=== PATIENT | male | born 1950 | race Caucasian/White ===

== ENCOUNTER 2018-06-21 00:10 | Outpatient (CLI) | payer MEDICARE, OTHER, SELFPAY ==
--- NOTE | 2018-06-21 12:15 | DI.RAD_ITS ---
SYMPTOM/DIAGNOSIS: OSTEOARTHRITIS, PAIN, M17.9 RIGHT KNEE: Comparison is made with 04/25/13. There is mild mara-articular spurring. There is slight narrowing of the medial femoral tibial joint space. No joint effusion is seen. IMPRESSION: Mild degenerative changes.
== END 2018-06-21 00:30 ==
PROVIDERS: PCP Nurse Practitioner Family; Visit Provider Nurse Practitioner Family
DX: M25.561 Pain in right knee (principal); M17.11 Unilateral primary osteoarthritis, right knee
CPT/HCPCS: 73562

== ENCOUNTER → 2018-07-19 13:45 | Outpatient (BNVA) | payer MEDICARE, OTHER, SELFPAY | PROVIDERS: PCP Nurse Practitioner Family; Referring Provider Nurse Practitioner Family; Visit Provider Student in an Organized Health Care Education/Training Program | DX: M70.51 Other bursitis of knee, right knee (principal); E11.9 Type 2 diabetes mellitus without complications; Z79.4 Long term (current) use of insulin | CPT/HCPCS: 99203; 99214 ==

== ENCOUNTER → 2018-08-30 13:51 | Outpatient (BNVA) | payer MEDICARE, OTHER, SELFPAY | PROVIDERS: PCP Nurse Practitioner Family; Referring Provider Nurse Practitioner Family; Visit Provider Student in an Organized Health Care Education/Training Program | DX: M70.51 Other bursitis of knee, right knee (principal) | CPT/HCPCS: 99211; 99213 ==

== ENCOUNTER 2018-09-07 01:30 | Outpatient (CLI) | payer MEDICARE, OTHER, SELFPAY ==
--- NOTE | 2018-09-09 12:10 | DIABASSESS_ITS ---
DESCRIPTION/ASSESSMENT: Red Corral presents for diabetes self management focused on his diet to help with weight loss. He has had a recent increase in A1c to 8.2. He has started participating in Diabetes Exercise program and he has been to PT recently. He manages his diabetes with 50u Levemir twice daily which he does not believe is effective. He had maintained good glycemic control on 10u Lantus twice daily until insurance would not cover the Lantus. He is also managed with Metformin and newly prescribed Jardiance which he believes is helping his blood sugars. He also takes tumeric for diabetes management. He states he is off the Oxycodone. Red eats sausage and salvadorean muffin or an energy bar for breakfast; 2 luncheon meat sandwiches or a centerless grinder or PBJ sandwiches for lunch. He has vegetables for supper, red skinned potatoes, and main dish like stew. States he goes to bed at 7 but is awake at 9 and has stew or PBJ sandwich. States me monitors blood sugars in AM at [id number]=667 since Jardiance. States he does feel symptoms of hypoglycemia at 139mg/dl. He denies stress. INTERVENTION: He admits to overeating. Discussed triggers and habits re: food. Reviewed mindful eating; hunger/fullness. Discussed attempting smaller portions and waiting 20-30 minutes. Discussed ways to cut back on grains. Discussed physical activity and he feels he is doing well to come to the exercise program. Explained medication change related to hypoglycemia symptoms. ACTION PLAN: Stanislav will: Slow down how fast he eats a meal; eat open face sandwich at 9PM; cut back to 1 sandwich at lunch and wait 20 minutes before eating second sandwich. We will follow up by telephone or during diabetes exercise. Individual DSME/T __3__ units billed TIME IN: 1200 OUT:1250 No DM group education series being offered at this time.
== END 2018-09-07 01:50 ==
PROVIDERS: PCP Nurse Practitioner Family; Visit Provider Dietitian, Registered
DX: E11.9 Type 2 diabetes mellitus without complications (principal); Z79.4 Long term (current) use of insulin; Z71.3 Dietary counseling and surveillance
CPT/HCPCS: 97802

== ENCOUNTER 2018-09-07 04:48 | Outpatient (RCR) | payer SELFPAY | END 2018-09-19 23:59 | disposition home or self-care (01) | LOC: CR 04:48 | PROVIDERS: PCP Nurse Practitioner Family; Visit Provider Family Medicine | DX: Z51.89 Encounter for other specified aftercare (principal) ==

== ENCOUNTER 2018-09-09 12:34 | Outpatient (REF) | payer MEDICARE, OTHER, SELFPAY ==
[2018-09-09 22:11] LABS: Vitamin B12 82 pg/mL (193-986)
== END 2018-09-09 12:54 ==
LOC: NCHCN 12:34
PROVIDERS: PCP Nurse Practitioner Family; Visit Provider Nurse Practitioner Family
DX: D51.9 Vitamin B12 deficiency anemia, unspecified (principal)
CPT/HCPCS: 82607

== ENCOUNTER 2018-10-19 11:00 | Outpatient (RCR) | payer SELFPAY ==
--- NOTE | 2018-09-21 11:00 | PR3E_ITS ---
Red Corral is 67 year old male, referred to the Diabetes Exercise program by his primary provider, Xochitl CARROLL. PMH: Diabetes, Obesity, Depression, Former cigarette smoker, BPH, anemia, atrial fibrillation, CAD w/ CABG in 2012, Hypertension, Hyperlipidemia, obstructive sleep apnea Orthopedic history: Hand surgery, hernia w/ repair, hx of right ankle fracture, degenerative changes in his knee, low back pain, osteoarthritis, chronic pain Medications: Metformin, Atorvastatin, Trasodone, Sertraline, Nitroglycerin, Lopressor, Losartan, Aspirin, Insulin, Jardiance, Lasix Pt presented on 09/07/18 for a pre-program intake. At this time he was alert and oriented x4. Completed all intake assessments, read and signed consents for the diabetes exercise program. Color WNL, lungs clear to auscultation on posterior assessment, heart sounds distant. Height 68in., Weight 264 lbs, BMI 40.1 Learning to live well with Diabetes booklet provided. Discussion re: diabetes and exercise. First day of exercise: Patient started the program on 09/21/18. He showed up for program with his diabetes booklet completed and appropriately logged his sugars and daily exercise starting 09/20/18. Hist resting vitals were BP 129/73, HR 65, weight 260lbs, pre blood sugar 231.Pt tolerated 21 minutes of exercise divided into 5-6 minutes increments on the treadmill, NuStep, and UBE. Blood pressure range w/ exercise was 130-141/66-70, HR w/ exercise 58-65 bpm, VIVIANA RPE #'s were 13-15. Will continue to guide patient through the 8 week exercise program, assist as needed, and encourage daily logging and home exercise plan.
== END 2018-10-19 23:59 | disposition home or self-care (01) ==
LOC: CR 11:00
PROVIDERS: PCP Nurse Practitioner Family; Visit Provider Family Medicine
DX: Z51.89 Encounter for other specified aftercare (principal)

== ENCOUNTER 2018-11-04 14:04 | Outpatient (REF) | payer MEDICARE, OTHER, SELFPAY ==
[2018-11-04 20:52] LABS: ALT 22 U/L (12-78); AST 14 U/L (15-37); Alkaline Phosphatase 134 U/L (46-116); Anion Gap 8.4 mmol/L (3-11); BUN 22 mg/dL (7-18); CO2 29.6 mmol/L (21.0-32.0); CREATININE 1.06 mg/dL (0.70-1.30); Calcium 9.8 mg/dL (8.5-10.1); Chloride 103 mmol/L (98-107); Cholesterol 109 mg/dL (50-200); Glucose 149 mg/dL (70-100); HDL Cholesterol 24 mg/dL (40-60); LDL CHOLESTEROL 62 mg/dL (<100); Potassium 3.7 mmol/L (3.5-5.1); Sodium 141 mmol/L (136-145); Triglyceride 157 mg/dL (30-150)
[2018-11-04 21:08] LABS: Creatine Kinase 62 U/L (39-308)
[2018-11-08 09:28] LABS: PSA, Screening 2.1 ng/ml (0-4.5)
== END 2018-11-04 14:24 ==
LOC: NCHCN 14:04
PROVIDERS: PCP Nurse Practitioner Family; Visit Provider Nurse Practitioner Family
DX: E78.5 Hyperlipidemia, unspecified (principal); I10 Essential (primary) hypertension; N40.0 Benign prostatic hyperplasia without lower urinary tract symptoms; Z12.5 Encounter for screening for malignant neoplasm of prostate
CPT/HCPCS: 80048; 80061; 82550; 83721; 84153; 84075; 84450; 84460

== ENCOUNTER 2018-11-09 12:03 | Outpatient (CLI) | payer MEDICARE, OTHER, SELFPAY ==
[2018-11-09 13:57] LABS: GGT 39 U/L (15-85)
== END 2018-11-09 12:23 ==
PROVIDERS: PCP Nurse Practitioner Family; Visit Provider Nurse Practitioner Family
DX: R74.8 Abnormal levels of other serum enzymes (principal)
CPT/HCPCS: 36415; 82977

== ENCOUNTER 2018-11-18 13:37 | Outpatient (RCR) | payer SELFPAY | END 2018-11-19 23:59 | disposition home or self-care (01) | LOC: CR 13:37 | PROVIDERS: PCP Nurse Practitioner Family; Visit Provider Family Medicine | DX: Z51.89 Encounter for other specified aftercare (principal) ==

== ENCOUNTER 2018-12-16 11:27 | Outpatient (RCR) | payer SELFPAY | END 2018-12-19 23:59 | disposition home or self-care (01) | LOC: CR 11:27 | PROVIDERS: PCP Nurse Practitioner Family; Visit Provider Family Medicine | DX: Z51.89 Encounter for other specified aftercare (principal) ==

== ENCOUNTER 2018-12-20 14:16 | Outpatient (RCR) | payer SELFPAY | END 2019-01-19 23:59 | disposition home or self-care (01) | LOC: CR 14:16 | PROVIDERS: PCP Nurse Practitioner Family; Visit Provider Family Medicine | DX: Z51.89 Encounter for other specified aftercare (principal) ==

== ENCOUNTER 2019-02-11 08:53 | Outpatient (CLI) | payer MEDICARE, OTHER, SELFPAY ==
--- NOTE | 2019-02-11 13:00 | DI.RAD_ITS ---
SYMPTOM/DIAGNOSIS: LEG PAIN M79.606 RIGHT TIB/FIB: Comparison 10/28/17 No acute fracture or dislocation is seen. There is an old healed fracture of the distal right fibula. There is a vascular clip seen in the soft tissues medially. IMPRESSION: No acute abnormality.
== END 2019-02-11 09:13 ==
PROVIDERS: PCP Nurse Practitioner Family; Visit Provider Nurse Practitioner Family
DX: M79.604 Pain in right leg (principal)
CPT/HCPCS: 73590

== ENCOUNTER 2019-02-20 04:02 | Outpatient (RCR) | payer SELFPAY ==
--- NOTE | 2019-05-02 14:26 | PR3E_ITS ---
68 year old male joined the maintenance phase of cardiac rehabilitation in September 2018 after bring referred by PCP for diabetes. The patient attended classes from September - November 2018. Patient is being discharged from the program. Will assist patient to re-enroll in the program and obtaining proper referrals in the future should he want to return.
--- NOTE | 2019-05-02 14:30 | PR3E_ITS ---
68 year old male joined the maintenance phase of cardiac rehabilitation in September 2018 after being referred by PCP for diabetes. The patient attended classes from September - November 2018. Patient is being discharged from the program. Will assist patient to re-enroll in the program and obtaining proper referrals in the future should he want to return.
== END 2019-03-21 23:59 | disposition home or self-care (01) ==
LOC: CR 04:02
PROVIDERS: PCP Nurse Practitioner Family; Visit Provider Family Medicine
DX: Z51.89 Encounter for other specified aftercare (principal)

== ENCOUNTER 2019-05-09 14:38 | Outpatient (REF) | payer MEDICARE, OTHER, SELFPAY ==
[2019-05-09 21:27] LABS: Anion Gap 9.5 mmol/L (3-11); BUN 23 mg/dL (7-18); CO2 26.5 mmol/L (21.0-32.0); CREATININE 0.98 mg/dL (0.70-1.30); Calcium 10.1 mg/dL (8.5-10.1); Chloride 101 mmol/L (98-107); Glucose 237 mg/dL (70-100); Potassium 4.2 mmol/L (3.5-5.1); Sodium 137 mmol/L (136-145)
== END 2019-05-09 14:58 ==
LOC: NCHCN 14:38
PROVIDERS: PCP Nurse Practitioner Family; Visit Provider Nurse Practitioner Family
DX: E11.9 Type 2 diabetes mellitus without complications (principal)
CPT/HCPCS: 80048

== ENCOUNTER 2019-11-10 13:49 | Outpatient (REF) | payer MEDICARE, OTHER, SELFPAY ==
[2019-11-10 17:04] LABS: Anion Gap 6.1 mmol/L (3-11); BUN 16 mg/dL (7-18); CO2 29.9 mmol/L (21.0-32.0); CREATININE 0.98 mg/dL (0.70-1.30); Calcium 9.6 mg/dL (8.5-10.1); Chloride 99 mmol/L (98-107); Glucose 245 mg/dL (74-106); Magnesium 1.4 mg/dL (1.8-2.4); Potassium 3.7 mmol/L (3.5-5.1); Sodium 135 mmol/L (136-145)
[2019-11-10 17:05] LABS: Troponin I < 0.05 ng/Ml (<0.06)
[2019-11-12 14:49] LABS: COVID-19 RT-PCR Result NEGATIVE (Negative)
== END 2019-11-10 14:09 ==
LOC: NCHCN 13:49
PROVIDERS: PCP Nurse Practitioner Family; Visit Provider Nurse Practitioner Family
DX: R07.89 Other chest pain (principal); J06.9 Acute upper respiratory infection, unspecified
CPT/HCPCS: 80048; U0003; 83735; 84484

== ENCOUNTER 2019-12-07 14:05 | Outpatient (REF) | payer MEDICARE, OTHER, SELFPAY ==
[2019-12-07 20:02] LABS: ALT 23 U/L (16-63); AST 17 U/L (15-37); HDL Cholesterol 26 mg/dL (40-60); LDL CHOLESTEROL 51 mg/dL (<100); Magnesium 1.6 mg/dL (1.8-2.4)
[2019-12-07 20:27] LABS: Creatine Kinase 47 U/L (39-308)
== END 2019-12-07 14:25 ==
LOC: NCHCN 14:05
PROVIDERS: PCP Nurse Practitioner Family; Visit Provider Nurse Practitioner Family
DX: E78.5 Hyperlipidemia, unspecified (principal)
CPT/HCPCS: 82550; 83721; 83718; 83735; 84450; 84460

== ENCOUNTER 2020-01-03 13:53 | Outpatient (REF) | payer MEDICARE, OTHER, SELFPAY ==
[2020-01-03 20:14] LABS: Magnesium 1.8 mg/dL (1.8-2.4)
[2020-01-03 20:16] LABS: Vitamin B12 76 pg/mL (193-986)
[2020-01-05 04:57] LABS: Vitamin D 25 Total 28.7 ng/ml (30-100)
== END 2020-01-03 14:13 ==
LOC: NCHCN 13:53
PROVIDERS: PCP Nurse Practitioner Family; Visit Provider Nurse Practitioner Family
DX: D51.9 Vitamin B12 deficiency anemia, unspecified (principal); E83.42 Hypomagnesemia; E11.9 Type 2 diabetes mellitus without complications; Z79.4 Long term (current) use of insulin
CPT/HCPCS: 82306; 82607; 83735

== ENCOUNTER 2020-01-06 03:57 | Outpatient (CLI) | payer MEDICARE, OTHER, SELFPAY ==
--- NOTE | 2020-01-31 09:50 | ZIOP_ITS ---
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 Patient was in normal sinus rhythm for the majority of the recording with an average heart rate of 74 bpm. There were 2 episodes of supraventricular tachycardia with an average heart rate of 140 bpm. The longest episode lasted 4 beats. There were rare isolated supraventricular ectopic beats and ventricular ectopic beats. There were no episodes of atrial fibrillation, no pauses greater than 3 seconds and no evidence of high degree heart block. A single patient triggered event was associated with sinus rhythm.
== END 2020-01-06 04:17 ==
PROVIDERS: PCP Nurse Practitioner Family; Visit Provider Nurse Practitioner Family
DX: I48.91 Unspecified atrial fibrillation (principal); I47.1 Supraventricular tachycardia
CPT/HCPCS: 0296T

== ENCOUNTER 2020-01-31 12:00 | Outpatient (CLI) | payer MEDICARE, OTHER, SELFPAY | END 2020-01-31 12:20 | PROVIDERS: PCP Nurse Practitioner Family; Referring Provider Nurse Practitioner Family; Visit Provider Internal Medicine Cardiovascular Disease | DX: I48.20 Chronic atrial fibrillation, unspecified (principal); I47.1 Supraventricular tachycardia | CPT/HCPCS: 0298T ==

== ENCOUNTER 2020-02-21 20:50 | Outpatient (REF) | payer MEDICARE, OTHER, SELFPAY ==
[2020-02-21 19:31] LABS: HCT 33.4 % (40.0-50.0); HGB 11.5 g/dL (13.5-17.5); MCH 34.2 pg (27.0-33.0); MCHC 34.4 % (32.0-36.0); MCV 99.4 fL (80-95); MPV 10.1 fL (8.0-11.0); Platelet Count 243 10^3/uL (130-400); RBC 3.36 10^6/uL (4.36-5.78); RDW 15.2 % (11.8-14.1); RDW-SD 55.8 fL; WBC 9.37 10^3/uL (4.4-10.8)
[2020-02-21 19:54] LABS: ALT 28 U/L (16-63); AST 16 U/L (15-37); Albumin 3.3 g/dL (3.4-5.0); Alkaline Phosphatase 116 U/L (46-116); Anion Gap 8.7 mmol/L (3-11); BUN 13 mg/dL (7-18); Bilirubin, Total 0.5 mg/dL (0.2-1.0); CO2 27.3 mmol/L (21.0-32.0); CREATININE 1.01 mg/dL (0.70-1.30); Calcium 9.5 mg/dL (8.5-10.1); Chloride 100 mmol/L (98-107); Glucose 261 mg/dL (74-106); Magnesium 1.8 mg/dL (1.8-2.4); Potassium 4.1 mmol/L (3.5-5.1); Sodium 136 mmol/L (136-145); TSH 2.04 uIU/mL (0.36-3.74); Total Protein 7.8 g/dL (6.4-8.2)
[2020-02-22 09:43] LABS: Iron 34 ug/dL (65-175); Total Iron Binding Capacity 259 ug/dL (250-450); Transferrin Sat 13 % (20-55)
[2020-02-22 10:10] LABS: Vitamin B12 105 pg/mL (193-986)
[2020-02-22 18:29] LABS: Folate 15.6 ng/mL (See Note)
[2020-02-24 11:21] LABS: Homocysteine >50.0 umol/L (5.0-13.9)
[2020-02-25 12:40] LABS: Methylmalonic Acid 5.29 nmol/mL (<=0.40)
== END 2020-02-21 21:10 ==
LOC: NCHCN 20:50
PROVIDERS: PCP Nurse Practitioner Family; Visit Provider Nurse Practitioner Family
DX: I10 Essential (primary) hypertension (principal); E83.42 Hypomagnesemia; E11.9 Type 2 diabetes mellitus without complications; D64.9 Anemia, unspecified; R89.9 Unspecified abnormal finding in specimens from other organs, systems and tissues
CPT/HCPCS: 80053; 80186; 83090; 85027; 82607; 82746; 83540; 83550; 83735; 84443

== ENCOUNTER → 2020-04-17 10:32 | Outpatient (BNVA) | payer MEDICARE, OTHER, SELFPAY | PROVIDERS: PCP Nurse Practitioner Family; Referring Provider Nurse Practitioner Family; Visit Provider Internal Medicine Cardiovascular Disease | DX: I48.91 Unspecified atrial fibrillation (principal); I25.10 Atherosclerotic heart disease of native coronary artery without angina pectoris; I10 Essential (primary) hypertension; E78.5 Hyperlipidemia, unspecified; G47.33 Obstructive sleep apnea (adult) (pediatric); Z95.1 Presence of aortocoronary bypass graft; Z86.79 Personal history of other diseases of the circulatory system | CPT/HCPCS: 99203; 99214 ==

== ENCOUNTER 2020-04-17 15:07 | Outpatient (REF) | payer MEDICARE, OTHER, SELFPAY ==
[2020-04-17 18:54] LABS: Abs Immature Grans 0.03 10^3/uL (0.0-0.06); Absolute Basophil Count 0.05 10^3/uL (0.0-0.2); Absolute Eosinophil Count 0.13 10^3/uL (0.0-0.7); Absolute Lymphocyte Count 1.45 10^3/uL (1.2-3.4); Absolute Monocyte Count 0.58 10^3/uL (0.1-0.8); Absolute Neutrophil Count 8.53 10^3/uL (1.2-6.7); Basophils % 0.5; Eosinophils % 1.2; HCT 40.3 % (40.0-50.0); HGB 13.3 g/dL (13.5-17.5); Immature Grans % 0.3; Lymphocytes % 13.5; MCH 29.9 pg (27.0-33.0); MCV 90.6 fL (80-95); MPV 11.2 fL (8.0-11.0); Monocytes % 5.4; Neutrophils % 79.1; Nucleated RBC 0 %; Platelet Count 276 10^3/uL (130-400); RBC 4.45 10^6/uL (4.36-5.78); RDW 13.4 % (11.8-14.1); RDW-SD 44.7 fL; WBC 10.77 10^3/uL (4.4-10.8)
[2020-04-17 19:31] LABS: Vitamin B12 304 pg/mL (193-986)
== END 2020-04-17 15:27 ==
LOC: NCHCN 15:07
PROVIDERS: PCP Nurse Practitioner Family; Visit Provider Nurse Practitioner Family
DX: R53.83 Other fatigue (principal); D64.9 Anemia, unspecified
CPT/HCPCS: 82607; 85025

== ENCOUNTER 2020-07-24 22:51 | Outpatient (REF) | payer MEDICARE, OTHER, SELFPAY ==
[2020-07-24 22:05] LABS: HGB 14.1 g/dL (13.5-17.5); MCV 87.1 fL (80-95)
[2020-07-24 22:17] LABS: Iron 46 ug/dL (65-175)
[2020-07-24 22:23] LABS: HCT 44.6 % (40.0-50.0); MCH 27.5 pg (27.0-33.0); MCHC 31.6 % (32.0-36.0); MPV 10.6 fL (8.0-11.0); Platelet Count 300 10^3/uL (130-400); RBC 5.12 10^6/uL (4.36-5.78); RDW 14.4 % (11.8-14.1); RDW-SD 45.9 fL; WBC 10.69 10^3/uL (4.4-10.8)
[2020-07-24 23:17] LABS: Vitamin B12 150 pg/mL (193-986)
[2020-07-26 04:25] LABS: Vitamin D 25 Total 29.5 ng/ml (30-100)
== END 2020-07-24 22:52 | disposition home or self-care (01) ==
LOC: NCHCN 22:51
PROVIDERS: PCP Nurse Practitioner Family; Visit Provider Nurse Practitioner Family
DX: D64.9 Anemia, unspecified (principal); E11.9 Type 2 diabetes mellitus without complications; F32.9 Major depressive disorder, single episode, unspecified; E55.9 Vitamin D deficiency, unspecified
CPT/HCPCS: 82306; 85027; 82607; 83540

== ENCOUNTER 2020-08-22 14:52 | Outpatient (REF) | payer MEDICARE, OTHER, SELFPAY ==
[2020-08-22 15:55] LABS: Iron 42 ug/dL (65-175); Total Iron Binding Capacity 295 ug/dL (250-450); Transferrin Sat 14 % (20-55)
[2020-08-22 16:02] LABS: PROTEIN < 6.0 mg/dL
[2020-08-22 16:05] LABS: COMMENT (LAB VIEW ONLY) 24.67 mg/dL; Microalb ug/mg Crea 51.9 ug/mg Cr
[2020-08-22 16:08] LABS: ALT 30 U/L (16-63); AST 18 U/L (15-37); Anion Gap 7.1 mmol/L (3-11); BUN 14 mg/dL (7-18); CO2 27.9 mmol/L (21.0-32.0); CREATININE 0.9 mg/dL (0.70-1.30); Calcium 9.9 mg/dL (8.5-10.1); Chloride 103 mmol/L (98-107); Glucose 140 mg/dL (74-106); HDL Cholesterol 26 mg/dL (40-60); LDL CHOLESTEROL 52 mg/dL (<100); Potassium 3.7 mmol/L (3.5-5.1); Sodium 138 mmol/L (136-145); TSH 1.73 uIU/mL (0.36-3.74)
[2020-08-22 16:24] LABS: Creatine Kinase 65 U/L (39-308)
== END 2020-08-22 14:53 | disposition home or self-care (01) ==
LOC: NCHCN 14:52
PROVIDERS: PCP Nurse Practitioner Family; Visit Provider Nurse Practitioner Family
DX: E78.5 Hyperlipidemia, unspecified (principal); I10 Essential (primary) hypertension; E11.9 Type 2 diabetes mellitus without complications
CPT/HCPCS: 80048; 82550; 83721; 82043; 82565; 82570; 83540; 83550; 83718; 84156; 84443; 84450; 84460

== ENCOUNTER 2020-11-20 14:26 | Outpatient (REF) | payer MEDICARE, OTHER, SELFPAY ==
[2020-11-20 19:48] LABS: Vitamin B12 282 pg/mL (193-986)
== END 2020-11-20 14:27 | disposition home or self-care (01) ==
LOC: NCHCN 14:26
PROVIDERS: PCP Nurse Practitioner Family; Visit Provider Nurse Practitioner Family
DX: D51.9 Vitamin B12 deficiency anemia, unspecified (principal)
CPT/HCPCS: 82607

== ENCOUNTER 2021-05-20 13:55 | Outpatient (REF) | payer MEDICARE, OTHER, SELFPAY ==
[2021-05-20 20:28] LABS: HCT 43.9 % (40.0-50.0); HGB 13.9 g/dL (13.5-17.5); MCH 27.1 pg (27.0-33.0); MCHC 31.7 % (32.0-36.0); MCV 85.7 fL (80-95); MPV 10.2 fL (8.0-11.0); Platelet Count 291 10^3/uL (130-400); RBC 5.12 10^6/uL (4.36-5.78); RDW 13.7 % (11.8-14.1); RDW-SD 42.8 fL; WBC 10.09 10^3/uL (4.4-10.8)
[2021-05-20 20:34] LABS: Iron 44 ug/dL (65-175); Total Iron Binding Capacity 262 ug/dL (250-450); Transferrin Sat 17 % (20-55)
[2021-05-20 20:43] LABS: Hemoglobin A1C 7.5 % (<5.7)
[2021-05-20 21:02] LABS: Vitamin B12 213 pg/mL (193-986)
== END 2021-05-20 13:56 | disposition home or self-care (01) ==
LOC: NCHCN 13:55
PROVIDERS: PCP Nurse Practitioner Family; Visit Provider Nurse Practitioner Family
DX: E11.9 Type 2 diabetes mellitus without complications (principal); E53.8 Deficiency of other specified B group vitamins; R53.83 Other fatigue; D64.9 Anemia, unspecified
CPT/HCPCS: 82306; 85027; 82607; 83036; 83540; 83550

== ENCOUNTER 2021-08-28 13:52 | Outpatient (REF) | payer MEDICARE, OTHER, SELFPAY ==
[2021-08-28 20:42] LABS: HCT 43.8 % (40.0-50.0); HGB 13.9 g/dL (13.5-17.5)
[2021-08-28 20:57] LABS: Iron 71 ug/dL (65-175); Total Iron Binding Capacity 279 ug/dL (250-450); Transferrin Sat 25 % (20-55)
[2021-08-28 21:22] LABS: Ferritin 165 ng/mL (26-388); Folate 13.5 ng/mL (8.6-20.0); Vitamin B12 191 pg/mL (193-986)
== END 2021-08-28 13:53 | disposition home or self-care (01) ==
LOC: NCHCN 13:52
PROVIDERS: PCP Nurse Practitioner Family; Visit Provider Nurse Practitioner Family
DX: D64.9 Anemia, unspecified (principal); E53.8 Deficiency of other specified B group vitamins
CPT/HCPCS: 82607; 82728; 82746; 83540; 83550; 85014; 85018

== ENCOUNTER 2021-10-15 20:10 | Outpatient (REF) | payer MEDICARE, OTHER, SELFPAY ==
[2021-10-15 20:11] LABS: Anion Gap 9.8 mmol/L (3-11); BUN 22 mg/dL (7-18); CO2 24.2 mmol/L (21.0-32.0); CREATININE 0.9 mg/dL (0.70-1.30); Calcium 9.4 mg/dL (8.5-10.1); Calculated LDL 26 mg/dL (<100); Chloride 106 mmol/L (98-107); Cholesterol 86 mg/dL (<200); Glucose 161 mg/dL (74-106); HDL Cholesterol 24 mg/dL (40-60); Potassium 3.8 mmol/L (3.5-5.1); Sodium 140 mmol/L (136-145); Triglyceride 181 mg/dL (<150)
[2021-10-16 10:55] LABS: ALT 30 U/L (16-63); AST 24 U/L (15-37)
[2021-10-16 11:06] LABS: Creatine Kinase 80 U/L (39-308)
== END 2021-10-15 20:11 | disposition home or self-care (01) ==
LOC: NCHCN 20:10
PROVIDERS: PCP Nurse Practitioner Family; Visit Provider Nurse Practitioner Family
DX: E78.5 Hyperlipidemia, unspecified (principal); E11.9 Type 2 diabetes mellitus without complications; R42 Dizziness and giddiness
CPT/HCPCS: 80048; 80061; 82550; 84450; 84460

== ENCOUNTER 2021-11-14 12:55 | Outpatient (REF) | payer MEDICARE, OTHER, SELFPAY ==
[2021-11-14 15:18] LABS: HCT 40.5 % (40.0-50.0); HGB 12.7 g/dL (13.5-17.5); MCH 27.3 pg (27.0-33.0); MCHC 31.4 % (32.0-36.0); MCV 87 fL (80-95); MPV 10.9 fL (8.0-11.0); Platelet Count 238 10^3/uL (130-400); RBC 4.66 10^6/uL (4.36-5.78); RDW 14.6 % (11.8-14.1); RDW-SD 46.2 fL; WBC 9.31 10^3/uL (4.4-10.8)
[2021-11-14 16:00] LABS: ALT 26 U/L (16-63); AST 19 U/L (15-37); Albumin 3.4 g/dL (3.4-5.0); Alkaline Phosphatase 127 U/L (46-116); BUN 15 mg/dL (7-18); Bilirubin, Total 0.3 mg/dL (0.2-1.0); Calcium 9.4 mg/dL (8.5-10.1); Chloride 105 mmol/L (98-107); Glucose 158 mg/dL (74-106); Magnesium 2.1 mg/dL (1.8-2.4); Potassium 3.8 mmol/L (3.5-5.1); Sodium 140 mmol/L (136-145); Total Protein 7.6 g/dL (6.4-8.2); Vitamin B12 246 pg/mL (193-986)
[2021-11-14 16:13] LABS: Hemoglobin A1C 6.9 % (<5.7)
== END 2021-11-14 12:56 | disposition home or self-care (01) ==
LOC: NCHCN 12:55
PROVIDERS: PCP Nurse Practitioner Family; Visit Provider Nurse Practitioner Family
DX: R42 Dizziness and giddiness (principal); I10 Essential (primary) hypertension; R73.09 Other abnormal glucose; R68.89 Other general symptoms and signs
CPT/HCPCS: 80053; 85027; 82607; 83036; 83735

== ENCOUNTER 2022-02-06 08:54 | Outpatient (CLI) | payer MEDICARE, OTHER, SELFPAY | END 2022-02-06 08:55 | disposition home or self-care (01) | LOC: DI.CARD 09:01 | PROVIDERS: PCP Nurse Practitioner Family; Visit Provider Internal Medicine Cardiovascular Disease | DX: R69 Illness, unspecified (principal) | CPT/HCPCS: 93010 ==

== ENCOUNTER 2022-02-20 08:30 | Outpatient (CLI) | payer MEDICARE, OTHER, SELFPAY ==
--- NOTE | 2022-02-20 08:30 | RT.EKG_ITS ---
APPROVED REPORT Exam: Resting ECG Reason for Exam: near syncope Patient Location: O HR:76 bpm ECG Measurements Heart Rate 76 AXIS CA 191 P 25 QRSd 89 QRS 39 QT 431 T 38 QTc 485 Conclusion Sinus rhythm...normal P axis, V-rate 50- 99 Low voltage, extremity and precordial leads...extremity<0.5mV, precordial<1.0mV Poor R wave progression
== END 2022-02-20 08:31 | disposition home or self-care (01) ==
LOC: DI.CARD 08:34
PROVIDERS: PCP Nurse Practitioner Family; Visit Provider Internal Medicine Cardiovascular Disease
DX: I48.91 Unspecified atrial fibrillation (principal); R55 Syncope and collapse
CPT/HCPCS: 93010

== ENCOUNTER → 2022-02-20 09:34 | Outpatient (BNVA) | payer MEDICARE, OTHER, SELFPAY | PROVIDERS: PCP Nurse Practitioner Family; Referring Provider Nurse Practitioner Family; Visit Provider Internal Medicine Cardiovascular Disease | DX: I25.810 Atherosclerosis of coronary artery bypass graft(s) without angina pectoris (principal); I10 Essential (primary) hypertension; R55 Syncope and collapse; I48.91 Unspecified atrial fibrillation | CPT/HCPCS: 93005; 99214 ==

== ENCOUNTER 2022-04-15 16:31 | Outpatient (REF) | payer MEDICARE, OTHER, SELFPAY ==
[2022-04-15 22:05] LABS: Vitamin B12 435 pg/mL (193-986)
== END 2022-04-15 16:32 | disposition home or self-care (01) ==
LOC: NCHCN 16:31
PROVIDERS: PCP Nurse Practitioner Family; Visit Provider Nurse Practitioner Family
DX: E53.8 Deficiency of other specified B group vitamins (principal)
CPT/HCPCS: 82607

== ENCOUNTER 2022-08-20 20:01 | Outpatient (REF) | payer MEDICARE, OTHER, SELFPAY ==
[2022-08-20 20:30] LABS: Hemoglobin A1C 6.5 % (<5.7)
[2022-08-20 21:22] LABS: ALT 25 U/L (16-63); AST 20 U/L (15-37); Albumin 3.7 g/dL (3.4-5.0); Alkaline Phosphatase 136 U/L (46-116); Anion Gap 12.2 mmol/L (3-11); BUN 28 mg/dL (7-18); Bilirubin, Total 0.4 mg/dL (0.2-1.0); CO2 23.8 mmol/L (21.0-32.0); Calcium 10.6 mg/dL (8.5-10.1); Chloride 101 mmol/L (98-107); Estimated GFR 81.47 (mL/min/1.73m2); Glucose 162 mg/dL (74-106); HDL Cholesterol 26 mg/dL (40-60); LDL CHOLESTEROL 58 mg/dL (<100); Sodium 137 mmol/L (136-145); Total Protein 8.5 g/dL (6.4-8.2)
[2022-08-20 21:34] LABS: Creatine Kinase 90 U/L (39-308)
== END 2022-08-20 20:02 | disposition home or self-care (01) ==
LOC: NCHCN 20:01
PROVIDERS: PCP Nurse Practitioner Family; Visit Provider Nurse Practitioner Family
DX: E11.9 Type 2 diabetes mellitus without complications (principal); E78.5 Hyperlipidemia, unspecified
CPT/HCPCS: 80053; 82550; 83721; 83036; 83718

== ENCOUNTER 2022-09-15 11:01 | Outpatient (REF) | payer MEDICARE, SELFPAY ==
[2022-09-15 16:16] LABS: Calcium 10.2 mg/dL (8.5-10.1)
== END 2022-09-15 11:02 | disposition home or self-care (01) ==
LOC: NCHCN 11:01
PROVIDERS: PCP Nurse Practitioner Family; Visit Provider Nurse Practitioner Family
DX: E83.52 Hypercalcemia
CPT/HCPCS: 82310

== ENCOUNTER 2022-10-25 06:44 | Emergency (ER) | payer MEDICARE, SELFPAY ==
[2022-10-25] VITALS (23 sets, daily range): BP systolic 153–179; BP diastolic 70–100; PULSE 80–98; RESP 8–31; TEMP 36.8; O2SAT 90–98
--- NOTE | 2022-10-25 06:45 | DI.CT_ITS ---
Exam(s) CT ABDOMEN PELVIS WO EXAM: CT ABDOMEN PELVIS WO CLINICAL HISTORY: bloating, r/o obstruction. TECHNIQUE: Imaging Protocol: Axial computed tomography images with coronal and sagittal reformatted images were created and reviewed CONTRAST MATERIAL: Intravenous: none Oral: None COMPARISON: No exams were available for comparison FINDINGS: VISUALIZED LUNG BASES: There is a partially visualized 7 millimeter nodule in the left lung base-left lower lobe, this evident on the uppermost image of this abdominal study. There are no pleural effus ions.. ABDOMEN: There is no ascites. LIVER: There are no obvious focal hepatic lesions evident of this noninfused study. GALLBLADDER/BILIARY: Cholelithiasis. Small gallstones noted in the gallbladder neck region. Gallbla dder is mildly distended but not does not appear edematous and there is no pericholecystic fluid. Th e CBD is not dilated. PANCREAS: No evidence of pancreatic mass nor dilatation of the pancreatic duct. SPLEEN: Spleen is not enlarged. No obvious intrasplenic lesions. ADRENALS: There are no significant adrenal masses. KIDNEYS:No cysts evident. No solid renal masses. No calculi nor hydronephrosis. . ABDOMINAL AORTA: Calcified but not enlarged. LYMPH NODES: There is no retroperitoneal nor paraaortic adenopathy. ABDOMINAL WALL: No evidence of significant anterior abdominal wall nor inguinal hernia. GI: There is no evidence of bowel obstruction, free air, nor abscess. PELVIS: LYMPH NODES: There is no intrapelvic nor inguinal adenopathy. GI: No evidence of appendicitis.No evidence of sigmoid diverticulitis. URINARY BLADDER: No calculi nor obvious masses evident REPRODUCTIVE: Prostate size normal. Seminal vesicles unremarkable. OSSEOUS: No significant osseous lesions. No fractures evident. IMPRESSION: 1. Cholelithiasis and gallbladder distension but without obvious gallbladder wall edema. CBD not dil ated. Recommend gallbladder ultrasound. 2. 7 mm nodule evident in the left lower lobe. Recommend follow-up chest CT scan to determine if th ere are additional lung nodules.. RADIATION DOSE DELIVERED: 1,748.39mGy.cm Total DLP DATA REPOSITORY: All CT scans at this facility are submitted to the National Radiology Data Registry (NRDR) Dose Index Registry (DIR) with the [employer] (ACR). RADIATION OPTIMIZATION: All CT scans at this facility use at least one of these dose optimization te chniques: automated exposure control; mA and/or kV adjustment per patient size (includes targeted exa ms where dose is matched to clinical indication); or iterative reconstruction.
--- NOTE | 2022-10-25 07:00 | RT.EKG_ITS ---
APPROVED REPORT Exam: Resting ECG Reason for Exam: Abd Pain over 45 Patient Location: E HR:96 bpm ECG Measurements Heart Rate 96 AXIS MS 208 P 35 QRSd 87 QRS 41 QT 374 T 22 QTc 473 Conclusion Sinus rhythm...normal P axis, V-rate 60- 99 Borderline prolonged MS interval...MS >207, V-rate 91-120 Low voltage, extremity and precordial leads...extremity<0.5mV, precordial<1.0mV Physician: no stemi
[2022-10-25] MEDS: Normal Saline 500 ML IV (07:23)
[2022-10-25] MEDS: ACETAMINOPHEN 1,000 MG/100 ML BTL 400 MG IVPB (07:24)
[2022-10-25] MEDS: Ketorolac 15 MG/ML VIAL IVP (07:24)
--- NOTE | 2022-10-25 07:35 | W.ED.GENAD ---
Discharge Plan Discharge Details Chief Complaint: Abd Prob Primary Care Provider: Xochitl Tello ED Provider: Hal Rose Home Meds and New Rx's Prescriptions: No Action turmeric root extract 500 mg capsule 500 mg PO DAILY marijuana Inhalation atorvastatin [Lipitor] 10 mg tablet 20 mg PO DAILY Patient Comments: Pt. states he takes 20 mg daily 06/04/15 sertraline 100 mg tablet 100 mg PO DAILY levomefolate calcium [L-Methylfolate] 15 mg tablet 15 mg PO DAILY fluticasone propionate 50 mcg/actuation spray,suspension 2 spray intranasal DAILY Rx Instructions: administer into each nostril triamcinolone acetonide 0.025 % lotion 1 applic topical BID polyethylene glycol 3350 17 gram/dose powder 17 g PO DAILY cholecalciferol (vitamin D3) 25 mcg (1,000 unit) capsule 25 mcg PO DAILY magnesium oxide 400 mg magnesium capsule 400 mg PO BID ferrous sulfate [FeroSul] 325 mg (65 mg iron) tablet 325 mg PO DAILY Trulicity 1.5 mg/0.5 mL pen injector 1.5 mg subcut QWEEK Jardiance 10 mg tablet 25 mg PO DAILY insulin aspart U-100 [Novolog FlexPen U-100 Insulin] 100 unit/mL (3 mL) insulin pen 10 unit subcut .as directed Patient Comments: 02/20/22 sliding scale RH losartan 50 MG tablet 50 mg PO DAILY trazodone 50 MG tablet 50 mg DAILY aspirin [Adult Low Dose Aspirin] 81 MG tablet,delayed release (DR/EC) 81 mg PO DAILY furosemide 20 MG tablet 20 mg PO BID nitroglycerin 0.4 MG tablet, sublingual 0.4 mg Sublingual DIRECTED PRN (Reason: Chest Pain) Qty: 25 0RF glimepiride 4 mg tablet 4 mg PO BID Patient Comments: TAKE ONE TABLET BY MOUTH TWICE A DAY insulin degludec [Tresiba FlexTouch U-200] 200 unit/mL (3 mL) insulin pen 180 unit SUBCUT Patient Comments: INJECT 180 UNITS SUBCUTANEOUSLY EVERY MORNING Medical Decision Making 72-year-old male with a past medical history of surgically repaired abdominal hernia, adenoma of the colon, atrial fibrillation, coronary artery disease, diabetes mellitus with insulin dependence, presents today for evaluation of abdominal distention and abdominal pain. Patient states that he has had bloating of the abdomen for the last 2 days. He states that he cannot have a bowel movement. He has had some hard bowel movements a day or so ago, but nothing since. He has taken a laxative without any improvement. He describes his abdomen is feeling like it is a tooth ache with extreme pressure. He denies chest pain. He denies shortness of breath. He denies vomiting but does admit to notable nausea. He denies any history of previous obstruction. No other complaints at this time. No other modifying factors. Exam demonstrates a distended abdomen, mild firmness on the right, mild tenderness in the epigastric and upper abdomen. No pain at McBurney's point focally, negative Loving sign. Differential includes constipation but also obstruction or intra-abdominal mass. Volvulus less likely. We will get a CT scan, treat his pain, gently rehydrate, monitor closely and reassess. Patient will be signed out to my colleague Dr. Rupali Funk for follow-up on labs and imaging. HPI General Date/Time Provider Initiated Documentation: 10/25/22 06:46. HPI Narrative: 72-year-old male with a past medical history of surgically repaired abdominal hernia, adenoma of the colon, atrial fibrillation, coronary artery disease, diabetes mellitus with insulin dependence, presents today for evaluation of abdominal distention and abdominal pain. Patient states that he has had bloating of the abdomen for the last 2 days. He states that he cannot have a bowel movement. He has had some hard bowel movements a day or so ago, but nothing since. He has taken a laxative without any improvement. He describes his abdomen is feeling like it is a tooth ache with extreme pressure. He denies chest pain. He denies shortness of breath. He denies vomiting but does admit to notable nausea. He denies any history of previous obstruction. No other complaints at this time. No other modifying factors. Related Data Home Medications Medication Instructions Recorded Confirmed aspirin 81 mg tablet,delayed 81 mg PO DAILY 12/14/13 10/25/22 release (Adult Low Dose Aspirin) furosemide 20 mg tablet 20 mg PO BID 12/14/13 10/25/22 losartan 50 mg tablet 50 mg PO DAILY 12/14/13 10/25/22 trazodone 50 mg tablet 50 mg DAILY 12/14/13 10/25/22 nitroglycerin 0.4 mg sublingual 0.4 mg sublingual DIRECTED PRN 12/15/13 10/25/22 tablet Chest Pain ##25 Marijuana inhalation 06/04/15 02/20/22 turmeric root extract 500 mg 500 mg PO DAILY 07/19/18 10/25/22 capsule atorvastatin 10 mg tablet (Lipitor) 20 mg PO DAILY 10/21/21 02/20/22 cholecalciferol (vitamin D3) 25 25 mcg PO DAILY 10/21/21 10/25/22 mcg (1,000 unit) capsule dulaglutide 1.5 mg/0.5 mL 1.5 mg subcut QWEEK 10/21/21 10/25/22 subcutaneous pen injector (Trulicity) ferrous sulfate 325 mg (65 mg 325 mg PO DAILY 10/21/21 10/25/22 iron) tablet (FeroSul) fluticasone propionate 50 2 spray intranasal DAILY 10/21/21 10/25/22 mcg/actuation nasal spray,suspension levomefolate calcium 15 mg tablet 15 mg PO DAILY 10/21/21 10/25/22 (L-Methylfolate) magnesium oxide 400 mg PO BID 10/21/21 10/25/22 polyethylene glycol 3350 17 17 g PO DAILY 10/21/21 10/25/22 gram/dose oral powder sertraline 100 mg tablet 100 mg PO DAILY 10/21/21 10/25/22 triamcinolone acetonide 0.025 % 1 applic topical BID 10/21/21 10/25/22 lotion empagliflozin 10 mg tablet 25 mg PO DAILY 01/14/22 10/25/22 (Jardiance) insulin aspart U-100 100 unit/mL 10 unit subcut .as directed 02/20/22 10/25/22 (3 mL) subcutaneous pen (Novolog FlexPen U-100 Insulin aspart) glimepiride 4 mg tablet 4 mg PO BID 10/25/22 10/25/22 insulin degludec 200 unit/mL (3 180 unit subcut 10/25/22 mL) subcutaneous pen (Tresiba FlexTouch U-200 insulin) Previous Rx's Medication Instructions Recorded nitroglycerin 0.4 mg sublingual 0.4 mg sublingual DIRECTED PRN 12/15/13 tablet Chest Pain ##25 Allergies Allergy/AdvReac Type Severity Reaction Status Date / Time bupropion HCl Allergy Unverified 10/25/22 06:55 [From Wellbutrin] erythromycin base Allergy Unverified 10/25/22 06:55 lisinopril Allergy Verified 10/25/22 06:55 Penicillins Allergy Unverified 10/25/22 06:55 pravastatin sodium Allergy Unverified 10/25/22 06:55 [From Pravachol] General Stated Complaint: Abd Prob LUX: 3 Review of Systems All systems reviewed & are unremarkable except as noted in HPI and below PFSH All Active Problems Morbid obesity (Acute) Tinnitus (Acute) Adenomatous colon polyp (Acute) Hemorrhage, anal or rectal (Acute) Degenerative joint disease (Chronic) Pes anserinus bursitis (Acute) Low back pain (Acute) Elevated alkaline phosphatase level (Acute) Lipodystrophy (Acute) Seasonal allergies (Acute) Hypomagnesemia (Acute) Fatigue (Acute) Cataract (Chronic) Vitreous degeneration (Acute) Atrial fibrillation (Chronic) CAD (coronary artery disease) (Chronic) Hip pain (Acute) Hip joint pain (Acute) Vitamin B 12 deficiency (Acute) Ecchymosis (Acute) Chest pain (Acute) a. Rule out ID. Atrial fibrillation, rapid (Acute) a. Converted to a sinus rhythm after IV diltiazem. Coronary disease (Chronic) a. Presented with worsening dysnea on exertion in December 2011. b. MPI testing showed a large reversible lesion in the anterior chest. c. Cardiac catheterization revealed significant four-vessel disease. d. S/P four-vessel coronary artery bypass grafting in January 2012, FERNANDEZ to the LAD, vein to the OM, first diagonal, and RCA. e. Atrial fibrillation postop. Diabetes (Chronic) a. Last hemoglobin A1c 7.5% in 01/2003. b. Markedly overweight. Sleep apnea, obstructive (Chronic) a. Wears nocturnal CPAP. Obesity (Chronic) a. Considering bariatric surgery. Hypertension (Chronic) Hyperlipidemia (Chronic) Depression (Chronic) History of tobacco use (Chronic) BPH (benign prostatic hypertrophy) (Chronic) Hearing loss (Chronic) Anemia (Chronic) History of Surgical Procedure (Chronic) a. Umbilical hernia repair, 2004. b. Hand surgery. Pes anserinus bursitis of right knee (Acute) Medical History Disequilibrium Near syncope Social History Smoking/Tobacco Use Status: Former Tobacco Use Smoking risk assessment performed?: Yes Alcohol Intake: former Drug use: Rarely Substance use type: marijuana Do you feel safe in your relationship?: Yes Exam Narrative Exam Narrative: 1.Const: Well-nourished, Well-developed, appearing stated age 2.Eyes: PERRL, no conjunctival injection, and symmetrical lids. 3.ENT: Atraumatic external nose and ears. Moist MM. Neck: Symmetric, trachea midline, No thyromegaly. 4.CVS: +S1/S2, No murmurs or gallops. Peripheral pulses 2+ and equal in all extremities. Brisk capillary refill in all extremities. 5.RESP: Unlabored respiratory effort. Clear to auscultation bilaterally. No wheezes rales or rhonchi 6.GI: Soft, distended, reduced bowel sounds. No guarding or rebound. Generalized tenderness in the epigastric region on palpation. No pain to McBurney's point. Negative Loving sign. 7.MSK: Normocephalic/Atraumatic, Extremities w/o deformity or ttp No cyanosis or clubbing, Normal movement of all extremities 8.Skin: Warm, Dry. No rashes or lesions. 9.Neuro: garment turner II-XII grossly intact. Sensation grossly intact, no focal neurologic deficits. 10.Psych: (AAO) x3. Appropriate mood and affect Course Vital Signs Vital signs: Vital Signs Temperature 36.8 C 10/25/22 06:49 Pulse 95 H 10/25/22 06:49 Respiratory Rate 16 10/25/22 06:49 Blood Pressure 179/86 H 10/25/22 06:49 Pulse Oximetry 98 10/25/22 06:49 Temperature 36.8 C 10/25/22 06:49 Temperature Source Oral 10/25/22 06:49 Pulse 95 H 10/25/22 06:49 Respiratory Rate 16 10/25/22 06:49 Respiratory Effort Normal 10/25/22 06:49 Blood Pressure 179/86 H 10/25/22 06:49 Blood Pressure Position Sitting 10/25/22 06:49 Pulse Oximetry 98 10/25/22 06:49 Oxygen Delivery Method Room Air 10/25/22 06:49 Oxygen Flow Rate 0 10/25/22 06:49 Pain Level 5 10/25/22 06:49
[2022-10-25 07:48] LABS: Abs Immature Grans 0.08 10^3/uL (0.0-0.06); Absolute Basophil Count 0.06 10^3/uL (0.0-0.2); Absolute Eosinophil Count 0.02 10^3/uL (0.0-0.7); Absolute Lymphocyte Count 1.02 10^3/uL (1.2-3.4); Absolute Monocyte Count 0.54 10^3/uL (0.1-0.8); Basophils % 0.4; Eosinophils % 0.1; HCT 49.2 % (40.0-50.0); HGB 15.9 g/dL (13.5-17.5); Immature Grans % 0.5; Lymphocytes % 6.6; MCHC 32.3 % (32.0-36.0); MCV 84 fL (80-95); MPV 9.5 fL (8.0-11.0); Monocytes % 3.5; Neutrophils % 88.9; Platelet Count 299 10^3/uL (130-400); RBC 5.88 10^6/uL (4.36-5.78); RDW 14.8 % (11.8-14.1); RDW-SD 45.1 fL; WBC 15.42 10^3/uL (4.4-10.8)
[2022-10-25 07:50] LABS: Absolute Neutrophil Count 13.71 10^3/uL (1.2-6.7)
[2022-10-25 07:51] LABS: Bilirubin Negative (Negative); Blood Trace-intact (Negative); Clarity Clear (Clear); Glucose 500 mg/dL (Negative); Ketones 40 mg/dL (Negative); Leukocyte Esterase Negative (Negative); Nitrite Negative (Negative); Urobilinogen 0.2 mg/dL (Up to 0.2)
[2022-10-25 08:03] LABS: Bacteria Negative HPF (Negative); C & S Indicated? No; Casts 0-2 Hyaline LPF (Negative); Crystals Negative HPF (Negative); Epithelial Cells Rare HPF (Negative); Mucus Negative (Negative); RBC 0-2 HPF (0-2); WBC Negative HPF (0-5)
[2022-10-25 08:05] LABS: ALT 22 U/L (16-63); AST 14 U/L (15-37); Albumin 3.9 g/dL (3.4-5.0); Alkaline Phosphatase 120 U/L (46-116); Anion Gap 12.9 mmol/L (3-11); BUN 29 mg/dL (7-18); Bilirubin, Total 0.5 mg/dL (0.2-1.0); CO2 25.1 mmol/L (21.0-32.0); CREATININE 1.1 mg/dL (0.70-1.30); Calcium 11.1 mg/dL (8.5-10.1); Chloride 100 mmol/L (98-107); Estimated GFR 72.22 (mL/min/1.73m2); Glucose 184 mg/dL (74-106); Lipase 18 U/L (16-77); Potassium 3.7 mmol/L (3.5-5.1); Sodium 138 mmol/L (136-145); Total Protein 9.2 g/dL (6.4-8.2)
--- NOTE | 2022-10-25 09:21 | DI.VRAD_ITS ---
PROCEDURE INFORMATION: Exam: CT Abdomen And Pelvis Without Contrast Exam date and time: 10/25/2022 7:57 AM Age: 72 years old Clinical indication: Other: Bloating, R/O obstruction TECHNIQUE: Imaging protocol: Computed tomography of the abdomen and pelvis without contrast. Radiation optimization: All CT scans at this facility use at least one of these dose optimization techniques: automated exposure control; mA and/or kV adjustment per patient size (includes targeted exams where dose is matched to clinical indication); or iterative reconstruction. COMPARISON: No relevant prior studies available. FINDINGS: 7 mm left lower lobe nodule Liver: Normal. No mass. Gallbladder and bile ducts: Distended with faint calcified stones in the neck. No ductal dilation. Pancreas: Normal. No ductal dilation. Spleen: Normal. No splenomegaly. Adrenal glands: Normal. No mass. Kidneys and ureters: Normal. No hydronephrosis. Stomach and bowel: Unremarkable. No obstruction. No mucosal thickening. Appendix: No evidence of appendicitis. Intraperitoneal space: Unremarkable. No free air. No significant fluid collection. Vasculature: Unremarkable. No abdominal aortic aneurysm. Lymph nodes: Unremarkable. No enlarged lymph nodes. Urinary bladder: Unremarkable as visualized. Reproductive: Unremarkable as visualized. Bones/joints: Unremarkable. No acute fracture. Soft tissues: Unremarkable. IMPRESSION: Abnormal gallbladder as noted. Consider right upper quadrant ultrasound 7 mm left lower lobe nodule. Dedicated follow-up chest CT recommended if not already performed. Neoplasm not excluded Dictated and Authenticated by: Manuel Monaco MD. Ordering:GLORY Hong MD
--- NOTE | 2022-10-25 09:29 | ED.PROG_ITS ---
Date of service: 10/25/22 Time of Service: 09:30 Medical Decision Making pt feels better with toradol, labs show wbc of 15, alk phos minimally elevated similar to what it has been in the past. Gallbladder distended and has calcified stones in the neck, he is tender in the ruq, will consult general surgery. Pt w ould like to avoid hospitalization at this time spoke with Dr. Mcgowan from general surgery who reviewed case and CT, feels if patient's pain is controlled he can f/u with him this week and start on oral cipro and flagyl. Patient states he feels well enough for d/c and prefers this plan. He was given strict return precautions Medical Records Medical records reviewed: Yes I reviewed the patient's medical records. Imaging Data Radiologic Study: Attestation: I personally reviewed and interpreted this imaging study as follows: Imaging: CT Scan Radiologist's impression: IMPRESSION: Abnormal gallbladder as noted. Consider right upper quadrant ultrasound 7 mm left lower lobe nodule. Dedicated follow-up chest CT recommended if not already performed. Neoplasm not excluded Lab Data Lab results reviewed: Yes I reviewed the patient's lab results. Sign Out Sign Out Data: Sign Out Comment: Follow-up on CT imaging and labs. Abdominal bloating. Constipation versus obstruction Last updated by aHl Rose DO at 10/25/22 07:49 Discharge Plan Disposition Patient Disposition: Home Condition: Stable Discharge Details Clinical Impression: Abdominal pain, Gallstones Primary Care Provider: Xochitl Tello ED Provider: Wei Joe Home Meds and New Rx's Prescriptions: New metronidazole 500 mg tablet 500 mg PO Q8H Qty: 21 0RF ciprofloxacin HCl 500 mg tablet 500 mg PO BID Qty: 14 0RF oxycodone 5 mg tablet 5 mg PO Q6H PRN (Reason: pain) Qty: 10 0RF Continued turmeric root extract 500 mg capsule 500 mg PO DAILY marijuana Inhalation atorvastatin [Lipitor] 10 mg tablet 20 mg PO DAILY Patient Comments: Pt. states he takes 20 mg daily 06/04/15 sertraline 100 mg tablet 100 mg PO DAILY levomefolate calcium [L-Methylfolate] 15 mg tablet 15 mg PO DAILY fluticasone propionate 50 mcg/actuation spray,suspension 2 spray intranasal DAILY Rx Instructions: administer into each nostril triamcinolone acetonide 0.025 % lotion 1 applic topical BID polyethylene glycol 3350 17 gram/dose powder 17 g PO DAILY cholecalciferol (vitamin D3) 25 mcg (1,000 unit) capsule 25 mcg PO DAILY magnesium oxide 400 mg magnesium capsule 400 mg PO BID ferrous sulfate [FeroSul] 325 mg (65 mg iron) tablet 325 mg PO DAILY Trulicity 1.5 mg/0.5 mL pen injector 1.5 mg subcut QWEEK Jardiance 10 mg tablet 25 mg PO DAILY insulin aspart U-100 [Novolog FlexPen U-100 Insulin] 100 unit/mL (3 mL) insulin pen 10 unit subcut .as directed Patient Comments: 02/20/22 sliding scale RH losartan 50 MG tablet 50 mg PO DAILY trazodone 50 MG tablet 50 mg DAILY aspirin [Adult Low Dose Aspirin] 81 MG tablet,delayed release (DR/EC) 81 mg PO DAILY furosemide 20 MG tablet 20 mg PO BID nitroglycerin 0.4 MG tablet, sublingual 0.4 mg Sublingual DIRECTED PRN (Reason: Chest Pain) Qty: 25 0RF glimepiride 4 mg tablet 4 mg PO BID Patient Comments: TAKE ONE TABLET BY MOUTH TWICE A DAY insulin degludec [Tresiba FlexTouch U-200] 200 unit/mL (3 mL) insulin pen 180 unit SUBCUT Patient Comments: INJECT 180 UNITS SUBCUTANEOUSLY EVERY MORNING Discharge Instructions Instructions: Gallstones (ED) Additional Instructions: follow up with surgery this week, if they don't call you Thursday call their office if you develop severe worsening pain, fevers or feel more ill return to the emergency department Referrals: Blair Mcgowan MD [ [facility] ST[facility]FF PHYSICIAN] -
[2022-10-25] MEDS: Ciprofloxacin 500 MG TAB PO (09:58)
[2022-10-25] MEDS: metroNIDAZOLE 500 MG TAB PO (09:58)
--- NOTE | 2022-10-25 10:30 | NUR.NOTE ---
Referral made to General Surgery for gallstones this week per Dr. Joe. Put the referral in the care manger's box for f/u assistance. vNursing Note:
== END 2022-10-25 10:04 | disposition home or self-care (01) ==
PROVIDERS: Student in an Organized Health Care Education/Training Program; Emergency Provider Emergency Medicine; PCP Nurse Practitioner Family
DX: K80.20 Calculus of gallbladder without cholecystitis without obstruction (principal); R10.9 Unspecified abdominal pain
CPT/HCPCS: 80053; 83690; 93005; 96365; 96375; 99284; 74176; 81003; 81015; 85025; 93010; J0131; J1885

== ENCOUNTER → 2022-10-28 10:58 | Outpatient (BNVA) | payer MEDICARE, SELFPAY | PROVIDERS: PCP Nurse Practitioner Family; Referring Provider Nurse Practitioner Family; Visit Provider Surgery | DX: K81.9 Cholecystitis, unspecified (principal); R10.9 Unspecified abdominal pain | CPT/HCPCS: 36415; 99203; 99215 ==

== ENCOUNTER 2022-10-28 11:25 | Outpatient (REF) | payer MEDICARE, SELFPAY ==
[2022-10-28 11:40] LABS: Abs Immature Grans 0.05 10^3/uL (0.0-0.06); Absolute Basophil Count 0.05 10^3/uL (0.0-0.2); Absolute Eosinophil Count 0.33 10^3/uL (0.0-0.7); Absolute Lymphocyte Count 1.32 10^3/uL (1.2-3.4); Absolute Monocyte Count 0.63 10^3/uL (0.1-0.8); Absolute Neutrophil Count 9.77 10^3/uL (1.2-6.7); Basophils % 0.4; Eosinophils % 2.7; HGB 14.5 g/dL (13.5-17.5); Immature Grans % 0.4; Lymphocytes % 10.9; MCH 27.1 pg (27.0-33.0); MCHC 32.2 % (32.0-36.0); MCV 84 fL (80-95); MPV 9.5 fL (8.0-11.0); Monocytes % 5.2; Neutrophils % 80.4; Platelet Count 258 10^3/uL (130-400); RBC 5.36 10^6/uL (4.36-5.78); RDW 14.9 % (11.8-14.1); RDW-SD 45.7 fL; WBC 12.15 10^3/uL (4.4-10.8)
[2022-10-28 11:54] LABS: ALT 19 U/L (16-63); AST 17 U/L (15-37); Albumin 3.1 g/dL (3.4-5.0); Alkaline Phosphatase 99 U/L (46-116); Anion Gap 8.9 mmol/L (3-11); BUN 24 mg/dL (7-18); Bilirubin, Total 0.5 mg/dL (0.2-1.0); CO2 25.1 mmol/L (21.0-32.0); CREATININE 1.2 mg/dL (0.70-1.30); Calcium 9.9 mg/dL (8.5-10.1); Chloride 102 mmol/L (98-107); Estimated GFR 65.06 (mL/min/1.73m2); Glucose 163 mg/dL (74-106); Potassium 3.9 mmol/L (3.5-5.1); Sodium 136 mmol/L (136-145); Total Protein 8.2 g/dL (6.4-8.2)
== END 2022-10-28 11:26 | disposition home or self-care (01) ==
LOC: LBN 11:25
PROVIDERS: PCP Nurse Practitioner Family; Visit Provider Surgery
DX: K81.9 Cholecystitis, unspecified (principal); I10 Essential (primary) hypertension; E11.9 Type 2 diabetes mellitus without complications; D64.9 Anemia, unspecified
CPT/HCPCS: 80053; 85025

== ENCOUNTER 2022-11-05 01:56 | Outpatient (CLI) | payer MEDICARE, SELFPAY ==
--- NOTE | 2022-11-05 | DI.US_ITS ---
Exam(s) US LOWER EXTREMITY VENOUS LT EXAM: US LOWER EXTREMITY VENOUS LT CLINICAL HISTORY: LT CALF PAIN, M79.662,? DVT. TECHNIQUE: Lower extremity venous ultrasound performed using grayscale, color-flow, and spectral Do ppler analysis. COMPARISON: No exams were available for comparison FINDINGS: The common femoral, femoral and popliteal veins demonstrate normal compressibility, augmentation, and color Doppler. The posterior tibial veins are patent. No saphenous vein thrombosis or other superfi cial venous thrombosis is seen. No hematoma or Cornejo's cyst is seen. IMPRESSION: Negative lower extremity ultrasound. No evidence of DVT. DATA REPOSITORY:
== END 2022-11-05 02:16 ==
LOC: DI 01:56
PROVIDERS: PCP Nurse Practitioner Family; Visit Provider Nurse Practitioner Family
DX: M79.662 Pain in left lower leg (principal)
CPT/HCPCS: 93971

== ENCOUNTER 2022-11-25 19:20 | Outpatient (REF) | payer MEDICARE, SELFPAY ==
[2022-11-25 16:48] LABS: Vitamin B12 388 pg/mL (193-986)
== END 2022-11-25 19:21 | disposition home or self-care (01) ==
LOC: NCHCN 19:20
PROVIDERS: PCP Nurse Practitioner Family; Visit Provider Nurse Practitioner Family
DX: E53.8 Deficiency of other specified B group vitamins (principal)
CPT/HCPCS: 82607

== ENCOUNTER → 2023-02-26 13:26 | Outpatient (BNVA) | payer MEDICARE, SELFPAY | PROVIDERS: PCP Nurse Practitioner Family; Visit Provider Internal Medicine Cardiovascular Disease | DX: I25.810 Atherosclerosis of coronary artery bypass graft(s) without angina pectoris (principal); I48.91 Unspecified atrial fibrillation; R55 Syncope and collapse; I10 Essential (primary) hypertension | CPT/HCPCS: 99213 ==

== ENCOUNTER 2023-03-31 19:32 | Outpatient (REF) | payer MEDICARE, SELFPAY ==
[2023-03-31 16:21] LABS: Vitamin D 25 Total 33.8 ng/mL (30-100)
== END 2023-03-31 19:33 | disposition home or self-care (01) ==
LOC: NCHCN 19:32
PROVIDERS: PCP Nurse Practitioner Family; Visit Provider Nurse Practitioner Family
DX: R89.9 Unspecified abnormal finding in specimens from other organs, systems and tissues (principal)
CPT/HCPCS: 82306

== ENCOUNTER 2023-06-08 16:16 | Outpatient (REF) | payer MEDICARE, SELFPAY ==
[2023-06-08 16:28] LABS: HDL Cholesterol 28 mg/dL (40-60); LDL CHOLESTEROL 118 mg/dL (<100)
[2023-06-08 16:35] LABS: Hemoglobin A1C 6.4 % (<5.7)
[2023-06-08 17:46] LABS: Vitamin B12 272 pg/mL (193-986)
== END 2023-06-08 16:17 | disposition home or self-care (01) ==
LOC: NCHCN 16:16
PROVIDERS: PCP Nurse Practitioner Family; Visit Provider Nurse Practitioner Family
DX: E11.9 Type 2 diabetes mellitus without complications (principal); E78.5 Hyperlipidemia, unspecified; E53.9 Vitamin B deficiency, unspecified
CPT/HCPCS: 83721; 82607; 83036; 83718

== ENCOUNTER 2024-03-10 18:51 | Outpatient (REF) | payer MEDICARE, SELFPAY ==
[2024-03-10 18:23] LABS: Vitamin B12 309 pg/mL (193-986)
== END 2024-03-10 18:52 | disposition home or self-care (01) ==
LOC: NCHCN 18:51
PROVIDERS: PCP Family Medicine; Visit Provider Family Medicine
DX: E53.9 Vitamin B deficiency, unspecified (principal)
CPT/HCPCS: 82607

== ENCOUNTER 2024-03-19 00:12 | Emergency (ER) | payer MEDICARE, SELFPAY ==
[2024-03-19] VITALS (14 sets, daily range): BP systolic 130–173; BP diastolic 64–94; PULSE 48–102; RESP 13–28; TEMP 36.3–36.6; O2SAT 95–97
--- NOTE | 2024-03-19 00:22 | ED.GENADUL_ITS ---
Discharge Plan Disposition Patient Disposition: Home Condition: Good Discharge Details Clinical Impression: Postural dizziness with near syncope Primary Care Provider: Olga Borden V ED Provider: Miguel Angel Hansen Meds and New Rx's Prescriptions: Continued marijuana Inhalation triamcinolone acetonide 0.025 % lotion 1 applic topical BID polyethylene glycol 3350 17 gram/dose powder 17 g PO DAILY cholecalciferol (vitamin D3) 25 mcg (1,000 unit) capsule 25 mcg PO DAILY magnesium oxide 400 mg magnesium capsule 400 mg PO BID Trulicity 1.5 mg/0.5 mL pen injector 1.5 mg subcut QWEEK Jardiance 10 mg tablet 25 mg PO DAILY trazodone 50 MG tablet 50 mg PO DAILY aspirin [Adult Low Dose Aspirin] 81 MG tablet,delayed release (DR/EC) 81 mg PO DAILY furosemide 20 MG tablet 20 mg PO BID nitroglycerin 0.4 MG tablet, sublingual 0.4 mg Sublingual DIRECTED PRN (Reason: Chest Pain) Qty: 25 0RF insulin degludec [Tresiba FlexTouch U-200] 200 unit/mL (3 mL) insulin pen 180 unit SUBCUT DAILY Patient Comments: INJECT 180 UNITS SUBCUTANEOUSLY EVERY MORNING Discharge Instructions Instructions: Near Fainting Additional Instructions: You were seen in the ED after becoming lightheaded and weak most likely from getting up too fast. Your EKG and laboratory studies are reassuring. Be sure to stay hydrated and remember to get up from a seated position slowly. Follow- up with primary care. Reschedule your cardiology appointment. Return to ED for any actual fainting, chest pain, shortness of breath, fever, abdominal pain, other concerns. Referrals: Olga Bordne MD [Primary Care Provider] - [facility] General Mode of arrival: ambulatory . Date/Time Provider Initiated Documentation: 03/19/24 00:22 . Limitations to Documentation: no limitations . Information obtained by: patient and RN notes reviewed . HPI Narrative: Patient presents to ED from home after episode of lightheadedness and weakness. Patient denies actual loss of consciousness. He reports that he had been sitting at the computer for at least a few hours. He got up quickly to go to the bathroom and became very lightheaded, weak, mildly diaphoretic. He denies any type of chest pain or pressure. He denies any shortness of breath. Did feel little nauseated and became very anxious. He reports that he always has to get up slowly. Even driving from [place] to [place] requires him to get out of the car very slowly. He does report a cardiac history. He missed a recent cardiology follow-up visit. He denies any recent illnesses. He has been eating and drinking well. He had gone to physical therapy and did fine there earlier in the day. Reports taking his blood pressure at home after the event and it was markedly elevated. Patient admits significant anxiety at the time he was taking his blood pressure and subsequent. Related Data Home Medications ?Medication ?Instructions ?Recorded ?Confirmed aspirin 81 mg tablet,delayed 81 mg PO DAILY 12/14/13 03/19/24 release (Adult Low Dose Aspirin) furosemide 20 mg tablet 20 mg PO BID 12/14/13 03/19/24 trazodone 50 mg tablet 50 mg PO DAILY 12/14/13 03/19/24 nitroglycerin 0.4 mg sublingual 0.4 mg sublingual DIRECTED PRN 12/15/13 03/19/24 tablet Chest Pain ##25 Marijuana inhalation 06/04/15 02/26/23 cholecalciferol (vitamin D3) 25 25 mcg PO DAILY 10/21/21 03/19/24 mcg (1,000 unit) capsule dulaglutide 1.5 mg/0.5 mL 1.5 mg subcut QWEEK 10/21/21 03/19/24 subcutaneous pen injector (Trulicity) magnesium oxide 400 mg PO BID 10/21/21 03/19/24 polyethylene glycol 3350 17 17 g PO DAILY 10/21/21 03/19/24 gram/dose oral powder triamcinolone acetonide 0.025 % 1 applic topical BID 10/21/21 03/19/24 lotion empagliflozin 10 mg tablet 25 mg PO DAILY 01/14/22 03/19/24 (Jardiance) insulin degludec 200 unit/mL (3 180 unit subcut DAILY 10/25/22 03/19/24 mL) subcutaneous pen (Tresiba FlexTouch U-200 insulin) Previous Rx's ?Medication ?Instructions ?Recorded nitroglycerin 0.4 mg sublingual 0.4 mg sublingual DIRECTED PRN 12/15/13 tablet Chest Pain ##25 Allergies Allergy/AdvReac Type Severity Reaction Status Date / Time bupropion HCl (From Allergy Unknown Other (See Verified 03/19/24 00:25 Wellbutrin) Comment) erythromycin base Allergy Unknown Other (See Verified 03/19/24 00:25 Comment) pravastatin sodium (From Allergy Unknown Other (See Verified 03/19/24 00:25 Pravachol) Comment) Penicillins Allergy Other (See Verified 03/19/24 00:25 Comment) lisinopril AdvReac Other (See Verified 03/19/24 00:25 Comment) General LUX: 3 Review of Systems Narrative: Per HPI Exam Narrative Exam Narrative: Const: Morbidly obese male in NAD. VS per triage. HEENT: NC/AT. Normal facial exam. Neck: Supple. Trachea midline. Lungs: Normal respiratory effort. Lungs are clear. Cor: RRR without murmur. Good radial pulses. GI: Soft/ND/NT. Neuro: A+O x 3. Normal speech, mentation, gait. Cranial nerves II - XII grossly intact. No gross motor or sensory deficit. Ext: No C/C/E. Medical Decision Making Patient presenting to ED after near syncope at home that appears to be orthostatic in nature. Patient reporting history of similar events and typically gets up slowly because of this problem. Had been on antihypertensives in the past but has discontinued them as they caused significant hypotension. Blood pressure has been maintained well on its own according to patient. Tonight got up quickly after he had been sitting at the computer for a couple of hours. He was trying to get to the bathroom but became very weak and lightheaded and mildly diaphoretic. He did not have a loss of consciousness. His EKG is sinus rhythm with episodes of bigeminy. He has unchanged ST segments and no evidence of acute ischemia per my read. IV established and laboratory studies obtained. Blood pressure here is fine. Suspect his anxiety is what drove it up at home. Patient's laboratory studies with mildly elevated white count at 11.8. Hemoglobin is normal at 15.4. Chemistries unremarkable other than slightly elevated BUN at 24 but normal creatinine at 1.1. Potassium, calcium, magnesium are all normal. His initial troponin is 11 and repeat at 1 hour remains flat at 11. Given lack of a delta troponin and no chest pain or shortness of breath not concern that this was cardiac in nature. By history seems to be related to orthostasis. Discussed with patient. Referred to primary care for follow-up. Should continue in his attempt to reschedule his cardiology visit as well. Return precautions provided. Lab Data Lab results reviewed: Yes I reviewed the patient's lab results. Lab results narrative: see MDM ECG Data Attestation: I personally reviewed and interpreted this ECG (s) as follows: Prior ECG tracings: available for review Interpretation: see EKG/MDM PFSH All Active Problems Postural dizziness with near syncope (Acute) Cholecystitis (Acute) Morbid obesity (Acute) Tinnitus (Acute) Adenomatous colon polyp (Acute) Hemorrhage, anal or rectal (Acute) Degenerative joint disease (Chronic) Pes anserinus bursitis (Acute) Low back pain (Acute) Elevated alkaline phosphatase level (Acute) Lipodystrophy (Acute) Seasonal allergies (Acute) Hypomagnesemia (Acute) Fatigue (Acute) Cataract (Chronic) Vitreous degeneration (Acute) Atrial fibrillation (Chronic) CAD (coronary artery disease) (Chronic) Hip pain (Acute) Hip joint pain (Acute) Vitamin B 12 deficiency (Acute) Ecchymosis (Acute) Chest pain (Acute) a. Rule out [place]. Atrial fibrillation, rapid (Acute) a. Converted to a sinus rhythm after IV diltiazem. Coronary disease (Chronic) a. Presented with worsening dysnea on exertion in December 2011. b. MPI testing showed a large reversible lesion in the anterior chest. c. Cardiac catheterization revealed significant four-vessel disease. d. S/P four-vessel coronary artery bypass grafting in January 2012, FERNANDEZ to the LAD, vein to the OM, first diagonal, and RCA. e. Atrial fibrillation postop. Diabetes (Chronic) a. Last hemoglobin A1c 7.5% in 01/2003. b. Markedly overweight. Sleep apnea, obstructive (Chronic) a. Wears nocturnal CPAP. Obesity (Chronic) a. Considering bariatric surgery. Hypertension (Chronic) Hyperlipidemia (Chronic) Depression (Chronic) History of tobacco use (Chronic) BPH (benign prostatic hypertrophy) (Chronic) Hearing loss (Chronic) Anemia (Chronic) History of Surgical Procedure (Chronic) a. Umbilical hernia repair, 2004. b. Hand surgery. Pes anserinus bursitis of right knee (Acute) Medical History Near syncope Disequilibrium Social History Smoking/Tobacco Use Status: Former Tobacco Use Smoking risk assessment performed?: Yes Alcohol Intake: former Drug use: Rarely Substance use type: marijuana Current gender identity: male Do you feel safe at home: Yes Do you feel safe in your relationship?: Yes
--- NOTE | 2024-03-19 00:30 | RT.EKG_ITS ---
APPROVED REPORT Exam: Resting ECG Reason for Exam: near syncope Patient Location: E HR:91 bpm ECG Measurements Heart Rate 91 AXIS OH 194 P 28 QRSd 90 QRS 31 QT 381 T 37 QTc 470 Conclusion Sinus rhythm...normal P axis, V-rate 60- 99 Ventricular bigeminy...bigeminy string>4 w/ V complexes Low voltage, extremity and precordial leads...extremity<0.5mV, precordial<1.0mV Consider anterior infarct...Q >30mS in V2-V5 Compared to prior EKG performed on 10/25/2022 at 07:42 the bigeminy is new otherwise unchanged.
[2024-03-19 00:47] LABS: HGB 15.4 g/dL (13.5-17.5); MCH 27.6 pg (27.0-33.0); MCHC 32.8 % (32.0-36.0); MCV 84 fL (80-95); MPV 9.5 fL (8.0-11.0); Platelet Count 256 10^3/uL (130-400); RBC 5.57 10^6/uL (4.36-5.78); RDW 14.8 % (11.8-14.1); RDW-SD 45.2 fL; WBC 11.79 10^3/uL (4.4-10.8)
[2024-03-19 01:04] LABS: BUN 24 mg/dL (7-18); CREATININE 1.1 mg/dL (0.70-1.30); Calcium 9.5 mg/dL (8.5-10.1); Chloride 102 mmol/L (98-107); Estimated GFR 71.77 (mL/min/1.73m2); Glucose 165 mg/dL (74-106); Magnesium 2.2 mg/dL (1.8-2.4); Potassium 3.7 mmol/L (3.5-5.1); Sodium 136 mmol/L (136-145); Troponin I 11 ng/L (<or=76)
[2024-03-19 02:03] LABS: Troponin I 11 ng/L (<or=76)
== END 2024-03-19 02:49 | disposition home or self-care (01) ==
PROVIDERS: Emergency Provider Emergency Medicine; PCP Family Medicine
DX: R42 Dizziness and giddiness (principal); R55 Syncope and collapse
CPT/HCPCS: 80048; 85027; 93005; 99284; 83735; 84484; 93010; 99283

== ENCOUNTER → 2024-03-25 13:46 | Outpatient (BNVA) | payer MEDICARE, SELFPAY | PROVIDERS: PCP Family Medicine; Referring Provider Family Medicine; Visit Provider Internal Medicine Cardiovascular Disease | DX: I25.810 Atherosclerosis of coronary artery bypass graft(s) without angina pectoris (principal); R42 Dizziness and giddiness | CPT/HCPCS: 99213 ==

== ENCOUNTER 2024-07-22 19:42 | Emergency (ER) | payer MEDICARE, SELFPAY ==
[2024-07-22 19:50] VITALS: BP 142/79; PULSE 99; RESP 15; TEMP 36.8; O2SAT 96
[2024-07-22 19:51] VITALS: BP 142/79; PULSE 99; RESP 15; TEMP 36.8; O2SAT 96
--- NOTE | 2024-07-22 20:05 | ED.GENADUL_ITS ---
Discharge Plan Disposition Patient Disposition: Home Discharge Details Clinical Impression: Acute constipation Primary Care Provider: Olga Borden V ED Provider: Swapnil Campbell Home Meds and New Rx's Prescriptions: New sennosides-docusate sodium [2-in-1 Laxative] 8.6-50 mg tablet 1 tab-cap PO QHS Qty: 14 0RF Continued atorvastatin 40 mg tablet 40 mg PO DAILY furosemide 20 mg tablet 20 mg PO DAILY marijuana Inhalation triamcinolone acetonide 0.025 % lotion 1 applic topical BID polyethylene glycol 3350 17 gram/dose powder 17 g PO DAILY cholecalciferol (vitamin D3) 25 mcg (1,000 unit) capsule 25 mcg PO DAILY magnesium oxide 400 mg magnesium capsule 400 mg PO BID Trulicity 1.5 mg/0.5 mL pen injector 1.5 mg subcut QWEEK Jardiance 10 mg tablet 25 mg PO DAILY trazodone 50 MG tablet 50 mg PO DAILY aspirin [Adult Low Dose Aspirin] 81 MG tablet,delayed release (DR/EC) 81 mg PO DAILY nitroglycerin 0.4 MG tablet, sublingual 0.4 mg Sublingual DIRECTED PRN (Reason: Chest Pain) Qty: 25 0RF insulin degludec [Tresiba FlexTouch U-200] 200 unit/mL (3 mL) insulin pen 180 unit SUBCUT DAILY Patient Comments: INJECT 180 UNITS SUBCUTANEOUSLY EVERY MORNING insulin aspart U-100 [Novolog FlexPen U-100 Insulin] 100 unit/mL (3 mL) insulin pen 1 sliding scale dose SUBCUT TID Patient Comments: INJECT 20-25 UNITS BEFORE MEALS THREE TIMES A DAY , MAY USE AN ADDITIONAL 20 UNITS AT BEDTIME IF NEEDED, MAXIMUM DAILY DOSE = 100 UNITS PER Discharge Instructions Instructions: Constipation in adults Additional Instructions: You were seen in the emergency department for for your constipation. You should continue taking polyethylene glycol. Please also take these prescriptions. You may try taking several tablespoons of mineral oil per day. As we discussed if you develop abdominal pain do not pass gas or develop fevers nausea or vomiting please return to the emergency department. Otherwise please follow-up with primary care provider. HPI General Date/Time Provider Initiated Documentation: 07/22/24 20:05 . HPI Narrative: MDM This is a normothermic and nontachycardic 72-year-old male with 5-day history of constipation but not obstipation for which he will receive motility agents mine ral oil enema empiric trial of discharge with expectant outpatient management. He has a soft nontender abdomen some not suspicious for any intra-abdominal infections. Specifically has no right lower quadrant tenderness to suggest appendicitis. No history of diarrhea nor fevers nor left lower quadrant tenderness to suggest diverticulitis. No epigastric tenderness to suggest pancreatitis. No right upper quadrant tenderness to suggest acute cholecystitis. No chest pain to suggest ACS. No dysuria no frequency so doubt UTI. No rash to abdomen to suggest zoster. HPI This is a 73-year-old male arrived to the emergency department in setting of constipation for the past 5 days. He notes prior history of constipation in the past. He has had normal colonoscopies in the past. He has been attempting treatment at home with polyethylene glycol. He has been passing gas. Denies syncope and chest pain. He is having no abdominal pain but is occasionally nauseous. He has not been vomiting. Exam General: Well-appearing in no acute distress speaking in complete sentences. Head: Normocephalic, atraumatic. Eye:[Pupils equal, round reactive to light.] Extraocular eye movements intact. No conjunctival injection. No scleral icterus. Ear, nose, mouth, throat: Grossly normal inspection. Normal voice, handling secretions normally. Neck: Trachea midline. Cardiovascular: Well-perfused distal extremities. Respiratory: Nonlabored respiration. Gastrointestinal: Nondistended abdomen. Soft non-tender. No rebound no guarding. Diastases recti Musculoskeletal: No edema. Moving all 4 extremities spontaneously. Skin: Normal for age and race, grossly normal temperature and turgor. No acute rash. Neurologic: Alert and appropriate, no apparent acute deficits. Psychiatric: Mood and manner are appropriate. Grooming and personal hygiene are appropriate. Related Data Home Medications ?Medication ?Instructions ?Recorded ?Confirmed aspirin 81 mg tablet,delayed 81 mg PO DAILY 12/14/13 07/22/24 release (Adult Low Dose Aspirin) trazodone 50 mg tablet 50 mg PO DAILY 12/14/13 07/22/24 nitroglycerin 0.4 mg sublingual 0.4 mg sublingual DIRECTED PRN 12/15/13 07/22/24 tablet Chest Pain ##25 Marijuana inhalation 06/04/15 03/25/24 cholecalciferol (vitamin D3) 25 25 mcg PO DAILY 10/21/21 07/22/24 mcg (1,000 unit) capsule dulaglutide 1.5 mg/0.5 mL 1.5 mg subcut QWEEK 10/21/21 03/25/24 subcutaneous pen injector (Trulicity) magnesium oxide 400 mg PO BID 10/21/21 07/22/24 polyethylene glycol 3350 17 17 g PO DAILY 10/21/21 07/22/24 gram/dose oral powder triamcinolone acetonide 0.025 % 1 applic topical BID 10/21/21 07/22/24 lotion empagliflozin 10 mg tablet 25 mg PO DAILY 01/14/22 07/22/24 (Jardiance) insulin degludec 200 unit/mL (3 180 unit subcut DAILY 10/25/22 03/25/24 mL) subcutaneous pen (Tresiba FlexTouch U-200 insulin) atorvastatin 40 mg tablet 40 mg PO DAILY 03/25/24 07/22/24 furosemide 20 mg tablet 20 mg PO DAILY 03/25/24 07/22/24 insulin aspart U-100 100 unit/mL 1 sliding scale dose subcut TID 07/22/24 07/22/24 (3 mL) subcutaneous pen (Novolog FlexPen U-100 Insulin aspart) sennosides 8.6 mg-docusate sodium 1 tab-cap PO QHS #14 tabs 07/22/24 50 mg tablet (2-in-1 Laxative) Previous Rx's ?Medication ?Instructions ?Recorded nitroglycerin 0.4 mg sublingual 0.4 mg sublingual DIRECTED PRN 12/15/13 tablet Chest Pain ##25 sennosides 8.6 mg-docusate sodium 1 tab-cap PO QHS #14 tabs 07/22/24 50 mg tablet (2-in-1 Laxative) Allergies Allergy/AdvReac Type Severity Reaction Status Date / Time bupropion HCl (From Allergy Unknown Other (See Verified 07/22/24 19:52 Wellbutrin) Comment) erythromycin base Allergy Unknown Other (See Verified 07/22/24 19:52 Comment) pravastatin sodium (From Allergy Unknown Other (See Verified 07/22/24 19:52 Pravachol) Comment) Penicillins Allergy Other (See Verified 07/22/24 19:52 Comment) lisinopril AdvReac Other (See Verified 07/22/24 19:52 Comment) General Stated Complaint: Abd Prob LUX: 3 Course Vital Signs Vital signs: Vital Signs Temperature 36.8 C 07/22/24 19:50 Pulse 99 H 07/22/24 19:50 Respiratory Rate 15 07/22/24 19:50 Blood Pressure 142/79 H 07/22/24 19:50 Pulse Oximetry 96 07/22/24 19:50 Temperature 36.8 C 07/22/24 19:51 Pulse 99 H 07/22/24 19:51 Respiratory Rate 15 07/22/24 19:51 Blood Pressure 142/79 H 07/22/24 19:51 Blood Pressure Position Sitting 07/22/24 19:51 Pulse Oximetry 96 07/22/24 19:51 Oxygen Delivery Method Room Air 07/22/24 19:51 Oxygen Flow Rate 0 07/22/24 19:51 Medical Decision Making Quality:SDOH Health Related Social Needs: No Data to Display PFSH All Active Problems (Updated 07/22/24 @ 20:17 by Swapnil Campbell MD) Acute constipation (Acute) Cholecystitis (Acute) Morbid obesity (Acute) Tinnitus (Acute) Adenomatous colon polyp (Acute) Hemorrhage, anal or rectal (Acute) Degenerative joint disease (Chronic) Pes anserinus bursitis (Acute) Low back pain (Acute) Elevated alkaline phosphatase level (Acute) Lipodystrophy (Acute) Seasonal allergies (Acute) Hypomagnesemia (Acute) Fatigue (Acute) Cataract (Chronic) Vitreous degeneration (Acute) CAD (coronary artery disease) (Chronic) Hip pain (Acute) Hip joint pain (Acute) Vitamin B 12 deficiency (Acute) Ecchymosis (Acute) Chest pain (Acute) a. Rule out [place]. Coronary disease (Chronic) a. Presented with worsening dysnea on exertion in December 2011. b. MPI testing showed a large reversible lesion in the anterior chest. c. Cardiac catheterization revealed significant four-vessel disease. d. S/P four-vessel coronary artery bypass grafting in January 2012, FERNANDEZ to the LAD, vein to the OM, first diagonal, and RCA. e. Atrial fibrillation postop. Diabetes (Chronic) a. Last hemoglobin A1c 7.5% in 01/2003. b. Markedly overweight. Sleep apnea, obstructive (Chronic) a. Wears nocturnal CPAP. Obesity (Chronic) a. Considering bariatric surgery. Hypertension (Chronic) Hyperlipidemia (Chronic) Depression (Chronic) History of tobacco use (Chronic) BPH (benign prostatic hypertrophy) (Chronic) Hearing loss (Chronic) Anemia (Chronic) History of Surgical Procedure (Chronic) a. Umbilical hernia repair, 2004. b. Hand surgery. Pes anserinus bursitis of right knee (Acute) Medical History (Updated 07/22/24 @ 20:17 by Swapnil Campbell MD) Near syncope Disequilibrium Social History Smoking/Tobacco Use Status: Former Tobacco Use Smoking risk assessment performed?: Yes Alcohol Intake: former Drug use: Rarely Substance use type: marijuana Current gender identity: male Do you feel safe at home: Yes Do you feel safe in your relationship?: Yes
[2024-07-22] MEDS: Senna TAB 1 TAB PO (20:53)
[2024-07-22] MEDS: Docusate Sodium 100 MG CAP PO (20:53)
--- NOTE | 2024-07-23 11:33 | NUR.NOTE ---
Addendum entered by Alisa Hodge 07/23/24 11:58: I spoke with the patient about what he was experiencing. The patient stated that he attempted the enema that was given to him, but did it while hovering over the toilet and was not able to hold any of the fluid in stating it just all came out. 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 I provided education on the difference between laxatives and stool softeners and why it was important to get his prescription. I also educated on the importance of doing the enema while laying on his left side and attempting to hold the liquid in for at least 10 minutes to ensure that he is having the maximum effect possible. He denied abdominal pain, he denied nausea and vomiting, he reported being able to still pass gas. Together we developed a plan. He is going to go to the pharmacy and orange picking supervisor his prescriptions and will attempt another enema while lying down and see if this is effective. He is also going to pay close attention to how much gas he is passing and if he develops a fever. If there are any negative changes or anything that concerns him, he is going to plan on coming straight back to the ED. Original Note: Patient called stating that he was seen last night, no BM today now getting shaky. Told him of the prescription sent in. Call given to Alisa hemodialysis charge nurse. Nursing Note:
== END 2024-07-22 20:58 | disposition home or self-care (01) ==
PROVIDERS: Emergency Provider Emergency Medicine; PCP Family Medicine
DX: K59.00 Constipation, unspecified (principal); I10 Essential (primary) hypertension; E78.5 Hyperlipidemia, unspecified; E11.9 Type 2 diabetes mellitus without complications; I25.10 Atherosclerotic heart disease of native coronary artery without angina pectoris; Z79.4 Long term (current) use of insulin; Z79.85 Long-term (current) use of injectable non-insulin antidiabetic drugs; Z79.82 Long term (current) use of aspirin; Z87.891 Personal history of nicotine dependence
CPT/HCPCS: 99283

== ENCOUNTER 2024-07-23 18:54 | Emergency (ER) | payer MEDICARE, SELFPAY ==
[2024-07-23 18:58] VITALS: BP 167/76; PULSE 102; RESP 16; TEMP 36.4; O2SAT 99
[2024-07-23 20:34] LABS: Abs Immature Grans 0.04 10^3/uL (0.0-0.06); Absolute Basophil Count 0.05 10^3/uL (0.0-0.2); Absolute Lymphocyte Count 1.73 10^3/uL (1.2-3.4); Basophils % 0.4 %; Eosinophils % 0.3 %; HCT 50.4 % (40.0-50.0); HGB 16.3 g/dL (13.5-17.5); Immature Grans % 0.3 %; Lymphocytes % 14.9 %; MCH 27.9 pg (27.0-33.0); MCHC 32.3 % (32.0-36.0); MCV 86 fL (80-95); MPV 9.3 fL (8.0-11.0); Neutrophils % 78.1 %; Platelet Count 258 10^3/uL (130-400); RBC 5.85 10^6/uL (4.36-5.78); RDW 14.6 % (11.8-14.1); RDW-SD 46.1 fL; WBC 11.58 10^3/uL (4.4-10.8)
[2024-07-23 20:35] LABS: Absolute Eosinophil Count 0.03 10^3/uL (0.0-0.7); Absolute Monocyte Count 0.69 10^3/uL (0.1-0.8); Absolute Neutrophil Count 9.04 10^3/uL (1.2-6.7)
[2024-07-23 20:45] LABS: Bilirubin Negative (Negative); Blood Negative (Negative); Clarity Clear (Clear); Glucose 500 mg/dL (Negative); Ketones 15 mg/dL (Negative); Leukocyte Esterase Negative (Negative); Nitrite Negative (Negative); Specific Gravity 1.015 (1.005-1.025); Urobilinogen 0.2 mg/dL (Up to 0.2)
[2024-07-23 20:52] LABS: ALT 28 U/L (16-63); AST 16 U/L (15-37); Albumin 3.9 g/dL (3.4-5.0); Alkaline Phosphatase 153 U/L (46-116); Anion Gap 7.3 mmol/L (3-11); BUN 20 mg/dL (7-18); Bilirubin, Total 0.92 mg/dL (0.2-1.0); CO2 30.7 mmol/L (21.0-32.0); CREATININE 1.1 mg/dL (0.70-1.30); Calcium 10.6 mg/dL (8.5-10.1); Chloride 102 mmol/L (98-107); Estimated GFR 71.77 (mL/min/1.73m2); Glucose 121 mg/dL (74-106); Potassium 4.3 mmol/L (3.5-5.1); Sodium 140 mmol/L (136-145); Total Protein 8.5 g/dL (6.4-8.2)
[2024-07-23] MEDS: Normal Saline - Diluent 50 ML VIAL IJ (21:14)
[2024-07-23] MEDS: Omnipaque 350 MG/ML 100 ML BTL IJ (21:15)
--- NOTE | 2024-07-23 21:41 | DI.CT_ITS ---
Exam(s) CT ABDOMEN PELVIS W EXAM: CT ABDOMEN PELVIS W CLINICAL HISTORY: constipation w urinary retention TECHNIQUE: Imaging Protocol: Axial computed tomography images with coronal and sagittal reformatted images were created and reviewed. CONTRAST MATERIAL: Intravenous: Omnipaque 350 Contrast volume:100 mL Oral: No COMPARISON: CT CHEST WITH CONTRAST from 09/02/[address] ABDOMEN PELVIS WO from 10/25/2022 FINDINGS: ABDOMEN: Lung Bases: Coronary artery calcifications are present. Liver: Normal density. There is a tiny hypodensity in the liver. It is too small for further charact erization. There is a nodular appearance of the liver which can be seen with hepatic cirrhosis. Ple ase correlate clinically. Portal, Superior Mesenteric, and Splenic Veins: Unremarkable. Gallbladder and Biliary Tract: Gallstones are present. There is no biliary ductal dilatation. Pancreas: Normal density, no abnormal calcifications or inflammatory process. Spleen: Normal. Adrenals: There is stable mild nodularity of the left adrenal gland. The right adrenal gland is unre markable. Kidneys: Normal size, contour and axis. No radiodense stones or obstructive uropathy. There is a simp le cyst in the right kidney. There are few tiny hypodensities in the kidneys which are too small for further characterization. No follow-up is recommended. Abdominal Aorta: Abdominal portion non-dilated. Atherosclerotic calcification is present. Bowel: No obstruction or bowel wall thickening. No evidence of appendicitis. There is a moderate chuck unt of stool in the colon. Peritoneal Cavity: No ascites, collection or mesenteric inflammatory response. No free air. Lymph Nodes: Within normal limits. Bones: Within normal limits for the patient's age. There is unilateral left L5 spondylolysis without evidence of spondylolisthesis. Soft Tissues: There are bilateral fat containing inguinal hernias. Nonspecific skin thickening on th e right anterior abdominal wall. This may represent a cellulitis. No focal fluid collection is seen to suggest an abscess. PELVIS: Bladder: Symmetric distention, no gross wall thickening. Reproductive Organs: Unremarkable as visualized. Lymph Nodes: Within normal limits. Bones: Within normal limits for the patient's age. IMPRESSION: 1. There is moderate amount of stool in the colon. No evidence of bowel obstruction. 2. No acute abdominal or pelvic process. RADIATION DOSE DELIVERED: 1,146.19mGy.cm Total DLP DATA REPOSITORY: All CT scans at this facility are submitted to the National Radiology Data Registry (NRDR) Dose Index Registry (DIR) with the [employer] (ACR). RADIATION OPTIMIZATION: All CT scans at this facility use at least one of these dose optimization te chniques: automated exposure control; mA and/or kV adjustment per patient size (includes targeted exa ms where dose is matched to clinical indication); or iterative reconstruction.
--- NOTE | 2024-07-23 22:26 | W.ED.GENAD ---
Discharge Plan Disposition Patient Disposition: Home Discharge Details Clinical Impression: Constipation, Abnormal finding on CT scan, Urinary retention Primary Care Provider: Olga Borden V ED Provider: Carla Ramirez Home Meds and New Rx's Prescriptions: No Action atorvastatin 40 mg tablet 40 mg PO DAILY furosemide 20 mg tablet 20 mg PO DAILY (DME) marijuana 0 .ROUTE .MEDSUPPLY triamcinolone acetonide 0.025 % lotion 1 applic topical BID polyethylene glycol 3350 17 gram/dose powder 17 g PO DAILY cholecalciferol (vitamin D3) 25 mcg (1,000 unit) capsule 25 mcg PO DAILY magnesium oxide 400 mg magnesium capsule 400 mg PO BID Trulicity 1.5 mg/0.5 mL pen injector 1.5 mg subcut QWEEK Jardiance 10 mg tablet 25 mg PO DAILY trazodone 50 MG tablet 50 mg PO DAILY aspirin [Adult Low Dose Aspirin] 81 MG tablet,delayed release (DR/EC) 81 mg PO DAILY nitroglycerin 0.4 MG tablet, sublingual 0.4 mg Sublingual DIRECTED PRN (Reason: Chest Pain) Qty: 25 0RF insulin degludec [Tresiba FlexTouch U-200] 200 unit/mL (3 mL) insulin pen 180 unit SUBCUT DAILY Patient Comments: INJECT 180 UNITS SUBCUTANEOUSLY EVERY MORNING insulin aspart U-100 [Novolog FlexPen U-100 Insulin] 100 unit/mL (3 mL) insulin pen 1 sliding scale dose SUBCUT TID Patient Comments: INJECT 20-25 UNITS BEFORE MEALS THREE TIMES A DAY , MAY USE AN ADDITIONAL 20 UNITS AT BEDTIME IF NEEDED, MAXIMUM DAILY DOSE = 100 UNITS PER sennosides-docusate sodium [2-in-1 Laxative] 8.6-50 mg tablet 1 tab-cap PO QHS Qty: 14 0RF Discharge Instructions Additional Instructions: Please call Dr Borden's office first thing Thursday morning to schedule follow-up appointment to discuss your CT findings, urinary retention, and constipation management. Your CT scan showed some nonspecific hypertrophy of the lateral left hepatic segment. This may be something that you want to monitor with your primary care provider. I recommend that you use 1 capful of MiraLAX twice a day until you have consistent soft stools. You may then reduce to 1 full capful daily until you have regular stools. Drink a full glass of water with the MiraLAX each time. Drink plenty of fluids throughout the day. Return to emergency care to develop new abdominal pain, vomiting, blood in your stool or urine, inability to urinate, or if you are very worried and need to be rechecked again immediately. Referrals: Olga Borden MD [Primary Care Provider] - [facility] General Date/Time Provider Initiated Documentation: 07/23/24 18:57. HPI Narrative: Red is a 73year old male who presents to the emergency department today for evaluation of constipation. He reports that he has been constipated for the last 5 or 6 days, says he has only been passing small hard stools. He does have a history of chronic constipation, says that he takes MiraLAX most days, half a capful at a time. He was seen in the emergency department yesterday, sent home with stool softeners and advised to use at home enemas. He used a partial amount of 2 enemas over the last day and had, but has not been able to have a regular bowel movement. He feels like he is not fully emptying his bladder since the constipation got worse today. Denies fever/chills, chest pain, shortness of breath, nausea/vomiting, change in p.o. intake, abdominal pain, dysuria, blood in stool or urine. He felt his prostate today, feels that it is a little bit enlarged. Past medical history is significant for well-controlled IDDM (last A1C was around 6), obesity, CAD with quadruple bypass, HLD, and BPH. He does have a history of hernia repair. He has had colonoscopies, multiple polyps removed, no history of diverticulosis. Physical exam reassuring. Tucker is alert and oriented, no acute distress. Abdomen softly distended, nontender to palpation, with normoactive bowel sounds. No rigidity or guarding. Rectal exam performed with criminal justice social worker at bedside, no fecal impaction. Hemoccult negative. D/dx includes but is not limited to: Constipation, diverticulitis/colitis, partial bowel obstruction, neoplasm I independently interpreted the following tests: CBC shows mild leukocytosis, consistent with previous labs. CMP and urine largely reassuring. CT abdomen/pelvis performed; no acute bowel pathology noted. Patient did have nodular hepatic contour with relative hypertrophy of the lateral left hepatic segment, nonspecific changes. Recommend follow-up with PCP for further evaluation/management. While in the emergency department, Red received enema by nurse. Handoff report given to Dr Taveras, overnight attending. Related Data Home Medications ?Medication ?Instructions ?Recorded ?Confirmed aspirin 81 mg tablet,delayed 81 mg PO DAILY 12/14/13 07/23/24 release (Adult Low Dose Aspirin) trazodone 50 mg tablet 50 mg PO DAILY 12/14/13 07/23/24 nitroglycerin 0.4 mg sublingual 0.4 mg sublingual DIRECTED PRN 12/15/13 07/23/24 tablet Chest Pain ##25 Marijuana 06/04/15 07/23/24 cholecalciferol (vitamin D3) 25 25 mcg PO DAILY 10/21/21 07/23/24 mcg (1,000 unit) capsule dulaglutide 1.5 mg/0.5 mL 1.5 mg subcut QWEEK 10/21/21 07/23/24 subcutaneous pen injector (Trulicity) magnesium oxide 400 mg PO BID 10/21/21 07/23/24 polyethylene glycol 3350 17 17 g PO DAILY 10/21/21 07/23/24 gram/dose oral powder triamcinolone acetonide 0.025 % 1 applic topical BID 10/21/21 07/23/24 lotion empagliflozin 10 mg tablet 25 mg PO DAILY 01/14/22 07/23/24 (Jardiance) insulin degludec 200 unit/mL (3 180 unit subcut DAILY 10/25/22 07/23/24 mL) subcutaneous pen (Tresiba FlexTouch U-200 insulin) atorvastatin 40 mg tablet 40 mg PO DAILY 03/25/24 07/23/24 furosemide 20 mg tablet 20 mg PO DAILY 03/25/24 07/23/24 insulin aspart U-100 100 unit/mL 1 sliding scale dose subcut TID 07/22/24 07/23/24 (3 mL) subcutaneous pen (Novolog FlexPen U-100 Insulin aspart) sennosides 8.6 mg-docusate sodium 1 tab-cap PO QHS #14 tabs 07/22/24 07/23/24 50 mg tablet (2-in-1 Laxative) Previous Rx's ?Medication ?Instructions ?Recorded nitroglycerin 0.4 mg sublingual 0.4 mg sublingual DIRECTED PRN 12/15/13 tablet Chest Pain ##25 sennosides 8.6 mg-docusate sodium 1 tab-cap PO QHS #14 tabs 07/22/24 50 mg tablet (2-in-1 Laxative) Allergies Allergy/AdvReac Type Severity Reaction Status Date / Time bupropion HCl (From Allergy Unknown Other (See Verified 07/23/24 19:03 Wellbutrin) Comment) erythromycin base Allergy Unknown Other (See Verified 07/23/24 19:03 Comment) pravastatin sodium (From Allergy Unknown Other (See Verified 07/23/24 19:03 Pravachol) Comment) Penicillins Allergy Other (See Verified 07/23/24 19:03 Comment) lisinopril AdvReac Other (See Verified 07/23/24 19:03 Comment) General Stated Complaint: Abd Prob LUX: 4 Review of Systems Narrative: see HPI Exam Const General: cooperative, healthy appearing, comfortable, no acute distress and well developed Nutritional Appearance: well nourished Orientation: alert and oriented x3 GI Inspection: normal to inspection, no abdominal wall ecchymosis and obesity Palpation: soft, not firm, no guarding, not rigid and nontender Auscultation: normal bowel sounds Rectal Exam: visual inspection normal, normal sphincter tone, No fecal impaction, heme negative stool, No hemorrhoids and No mass Skin General skin exam: no rashes or lesions noted Trauma: no lacerations or abrasions Course Vital Signs Vital signs: Vital Signs Temperature 36.4 C 07/23/24 18:58 Pulse 102 H 07/23/24 18:58 Respiratory Rate 16 07/23/24 18:58 Blood Pressure 167/76 H 07/23/24 18:58 Pulse Oximetry 99 07/23/24 18:58 Temperature 36.4 C 07/23/24 18:58 Temperature Source Temporal Artery Scan 07/23/24 18:58 Pulse 102 H 07/23/24 18:58 Respiratory Rate 16 07/23/24 18:58 Blood Pressure 167/76 H 07/23/24 18:58 Blood Pressure Position Sitting 07/23/24 18:58 Pulse Oximetry 99 07/23/24 18:58 Oxygen Delivery Method Room Air 07/23/24 18:58 Oxygen Flow Rate 0 07/23/24 18:58 Pain Level 2 07/23/24 18:58 Lab/Test Results Lab/Test Results: Laboratory Tests Range/Units 07/23/24 07/23/24 20:30 20:40 WBC (4.4-10.8) 10^3/uL 11.58 H RBC (4.36-5.78) 10^6/uL 5.85 H Hgb (13.5-17.5) g/dL 16.3 Hct (40.0-50.0) % 50.4 H MCV (80-95) fL 86 MCH (27.0-33.0) pg 27.9 MCHC (32.0-36.0) % 32.3 RDW (11.8-14.1) % 14.6 H Plt Count (130-400) 10^3/uL 258 MPV (8.0-11.0) fL 9.3 Immature Gran % % 0.3 Neutrophils % % 78.1 Lymphocytes % % 14.9 Monocytes % % 6.0 Eosinophils % % 0.3 Basophils % % 0.4 Nucleated RBC % (0.0-0.3) % 0.0 Absolute Neutrophils (1.2-6.7) 10^3/uL 9.04 H Absolute Lymphocytes (1.2-3.4) 10^3/uL 1.73 Absolute Monocytes (0.1-0.8) 10^3/uL 0.69 Absolute Eosinophils (0.0-0.7) 10^3/uL 0.03 Absolute Basophils (0.0-0.2) 10^3/uL 0.05 Sodium (136-145) mmol/L 140 Potassium (3.5-5.1) mmol/L 4.3 Chloride (98-107) mmol/L 102 Carbon Dioxide (21.0-32.0) mmol/L 30.7 Anion Gap (3-11) mmol/L 7.3 BUN (7-18) mg/dL 20 H Creatinine (0.70-1.30) mg/dL 1.1 Est GFR (CKD-EPI 2020) (mL/min/1.73m2) 71.77 Glucose (74-106) mg/dL 121 H Calcium (8.5-10.1) mg/dL 10.6 H Total Bilirubin (0.2-1.0) mg/dL 0.92 AST (15-37) U/L 16 ALT (16-63) U/L 28 Alkaline Phosphatase (46-116) U/L 153 H Total Protein (6.4-8.2) g/dL 8.5 H Albumin (3.4-5.0) g/dL 3.9 Urine Color (Yellow) Yellow Urine Clarity (Clear) Clear Urine pH (5-8) 6.0 Ur Specific [place] (1.005-1.025) 1.015 Urine Protein (Neg-Trace) mg/dL Negative Urine Ketones (Negative) mg/dL 15 H Urine Blood (Negative) Negative Urine Nitrite (Negative) Negative Urine Bilirubin (Negative) Negative Urine Urobilinogen (Up to 0.2) mg/dL 0.2 Ur Leukocyte Esterase (Negative) Negative Urine Glucose (Negative) mg/dL 500 H Medical Decision Making Quality:SDOH Health Related Social Needs: No Data to Display PFSH All Active Problems (Updated 07/23/24 @ 23:35 by Carla Foster) Urinary retention (Acute) Abnormal finding on CT scan (Acute) Constipation (Acute) Acute constipation (Acute) Cholecystitis (Acute) Morbid obesity (Acute) Tinnitus (Acute) Adenomatous colon polyp (Acute) Hemorrhage, anal or rectal (Acute) Degenerative joint disease (Chronic) Pes anserinus bursitis (Acute) Low back pain (Acute) Elevated alkaline phosphatase level (Acute) Lipodystrophy (Acute) Seasonal allergies (Acute) Hypomagnesemia (Acute) Fatigue (Acute) Cataract (Chronic) Vitreous degeneration (Acute) CAD (coronary artery disease) (Chronic) Hip pain (Acute) Hip joint pain (Acute) Vitamin B 12 deficiency (Acute) Ecchymosis (Acute) Chest pain (Acute) a. Rule out LA. Coronary disease (Chronic) a. Presented with worsening dysnea on exertion in December 2011. b. MPI testing showed a large reversible lesion in the anterior chest. c. Cardiac catheterization revealed significant four-vessel disease. d. S/P four-vessel coronary artery bypass grafting in January 2012, FERNANDEZ to the LAD, vein to the OM, first diagonal, and RCA. e. Atrial fibrillation postop. Diabetes (Chronic) a. Last hemoglobin A1c 7.5% in 01/2003. b. Markedly overweight. Sleep apnea, obstructive (Chronic) a. Wears nocturnal CPAP. Obesity (Chronic) a. Considering bariatric surgery. Hypertension (Chronic) Hyperlipidemia (Chronic) Depression (Chronic) History of tobacco use (Chronic) BPH (benign prostatic hypertrophy) (Chronic) Hearing loss (Chronic) Anemia (Chronic) History of Surgical Procedure (Chronic) a. Umbilical hernia repair, 2004. b. Hand surgery. Pes anserinus bursitis of right knee (Acute) Medical History (Updated 07/23/24 @ 23:35 by Carla Foster) Near syncope Disequilibrium Social History Smoking/Tobacco Use Status: Former Tobacco Use Smoking risk assessment performed?: Yes Alcohol Intake: former Drug use: Rarely Substance use type: marijuana Housing: apartment Current gender identity: male Do you feel safe at home: Yes Do you feel safe in your relationship?: Yes
--- NOTE | 2024-07-23 22:35 | DI.VRAD_ITS ---
PROCEDURE INFORMATION: Exam: CT Abdomen And Pelvis With Contrast Exam date and time: 07/23/2024 8:59 PM Age: 73 years old Clinical indication: Constipation and other: Urinary retention TECHNIQUE: Imaging protocol: Computed tomography of the abdomen and pelvis with contrast. Contrast material: OMNIPAQUE 350; Contrast volume: 100 ml; Contrast route: INTRAVENOUS (IV); COMPARISON: CT ABDOMEN PELVIS WO 10/25/2022 7:57 AM FINDINGS: Lungs: No consolidation at the lung bases. Liver: Mild nodularity of the hepatic contour and relative hypertrophy of the lateral left hepatic segment, nonspecific but commonly seen in the setting of cirrhotic change. Clinical correlation recommended. Small indeterminate hypoattenuating hepatic lesion, incompletely characterized but most likely a small cyst or hemangioma. Gallbladder and biliary ducts: Moderate gallbladder distension. Noncalcified gallstones and/or sludge in the gallbladder neck. No biliary dilatation. Pancreas: Normal appearing pancreas. Spleen: Normal appearing spleen. Adrenal glands: Normal appearing adrenal glands. Kidneys and ureters: 1.5 cm right renal cyst with a density of-4 Hounsfield units on image 128 of series 10. Additional smaller hypoattenuating renal lesions, not well characterized but statistically most likely additional small cysts. No hydronephrosis. No ureterectasis. No obstructing ureteral stones. Stomach and bowel: No oral contrast. Stomach partially decompressed no small bowel dilatation to suggest obstruction. Normal-appearing colon. No evidence of diverticulitis or colitis. Appendix: Normal appendix Intraperitoneal space: No gross ascites or free air. Vasculature: No abdominal aortic aneurysm. Lymph nodes: No pathologically enlarged mesenteric, retroperitoneal, or pelvic sidewall lymph nodes. Urinary bladder: Normal appearing urinary bladder. Reproductive: Normal-appearing prostate gland and seminal vesicles. Bones/joints: No acute fracture seen among the bones of the abdomen or pelvis. Spinal degenerative change with Schmorl's nodes and anterior osteophytes at multiple levels. Spondylolysis on the left and spina bifida occulta at L5. Soft tissues: Small region of skin thickening with subcutaneous density in the right anterior abdominal wall, image 174 of series 10. Diastasis recti. Small fat containing right inguinal region hernia. IMPRESSION: 1. No acute bowel pathology demonstrated. Nodular hepatic contour with relative hypertrophy of the lateral left hepatic segment, nonspecific but commonly seen in the setting of cirrhotic change. Clinical correlation recommended. 2. Small region of skin thickening with subcutaneous density in the right anterior abdominal wall. Acute cellulitis or a soft tissue contusion could have this appearance. Direct inspection is recommended to exclude alternative dermatologic pathology. No subcutaneous gas or fluid collection demonstrated. Dictated and Authenticated by: Felix Bhandari MD. Orderin Jose Aguirre MD
--- NOTE | 2024-07-23 23:47 | ED.PROG_ITS ---
Date of service: 07/23/24 Time of Service: 23:30 Medical Decision Making This patient was signed out to me. Please see previous notes for H&P and initial eval. In brief, 73yo M with constipation, reassuring CT imaging. Enemia given. Signed out pending production of stool; tentative discharge instructions are written. On reassessment patient is well appearing with reassuring vital signs, non- tender abdomen. Moderate amount of stool after enema. Advised to continue with previously prescribed bowel regimen at home and followup with PCP. Discharged home; discharge instructions and return precautions were reviewed with patient who verbalized understanding. All questions were answered and he is in full agreement with the plan. Lab Data Lab results reviewed: Yes I reviewed the patient's lab results. Quality:SDOH Health Related Social Needs: No Data to Display Discharge Plan Disposition Patient Disposition: Home Condition: Good Discharge Details Clinical Impression: Constipation, Abnormal finding on CT scan, Urinary retention Primary Care Provider: Olga Borden V ED Provider: Yina Taveras Home Meds and New Rx's Prescriptions: Continued atorvastatin 40 mg tablet 40 mg PO DAILY furosemide 20 mg tablet 20 mg PO DAILY (DME) marijuana 0 .ROUTE .MEDSUPPLY triamcinolone acetonide 0.025 % lotion 1 applic topical BID polyethylene glycol 3350 17 gram/dose powder 17 g PO DAILY cholecalciferol (vitamin D3) 25 mcg (1,000 unit) capsule 25 mcg PO DAILY magnesium oxide 400 mg magnesium capsule 400 mg PO BID Trulicity 1.5 mg/0.5 mL pen injector 1.5 mg subcut QWEEK Jardiance 10 mg tablet 25 mg PO DAILY trazodone 50 MG tablet 50 mg PO DAILY aspirin [Adult Low Dose Aspirin] 81 MG tablet,delayed release (DR/EC) 81 mg PO DAILY nitroglycerin 0.4 MG tablet, sublingual 0.4 mg Sublingual DIRECTED PRN (Reason: Chest Pain) Qty: 25 0RF insulin degludec [Tresiba FlexTouch U-200] 200 unit/mL (3 mL) insulin pen 180 unit SUBCUT DAILY Patient Comments: INJECT 180 UNITS SUBCUTANEOUSLY EVERY MORNING insulin aspart U-100 [Novolog FlexPen U-100 Insulin] 100 unit/mL (3 mL) insulin pen 1 sliding scale dose SUBCUT TID Patient Comments: INJECT 20-25 UNITS BEFORE MEALS THREE TIMES A DAY , MAY USE AN ADDITIONAL 20 UNITS AT BEDTIME IF NEEDED, MAXIMUM DAILY DOSE = 100 UNITS PER sennosides-docusate sodium [2-in-1 Laxative] 8.6-50 mg tablet 1 tab-cap PO QHS Qty: 14 0RF Discharge Instructions Instructions: Constipation, Adult ED Additional Instructions: Please call Dr Borden's office first thing Thursday morning to schedule follow-up appointment to discuss your CT findings, urinary retention, and constipation management. Your CT scan showed some nonspecific hypertrophy of the lateral left hepatic segment. This may be something that you want to monitor with your primary care provider. I recommend that you use 1 capful of MiraLAX twice a day until you have consiste nt soft stools. You may then reduce to 1 full capful daily until you have regular stools. Drink a full glass of water with the MiraLAX each time. Drink plenty of fluids throughout the day. Continue to take the senna as well. Return to emergency care to develop new abdominal pain, vomiting, blood in your stool or urine, inability to urinate, or if you are very worried and need to be rechecked again immediately. Referrals: Olga Borden MD [Primary Care Provider] -
[2024-07-24 00:02] VITALS: BP 134/76; PULSE 84; RESP 17; O2SAT 99
== END 2024-07-24 00:03 | disposition home or self-care (01) ==
PROVIDERS: Nurse Practitioner Family; Emergency Provider Student in an Organized Health Care Education/Training Program; PCP Family Medicine
DX: R33.9 Retention of urine, unspecified (principal); R93.89 Abnormal findings on diagnostic imaging of other specified body structures; K59.00 Constipation, unspecified
CPT/HCPCS: 00123; 51798; 80053; 99285; 74177; 81003; 85025; 99284; J3490

== ENCOUNTER 2024-07-25 17:47 | Outpatient (REF) | payer MEDICARE, SELFPAY ==
[2024-07-26 18:46] LABS: Parathyroid Hormone,Intact 62.2 pg/mL (19.0-88.0)
[2024-07-26 18:48] LABS: PSA, Screening 3.4 ng/mL (<=6.5)
[2024-07-26 18:57] LABS: HBs Antibody, Quant 3.5 mIU/mL (See Note); Hepatitis B Surface Ab Negative (See Note)
[2024-07-26 19:10] LABS: Hepatitis B Surface Ag Negative (Negative)
[2024-07-26 19:38] LABS: Hepatitis C Ab w Rflx HCV PCR Negative (Negative)
[2024-07-26 19:45] LABS: Hep B Core Antibody Negative (Negative)
[2024-07-26 19:47] LABS: Hep A Total Ab w Rflx IgM Negative (Negative)
== END 2024-07-25 17:48 | disposition home or self-care (01) ==
LOC: NCHCN 17:47
PROVIDERS: PCP Family Medicine; Visit Provider Nurse Practitioner Family
DX: R39.11 Hesitancy of micturition (principal)
CPT/HCPCS: 84153; 86704; 86706; 86709; 86803; 87340; 83970

== ENCOUNTER 2024-07-28 09:28 | Emergency (ER) | payer MEDICARE, SELFPAY ==
[2024-07-28 09:39] VITALS: BP 156/79; PULSE 87; RESP 20; TEMP 36.5; O2SAT 97
[2024-07-28 09:43] VITALS: BP 156/79; PULSE 87; RESP 20; TEMP 36.5; O2SAT 97
[2024-07-28 10:09] LABS: Bilirubin Small (Negative); Blood Negative (Negative); Clarity Sl Cloudy (Clear); Glucose 500 mg/dL (Negative); Ketones >=160 mg/dL (Negative); Leukocyte Esterase Negative (Negative); Nitrite Negative (Negative); Urobilinogen 0.2 mg/dL (Up to 0.2); pH 5.5 (5-8)
--- NOTE | 2024-07-28 10:39 | W.ED.GENAD ---
Discharge Plan Disposition Patient Disposition: Home Condition: Stable Discharge Details Clinical Impression: Urinary retention, Constipation Primary Care Provider: Olga Borden V ED Provider: Wei Joe Home Meds and New Rx's Prescriptions: Continued atorvastatin 40 mg tablet 40 mg PO DAILY furosemide 20 mg tablet 20 mg PO DAILY (DME) marijuana 0 .ROUTE .MEDSUPPLY triamcinolone acetonide 0.025 % lotion 1 applic topical BID polyethylene glycol 3350 17 gram/dose powder 17 g PO DAILY cholecalciferol (vitamin D3) 25 mcg (1,000 unit) capsule 25 mcg PO DAILY magnesium oxide 400 mg magnesium capsule 400 mg PO BID Trulicity 1.5 mg/0.5 mL pen injector 1.5 mg subcut QWEEK Jardiance 10 mg tablet 25 mg PO DAILY trazodone 50 MG tablet 50 mg PO DAILY aspirin [Adult Low Dose Aspirin] 81 MG tablet,delayed release (DR/EC) 81 mg PO DAILY nitroglycerin 0.4 MG tablet, sublingual 0.4 mg Sublingual DIRECTED PRN (Reason: Chest Pain) Qty: 25 0RF insulin degludec [Tresiba FlexTouch U-200] 200 unit/mL (3 mL) insulin pen 180 unit SUBCUT DAILY Patient Comments: INJECT 180 UNITS SUBCUTANEOUSLY EVERY MORNING insulin aspart U-100 [Novolog FlexPen U-100 Insulin] 100 unit/mL (3 mL) insulin pen 1 sliding scale dose SUBCUT TID Patient Comments: INJECT 20-25 UNITS BEFORE MEALS THREE TIMES A DAY , MAY USE AN ADDITIONAL 20 UNITS AT BEDTIME IF NEEDED, MAXIMUM DAILY DOSE = 100 UNITS PER sennosides-docusate sodium [2-in-1 Laxative] 8.6-50 mg tablet 1 tab-cap PO QHS Qty: 14 0RF tamsulosin 0.4 mg capsule 0.4 mg PO DAILY Discharge Instructions Additional Instructions: Continue your medication as prescribed. You can try increasing your dietary intake of fiber. I placed on a follow-up list to see a urologist for your urinating issue. You should receive a call for an appointment. If you feel more ill or have new symptoms such as persistent vomiting return to the emergency department for reevaluation HPI General Mode of arrival: ambulatory. Date/Time Provider Initiated Documentation: 07/28/24 09:29. Limitations to Documentation: no limitations. Information obtained by: patient. History of Present Illness 73 year old M presents to the emergency department with the chief complaint of difficulty urinating, described as moderate, Patient started experiencing this week(s) (1) and it has been constant. No relieving factors improve symptom(s), No exacerbating factors reported . Patient notes denies chest pain, nausea/vomiting and shortness of breath. Patient did receive the following treatments prior to arrival, none Related Data Home Medications ?Medication ?Instructions ?Recorded ?Confirmed aspirin 81 mg tablet,delayed 81 mg PO DAILY 12/14/13 07/28/24 release (Adult Low Dose Aspirin) trazodone 50 mg tablet 50 mg PO DAILY 12/14/13 07/28/24 nitroglycerin 0.4 mg sublingual 0.4 mg sublingual DIRECTED PRN 12/15/13 07/28/24 tablet Chest Pain ##25 Marijuana 06/04/15 07/28/24 cholecalciferol (vitamin D3) 25 25 mcg PO DAILY 10/21/21 07/28/24 mcg (1,000 unit) capsule dulaglutide 1.5 mg/0.5 mL 1.5 mg subcut QWEEK 10/21/21 07/28/24 subcutaneous pen injector ([facility]) magnesium oxide 400 mg PO BID 10/21/21 07/28/24 polyethylene glycol 3350 17 17 g PO DAILY 10/21/21 07/28/24 gram/dose oral powder triamcinolone acetonide 0.025 % 1 applic topical BID 10/21/21 07/28/24 lotion empagliflozin 10 mg tablet 25 mg PO DAILY 01/14/22 07/28/24 (Jardiance) insulin degludec 200 unit/mL (3 180 unit subcut DAILY 10/25/22 07/28/24 mL) subcutaneous pen (Tresiba FlexTouch U-200 insulin) atorvastatin 40 mg tablet 40 mg PO DAILY 03/25/24 07/28/24 furosemide 20 mg tablet 20 mg PO DAILY 03/25/24 07/28/24 insulin aspart U-100 100 unit/mL 1 sliding scale dose subcut TID 07/22/24 07/28/24 (3 mL) subcutaneous pen (Novolog FlexPen U-100 Insulin aspart) sennosides 8.6 mg-docusate sodium 1 tab-cap PO QHS #14 tabs 07/22/24 07/28/24 50 mg tablet (2-in-1 Laxative) tamsulosin 0.4 mg capsule 0.4 mg PO DAILY 07/28/24 07/28/24 Previous Rx's ?Medication ?Instructions ?Recorded nitroglycerin 0.4 mg sublingual 0.4 mg sublingual DIRECTED PRN 12/15/13 tablet Chest Pain ##25 sennosides 8.6 mg-docusate sodium 1 tab-cap PO QHS #14 tabs 07/22/24 50 mg tablet (2-in-1 Laxative) Allergies Allergy/AdvReac Type Severity Reaction Status Date / Time bupropion HCl (From Allergy Unknown Other (See Verified 07/28/24 09:42 Wellbutrin) Comment) erythromycin base Allergy Unknown Other (See Verified 07/28/24 09:42 Comment) pravastatin sodium (From Allergy Unknown Other (See Verified 07/28/24 09:42 Pravachol) Comment) Penicillins Allergy Other (See Verified 07/28/24 09:42 Comment) lisinopril AdvReac Other (See Verified 07/28/24 09:42 Comment) General Stated Complaint: GenMedical LUX: 3 Review of Systems All systems reviewed & are unremarkable except as noted in HPI and below Constitutional Constitutional: Denies chills, Denies fever(s) and Denies weakness Cardiovascular Cardiovascular: Denies chest pain and Denies dyspnea Respiratory Respiratory: Denies cough and Denies dyspnea Gastrointestinal Gastrointestinal: Reports constipation, Denies nausea and Denies vomiting Genitourinary Genitourinary: Reports difficulty urinating Neurologic Neurologic: Denies weakness Psychiatric Psychiatric: Denies depression Exam Const General: no acute distress Orientation: alert [facility] Head: normal to inspection Ears: external ears normal General nose exam: external nose normal Mouth: moist mucous membranes Eyes General: appearance normal, both eyes and all related structures Neck Neck: normal visual inspection Resp Effort & Inspection: normal respiratory effort and able to speak in complete sentences Cardio Rate: regular rate GI Palpation: soft and nontender Skin General skin exam: no rashes or lesions noted Neuro General: patient alert and patient oriented x3 Extrem General: normal to inspection Psych Mental Status: mental status grossly normal Course Vital Signs Vital signs: Vital Signs Temperature 36.5 C 07/28/24 09:39 Pulse 87 07/28/24 09:39 Respiratory Rate 20 07/28/24 09:39 Blood Pressure 156/79 H 07/28/24 09:39 Pulse Oximetry 97 07/28/24 09:39 Temperature 36.5 C 07/28/24 09:43 Pulse 87 07/28/24 09:43 Respiratory Rate 20 07/28/24 09:43 Blood Pressure 156/79 H 07/28/24 09:43 Blood Pressure Position Sitting 07/28/24 09:43 Pulse Oximetry 97 07/28/24 09:43 Oxygen Delivery Method Room Air 07/28/24 09:43 Oxygen Flow Rate 0 07/28/24 09:43 Lab/Test Results Lab/Test Results: Laboratory Tests Range/Units 07/28/24 10:03 Urine Color (Yellow) Yellow Urine Clarity (Clear) Sl Cloudy Urine pH (5-8) 5.5 Ur Specific [place] (1.005-1.025) 1.020 Urine Protein (Neg-Trace) mg/dL Negative Urine Ketones (Negative) mg/dL >=160 H Urine Blood (Negative) Negative Urine Nitrite (Negative) Negative Urine Bilirubin (Negative) Small H Urine Urobilinogen (Up to 0.2) mg/dL 0.2 Ur Leukocyte Esterase (Negative) Negative Urine Glucose (Negative) mg/dL 500 H Medical Decision Making 73-year-old male comes in with continued issues with constipation and difficulty emptying his bladder. He has been seen twice for similar issues and is taking laxatives and stool softeners. He says he gets a small amount of stool out but not a normal bowel movement like he usually has. He was seen a few days ago and had a CT which showed no acute findings. He was able to urinate here and had 150 cc left in his bladder. He has no abdominal tenderness now. He says that when he does not empty his bladder he has some suprapubic pain. He has no abdominal tenderness on exam currently. Discussed that normally we would not put a Martins in for 150 cc of his bladder and he wants to avoid a Martins if possible. Given his lack of abdominal tenderness and recent negative CT I do not feel repeat imaging or lab work is indicated. I will check a x-ray to evaluate for increase stool burden. Patient's x-ray shows normal amount of stool. He is stable. Discussed results with him. He will continue his stool softeners. I will also provide him a referral to see urology for his urinary retention. Return precautions given Differential Diagnosis Differential Diagnosis: Enlarged prostate, constipation. Quality:SDOH Health Related Social Needs: No Data to Display PFSH All Active Problems (Updated 07/28/24 @ 12:11 by Wei Joe MD) Constipation (Acute) Urinary retention (Acute) Urinary retention (Acute) Abnormal finding on CT scan (Acute) Constipation (Acute) Acute constipation (Acute) Cholecystitis (Acute) Morbid obesity (Acute) Tinnitus (Acute) Adenomatous colon polyp (Acute) Hemorrhage, anal or rectal (Acute) Degenerative joint disease (Chronic) Pes anserinus bursitis (Acute) Low back pain (Acute) Elevated alkaline phosphatase level (Acute) Lipodystrophy (Acute) Seasonal allergies (Acute) Hypomagnesemia (Acute) Fatigue (Acute) Cataract (Chronic) Vitreous degeneration (Acute) CAD (coronary artery disease) (Chronic) Hip pain (Acute) Hip joint pain (Acute) Vitamin B 12 deficiency (Acute) Ecchymosis (Acute) Chest pain (Acute) a. Rule out AR. Coronary disease (Chronic) a. Presented with worsening dysnea on exertion in December 2011. b. MPI testing showed a large reversible lesion in the anterior chest. c. Cardiac catheterization revealed significant four-vessel disease. d. S/P four-vessel coronary artery bypass grafting in January 2012, FERNANDEZ to the LAD, vein to the OM, first diagonal, and RCA. e. Atrial fibrillation postop. Diabetes (Chronic) a. Last hemoglobin A1c 7.5% in 01/2003. b. Markedly overweight. Sleep apnea, obstructive (Chronic) a. Wears nocturnal CPAP. Obesity (Chronic) a. Considering bariatric surgery. Hypertension (Chronic) Hyperlipidemia (Chronic) Depression (Chronic) History of tobacco use (Chronic) BPH (benign prostatic hypertrophy) (Chronic) Hearing loss (Chronic) Anemia (Chronic) History of Surgical Procedure (Chronic) a. Umbilical hernia repair, 2004. b. Hand surgery. Pes anserinus bursitis of right knee (Acute) Medical History (Updated 07/28/24 @ 12:11 by Wei Joe MD) Near syncope Disequilibrium Social History Smoking/Tobacco Use Status: Former Tobacco Use Smoking risk assessment performed?: Yes Alcohol Intake: former Drug use: Rarely Substance use type: marijuana Housing: apartment Current gender identity: male Do you feel safe at home: Yes Do you feel safe in your relationship?: Yes
[2024-07-28 10:52] VITALS: RESP 16
--- NOTE | 2024-07-28 11:15 | DI.RAD_ITS ---
Exam(s) XR ABDOMEN FLAT UPRIGHT EXAM: 2D digital imaging was performed. CLINICAL HISTORY: constipation. COMPARISON: CT CT ABDOMEN PELVIS W from 07/23/2024 TECHNIQUE: Supine and uprightSupine and Lateral views of the abdomen were performed. FINDINGS: Portions of the both sides of the lateral abdomen are not included in the field of view. BOWEL GAS PATTERN: Nondistended.No free air. Normal quantity of stool. CALCIFICATIONS: No urinary tract calcifications. OSSEOUS STRUCTURES: Normal for age. Visualized portions of chest: Unremarkable. Soft tissues: Unremarkable. IMPRESSION: 1. Nonobstructive bowel gas pattern. 2. No radiopaque calculi. 3. No free air. DATA REPOSITORY: RADIATION DOSE DELIVERED:
--- NOTE | 2024-07-29 07:54 | NUR.NOTE ---
Nursing Note: Patient called questioning his discharge instructions. Instructions were for him to get an appt with urology
== END 2024-07-28 12:22 | disposition home or self-care (01) ==
PROVIDERS: Emergency Provider Emergency Medicine; PCP Family Medicine
DX: R33.9 Retention of urine, unspecified (principal); K59.00 Constipation, unspecified; I25.10 Atherosclerotic heart disease of native coronary artery without angina pectoris; E11.9 Type 2 diabetes mellitus without complications; I10 Essential (primary) hypertension; E78.5 Hyperlipidemia, unspecified; Z79.82 Long term (current) use of aspirin; Z79.4 Long term (current) use of insulin; Z87.891 Personal history of nicotine dependence
CPT/HCPCS: 99284; 74019; 81003

== ENCOUNTER 2024-07-29 22:36 | Emergency (ER) | payer MEDICARE, SELFPAY ==
[2024-07-29 22:57] VITALS: BP 129/77; PULSE 90; RESP 18; TEMP 36.1; O2SAT 95
[2024-07-29 23:03] VITALS: BP 129/77; PULSE 90; RESP 18; TEMP 36.1; O2SAT 95
--- NOTE | 2024-07-29 23:09 | W.ED.GENAD ---
Discharge Plan Disposition Patient Disposition: Home Condition: Good Discharge Details Clinical Impression: Acute on chronic urinary retention Primary Care Provider: Olga Borden V ED Provider: Hal Rose Home Meds and New Rx's Prescriptions: New magnesium citrate Solution 296 ml PO ONCE Qty: 296 0RF Rx Instructions: as a single dose saw palmetto 450 mg capsule 450 mg PO BID Qty: 30 0RF Rx Instructions: give with food (meal/snack) No Action atorvastatin 40 mg tablet 40 mg PO DAILY furosemide 20 mg tablet 20 mg PO DAILY (DME) marijuana 0 .ROUTE .MEDSUPPLY triamcinolone acetonide 0.025 % lotion 1 applic topical BID polyethylene glycol 3350 17 gram/dose powder 17 g PO DAILY cholecalciferol (vitamin D3) 25 mcg (1,000 unit) capsule 25 mcg PO DAILY magnesium oxide 400 mg magnesium capsule 400 mg PO BID Trulicity 1.5 mg/0.5 mL pen injector 1.5 mg subcut QWEEK Jardiance 10 mg tablet 25 mg PO DAILY trazodone 50 MG tablet 50 mg PO DAILY aspirin [Adult Low Dose Aspirin] 81 MG tablet,delayed release (DR/EC) 81 mg PO DAILY nitroglycerin 0.4 MG tablet, sublingual 0.4 mg Sublingual DIRECTED PRN (Reason: Chest Pain) Qty: 25 0RF insulin degludec [Tresiba FlexTouch U-200] 200 unit/mL (3 mL) insulin pen 180 unit SUBCUT DAILY Patient Comments: INJECT 180 UNITS SUBCUTANEOUSLY EVERY MORNING insulin aspart U-100 [Novolog FlexPen U-100 Insulin] 100 unit/mL (3 mL) insulin pen 1 sliding scale dose SUBCUT TID Patient Comments: INJECT 20-25 UNITS BEFORE MEALS THREE TIMES A DAY , MAY USE AN ADDITIONAL 20 UNITS AT BEDTIME IF NEEDED, MAXIMUM DAILY DOSE = 100 UNITS PER sennosides-docusate sodium [2-in-1 Laxative] 8.6-50 mg tablet 1 tab-cap PO QHS Qty: 14 0RF tamsulosin 0.4 mg capsule 0.4 mg PO DAILY Trulicity 3 mg/0.5 mL pen injector SUBCUT Discharge Instructions Instructions: Urinary Retention Additional Instructions: At this time you are able to have a urinary movement and so thankfully there is not an indication for a Martins catheter. It is important that we maximize your medical therapy prior to your visit with urology. Please continue to take your Flomax as prescribed. Please also take the [id number] saw palmetto supplement twice daily. In regards to your previous constipation and this being a potential cause of some urinary retention we will recommend a course of magnesium citrate to help elicit a colon cleansing. Please drink 1/2-1 whole bottle of magnesium citrate with 6 cups of water or electrolyte solution. This will cause notable cramping and stool movements. When having a bowel or urine movement, please make sure you are using a toilet that has a stool in front of it to help raise your feet and knees to help expedite bowel and bladder movements. Please follow-up closely with Dr. Matthews. If you notice any worsening of your symptoms, or any new symptoms such as vomiting, diarrhea, fever, chills, shortness of breath, chest pain, numbness, weakness, or fainting , please return immediately to the emergency department for reevaluation. Please follow up with your primary care provider as soon as possible for reassessment and reevaluation. As always, it was a pleasure participating in your medical care today. Referrals: Olga Borden MD [Primary Care Provider] - Albert Matthews MD [ [facility]YSICIAN] - [facility] General Date/Time Provider Initiated Documentation: 07/29/24 22:39. [facility] Narrative: 73-year-old male presents for urinary retention. Historically, the patient has been here few times over the last week or so. He initially had constipation, but was also found to have mild retention. He was started on stool softeners. He presented just 3 days ago, and had continued mild urinary retention. However every time he arrives here once he uses one of our bathrooms he is able to have a near complete urinary movement. He was started on Flomax, there is no indication for Martins catheter, the patient was discharged. Referral has been placed with urology. Over the last 2 or 3 days the patient has continued to do well, however today he again had some mild difficulty getting all of his urine out. He stated that the last episode he had of urinary movement was at noon. He had sensation of notable pressure in his bladder, and came to the ER because of this. However after he checked in, he went to the bathroom and was able to have a notable urinary movement. Patient denies any fever or chills. No other complaints. Pain is notably resolved after urinary movement. He still states that he has not had a large bowel movement since starting on the stool softeners, and does have small amounts of soft stool that been present but no large bowel movements for the last couple of days. No other complaints at this time. No other modifying factors. He has been taking his Flomax as prescribed. Related Data Home Medications ?Medication ?Instructions ?Recorded ?Confirmed aspirin 81 mg tablet,delayed 81 mg PO DAILY 12/14/13 07/29/24 release (Adult Low Dose Aspirin) trazodone 50 mg tablet 50 mg PO DAILY 12/14/13 07/29/24 nitroglycerin 0.4 mg sublingual 0.4 mg sublingual DIRECTED PRN 12/15/13 07/29/24 tablet Chest Pain ##25 Marijuana 06/04/15 07/28/24 cholecalciferol (vitamin D3) 25 25 mcg PO DAILY 10/21/21 07/29/24 mcg (1,000 unit) capsule dulaglutide 1.5 mg/0.5 mL 1.5 mg subcut QWEEK 10/21/21 07/29/24 subcutaneous pen injector (Trulicity) magnesium oxide 400 mg PO BID 10/21/21 07/29/24 polyethylene glycol 3350 17 17 g PO DAILY 10/21/21 07/29/24 gram/dose oral powder triamcinolone acetonide 0.025 % 1 applic topical BID 10/21/21 07/29/24 lotion empagliflozin 10 mg tablet 25 mg PO DAILY 01/14/22 07/29/24 (Jardiance) insulin degludec 200 unit/mL (3 180 unit subcut DAILY 10/25/22 07/29/24 mL) subcutaneous pen (Tresiba FlexTouch U-200 insulin) atorvastatin 40 mg tablet 40 mg PO DAILY 03/25/24 07/29/24 furosemide 20 mg tablet 20 mg PO DAILY 03/25/24 07/29/24 insulin aspart U-100 100 unit/mL 1 sliding scale dose subcut TID 07/22/24 07/29/24 (3 mL) subcutaneous pen (Novolog FlexPen U-100 Insulin aspart) sennosides 8.6 mg-docusate sodium 1 tab-cap PO QHS #14 tabs 07/22/24 07/29/24 50 mg tablet (2-in-1 Laxative) tamsulosin 0.4 mg capsule 0.4 mg PO DAILY 07/28/24 07/29/24 dulaglutide 3 mg/0.5 mL mg subcut 07/29/24 subcutaneous pen injector (Trulicity) magnesium citrate 296 ml PO ONCE #296 mL 07/29/24 saw palmetto 450 mg capsule 450 mg PO BID #30 caps 07/29/24 Previous Rx's ?Medication ?Instructions ?Recorded nitroglycerin 0.4 mg sublingual 0.4 mg sublingual DIRECTED PRN 12/15/13 tablet Chest Pain ##25 sennosides 8.6 mg-docusate sodium 1 tab-cap PO QHS #14 tabs 07/22/24 50 mg tablet (2-in-1 Laxative) magnesium citrate 296 ml PO ONCE #296 mL 07/29/24 saw palmetto 450 mg capsule 450 mg PO BID #30 caps 07/29/24 Allergies Allergy/AdvReac Type Severity Reaction Status Date / Time bupropion HCl (From Allergy Unknown Other (See Verified 07/29/24 23:04 Wellbutrin) Comment) erythromycin base Allergy Unknown Other (See Verified 07/29/24 23:04 Comment) pravastatin sodium (From Allergy Unknown Other (See Verified 07/29/24 23:04 Pravachol) Comment) Penicillins Allergy Other (See Verified 07/29/24 23:04 Comment) lisinopril AdvReac Other (See Verified 07/29/24 23:04 Comment) General Stated Complaint: Urinary LUX: 4 Exam Narrative Exam Narrative: 1.Const: Well-nourished, Well-developed, appearing stated age 2.Eyes: PERRL, no conjunctival injection, and symmetrical lids. 3.ENT: Atraumatic external nose and ears. Moist MM. Neck: Symmetric, trachea midline, No thyromegaly. 4.CVS: +S1/S2, Peripheral pulses 2+ and equal in all extremities. Brisk capillary refill in all extremities. 5.RESP: Unlabored respiratory effort. Clear to auscultation bilaterally. No wheezes rales or rhonchi 6.GI: Soft, Nontender/Nondistended, No hepatosplenomegaly. No guarding or rebound. No suprapubic tenderness or pressure or palpable mass. 7.MSK: Normocephalic/Atraumatic, Extremities w/o deformity or ttp No cyanosis or clubbing, Normal movement of all extremities 8.Skin: Warm, Dry. No rashes or lesions. 9.Neuro: nursing service administrator II-XII grossly intact. Sensation grossly intact, no focal neurologic deficits. 10.Psych: (AAO) x3. Appropriate mood and affect Course Vital Signs Vital signs: Vital Signs Temperature 36.1 C L 07/29/24 22:57 Pulse 90 07/29/24 22:57 Respiratory Rate 18 07/29/24 22:57 Blood Pressure 129/77 07/29/24 22:57 Pulse Oximetry 95 07/29/24 22:57 Temperature 36.1 C L 07/29/24 23:03 Pulse 90 07/29/24 23:03 Respiratory Rate 18 07/29/24 23:03 Blood Pressure 129/77 07/29/24 23:03 Blood Pressure Position Sitting 07/29/24 23:03 Pulse Oximetry 95 07/29/24 23:03 Oxygen Delivery Method Room Air 07/29/24 23:03 Oxygen Flow Rate 0 07/29/24 22:57 Pain Level 4 07/29/24 23:03 Medical Decision Making 73-year-old male presents for urinary retention. Historically, the patient has been here few times over the last week or so. He initially had constipation, but was also found to have mild retention. He was started on stool softeners. He presented just 3 days ago, and had continued mild urinary retention. However every time he arrives here once he uses one of our bathrooms he is able to have a near complete urinary movement. He was started on Flomax, there is no indication for Martins catheter, the patient was discharged. Referral has been placed with urology. Over the last 2 or 3 days the patient has continued to do well, however today he again had some mild difficulty getting all of his urine out. He stated that the last episode he had of urinary movement was at noon. He had sensation of notable pressure in his bladder, and came to the ER because of this. However after he checked in, he went to the bathroom and was able to have a notable urinary movement. Patient denies any fever or chills. No other complaints. Pain is notably resolved after urinary movement. He still states that he has not had a large bowel movement since starting on the stool softeners, and does have small amounts of soft stool that been present but no large bowel movements for the last couple of days. No other complaints at this time. No other modifying factors. He has been taking his Flomax as prescribed. Physical exam demonstrates a well-appearing male, post void he demonstrates no suprapubic tenderness or mass. He feels much better, feels comfortable going home. Postvoid residual bedside ultrasound was performed, and bladder is notably small with only a very tiny amount of residual fluid noted. As she does not demonstrate actual continued urinary retention, I do not see an indication for Martins catheter. He has no fever or chills to suggest UTI or pyelonephritis. No abdominal pain or distention to suggest obstruction. He may still have mild constipation or stool burden. I do feel that maximizing medical therapy is indicated. We will add [id number] saw palmetto in addition to his Flomax. We we will recommend utilizing a stool in front of his toilet at home as this would replicate the positioning that he has here when he has a urinary movement on our toilet as compared to his own. Additionally we did give the option of magnesium citrate for colon cleansing to reduce any potential leftover stool burden which could potentially be a component or at the very least a causative aggravator for the urinary retention. Patient understands this. Otherwise no evidence of severe phimosis or paraphimosis causing retention. Suspect prostatic issues as the etiology of chief concern. Will recommend continued medications, saw palmetto, magnesium citrate for stool/colon cleansing. Patient has referral with Dr. Matthews already, and will follow-up with him on an outpatient basis. Discussed red flags for which to return. I have extensively reviewed the treatment plan and discharge instructions with the patient. I have addressed all patient concerns at this time. The patient was made aware of what symptoms to monitor for that would warrant a return to the emergency department. Discussed the plan with the patient, they demonstrate verbal understanding and agreement with our assessment and plan at this time. The documentation in this chart was dictated using [employer] dictation software. Please excuse any dictation errors. Quality:SDOH Health Related Social Needs: No Data to Display PFSH All Active Problems (Updated 07/29/24 @ 23:10 by Hal Rose DO) Acute on chronic urinary retention (Acute) Constipation (Acute) Urinary retention (Acute) Urinary retention (Acute) Abnormal finding on CT scan (Acute) Constipation (Acute) Acute constipation (Acute) Cholecystitis (Acute) Morbid obesity (Acute) Tinnitus (Acute) Adenomatous colon polyp (Acute) Hemorrhage, anal or rectal (Acute) Degenerative joint disease (Chronic) Pes anserinus bursitis (Acute) Low back pain (Acute) Elevated alkaline phosphatase level (Acute) Lipodystrophy (Acute) Seasonal allergies (Acute) Hypomagnesemia (Acute) Fatigue (Acute) Cataract (Chronic) Vitreous degeneration (Acute) CAD (coronary artery disease) (Chronic) Hip pain (Acute) Hip joint pain (Acute) Vitamin B 12 deficiency (Acute) Ecchymosis (Acute) Chest pain (Acute) a. Rule out CO. Coronary disease (Chronic) a. Presented with worsening dysnea on exertion in December 2011. b. MPI testing showed a large reversible lesion in the anterior chest. c. Cardiac catheterization revealed significant four-vessel disease. d. S/P four-vessel coronary artery bypass grafting in January 2012, FERNANDEZ to the LAD, vein to the OM, first diagonal, and RCA. e. Atrial fibrillation postop. Diabetes (Chronic) a. Last hemoglobin A1c 7.5% in 01/2003. b. Markedly overweight. Sleep apnea, obstructive (Chronic) a. Wears nocturnal CPAP. Obesity (Chronic) a. Considering bariatric surgery. Hypertension (Chronic) Hyperlipidemia (Chronic) Depression (Chronic) History of tobacco use (Chronic) BPH (benign prostatic hypertrophy) (Chronic) Hearing loss (Chronic) Anemia (Chronic) History of Surgical Procedure (Chronic) a. Umbilical hernia repair, 2004. b. Hand surgery. Pes anserinus bursitis of right knee (Acute) Medical History (Updated 07/29/24 @ 23:10 by Hal Rose DO) Near syncope Disequilibrium Social History Smoking/Tobacco Use Status: Former Tobacco Use Smoking risk assessment performed?: Yes Alcohol Intake: former Drug use: Rarely Substance use type: marijuana Housing: apartment Current gender identity: male Do you feel safe at home: Yes Do you feel safe in your relationship?: Yes POCUS Exam (ED) Limited Bladder Exam DATE OF EXAM: 07/29/24 TIME OF EXAM: 23:41 PROVIDER THAT PERFORMED THE STUDY: Hal Rose IS THIS A REPEAT EXAM DURING THIS ENCOUNTER: no REASON FOR EXAM: Other (urinary retention/post void) indication: urinary retention/post void VISUALIZED STRUCTURES: Bladder PERTINENT FINDINGS/IMPRESSION: no apparent abnormalites and post void residual, (minimal) DIFFERENTIAL DIAGNOSES: Very minimal postvoid retained urine. Just a few cc. Former calculation was not performed secondary to small amount/volume. Exam complete
== END 2024-07-29 23:18 | disposition home or self-care (01) ==
PROVIDERS: Emergency Provider Student in an Organized Health Care Education/Training Program; PCP Family Medicine
DX: R33.9 Retention of urine, unspecified (principal); E11.9 Type 2 diabetes mellitus without complications; I10 Essential (primary) hypertension; E78.5 Hyperlipidemia, unspecified; I25.10 Atherosclerotic heart disease of native coronary artery without angina pectoris; Z95.1 Presence of aortocoronary bypass graft; Z79.82 Long term (current) use of aspirin; Z79.4 Long term (current) use of insulin; Z79.84 Long term (current) use of oral hypoglycemic drugs; Z87.891 Personal history of nicotine dependence
CPT/HCPCS: 76857; 99284

== ENCOUNTER 2024-08-04 14:23 | Emergency (ER) | payer MEDICARE, SELFPAY ==
--- NOTE | 2024-08-04 14:30 | RT.EKG_ITS ---
APPROVED REPORT Exam: Resting ECG Reason for Exam: faina ARROYO Patient Location: E HR:98 bpm ECG Measurements Heart Rate 98 AXIS VT 183 P 33 QRSd 90 QRS 45 QT 361 T 34 QTc 460 Conclusion Sinus rhythm, rate 98 No interval abnormalities No STEMI Compared to priors, trevon has resolved
[2024-08-04 14:40] VITALS: BP 136/74; PULSE 104; RESP 26; TEMP 36.3; O2SAT 97
[2024-08-04 14:54] VITALS: RESP 16
--- NOTE | 2024-08-04 15:02 | W.ED.GENAD ---
Discharge Plan Disposition Patient Disposition: Home Condition: Stable Discharge Details Clinical Impression: Acute on chronic urinary retention, Fatigue, Constipation, Sleep apnea, obstructive, Hypertension, Hyperlipidemia Primary Care Provider: Olga Borden V ED Provider: Luz Paredes Home Meds and New Rx's Prescriptions: No Action atorvastatin 40 mg tablet 40 mg PO DAILY furosemide 20 mg tablet 20 mg PO DAILY (DME) marijuana 0 .ROUTE .MEDSUPPLY triamcinolone acetonide 0.025 % lotion 1 applic topical BID polyethylene glycol 3350 17 gram/dose powder 17 g PO DAILY cholecalciferol (vitamin D3) 25 mcg (1,000 unit) capsule 25 mcg PO DAILY magnesium oxide 400 mg magnesium capsule 400 mg PO BID Trulicity 1.5 mg/0.5 mL pen injector 1.5 mg subcut QWEEK Jardiance 10 mg tablet 25 mg PO DAILY trazodone 50 MG tablet 50 mg PO DAILY aspirin [Adult Low Dose Aspirin] 81 MG tablet,delayed release (DR/EC) 81 mg PO DAILY nitroglycerin 0.4 MG tablet, sublingual 0.4 mg Sublingual DIRECTED PRN (Reason: Chest Pain) Qty: 25 0RF insulin degludec [Tresiba FlexTouch U-200] 200 unit/mL (3 mL) insulin pen 180 unit SUBCUT DAILY Patient Comments: INJECT 180 UNITS SUBCUTANEOUSLY EVERY MORNING insulin aspart U-100 [Novolog FlexPen U-100 Insulin] 100 unit/mL (3 mL) insulin pen 1 sliding scale dose SUBCUT TID Patient Comments: INJECT 20-25 UNITS BEFORE MEALS THREE TIMES A DAY , MAY USE AN ADDITIONAL 20 UNITS AT BEDTIME IF NEEDED, MAXIMUM DAILY DOSE = 100 UNITS PER sennosides-docusate sodium [2-in-1 Laxative] 8.6-50 mg tablet 1 tab-cap PO QHS Qty: 14 0RF tamsulosin 0.4 mg capsule 0.4 mg PO BID magnesium citrate Solution 296 ml PO ONCE Qty: 296 0RF Rx Instructions: as a single dose saw palmetto 450 mg capsule 450 mg PO BID Qty: 30 0RF Rx Instructions: give with food (meal/snack) Discharge Instructions Instructions: How to Care for Your Martins Catheter, Urinary Retention (DC) Additional Instructions: You were seen in the emergency department today for evaluation of inability to pee, a condition known as urinary retention. This is likely due to an enlarged prostate, and unfortunately the medications that you are taking were not working. For this reason, a catheter was placed in the emergency department. This catheter will remain in place until you can be evaluated by urology. We did place a referral for a sooner visit given your complaint today. You had laboratory studies that were quite reassuring, including a negative cardiac workup, and negative COVID and influenza test, and a negative test for blood clots. We did discuss imaging and at this time you prefer to avoid repeat imaging given that you have had so much done already this month. I do recommend that you follow-up with your primary care provider in the next few days to discuss this visit and any symptoms that change, worsen, or persist. Thank you for allowing us to be part of your care. HPI General Mode of arrival: ambulatory. Date/Time Provider Initiated Documentation: 08/04/24 14:26. Limitations to Documentation: no limitations. Information obtained by: patient and old records reviewed. HPI Narrative: HPI: This is a 73-year-old male patient with a past medical history significant for urinary retention, coronary artery disease status post CABG, diabetes, sleep apnea, hypertension, BPH, and history of umbilical hernia repair who is presenting for numerous medical complaints. The patient reports that he has not passed stool for the last 2 weeks, states that at home he is using magnesium citrate twice a day, in the past has required Fleet enemas, states that he is still passing flatus. He states that he has been unable to pass urine today, often has difficulty passing urine, has been seen in this emergency department numerous times for the same complaint, has not required catheterization. The patient also states that for the last 3 to 4 days he has felt extremely weak, feels that he has no appetite, but often will feel more energetic after a small meal. He states that he has not had nausea or vomiting, but is afraid to eat. He notes abdominal discomfort that is generalized, increased bloating and distention of his abdomen compared to his baseline. The patient also reports that he has had some nasal congestion and postnasal drip, as well as some shortness of breath that occurs at baseline, with no reported wheezing. He has no chest pain, does have a mild cough, states that he is not bringing anything up with that cough and denies hemoptysis. No reported fevers in the home. Exam: Gen: Awake and alert, in no apparent distress HEENT: Non-icteric sclera Neck: Supple Lungs: No apparent respiratory distress, normal respiratory effort. Lung sounds clear and equal bilaterally without wheezes, rhonchi, rales CV: Appears well perfused, heart with tachycardic rate but regular rhythm, strong distal pulses, no murmurs auscultated Abdomen: Non-distended, soft, distended, minimal tenderness to palpation in the epigastric and suprapubic regions without rigidity, rebound, or guarding. MSK: Moves 4 extremities without apparent limitation in ROM. No peripheral edema, no unilateral calf swelling or tenderness Skin: Visualized skin without rashes, cyanosis. Neuro: Normal Gait, no obvious focal deficits or facial asymmetry. Speaks in full, clear sentences. Psych: Appropriate for situation. MDM: This is a 73-year-old male patient presenting for evaluation of urinary retention and constipation, abdominal pain, and shortness of breath. Differential includes but is not limited to obstructive uropathy, most likely prostate enlargement in this patient with history of same. Considered UTI/pyelonephritis, renal stones, constipation, diverticulitis, bowel obstruction. Considered metabolic and electrolyte derangement, dehydration, kidney injuries. Considered viral upper respiratory infection, pneumonia, no chest pain to suggest ACS. The patient has no focal lung findings to significantly increase my concern for reactive airway disease exacerbation, pulmonary edema, pleural effusion. The patient is tachypneic and tachycardic, and while he does not endorse any pleuritic chest pain or DVT symptoms he does not meet PERC criteria for rule out pulmonary embolism. Finally, I certainly considered that the patient's abdominal distention could be causing his shortness of breath due to mechanical changes in respiration. We will obtain laboratory studies to include CBC, CMP, magnesium, troponin, BNP, D-dimer, Fluvid, and urinalysis. I will obtain a bladder scan to determine if this patient meets criteria for catheterization. ED Course: Bladder scan shows 300 mL, patient attempted to urinate again and was unable to pass any, and given that this is his fifth visit for same, and he is not able to pass any urine at all I we will proceed with Martins catheter placement. I independently interpreted the laboratory studies, which show no significant leukocytosis, anemia, or thrombocytopenia. The chemistry panel is without evidence of electrolyte abnormality, kidney dysfunction, or liver injury. Troponin was low, and the patient's EKG was reviewed by myself and shows no evidence of acute ischemia, normal sinus rhythm, and given his lack of chest pain I have a very low concern for active ischemia. D-dimer was negative. I had a shared decision-making conversation with this patient regarding imaging, including chest x-ray, abdominal x-ray, and or abdominal CT scan. The patient is desiring to avoid any imaging given that he has had so many scans and his recent visits, and given my reassuring examination, his benign laboratory workup, I feel that this is not unreasonable. I did provide him with Tylenol and Toradol for management of some back discomfort after ensuring his renal function was appropriate. His Fluvid was negative. The patient was counseled on catheter care, a referral for urology was placed, and at this time, the patient has had a full medical evaluation and is safe for discharge to home. They are hemodynamically stable, ambulatory, and tolerating PO. They are understanding of the follow-up plan and return precautions. They left our facility without incident. Luz Paredes MD Related Data Home Medications ?Medication ?Instructions ?Recorded ?Confirmed aspirin 81 mg tablet,delayed 81 mg PO DAILY 12/14/13 08/04/24 release (Adult Low Dose Aspirin) trazodone 50 mg tablet 50 mg PO DAILY 12/14/13 08/04/24 nitroglycerin 0.4 mg sublingual 0.4 mg sublingual DIRECTED PRN 12/15/13 08/04/24 tablet Chest Pain ##25 Marijuana 06/04/15 07/28/24 cholecalciferol (vitamin D3) 25 25 mcg PO DAILY 10/21/21 08/04/24 mcg (1,000 unit) capsule dulaglutide 1.5 mg/0.5 mL 1.5 mg subcut QWEEK 10/21/21 08/04/24 [facility] magnesium oxide 400 mg PO BID 10/21/21 08/04/24 polyethylene glycol 3350 17 17 g PO DAILY 10/21/21 08/04/24 gram/dose oral powder triamcinolone acetonide 0.025 % 1 applic topical BID 10/21/21 08/04/24 lotion empagliflozin 10 mg tablet 25 mg PO DAILY 01/14/22 08/04/24 (Jardiance) insulin degludec 200 unit/mL (3 180 unit subcut DAILY 10/25/22 08/04/24 mL) subcutaneous pen (Tresiba FlexTouch U-200 insulin) atorvastatin 40 mg tablet 40 mg PO DAILY 03/25/24 08/04/24 furosemide 20 mg tablet 20 mg PO DAILY 03/25/24 08/04/24 insulin aspart U-100 100 unit/mL 1 sliding scale dose subcut TID 07/22/24 08/04/24 (3 mL) subcutaneous pen (Novolog FlexPen U-100 Insulin aspart) sennosides 8.6 mg-docusate sodium 1 tab-cap PO QHS #14 tabs 07/22/24 08/04/24 50 mg tablet (2-in-1 Laxative) tamsulosin 0.4 mg capsule 0.4 mg PO BID 07/28/24 08/04/24 magnesium citrate 296 ml PO ONCE #296 mL 07/29/24 08/04/24 saw palmetto 450 mg capsule 450 mg PO BID #30 caps 07/29/24 08/04/24 Previous Rx's ?Medication ?Instructions ?Recorded nitroglycerin 0.4 mg sublingual 0.4 mg sublingual DIRECTED PRN 12/15/13 tablet Chest Pain ##25 sennosides 8.6 mg-docusate sodium 1 tab-cap PO QHS #14 tabs 07/22/24 50 mg tablet (2-in-1 Laxative) magnesium citrate 296 ml PO ONCE #296 mL 07/29/24 saw palmetto 450 mg capsule 450 mg PO BID #30 caps 07/29/24 Allergies Allergy/AdvReac Type Severity Reaction Status Date / Time bupropion HCl (From Allergy Unknown Other (See Verified 08/04/24 14:37 Wellbutrin) Comment) erythromycin base Allergy Unknown Other (See Verified 08/04/24 14:37 Comment) pravastatin sodium (From Allergy Unknown Other (See Verified 08/04/24 14:37 Pravachol) Comment) Penicillins Allergy Other (See Verified 08/04/24 14:37 Comment) lisinopril AdvReac Other (See Verified 08/04/24 14:37 Comment) General Stated Complaint: SOB LUX: 3 Course Vital Signs Vital signs: Vital Signs Temperature 36.3 C L 08/04/24 14:40 Pulse 104 H 08/04/24 14:40 Respiratory Rate 26 H 08/04/24 14:40 Blood Pressure 136/74 08/04/24 14:40 Pulse Oximetry 97 08/04/24 14:40 Temperature 36.3 C L 08/04/24 14:40 Temperature Source Tympanic 08/04/24 14:40 Pulse 104 H 08/04/24 14:40 Respiratory Rate 16 08/04/24 14:54 Respiratory Effort Normal 08/04/24 14:54 Respiratory Depth Normal 08/04/24 14:54 Respiratory Pattern Normal 08/04/24 14:54 Blood Pressure 136/74 08/04/24 14:40 Blood Pressure Position Sitting 08/04/24 14:40 Pulse Oximetry 97 08/04/24 14:40 Oxygen Delivery Method Room Air 08/04/24 14:40 Oxygen Flow Rate 0 08/04/24 14:40 Medical Decision Making Quality:SDOH Health Related Social Needs: No Data to Display PFSH All Active Problems (Updated 08/04/24 @ 16:58 by Luz Paredes MD) Acute on chronic urinary retention (Acute) Constipation (Acute) Urinary retention (Acute) Urinary retention (Acute) Abnormal finding on CT scan (Acute) Constipation (Acute) Acute constipation (Acute) Cholecystitis (Acute) Morbid obesity (Acute) Tinnitus (Acute) Adenomatous colon polyp (Acute) Hemorrhage, anal or rectal (Acute) Degenerative joint disease (Chronic) Pes anserinus bursitis (Acute) Low back pain (Acute) Elevated alkaline phosphatase level (Acute) Lipodystrophy (Acute) Seasonal allergies (Acute) Hypomagnesemia (Acute) Fatigue (Acute) Cataract (Chronic) Vitreous degeneration (Acute) CAD (coronary artery disease) (Chronic) Hip pain (Acute) Hip joint pain (Acute) Vitamin B 12 deficiency (Acute) Ecchymosis (Acute) Chest pain (Acute) a. Rule out VA. Coronary disease (Chronic) a. Presented with worsening dysnea on exertion in December 2011. b. MPI testing showed a large reversible lesion in the anterior chest. c. Cardiac catheterization revealed significant four-vessel disease. d. S/P four-vessel coronary artery bypass grafting in January 2012, FERNANDEZ to the LAD, vein to the OM, first diagonal, and RCA. e. Atrial fibrillation postop. Diabetes (Chronic) a. Last hemoglobin A1c 7.5% in 01/2003. b. Markedly overweight. Sleep apnea, obstructive (Chronic) a. Wears nocturnal CPAP. Obesity (Chronic) a. Considering bariatric surgery. Hypertension (Chronic) Hyperlipidemia (Chronic) Depression (Chronic) History of tobacco use (Chronic) BPH (benign prostatic hypertrophy) (Chronic) Hearing loss (Chronic) Anemia (Chronic) History of Surgical Procedure (Chronic) a. Umbilical hernia repair, 2003. b. Hand surgery. Pes anserinus bursitis of right knee (Acute) Medical History (Updated 08/04/24 @ 16:58 by Luz Paredes MD) Near syncope Disequilibrium Social History Smoking/Tobacco Use Status: Former Tobacco Use Smoking risk assessment performed?: Yes Alcohol Intake: former Drug use: Rarely Substance use type: marijuana Housing: apartment Current gender identity: male Do you feel safe at home: Yes Do you feel safe in your relationship?: Yes
[2024-08-04 15:23] LABS: Abs Immature Grans 0.04 10^3/uL (0.0-0.06); Absolute Basophil Count 0.06 10^3/uL (0.0-0.2); Absolute Eosinophil Count 0.05 10^3/uL (0.0-0.7); Absolute Lymphocyte Count 1.33 10^3/uL (1.2-3.4); Absolute Monocyte Count 0.67 10^3/uL (0.1-0.8); Absolute Neutrophil Count 8.65 10^3/uL (1.2-6.7); Basophils % 0.6 %; Eosinophils % 0.5 %; HCT 50.6 % (40.0-50.0); HGB 16.3 g/dL (13.5-17.5); Immature Grans % 0.4 %; Lymphocytes % 12.3 %; MCH 27.7 pg (27.0-33.0); MCHC 32.2 % (32.0-36.0); MCV 86 fL (80-95); Monocytes % 6.2 %; Platelet Count 261 10^3/uL (130-400); RBC 5.88 10^6/uL (4.36-5.78); RDW 14.3 % (11.8-14.1); RDW-SD 45.1 fL
[2024-08-04 15:47] LABS: ALT 38 U/L (16-63); AST 25 U/L (15-37); Albumin 3.9 g/dL (3.4-5.0); Alkaline Phosphatase 154 U/L (46-116); Anion Gap 7.6 mmol/L (3-11); BUN 15 mg/dL (7-18); Bilirubin, Total 0.71 mg/dL (0.2-1.0); CO2 29.4 mmol/L (21.0-32.0); CREATININE 1.1 mg/dL (0.70-1.30); Calcium 10.7 mg/dL (8.5-10.1); Chloride 99 mmol/L (98-107); Estimated GFR 71.77 (mL/min/1.73m2); Glucose 185 mg/dL (74-106); Magnesium 2.1 mg/dL (1.8-2.4); NT-proBNP 32 pg/mL (<300); Potassium 4.5 mmol/L (3.5-5.1); Sodium 136 mmol/L (136-145); Total Protein 8.4 g/dL (6.4-8.2); Troponin I 15 ng/L (<or=76)
[2024-08-04 15:48] LABS: D-Dimer 313 ng/mlFEU (<500)
[2024-08-04 16:01] LABS: Bilirubin Negative (Negative); Blood Negative (Negative); Clarity Clear (Clear); Glucose 250 mg/dL (Negative); Ketones Negative (Negative); Leukocyte Esterase Negative (Negative); Nitrite Negative (Negative); Specific Gravity 1.015 (1.005-1.025); Urobilinogen 0.2 mg/dL (Up to 0.2)
[2024-08-04 16:16] LABS: COVID-19 PCR Negative (Negative); Influenza A PCR Negative (Negative); Influenza B PCR Negative (Negative); RSV PCR Negative (Negative)
[2024-08-04] MEDS: Acetaminophen 500 MG TAB 1000 MG PO (16:30)
[2024-08-04] MEDS: Ketorolac 15 MG/ML VIAL IVP (16:30)
[2024-08-04] MEDS: Lidocaine 2% Jelly 11 ML SYR UR (16:45)
[2024-08-04 16:50] LABS: Source Nasopharynx
[2024-08-04 17:10] VITALS: BP 143/93; PULSE 100; RESP 18; O2SAT 98
== END 2024-08-04 17:44 | disposition home or self-care (01) ==
PROVIDERS: Emergency Provider Emergency Medicine; PCP Family Medicine
DX: R33.9 Retention of urine, unspecified (principal); K59.00 Constipation, unspecified; R53.83 Other fatigue; G47.33 Obstructive sleep apnea (adult) (pediatric); I10 Essential (primary) hypertension; E78.5 Hyperlipidemia, unspecified; I25.10 Atherosclerotic heart disease of native coronary artery without angina pectoris; E11.9 Type 2 diabetes mellitus without complications; Z79.82 Long term (current) use of aspirin; Z79.4 Long term (current) use of insulin; Z95.1 Presence of aortocoronary bypass graft
CPT/HCPCS: 80053; 87637; 93005; 96374; 99284; 81003; 83735; 83880; 84484; 85025; 85379; 93010; J1885

== ENCOUNTER 2024-08-09 11:25 | Emergency (ER) | payer MEDICARE, SELFPAY ==
[2024-08-09 11:43] VITALS: BP 147/68; PULSE 99; RESP 16; TEMP 36.3; O2SAT 97
[2024-08-09] MEDS: Ondansetron 4 MG/2 ML VIAL IVP (13:06)
[2024-08-09 13:09] LABS: Abs Immature Grans 0.04 10^3/uL (0.0-0.06); Absolute Basophil Count 0.06 10^3/uL (0.0-0.2); Absolute Lymphocyte Count 1.44 10^3/uL (1.2-3.4); Absolute Monocyte Count 0.57 10^3/uL (0.1-0.8); Basophils % 0.5 %; Eosinophils % 0.4 %; HCT 50.2 % (40.0-50.0); HGB 16.2 g/dL (13.5-17.5); Immature Grans % 0.4 %; Lymphocytes % 12.8 %; MCH 27.7 pg (27.0-33.0); MCHC 32.3 % (32.0-36.0); MCV 86 fL (80-95); MPV 10.1 fL (8.0-11.0); Monocytes % 5.1 %; Neutrophils % 80.8 %; Platelet Count 249 10^3/uL (130-400); RBC 5.84 10^6/uL (4.36-5.78); RDW 14.6 % (11.8-14.1); RDW-SD 45.7 fL; WBC 11.22 10^3/uL (4.4-10.8)
[2024-08-09 13:19] LABS: Absolute Eosinophil Count 0.04 10^3/uL (0.0-0.7); Absolute Neutrophil Count 9.07 10^3/uL (1.2-6.7)
[2024-08-09 13:28] LABS: Lipase 24 U/L (<78)
[2024-08-09 13:31] LABS: ALT 39 U/L (16-63); AST 24 U/L (15-37); Albumin 3.9 g/dL (3.4-5.0); Alkaline Phosphatase 155 U/L (46-116); Anion Gap 7.2 mmol/L (3-11); BUN 16 mg/dL (7-18); Bilirubin, Total 1.11 mg/dL (0.2-1.0); CO2 30.8 mmol/L (21.0-32.0); CREATININE 1.2 mg/dL (0.70-1.30); Calcium 10.9 mg/dL (8.5-10.1); Chloride 100 mmol/L (98-107); Estimated GFR 64.65 (mL/min/1.73m2); Glucose 134 mg/dL (74-106); Potassium 4.3 mmol/L (3.5-5.1); Sodium 138 mmol/L (136-145); Total Protein 8.5 g/dL (6.4-8.2)
--- NOTE | 2024-08-09 14:30 | DI.CT_ITS ---
Exam(s) CT ABDOMEN PELVIS WO EXAM: CT ABDOMEN PELVIS WO CLINICAL HISTORY: ABD PAIN, CONSTIPATION. TECHNIQUE: Imaging Protocol: Axial computed tomography images with coronal and sagittal reformatted images were created and reviewed CONTRAST MATERIAL: Intravenous: none Oral: None COMPARISON: CT CT ABDOMEN PELVIS W from 07/23/2024 FINDINGS: VISUALIZED LUNG BASES: No nodules nor pleural effusions evident. Sternotomy wires noted ABDOMEN: There is no ascites. LIVER: There are no obvious focal hepatic lesions evident of this noninfused study. There is an chitina ent of hepatic steatosis. Small benign-appearing hypodensity in the dome of the liver is again noted , too small to characterize but most probably benign. GALLBLADDER/BILIARY: Gallstones are again noted. The gallbladder wall thickness is upper normal. Th ere is no pericholecystic fluid. CBD is not dilated and there are no radiopaque calculi evident in t he nondilated CBD. PANCREAS: No evidence of pancreatic mass nor dilatation of the pancreatic duct. SPLEEN: Spleen is not enlarged. No obvious intrasplenic lesions. ADRENALS: There are no significant adrenal masses. KIDNEYS:No cysts evident. No solid renal masses. No calculi nor hydronephrosis. . ABDOMINAL AORTA: Abdominal aorta is calcified but not enlarged. Iliac arteries not enlarged. LYMPH NODES: There is no retroperitoneal nor paraaortic adenopathy. ABDOMINAL WALL: Fat only containing right inguinal hernia again noted. There is also again noted a c ellulitis pattern over the anterior right abdominal wall in the pelvis. There is no drainable fluid collection at this level. GI: There is no evidence of bowel obstruction, free air, nor abscess. Normal amount of fecal material in the large bowel PELVIS: LYMPH NODES: There is no intrapelvic nor inguinal adenopathy. GI: No evidence of appendicitis.No significant sigmoid diverticular disease. URINARY BLADDER: There is a Martins catheter now evident in the urinary bladder. The bladder is not di stended. REPRODUCTIVE: Mildly enlarged prostate gland. Enlarged prostate involves the posterior wall of the u rinary bladder. Seminal vesicles unremarkable. OSSEOUS: No significant osseous lesions. No fractures. IMPRESSION: 1. There is an abnormal area subcutaneous streaking over the anterior right side abdominal wall at th e pelvic level with overlying skin thickening. This most probably infectious/cellulitis. There is n o drainable fluid collection. There is no gas in the soft tissues. This finding is unchanged from p hayden CT scan of 07/23/2024 2. Cholelithiasis again noted. Gallbladder wall thickness is upper normal. There is no pericholecys tic fluid. The CBD is not dilated. 3. There is a Martins catheter in the urinary bladder, not previously present. The prostate gland is m oderately enlarged. RADIATION DOSE DELIVERED: 945.52mGy.cm Total DLP DATA REPOSITORY: All CT scans at this facility are submitted to the National Radiology Data Registry (NRDR) Dose Index Registry (DIR) with the [employer] [place] [employer] ([employer]). RADIATION OPTIMIZATION: All CT scans at this facility use at least one of these dose optimization te chniques: automated exposure control; mA and/or kV adjustment per patient size (includes targeted exa ms where dose is matched to clinical indication); or iterative reconstruction.
[2024-08-09 16:05] VITALS: BP 126/89; PULSE 99; RESP 16; TEMP 36.3; O2SAT 96; O2SAT 97
--- NOTE | 2024-08-09 16:44 | ED.GENADUL_ITS ---
Discharge Plan Disposition Patient Disposition: Home Condition: Stable Discharge Details Clinical Impression: Abdominal pain, Constipation Primary Care Provider: Olga Borden V ED Provider: Prince Doty Home Meds and New Rx's Prescriptions: New lactulose 10 gram/15 mL solution 20 g PO TID Qty: 3785 0RF metoclopramide HCl [Reglan] 5 mg tablet 5 mg PO QAC Qty: 30 0RF Rx Instructions: administer 30 minutes before meals dicyclomine 10 mg capsule 10 mg PO TID PRN (Reason: abdominal pain) Qty: 30 0RF No Action atorvastatin 40 mg tablet 40 mg PO DAILY furosemide 20 mg tablet 20 mg PO DAILY (DME) marijuana 0 .ROUTE .MEDSUPPLY triamcinolone acetonide 0.025 % lotion 1 applic topical BID polyethylene glycol 3350 17 gram/dose powder 17 g PO DAILY cholecalciferol (vitamin D3) 25 mcg (1,000 unit) capsule 25 mcg PO DAILY magnesium oxide 400 mg magnesium capsule 400 mg PO BID Trulicity 1.5 mg/0.5 mL pen injector 1.5 mg subcut QWEEK Jardiance 10 mg tablet 25 mg PO DAILY trazodone 50 MG tablet 50 mg PO DAILY PRN aspirin [Adult Low Dose Aspirin] 81 MG tablet,delayed release (DR/EC) 81 mg PO DAILY nitroglycerin 0.4 MG tablet, sublingual 0.4 mg Sublingual DIRECTED PRN (Reason: Chest Pain) Qty: 25 0RF insulin degludec [Tresiba FlexTouch U-200] 200 unit/mL (3 mL) insulin pen 180 unit SUBCUT DAILY Patient Comments: INJECT 180 UNITS SUBCUTANEOUSLY EVERY MORNING insulin aspart U-100 [Novolog FlexPen U-100 Insulin] 100 unit/mL (3 mL) insulin pen 1 sliding scale dose SUBCUT TID Patient Comments: INJECT 20-25 UNITS BEFORE MEALS THREE TIMES A DAY , MAY USE AN ADDITIONAL 20 UNITS AT BEDTIME IF NEEDED, MAXIMUM DAILY DOSE = 100 UNITS PER sennosides-docusate sodium [2-in-1 Laxative] 8.6-50 mg tablet 1 tab-cap PO QHS Qty: 14 0RF tamsulosin 0.4 mg capsule 0.4 mg PO BID magnesium citrate Solution 296 ml PO ONCE Qty: 296 0RF Rx Instructions: as a single dose saw palmetto 450 mg capsule 450 mg PO BID Qty: 30 0RF Rx Instructions: give with food (meal/snack) Discharge Instructions Instructions: Abdominal Pain, Adult ED Additional Instructions: Take the medications as prescribed. Make sure to drink plenty of water. Follow-up with your primary care doctor as previously scheduled. HPI General Date/Time Provider Initiated Documentation: 08/09/24 11:58 . Limitations to Documentation: no limitations . Information obtained by: patient . HPI Narrative: 73-year-old gentleman with past medical history including diabetes, CAD, hypertension, obesity presents for evaluation of abdominal pain. He reports that he was recently seen for constipation in the emergency department and that seemed to get a little bit better but then the patient had return of symptoms. He reports that he then returned to the emergency department and was diagnosed with urinary retention a Martins catheter was placed. He states that since then he has been having difficulty with pooping he takes MiraLAX twice daily. He reports minimal bowel movements. He states that he is still passing gas. Reports some mild nausea and decreased appetite. He says that he has not had any vomiting. He denies any severe abdominal pain, just feels some bloating. Related Data Home Medications ?Medication ?Instructions ?Recorded ?Confirmed aspirin 81 mg tablet,delayed 81 mg PO DAILY 12/14/13 08/09/24 release (Adult Low Dose Aspirin) trazodone 50 mg tablet 50 mg PO DAILY PRN 12/14/13 08/09/24 nitroglycerin 0.4 mg sublingual 0.4 mg sublingual DIRECTED PRN 12/15/13 08/09/24 tablet Chest Pain ##25 Marijuana 06/04/15 07/28/24 cholecalciferol (vitamin D3) 25 25 mcg PO DAILY 10/21/21 08/09/24 mcg (1,000 unit) capsule dulaglutide 1.5 mg/0.5 mL 1.5 mg subcut QWEEK 10/21/21 08/09/24 subcutaneous pen injector ([facility]) magnesium oxide 400 mg PO BID 10/21/21 08/09/24 polyethylene glycol 3350 17 17 g PO DAILY 10/21/21 08/09/24 gram/dose oral powder triamcinolone acetonide 0.025 % 1 applic topical BID 10/21/21 08/09/24 lotion empagliflozin 10 mg tablet 25 mg PO DAILY 01/14/22 08/09/24 (Jardiance) insulin degludec 200 unit/mL (3 180 unit subcut DAILY 10/25/22 08/09/24 mL) subcutaneous pen (Tresiba FlexTouch U-200 insulin) atorvastatin 40 mg tablet 40 mg PO DAILY 03/25/24 08/09/24 furosemide 20 mg tablet 20 mg PO DAILY 03/25/24 08/09/24 insulin aspart U-100 100 unit/mL 1 sliding scale dose subcut TID 07/22/24 08/09/24 (3 mL) subcutaneous pen (Novolog FlexPen U-100 Insulin aspart) sennosides 8.6 mg-docusate sodium 1 tab-cap PO QHS #14 tabs 07/22/24 08/09/24 50 mg tablet (2-in-1 Laxative) tamsulosin 0.4 mg capsule 0.4 mg PO BID 07/28/24 08/09/24 magnesium citrate 296 ml PO ONCE #296 mL 07/29/24 08/04/24 saw palmetto 450 mg capsule 450 mg PO BID #30 caps 07/29/24 08/09/24 dicyclomine 10 mg capsule 10 mg PO TID PRN abdominal pain 08/09/24 #30 caps lactulose 10 gram/15 mL oral 20 g (30 mL) PO TID #3,785 mL 08/09/24 solution metoclopramide HCl 5 mg tablet 5 mg PO QAC #30 tabs 08/09/24 (Reglan) Previous Rx's ?Medication ?Instructions ?Recorded nitroglycerin 0.4 mg sublingual 0.4 mg sublingual DIRECTED PRN 12/15/13 tablet Chest Pain ##25 sennosides 8.6 mg-docusate sodium 1 tab-cap PO QHS #14 tabs 07/22/24 50 mg tablet (2-in-1 Laxative) magnesium citrate 296 ml PO ONCE #296 mL 07/29/24 saw palmetto 450 mg capsule 450 mg PO BID #30 caps 07/29/24 dicyclomine 10 mg capsule 10 mg PO TID PRN abdominal pain 08/09/24 #30 caps lactulose 10 gram/15 mL oral 20 g (30 mL) PO TID #3,785 mL 08/09/24 solution metoclopramide HCl 5 mg tablet 5 mg PO QAC #30 tabs 08/09/24 (Reglan) Allergies Allergy/AdvReac Type Severity Reaction Status Date / Time bupropion HCl (From Allergy Unknown Other (See Verified 08/09/24 11:49 Wellbutrin) Comment) erythromycin base Allergy Unknown Other (See Verified 08/09/24 11:49 Comment) pravastatin sodium (From Allergy Unknown Other (See Verified 08/09/24 11:49 Pravachol) Comment) Penicillins Allergy Other (See Verified 08/09/24 11:49 Comment) lisinopril AdvReac Other (See Verified 08/09/24 11:49 Comment) General Stated Complaint: Abd Prob LUX: 3 Exam Narrative Exam Narrative: Review of Systems: All systems reviewed & are unremarkable except as noted in HPI and below Well-developed, no acute distress NCAT PERRL, normal conjunctiva RRR Unlabored respiratory effort clear bilaterally Mild distention, soft, nontender Martins catheter in place Course Vital Signs Vital signs: Vital Signs Temperature 36.3 C L 08/09/24 11:43 Pulse 99 H 08/09/24 11:43 Respiratory Rate 16 08/09/24 11:43 Blood Pressure 147/68 H 08/09/24 11:43 Pulse Oximetry 97 08/09/24 11:43 Temperature 36.3 C L 08/09/24 16:05 Temperature Source Tympanic 08/09/24 16:05 Pulse 99 H 08/09/24 16:05 Respiratory Rate 16 08/09/24 16:05 Blood Pressure 126/89 08/09/24 16:05 Blood Pressure Position Sitting 08/09/24 16:05 Pulse Oximetry 97 08/09/24 16:05 Oxygen Delivery Method Room Air 08/09/24 16:05 Oxygen Flow Rate 0 08/09/24 16:05 Pain Level 6 08/09/24 16:05 Lab/Test Results Lab/Test Results: Laboratory Tests Range/Units 08/09/24 13:05 WBC (4.4-10.8) 10^3/uL 11.22 H RBC (4.36-5.78) 10^6/uL 5.84 H Hgb (13.5-17.5) g/dL 16.2 Hct (40.0-50.0) % 50.2 H MCV (80-95) fL 86 MCH (27.0-33.0) pg 27.7 MCHC (32.0-36.0) % 32.3 RDW (11.8-14.1) % 14.6 H Plt Count (130-400) 10^3/uL 249 MPV (8.0-11.0) fL 10.1 Immature Gran % % 0.4 Neutrophils % % 80.8 Lymphocytes % % 12.8 Monocytes % % 5.1 Eosinophils % % 0.4 Basophils % % 0.5 Nucleated RBC % (0.0-0.3) % 0.0 Absolute Neutrophils (1.2-6.7) 10^3/uL 9.07 H Absolute Lymphocytes (1.2-3.4) 10^3/uL 1.44 Absolute Monocytes (0.1-0.8) 10^3/uL 0.57 Absolute Eosinophils (0.0-0.7) 10^3/uL 0.04 Absolute Basophils (0.0-0.2) 10^3/uL 0.06 Sodium (136-145) mmol/L 138 Potassium (3.5-5.1) mmol/L 4.3 Chloride (98-107) mmol/L 100 Carbon Dioxide (21.0-32.0) mmol/L 30.8 Anion Gap (3-11) mmol/L 7.2 BUN (7-18) mg/dL 16 Creatinine (0.70-1.30) mg/dL 1.2 Est GFR (CKD-EPI 2020) (mL/min/1.73m2) 64.65 Glucose (74-106) mg/dL 134 H Calcium (8.5-10.1) mg/dL 10.9 H Total Bilirubin (0.2-1.0) mg/dL 1.11 H AST (15-37) U/L 24 ALT (16-63) U/L 39 Alkaline Phosphatase (46-116) U/L 155 H Total Protein (6.4-8.2) g/dL 8.5 H Albumin (3.4-5.0) g/dL 3.9 Lipase (<78) U/L 24 Medical Decision Making Emergent evaluation of abdominal pain. The patient has a benign abdominal exam and I have a low suspicion for an acute intra-abdominal process. He is still having some bowel movement and gas so I have a low suspicion for an obstructive etiology. He is concerned that his enlarged prostate which caused his urinary retention is possibly also causing him to have constipation. He takes 2 doses of MiraLAX per day sounds like he is having very minimal stool output. Initial differential includes gastroparesis, slow motility, constipation. A CT scan was obtained no acute findings were noted. No significant constipation or stool retention noted. Lab work reviewed. Mild leukocytosis at 11 seems nonspecific. There is no change in his renal function. His calcium is slightly elevated but it has been previously this does not appears to be related to a specific etiology. His lipase is normal. I do not suspect an acute intra-abdominal pathology requiring further further emergent workup. At this time we will start the patient on lactulose. Reglan as well as Bentyl for his symptoms. I recommend close follow-up with his PCP for ongoing management of this constipation issue. At this time I do not feel that the patient needs an emergent in a mom and feel that he is capable of continuing to manage this issue at home. Return precautions advised. Quality:SDOH Health Related Social Needs: No Data to Display [facility] All Active Problems (Updated 08/09/24 @ 15:40 by Prince Doty MD) Constipation (Acute) Abdominal pain (Acute) Acute on chronic urinary retention (Acute) Constipation (Acute) Urinary retention (Acute) Urinary retention (Acute) Abnormal finding on CT scan (Acute) Constipation (Acute) Acute constipation (Acute) Cholecystitis (Acute) Morbid obesity (Acute) Tinnitus (Acute) Adenomatous colon polyp (Acute) Hemorrhage, anal or rectal (Acute) Degenerative joint disease (Chronic) Pes anserinus bursitis (Acute) Low back pain (Acute) Elevated alkaline phosphatase level (Acute) Lipodystrophy (Acute) Seasonal allergies (Acute) Hypomagnesemia (Acute) Fatigue (Acute) Cataract (Chronic) Vitreous degeneration (Acute) CAD (coronary artery disease) (Chronic) Hip pain (Acute) Hip joint pain (Acute) Vitamin B 12 deficiency (Acute) Ecchymosis (Acute) Chest pain (Acute) a. Rule out [place]. Coronary disease (Chronic) a. Presented with worsening dysnea on exertion in December 2011. b. MPI testing showed a large reversible lesion in the anterior chest. c. Cardiac catheterization revealed significant four-vessel disease. d. S/P four-vessel coronary artery bypass grafting in January 2012, FERNANDEZ to the LAD, vein to the OM, first diagonal, and RCA. e. Atrial fibrillation postop. Diabetes (Chronic) a. Last hemoglobin A1c 7.5% in 01/2003. b. Markedly overweight. Sleep apnea, obstructive (Chronic) a. Wears nocturnal CPAP. Obesity (Chronic) a. Considering bariatric surgery. Hypertension (Chronic) Hyperlipidemia (Chronic) Depression (Chronic) History of tobacco use (Chronic) BPH (benign prostatic hypertrophy) (Chronic) Hearing loss (Chronic) Anemia (Chronic) History of Surgical Procedure (Chronic) a. Umbilical hernia repair, 2004. b. Hand surgery. Pes anserinus bursitis of right knee (Acute) Medical History (Updated 08/09/24 @ 15:40 by Prince Doty MD) Near syncope Disequilibrium Social History Smoking/Tobacco Use Status: Former Tobacco Use Smoking risk assessment performed?: Yes Alcohol Intake: former Drug use: Rarely Substance use type: marijuana Housing: apartment Current gender identity: male Do you feel safe at home: Yes Do you feel safe in your relationship?: Yes PAWSS Have you Been Recently Intoxicated or Drunk Within the Last 30 days?: No Have you Ever Experienced Previous Episodes of Alcohol Withdrawal?: No Have you ever Experienced Withdrawal Seizures?: No Have you ever Experienced Delirium Tremens(DT)s?: No Have you ever undergone Alcohol Rehabilitation Treatment (i.e, inpt ot outpatient treatment programs)?: No Have you ever Experienced Blackouts?: No Have you ever Combined Alcohol with other Downers within the last 90 days?: No Have you ever Combined Alcohol with any other Substance of Abuse during the last 90 days?: No Positive Blood Alcohol level on Presentation? [PCS.BAL]: No Evidence of Increased Autonomic Activity (i.e. HR>120, tremor, sweating, agitation, nausea)?: No Result: 0
== END 2024-08-09 16:13 | disposition home or self-care (01) ==
PROVIDERS: Emergency Provider Emergency Medicine; PCP Family Medicine
DX: K59.00 Constipation, unspecified (principal); R11.0 Nausea; I25.10 Atherosclerotic heart disease of native coronary artery without angina pectoris; I10 Essential (primary) hypertension; E78.5 Hyperlipidemia, unspecified; K80.20 Calculus of gallbladder without cholecystitis without obstruction; E11.9 Type 2 diabetes mellitus without complications; Z79.4 Long term (current) use of insulin; Z79.82 Long term (current) use of aspirin; Z95.5 Presence of coronary angioplasty implant and graft; Z87.891 Personal history of nicotine dependence
CPT/HCPCS: 80053; 83690; 96374; 99284; 74176; 85025; J2405

== ENCOUNTER 2024-08-25 21:55 | Outpatient (REF) | payer MEDICARE, SELFPAY | END 2024-08-25 21:56 | disposition home or self-care (01) | LOC: NCHCN 21:55 | PROVIDERS: PCP Family Medicine; Visit Provider Family Medicine | DX: R39.11 Hesitancy of micturition (principal) | CPT/HCPCS: 87077; 87086; 87186 ==

== ENCOUNTER → 2024-08-30 10:50 | Outpatient (BNVA) | payer MEDICARE, SELFPAY | PROVIDERS: PCP Family Medicine; Referring Provider Family Medicine; Visit Provider Urology | DX: R33.8 Other retention of urine (principal); N40.1 Benign prostatic hyperplasia with lower urinary tract symptoms; R35.1 Nocturia; E11.9 Type 2 diabetes mellitus without complications | CPT/HCPCS: 51702; 99215 ==

== ENCOUNTER 2024-08-30 15:54 | Outpatient (REF) | payer MEDICARE, SELFPAY | END 2024-08-30 15:55 | disposition home or self-care (01) | LOC: LBN 15:54 | PROVIDERS: PCP Family Medicine; Visit Provider Urology | DX: R33.9 Retention of urine, unspecified (principal); R82.89 Other abnormal findings on cytological and histological examination of urine | CPT/HCPCS: 87086 ==

== ENCOUNTER → 2024-09-05 14:48 | Outpatient (BNVA) | payer MEDICARE, SELFPAY | PROVIDERS: PCP Family Medicine; Referring Provider Family Medicine; Visit Provider Urology | DX: R39.89 Other symptoms and signs involving the genitourinary system (principal) | CPT/HCPCS: 99214 ==

== ENCOUNTER 2024-09-11 19:39 | Emergency (ER) | payer MEDICARE, SELFPAY ==
[2024-09-11 19:42] VITALS: BP 144/80; PULSE 74; RESP 18; TEMP 36.5; O2SAT 98
--- NOTE | 2024-09-11 19:56 | W.ED.GENAD ---
Discharge Plan Disposition Patient Disposition: Home Condition: Stable Discharge Details Clinical Impression: Constipation Primary Care Provider: Olga Borden V ED Provider: Wei Joe Home Meds and New Rx's Prescriptions: Continued atorvastatin 40 mg tablet 40 mg PO DAILY furosemide 20 mg tablet 20 mg PO DAILY tamsulosin 0.4 mg capsule 0.8 mg PO DAILY Qty: 60 0RF (DME) marijuana 0 .Route .MEDSUPPLY triamcinolone acetonide 0.025 % lotion 1 applic topical BID polyethylene glycol 3350 17 gram/dose powder 17 g PO DAILY cholecalciferol (vitamin D3) 25 mcg (1,000 unit) capsule 25 mcg PO DAILY magnesium oxide 400 mg magnesium capsule 400 mg PO BID Trulicity 1.5 mg/0.5 mL pen injector 1.5 mg subcut QWEEK Jardiance 10 mg tablet 25 mg PO DAILY aspirin [Adult Low Dose Aspirin] 81 MG tablet,delayed release (DR/EC) 81 mg PO DAILY nitroglycerin 0.4 MG tablet, sublingual 0.4 mg Sublingual DIRECTED PRN (Reason: Chest Pain) Qty: 25 0RF sennosides-docusate sodium [2-in-1 Laxative] 8.6-50 mg tablet 1 tab-cap PO QHS Qty: 14 0RF magnesium citrate Solution 296 ml PO ONCE Qty: 296 0RF Rx Instructions: as a single dose saw palmetto 450 mg capsule 450 mg PO BID Qty: 30 0RF Rx Instructions: give with food (meal/snack) lactulose 10 gram/15 mL solution 20 g PO TID Qty: 3785 0RF metoclopramide HCl [Reglan] 5 mg tablet 5 mg PO QAC Qty: 30 0RF Rx Instructions: administer 30 minutes before meals dicyclomine 10 mg capsule 10 mg PO TID PRN (Reason: abdominal pain) Qty: 30 0RF No Action insulin degludec [Tresiba FlexTouch U-200] 200 unit/mL (3 mL) insulin pen 180 unit SUBCUT DAILY Patient Comments: INJECT 180 UNITS SUBCUTANEOUSLY EVERY MORNING insulin aspart U-100 [Novolog FlexPen U-100 Insulin] 100 unit/mL (3 mL) insulin pen 1 sliding scale dose SUBCUT TID Patient Comments: INJECT 20-25 UNITS BEFORE MEALS THREE TIMES A DAY , MAY USE AN ADDITIONAL 20 UNITS AT BEDTIME IF NEEDED, MAXIMUM DAILY DOSE = 100 UNITS PER Discharge Instructions Additional Instructions: Drink plenty of fluids to stay hydrated. If you are taking empagliflozin you should discuss with your primary care provider about holding this until your GI issues have improved. Follow-up with gastroenterology, there office number is [phone]. If you feel more ill or have severe abdominal pain or persistent vomiting return to the emergency department for reevaluation. you can try also using liquid IV HPI General Mode of arrival: ambulatory. Date/Time Provider Initiated Documentation: 09/11/24 19:40. Limitations to Documentation: no limitations. Information obtained by: patient. History of Present Illness 73 year old M presents to the emergency department with the chief complaint of constipation, described as moderate, Patient started experiencing this day(s) (5) and it has been constant. No relieving factors improve symptom(s), No exacerbating factors reported . Patient notes denies chest pain, nausea/vomiting and shortness of breath. Related Data Home Medications ?Medication ?Instructions ?Recorded ?Confirmed aspirin 81 mg tablet,delayed 81 mg PO DAILY 12/14/13 09/11/24 release (Adult Low Dose Aspirin) nitroglycerin 0.4 mg sublingual 0.4 mg sublingual DIRECTED PRN 12/15/13 09/11/24 tablet Chest Pain ##25 Marijuana 06/04/15 09/05/24 cholecalciferol (vitamin D3) 25 25 mcg PO DAILY 10/21/21 09/11/24 mcg (1,000 unit) capsule dulaglutide 1.5 mg/0.5 mL 1.5 mg subcut QWEEK 10/21/21 09/11/24 subcutaneous pen injector (Trulicity) magnesium oxide 400 mg PO BID 10/21/21 09/11/24 polyethylene glycol 3350 17 17 g PO DAILY 10/21/21 09/11/24 gram/dose oral powder triamcinolone acetonide 0.025 % 1 applic topical BID 10/21/21 09/11/24 lotion empagliflozin 10 mg tablet 25 mg PO DAILY 01/14/22 09/11/24 (Jardiance) insulin degludec 200 unit/mL (3 180 unit subcut DAILY 10/25/22 09/11/24 mL) subcutaneous pen (Tresiba FlexTouch U-200 insulin) atorvastatin 40 mg tablet 40 mg PO DAILY 03/25/24 09/11/24 furosemide 20 mg tablet 20 mg PO DAILY 03/25/24 09/11/24 insulin aspart U-100 100 unit/mL 1 sliding scale dose subcut TID 07/22/24 09/11/24 (3 mL) subcutaneous pen (Novolog FlexPen U-100 Insulin aspart) sennosides 8.6 mg-docusate sodium 1 tab-cap PO QHS #14 tabs 07/22/24 09/11/24 50 mg tablet (2-in-1 Laxative) magnesium citrate 296 ml PO ONCE #296 mL 07/29/24 09/11/24 saw palmetto 450 mg capsule 450 mg PO BID #30 caps 07/29/24 09/11/24 dicyclomine 10 mg capsule 10 mg PO TID PRN abdominal pain 08/09/24 09/11/24 #30 caps lactulose 10 gram/15 mL oral 20 g (30 mL) PO TID #3,785 mL 08/09/24 09/11/24 solution metoclopramide HCl 5 mg tablet 5 mg PO QAC #30 tabs 08/09/24 09/11/24 (Reglan) tamsulosin 0.4 mg capsule 0.8 mg (2 x 0.4 mg) PO DAILY #60 08/30/24 09/11/24 caps Previous Rx's ?Medication ?Instructions ?Recorded nitroglycerin 0.4 mg sublingual 0.4 mg sublingual DIRECTED PRN 12/15/13 tablet Chest Pain ##25 sennosides 8.6 mg-docusate sodium 1 tab-cap PO QHS #14 tabs 07/22/24 50 mg tablet (2-in-1 Laxative) magnesium citrate 296 ml PO ONCE #296 mL 07/29/24 saw palmetto 450 mg capsule 450 mg PO BID #30 caps 07/29/24 dicyclomine 10 mg capsule 10 mg PO TID PRN abdominal pain 08/09/24 #30 caps lactulose 10 gram/15 mL oral 20 g (30 mL) PO TID #3,785 mL 08/09/24 solution metoclopramide HCl 5 mg tablet 5 mg PO QAC #30 tabs 08/09/24 (Reglan) tamsulosin 0.4 mg capsule 0.8 mg (2 x 0.4 mg) PO DAILY #60 08/30/24 caps Allergies Allergy/AdvReac Type Severity Reaction Status Date / Time bupropion HCl (From Allergy Unknown Other (See Verified 09/11/24 19:45 Wellbutrin) Comment) erythromycin base Allergy Unknown Other (See Verified 09/11/24 19:45 Comment) pravastatin sodium (From Allergy Unknown Other (See Verified 09/11/24 19:45 Pravachol) Comment) Penicillins Allergy Other (See Verified 09/11/24 19:45 Comment) lisinopril AdvReac Other (See Verified 09/11/24 19:45 Comment) General Stated Complaint: Abd Prob LUX: 3 Review of Systems All systems reviewed & are unremarkable except as noted in HPI and below Constitutional Constitutional: Denies chills, Denies fever(s) and Denies weakness Cardiovascular Cardiovascular: Denies chest pain and Denies dyspnea Respiratory Respiratory: Denies cough and Denies dyspnea Gastrointestinal Gastrointestinal: Denies abdominal pain, Reports constipation, Denies nausea and Denies vomiting Neurologic Neurologic: Denies weakness Exam Const General: no acute distress Orientation: alert [facility] Head: normal to inspection Ears: external ears normal General nose exam: external nose normal Mouth: moist mucous membranes Eyes General: appearance normal, both eyes and all related structures Neck Neck: normal visual inspection Resp Effort & Inspection: normal respiratory effort and able to speak in complete sentences Cardio Rate: regular rate GI Palpation: soft and nontender Skin General skin exam: no rashes or lesions noted Neuro General: patient alert and patient oriented x3 Extrem General: normal to inspection Psych Mental Status: mental status grossly normal Course Vital Signs Vital signs: Vital Signs Temperature 36.5 C 09/11/24 19:42 Pulse 74 09/11/24 19:42 Respiratory Rate 18 09/11/24 19:42 Blood Pressure 144/80 H 09/11/24 19:42 Pulse Oximetry 98 09/11/24 19:42 Temperature 36.5 C 09/11/24 19:42 Temperature Source Oral 09/11/24 19:42 Pulse 74 09/11/24 19:42 Respiratory Rate 18 09/11/24 19:42 Blood Pressure 144/80 H 09/11/24 19:42 Blood Pressure Position Sitting 09/11/24 19:42 Pulse Oximetry 98 09/11/24 19:42 Oxygen Delivery Method Room Air 09/11/24 19:42 Oxygen Flow Rate 0 09/11/24 19:42 Medical Decision Making 73-year-old male whose had issues with constipation for the last couple months and also had a Martins catheter placed several weeks ago comes in with complaints of 5 days without a bowel movement. He denies any severe abdominal pain or vomiting. He states that 5 days ago he took lactulose. Large bowel movement without blood. He says he thought it worked too well so he has not taken any since. He is stable on arrival here, he has a soft nontender abdomen. I did a rectal exam which showed no hemorrhoids, normal rectal tone no palpable stool or fecal impaction. Given lack of abdominal tenderness do not feel imaging indicated. Will check a BMP to evaluate for possible HANSEL suspect his functional constipation will need follow-up with gastroenterology which is already in process. Patient sleeping on reassessment and awakens easily to voice. He is currently asymptomatic and has no abdominal tenderness. His gap is elevated at 1800 with significant elevation in his glucose. He has no symptoms to suggest DKA. He does not use and drink a lot of fluids with 20 feet quality of urination. He declines to have any IV fluids or other labs at this time. States he wants to follow-up with his primary care provider given his well appearance. Is reasonable. He does have empagliflozin listed on his med list. He states that he does not believe that he is still on this medication will check his med list when he gets home. I did recommend that he hold this medication until his constipation issues are improved. Return precautions given Differential Diagnosis Differential Diagnosis: Functional constipation, dehydration Quality:SDOH Health Related Social Needs: No Data to Display PFSH All Active Problems (Updated 09/11/24 @ 20:04 by Wei Joe MD) Constipation (Acute) Lower urinary tract symptoms (LUTS) (Acute) Cholecystitis (Acute) Morbid obesity (Acute) Tinnitus (Acute) Adenomatous colon polyp (Acute) Hemorrhage, anal or rectal (Acute) Degenerative joint disease (Chronic) Pes anserinus bursitis (Acute) Low back pain (Acute) Elevated alkaline phosphatase level (Acute) Lipodystrophy (Acute) Seasonal allergies (Acute) Hypomagnesemia (Acute) Fatigue (Acute) Cataract (Chronic) Vitreous degeneration (Acute) CAD (coronary artery disease) (Chronic) Hip pain (Acute) Hip joint pain (Acute) Vitamin B 12 deficiency (Acute) Ecchymosis (Acute) Chest pain (Acute) a. Rule out [place]. Coronary disease (Chronic) a. Presented with worsening dysnea on exertion in December 2011. b. MPI testing showed a large reversible lesion in the anterior chest. c. Cardiac catheterization revealed significant four-vessel disease. d. S/P four-vessel coronary artery bypass grafting in January 2012, FERNANDEZ to the LAD, vein to the OM, first diagonal, and RCA. e. Atrial fibrillation postop. Diabetes (Chronic) a. Last hemoglobin A1c 7.5% in 01/2003. b. Markedly overweight. Sleep apnea, obstructive (Chronic) a. Wears nocturnal CPAP. Obesity (Chronic) a. Considering bariatric surgery. Hypertension (Chronic) Hyperlipidemia (Chronic) Depression (Chronic) History of tobacco use (Chronic) BPH (benign prostatic hypertrophy) (Chronic) Hearing loss (Chronic) Anemia (Chronic) History of Surgical Procedure (Chronic) a. Umbilical hernia repair, 2004. b. Hand surgery. Pes anserinus bursitis of right knee (Acute) Medical History (Updated 09/11/24 @ 20:04 by Wei Joe MD) Near syncope Disequilibrium Social History Smoking/Tobacco Use Status: Former Tobacco Use Smoking risk assessment performed?: Yes Alcohol Intake: former Drug use: Rarely Substance use type: marijuana Housing: apartment Current gender identity: male Do you feel safe at home: Yes Do you feel safe in your relationship?: Yes
[2024-09-11 19:57] VITALS: BP 140/88; PULSE 78; RESP 17; TEMP 36.5; O2SAT 98
[2024-09-11 20:46] LABS: Anion Gap 18.3 mmol/L (3-11); BUN 18 mg/dL (7-18); CO2 21.7 mmol/L (21.0-32.0); CREATININE 1.1 mg/dL (0.70-1.30); Chloride 101 mmol/L (98-107); Estimated GFR 71.77 (mL/min/1.73m2); Glucose 130 mg/dL (74-106); Potassium 4.1 mmol/L (3.5-5.1); Sodium 141 mmol/L (136-145)
[2024-09-11 21:49] VITALS: BP 145/73; PULSE 98; RESP 17; TEMP 36.1; O2SAT 99
== END 2024-09-11 21:58 | disposition home or self-care (01) ==
PROVIDERS: Emergency Provider Emergency Medicine; PCP Family Medicine
DX: K59.00 Constipation, unspecified (principal)
CPT/HCPCS: 80048; 99283

== ENCOUNTER 2024-09-17 13:28 | Emergency (ER) | payer MEDICARE, SELFPAY ==
[2024-09-17 13:32] VITALS: BP 145/52; PULSE 93; RESP 16; TEMP 36.5; O2SAT 98
[2024-09-17 14:04] VITALS: BP 145/52; PULSE 93; RESP 16; TEMP 36.5; O2SAT 98
--- NOTE | 2024-09-17 14:07 | W.ED.GENAD ---
Discharge Plan Disposition Patient Disposition: Home Condition: Stable Discharge Details Clinical Impression: Urinary tract infection Primary Care Provider: Olga Borden V ED Provider: Hal Rock Home Meds and New Rx's Prescriptions: New cephalexin 500 mg capsule 500 mg PO QID 10 Days Qty: 40 0RF Continued atorvastatin 40 mg tablet 40 mg PO DAILY furosemide 20 mg tablet 20 mg PO DAILY tamsulosin 0.4 mg capsule 0.8 mg PO DAILY Qty: 60 0RF (DME) marijuana 0 .Route .MEDSUPPLY triamcinolone acetonide 0.025 % lotion 1 applic topical BID polyethylene glycol 3350 17 gram/dose powder 17 g PO DAILY cholecalciferol (vitamin D3) 25 mcg (1,000 unit) capsule 25 mcg PO DAILY magnesium oxide 400 mg magnesium capsule 400 mg PO BID Trulicity 1.5 mg/0.5 mL pen injector 1.5 mg subcut QWEEK Jardiance 10 mg tablet 25 mg PO DAILY aspirin [Adult Low Dose Aspirin] 81 MG tablet,delayed release (DR/EC) 81 mg PO DAILY nitroglycerin 0.4 MG tablet, sublingual 0.4 mg Sublingual DIRECTED PRN (Reason: Chest Pain) Qty: 25 0RF insulin degludec [Tresiba FlexTouch U-200] 200 unit/mL (3 mL) insulin pen 180 unit SUBCUT DAILY Patient Comments: INJECT 180 UNITS SUBCUTANEOUSLY EVERY MORNING insulin aspart U-100 [Novolog FlexPen U-100 Insulin] 100 unit/mL (3 mL) insulin pen 1 sliding scale dose SUBCUT TID Patient Comments: INJECT 20-25 UNITS BEFORE MEALS THREE TIMES A DAY , MAY USE AN ADDITIONAL 20 UNITS AT BEDTIME IF NEEDED, MAXIMUM DAILY DOSE = 100 UNITS PER sennosides-docusate sodium [2-in-1 Laxative] 8.6-50 mg tablet 1 tab-cap PO QHS Qty: 14 0RF saw palmetto 450 mg capsule 450 mg PO BID Qty: 30 0RF Rx Instructions: give with food (meal/snack) lactulose 10 gram/15 mL solution 20 g PO TID Qty: 3785 0RF metoclopramide HCl [Reglan] 5 mg tablet 5 mg PO QAC Qty: 30 0RF Rx Instructions: administer 30 minutes before meals dicyclomine 10 mg capsule 10 mg PO TID PRN (Reason: abdominal pain) Qty: 30 0RF Discharge Instructions Instructions: Cephalexin, Urinary Tract Infection, Adult ED Additional Instructions: You were seen in the emergency department for your perceived low urinary output, your urine appears very concentrated, you need to be drinking more water each day, you had about 80 mL of output with 30 to residual volume and are draining actively into the leg bag provided. You do have some bacteria in your urine and a culture is pending, I sent a prescription for cephalexin and antibiotic to treat this infection, please follow-up with urology, please continue your at home laxatives, please return for any severe increase in pain or discomfort especially fever, weakness, nausea, chest pain or shortness of breath or other emergent concerns. Referrals: Olga Borden MD [Primary Care Provider] - Discharge Data Discharge Date/Time-TO BE ENTERED AT DEPARTURE: 09/17/24 15:20 HPI General Date/Time Provider Initiated Documentation: 09/17/24 13:45. HPI Narrative: 74 year-old male presents to ED today by POV/ambulating with a chief complaint of Martins catheter issues, patient recently seen by urology and refused to do a voiding trial, states low output, he just claims and often drains it as needed with onset over the past couple days. Quality described as dark yellow urine, scant amounts, no radiation to fever, flank pain, hematuria, abdominal pain, cough, nausea/vomiting. Severity is described as mild to moderate. Palliating factors include nothing specific attempted. Provoking factors include nothing specific. Events leading up to the incident/Associated Symptoms: Patient has close follow-up with Urology- states he hasn't gone to the bathroom in 9 days but did have a stool yesterday. Patient not anticoagulated. Related Data Home Medications ?Medication ?Instructions ?Recorded ?Confirmed aspirin 81 mg tablet,delayed 81 mg PO DAILY 12/14/13 09/17/24 release (Adult Low Dose Aspirin) nitroglycerin 0.4 mg sublingual 0.4 mg sublingual DIRECTED PRN 12/15/13 09/17/24 tablet Chest Pain ##25 Marijuana 06/04/15 09/17/24 cholecalciferol (vitamin D3) 25 25 mcg PO DAILY 10/21/21 09/17/24 mcg (1,000 unit) capsule dulaglutide 1.5 mg/0.5 mL 1.5 mg subcut QWEEK 10/21/21 09/17/24 subcutaneous pen injector (Trulicity) magnesium oxide 400 mg PO BID 10/21/21 09/17/24 polyethylene glycol 3350 17 17 g PO DAILY 10/21/21 09/17/24 gram/dose oral powder triamcinolone acetonide 0.025 % 1 applic topical BID 10/21/21 09/17/24 lotion empagliflozin 10 mg tablet 25 mg PO DAILY 01/14/22 09/17/24 (Jardiance) insulin degludec 200 unit/mL (3 180 unit subcut DAILY 10/25/22 09/17/24 mL) subcutaneous pen (Tresiba FlexTouch U-200 insulin) atorvastatin 40 mg tablet 40 mg PO DAILY 03/25/24 09/17/24 furosemide 20 mg tablet 20 mg PO DAILY 03/25/24 09/17/24 insulin aspart U-100 100 unit/mL 1 sliding scale dose subcut TID 07/22/24 09/17/24 (3 mL) subcutaneous pen (Novolog FlexPen U-100 Insulin aspart) sennosides 8.6 mg-docusate sodium 1 tab-cap PO QHS #14 tabs 07/22/24 09/17/24 50 mg tablet (2-in-1 Laxative) saw palmetto 450 mg capsule 450 mg PO BID #30 caps 07/29/24 09/17/24 dicyclomine 10 mg capsule 10 mg PO TID PRN abdominal pain 08/09/24 09/17/24 #30 caps lactulose 10 gram/15 mL oral 20 g (30 mL) PO TID #3,785 mL 08/09/24 09/17/24 solution metoclopramide HCl 5 mg tablet 5 mg PO QAC #30 tabs 08/09/24 09/17/24 (Reglan) tamsulosin 0.4 mg capsule 0.8 mg (2 x 0.4 mg) PO DAILY #60 08/30/24 09/17/24 caps cephalexin 500 mg capsule 500 mg PO QID 10 days #40 caps 09/17/24 Previous Rx's ?Medication ?Instructions ?Recorded nitroglycerin 0.4 mg sublingual 0.4 mg sublingual DIRECTED PRN 12/15/13 tablet Chest Pain ##25 sennosides 8.6 mg-docusate sodium 1 tab-cap PO QHS #14 tabs 07/22/24 50 mg tablet (2-in-1 Laxative) saw palmetto 450 mg capsule 450 mg PO BID #30 caps 07/29/24 dicyclomine 10 mg capsule 10 mg PO TID PRN abdominal pain 08/09/24 #30 caps lactulose 10 gram/15 mL oral 20 g (30 mL) PO TID #3,785 mL 08/09/24 solution metoclopramide HCl 5 mg tablet 5 mg PO QAC #30 tabs 08/09/24 (Reglan) tamsulosin 0.4 mg capsule 0.8 mg (2 x 0.4 mg) PO DAILY #60 08/30/24 caps cephalexin 500 mg capsule 500 mg PO QID 10 days #40 caps 09/17/24 Allergies Allergy/AdvReac Type Severity Reaction Status Date / Time bupropion HCl (From Allergy Unknown Other (See Verified 09/17/24 13:38 Wellbutrin) Comment) erythromycin base Allergy Unknown Other (See Verified 09/17/24 13:38 Comment) pravastatin sodium (From Allergy Unknown Other (See Verified 09/17/24 13:38 Pravachol) Comment) Penicillins Allergy Other (See Verified 09/17/24 13:38 Comment) lisinopril AdvReac Other (See Verified 09/17/24 13:38 Comment) General Stated Complaint: Abd Prob LUX: 3 Review of Systems All systems reviewed & are unremarkable except as noted in HPI and below Exam Narrative Exam Narrative: GENERAL APPEARANCE: Well-nourished, non-toxic, awake and alert, atraumatic, no acute distress. SKIN: Warm, pink, dry, intact, without rashes/lesions/ulcerations. HEAD: Normocephalic, atraumatic, normal hair distribution for gender/age. EYES: Normal conjunctiva, no exudates on lids/lashes. ENT: Nares patent, no circumoral cyanosis, no facial swelling NECK: Supple, trachea midline, painless cervical ROM. LUNGS/CHEST: Non-labored respirations, normal A/P diameter, symmetrical expansion, no chest wall deformity HEART (CV/PV): No peripheral edema, no JVD. ABDOMEN: Soft, non-distended, no guarding, no tenderness, no CVA tenderness percussion bilaterally, Martins cath in place without discharge at urethral meatus. MSK: Normal ROM, no swelling/deformity to bilateral UEs or LEs, moving all extremities without weakness, no cyanosis, spine midline without tenderness, normal curvature. NEURO: Mental Status AAOx4 - alert to person, place, time, events No facial droop, no forehead involvement. Motor: No focal weakness - strength 5/5 in bilateral UEs and LEs, proximal and distal, symmetric. Sensory: sensation intact to light touch globally. Gait normal: patient ambulated without ataxia into ED room. PSYCH: euthymic, cooperative, pleasant, appropriate speech Course Vital Signs Vital signs: Vital Signs Temperature 36.5 C 09/17/24 13:32 Pulse 93 H 09/17/24 13:32 Respiratory Rate 16 09/17/24 13:32 Blood Pressure 145/52 H 09/17/24 13:32 Pulse Oximetry 98 09/17/24 13:32 Temperature 36.5 C 09/17/24 14:04 Temperature Source Oral 09/17/24 13:32 Pulse 93 H 09/17/24 14:04 Respiratory Rate 16 09/17/24 14:04 Blood Pressure 145/52 H 09/17/24 14:04 Blood Pressure Position Sitting 09/17/24 13:32 Pulse Oximetry 98 09/17/24 14:04 Oxygen Delivery Method Room Air 09/17/24 14:04 Oxygen Flow Rate 0 09/17/24 13:32 Pain Level 0 09/17/24 13:32 Medical Decision Making This dictation utilizes [id number] dictation software and may contain unedited grammatical errors. 74 year-old male presents to ED today by POV/ambulating with a chief complaint of Martins catheter issues, patient recently seen by urology and refused to do a voiding trial, states low output, he just claims and often drains it as needed with onset over the past couple days. Quality described as dark yellow urine, scant amounts, no radiation to fever, flank pain, hematuria, abdominal pain, cough, nausea/vomiting. Severity is described as mild to moderate. Palliating factors include nothing specific attempted. Provoking factors include nothing specific. Events leading up to the incident/Associated Symptoms: Patient has close follow-up with Urology- states he hasn't gone to the bathroom in 9 days but did have a stool yesterday. Patients' medical history: LUTS, morbid obesity, CAD, diabetes, hypertension, hyperlipidemia, BPH, history of umbilical hernia repair. Family and social history: Noncontributory. Pertinent exam findings / vital signs include Martins catheter in place, actively draining, drained 80 mL, has residual volume of 32, leg bag applied and draining greater than 50 an hour, nontoxic vitals, benign cardiopulmonary exam, neuro intact, benign abdomen, no CVA tenderness percussion bilaterally Differential / pathologies of concern include BPH with outflow obstruction, UTI. Diagnostic studies of: -UA-shows significant amounts of bacteria and greater than 50 WBCs, starting on empiric antibiotic. Interventions of: -Rx for cephalexin. ED Course/Assessment/Plan: 74-year-old male has a Martins cath that he has clamped in place, states he has been on laxatives and having trouble having significant BMs but did have one yesterday morning, he states that he is not draining hardly any urine at all, we did drain 80 here in the department and he had a residual volume of 32 mL and was draining greater than 50 an hour with a leg bag applied, I reassured him that he is not having any urinary emergency, I counseled him on drinking more water as his urine is quite concentrated appearing, he does have evidence of UTI I did start him on cephalexin recommend follow-up with urology, strict return criteria for any severe increase in abdominal pain especially with fever, intractable nausea or vomiting or any other emergent concern. Findings not consistent with complete urinary retention, pyelonephritis, sepsis, SBO or other abdominal pathology. Disposition of urinary tract infection. Patient verbalized understanding of the plan and return to ED criteria and engaged in shared decision making. Medical Records Medical records reviewed: Yes I reviewed the patient's medical records. Lab Data Lab results reviewed: Yes I reviewed the patient's lab results. Labs: 09/17/24 14:18 Urine - Reflex from Ua Urine Culture - Preliminary Enterococcus species YEAST Laboratory Tests Range/Units 09/17/24 14:18 Urine Color (Yellow) Yellow Urine Clarity (Clear) Sl Cloudy Urine pH (5-8) 5.5 Ur Specific [place] (1.005-1.025) 1.025 Urine Protein (Neg-Trace) mg/dL 100 H Urine Ketones (Negative) mg/dL >=160 H Urine Blood (Negative) Trace-intact H Urine Nitrite (Negative) Negative Urine Bilirubin (Negative) Moderate H Urine Urobilinogen (Up to 0.2) mg/dL 0.2 Ur Leukocyte Esterase (Negative) Moderate H Urine RBC (0-2) HPF 0-2 Urine WBC (0-5) HPF >50 H Ur Epithelial Cells (Negative) HPF Rare Urine Crystals (Negative) HPF Negative Urine Bacteria (Negative) HPF Rare Urine Casts (Negative) LPF Negative Urine Mucus (Negative) Trace Urine Other (Negative) Few Yeast Ur Culture Indicated? Yes Urine Glucose (Negative) mg/dL 100 H Quality:SDOH Health Related Social Needs: No Data to Display PFSH All Active Problems (Updated 09/17/24 @ 14:54 by SATYA Jansen) Urinary tract infection (Acute) Constipation (Acute) Lower urinary tract symptoms (LUTS) (Acute) Cholecystitis (Acute) Morbid obesity (Acute) Tinnitus (Acute) Adenomatous colon polyp (Acute) Hemorrhage, anal or rectal (Acute) Degenerative joint disease (Chronic) Pes anserinus bursitis (Acute) Low back pain (Acute) Elevated alkaline phosphatase level (Acute) Lipodystrophy (Acute) Seasonal allergies (Acute) Hypomagnesemia (Acute) Fatigue (Acute) Cataract (Chronic) Vitreous degeneration (Acute) CAD (coronary artery disease) (Chronic) Hip pain (Acute) Hip joint pain (Acute) Vitamin B 12 deficiency (Acute) Ecchymosis (Acute) Chest pain (Acute) a. Rule out GA. Coronary disease (Chronic) a. Presented with worsening dysnea on exertion in December 2011. b. MPI testing showed a large reversible lesion in the anterior chest. c. Cardiac catheterization revealed significant four-vessel disease. d. S/P four-vessel coronary artery bypass grafting in January 2012, FERNANDEZ to the LAD, vein to the OM, first diagonal, and RCA. e. Atrial fibrillation postop. Diabetes (Chronic) a. Last hemoglobin A1c 7.5% in 01/2003. b. Markedly overweight. Sleep apnea, obstructive (Chronic) a. Wears nocturnal CPAP. Obesity (Chronic) a. Considering bariatric surgery. Hypertension (Chronic) Hyperlipidemia (Chronic) Depression (Chronic) History of tobacco use (Chronic) BPH (benign prostatic hypertrophy) (Chronic) Hearing loss (Chronic) Anemia (Chronic) History of Surgical Procedure (Chronic) a. Umbilical hernia repair, 2004. b. Hand surgery. Pes anserinus bursitis of right knee (Acute) Medical History (Updated 09/17/24 @ 14:54 by SATYA Jansen) Near syncope Disequilibrium Social History Smoking/Tobacco Use Status: Former Tobacco Use Smoking risk assessment performed?: Yes Alcohol Intake: former Drug use: Rarely Substance use type: marijuana Housing: apartment Current gender identity: male Do you feel safe at home: Yes Do you feel safe in your relationship?: Yes
[2024-09-17 14:27] LABS: Bilirubin Moderate (Negative); Blood Trace-intact (Negative); Clarity Sl Cloudy (Clear); Glucose 100 mg/dL (Negative); Ketones >=160 mg/dL (Negative); Leukocyte Esterase Moderate (Negative); Nitrite Negative (Negative); Specific Gravity 1.025 (1.005-1.025); Urobilinogen 0.2 mg/dL (Up to 0.2); pH 5.5 (5-8)
[2024-09-17 14:35] LABS: Bacteria Rare HPF (Negative); C & S Indicated? Yes; Casts Negative LPF (Negative); Crystals Negative HPF (Negative); Epithelial Cells Rare HPF (Negative); Mucus Trace (Negative); Other Cells Few Yeast (Negative); RBC 0-2 HPF (0-2); WBC >50 HPF (0-5)
--- NOTE | 2024-09-18 09:51 | NUR.NOTE ---
Nursing Note: Patient called with questions about his medications an dhow he was feeling. PAteint complaining of nausea and still being unable to have a BM. Patient has not taking any of the laxatives prescribed to him. I encouraged patient to use the prescriptions. Pateint was prescribed an ABX for a UTI. I encouraged patient to have a small amount of food while taking medication. Pateint stated he was reaching out to family to help him with the medications.
--- NOTE | 2024-09-18 15:47 | W.ED.FU ---
Date of service: 09/18/24 Time of Service: 15:47 Follow Up Plan: This patient made several phone calls to the emergency department with questions regarding his medications and symptoms, and a return call was made by this provider to the patient. He states that he has been using the polyethylene glycol, and has started to pass stool, which is now tea colored and liquid in consistency. He plans to continue to use this until he has reached clear liquid stool as per instructions. The patient did note a small amount of blood in his urine today, and in the setting of his diagnosed urinary tract infection and indwelling catheter I recommended to the patient that he continue to monitor and take his antibiotics as prescribed. He does have a follow-up visit with Dr. Matthews in urology in the next 1 week. The patient reports that his nausea has greatly improved and he was able to tolerate a small amount of oral intake, and I encouraged good hydration and a slow initiation of a bland diet. He is experiencing some abdominal cramping in the setting of his polyethylene glycol use, and I did recommend that he return to care if he has a sudden or severe change or worsening of this pain. I counseled the patient on reinitiation of a bowel regimen to include senna, MiraLAX, and Metamucil, as well as good hydration. He should be targeting 1 soft stool per day after completion of his bowel cleanout. The patient had the opportunity to have all questions answered to his satisfaction, and understands that he can return to the emergency department at anytime for reevaluation if needed. He will also contact his primary care provider for reevaluation, and has a phone follow-up with [facility] tomorrow scheduled. Luz Paredes MD
== END 2024-09-17 15:20 | disposition home or self-care (01) ==
PROVIDERS: Emergency Provider Physician Assistant; PCP Family Medicine
DX: T83.592A Infection and inflammatory reaction due to indwelling ureteral stent, initial encounter (principal); I48.0 Paroxysmal atrial fibrillation; I25.10 Atherosclerotic heart disease of native coronary artery without angina pectoris; I10 Essential (primary) hypertension; E78.5 Hyperlipidemia, unspecified; N40.1 Benign prostatic hyperplasia with lower urinary tract symptoms; R33.8 Other retention of urine; E11.9 Type 2 diabetes mellitus without complications; Z79.84 Long term (current) use of oral hypoglycemic drugs; Z79.82 Long term (current) use of aspirin; Z87.891 Personal history of nicotine dependence
CPT/HCPCS: 99284; 81003; 81015; 87086

== ENCOUNTER 2024-09-21 08:35 | Emergency (ER) | payer MEDICARE, SELFPAY ==
[2024-09-21] VITALS (24 sets, daily range): BP systolic 108–129; BP diastolic 47–84; PULSE 74–100; RESP 9–21; TEMP 36.5; O2SAT 89–99
--- NOTE | 2024-09-21 09:15 | DI.CT_ITS ---
Exam(s) CT ABDOMEN PELVIS W EXAM: CT ABDOMEN PELVIS W CLINICAL HISTORY: left flank pain, abdominal pain TECHNIQUE: Imaging Protocol: Axial computed tomography images with coronal and sagittal reformatted images were created and reviewed. CONTRAST MATERIAL: Intravenous: Omnipaque 350 Contrast volume:100 mL Oral: No COMPARISON: CT CT ABDOMEN PELVIS WO from 10/25/[address] ABDOMEN PELVIS W from 07/23/2024 FINDINGS: ABDOMEN: Lung Bases: Coronary artery calcifications are present. Liver: Normal density. Stable hypodensity in the right lobe of the liver which may represent a cyst. No suspicious or new hepatic lesions are seen. Portal, Superior Mesenteric, and Splenic Veins: Unremarkable. Gallbladder and Biliary Tract: Cholelithiasis. No intra or extrahepatic biliary ductal dilatation. Pancreas: Normal density, no abnormal calcifications or inflammatory process. Spleen: Normal. Adrenals: No masses seen. Kidneys: Normal size, contour and axis. No radiodense stones or obstructive uropathy. There is a stab le right renal cyst. No follow-up is recommended. Delayed images do show contrast excretion into th e left and right renal collecting systems which is normal. Abdominal Aorta: Abdominal portion non-dilated. The sclerotic calcification is present. Bowel: No obstruction or bowel wall thickening. No evidence of appendicitis. Peritoneal Cavity: No ascites, collection or mesenteric inflammatory response. No free air. Lymph Nodes: Within normal limits. Bones: Within normal limits for the patient's age. Soft Tissues: There is a fat containing right inguinal hernia. PELVIS: Bladder: There is diffuse thickening of the wall of the urinary bladder. There is a Martins catheter i n place. Reproductive Organs: The prostate gland is mildly enlarged. Lymph Nodes: Within normal limits. Bones: Within normal limits for the patient's age. IMPRESSION: 1. There is no evidence of nephrolithiasis or hydronephrosis. 2. No evidence of diverticulitis or colitis. No evidence of bowel obstruction. 3. Diffuse thickening of the wall of the urinary bladder. The bladder is decompressed, though the bl adder wall still appears thickened. This may be secondary to neurogenic bladder or cystitis. Please correlate clinically. 4. Cholelithiasis. No biliary ductal dilatation. RADIATION DOSE DELIVERED: 1,103.51mGy.cm Total DLP DATA REPOSITORY: All CT scans at this facility are submitted to the National Radiology Data Registry (NRDR) Dose Index Registry (DIR) with the [employer] (ACR). RADIATION OPTIMIZATION: All CT scans at this facility use at least one of these dose optimization te chniques: automated exposure control; mA and/or kV adjustment per patient size (includes targeted exa ms where dose is matched to clinical indication); or iterative reconstruction.
--- NOTE | 2024-09-21 09:21 | ED.GENADUL_ITS ---
Discharge Plan Disposition Patient Disposition: Home Condition: Good Discharge Details Clinical Impression: Abdominal pain, Constipation Primary Care Provider: Olga Borden V ED Provider: Tana Reinoso Home Meds and New Rx's Prescriptions: Continued atorvastatin 40 mg tablet 40 mg PO DAILY furosemide 20 mg tablet 20 mg PO DAILY Patient Comments: hasn't been taking recently s/t dehydration tamsulosin 0.4 mg capsule 0.8 mg PO DAILY Qty: 60 0RF cyanocobalamin (vitamin B-12) 1,000 mcg/mL solution 100 mcg IM [id number] glimepiride 4 mg tablet 4 mg PO DAILY Trulicity 3 mg/0.5 mL pen injector 3 mg subcut QWEEK zinc sulfate 50 mg zinc (220 mg) capsule 50 mg PO DAILY (DME) marijuana 0 .Route .MEDSUPPLY triamcinolone acetonide 0.025 % lotion 1 applic topical BID polyethylene glycol 3350 17 gram/dose powder 17 g PO DAILY cholecalciferol (vitamin D3) 25 mcg (1,000 unit) capsule 25 mcg PO DAILY magnesium oxide 400 mg magnesium capsule 400 mg PO BID Jardiance 10 mg tablet 25 mg PO DAILY aspirin [Adult Low Dose Aspirin] 81 MG tablet,delayed release (DR/EC) 81 mg PO DAILY nitroglycerin 0.4 MG tablet, sublingual 0.4 mg Sublingual DIRECTED PRN (Reason: Chest Pain) Qty: 25 0RF cephalexin 500 mg capsule 500 mg PO QID 10 Days Qty: 40 0RF insulin degludec [Tresiba FlexTouch U-200] 200 unit/mL (3 mL) insulin pen 180 unit SUBCUT DAILY Patient Comments: INJECT 180 UNITS SUBCUTANEOUSLY EVERY MORNING insulin aspart U-100 [Novolog FlexPen U-100 Insulin] 100 unit/mL (3 mL) insulin pen 1 sliding scale dose SUBCUT TID Patient Comments: INJECT 20-25 UNITS BEFORE MEALS THREE TIMES A DAY , MAY USE AN ADDITIONAL 20 UNITS AT BEDTIME IF NEEDED, MAXIMUM DAILY DOSE = 100 UNITS PER sennosides-docusate sodium [2-in-1 Laxative] 8.6-50 mg tablet 1 tab-cap PO QHS Qty: 14 0RF saw palmetto 450 mg capsule 450 mg PO BID Qty: 30 0RF Rx Instructions: give with food (meal/snack) lactulose 10 gram/15 mL solution 20 g PO TID Qty: 3785 0RF metoclopramide HCl [Reglan] 5 mg tablet 5 mg PO QAC Qty: 30 0RF Rx Instructions: administer 30 minutes before meals dicyclomine 10 mg capsule 10 mg PO TID PRN (Reason: abdominal pain) Qty: 30 0RF Discharge Instructions Instructions: Abdominal Pain, Adult ED Additional Instructions: As we discussed, your labs and imaging are very reassuring here today. I have sent these forward to [facility]. Please follow recommendations set forth by your GI team. We have blown these recommendations up since you are able to see things better. Please continue to encourage hydration. You may advance your diet as tolerated but may want to start with easy to digest foods such as bananas, rice, applesauce, toast. Please follow the GI specialist recommendations about your constipation. We also also call this team today to discuss upcoming bowel prep for your colonoscopy. I am concerned that you did not tolerate the prep more recently and you may not tolerate it well in your upcoming procedure and wanted to ensure that you are able to have this completed appropriately. If you develop any new or worsening symptoms please seek care urgently once again. Please continue with your previously prescribed antibiotics for your UTI. Referrals: Olga Borden MD [Primary Care Provider] - [facility] General Date/Time Provider Initiated Documentation: 09/21/24 08:40 . Limitations to Documentation: no limitations . Information obtained by: patient, RN notes reviewed and old records reviewed . History of Present Illness 74 year old M presents to the emergency department with the chief complaint of abdominal pain, nausea, constipation, described as moderate and similar to prior episodes, with intensity rated at 6. Quality is described as aching, and is localized to the abdomen. Patient reports no radiation. Patient started experiencing this week(s) (worse over the past two days) and it has been constant. No relieving factors improve symptom(s), Other factors that worsen symptoms (sitting upright) . Patient notes loss of appetite, malaise and nausea/vomiting (nausea- no vomiting); denies chest pain, cough, fever/chills, headaches, rash and shortness of breath. Patient did receive the following treatments prior to arrival, none Related Data Home Medications ?Medication ?Instructions ?Recorded ?Confirmed aspirin 81 mg tablet,delayed 81 mg PO DAILY 12/14/13 09/21/24 release (Adult Low Dose Aspirin) nitroglycerin 0.4 mg sublingual 0.4 mg sublingual DIRECTED PRN 12/15/13 09/21/24 tablet Chest Pain ##25 Marijuana 06/04/15 09/21/24 cholecalciferol (vitamin D3) 25 25 mcg PO DAILY 10/21/21 09/21/24 mcg (1,000 unit) capsule magnesium oxide 400 mg PO BID 10/21/21 09/21/24 polyethylene glycol 3350 17 17 g PO DAILY 10/21/21 09/21/24 gram/dose oral powder triamcinolone acetonide 0.025 % 1 applic topical BID 10/21/21 09/21/24 lotion empagliflozin 10 mg tablet 25 mg PO DAILY 01/14/22 09/21/24 (Jardiance) insulin degludec 200 unit/mL (3 180 unit subcut DAILY 10/25/22 09/21/24 mL) subcutaneous pen (Tresiba FlexTouch U-200 insulin) atorvastatin 40 mg tablet 40 mg PO DAILY 03/25/24 09/21/24 furosemide 20 mg tablet 20 mg PO DAILY 03/25/24 09/21/24 insulin aspart U-100 100 unit/mL 1 sliding scale dose subcut TID 07/22/24 09/21/24 (3 mL) subcutaneous pen (Novolog FlexPen U-100 Insulin aspart) sennosides 8.6 mg-docusate sodium 1 tab-cap PO QHS #14 tabs 07/22/24 09/21/24 50 mg tablet (2-in-1 Laxative) saw palmetto 450 mg capsule 450 mg PO BID #30 caps 07/29/24 09/21/24 dicyclomine 10 mg capsule 10 mg PO TID PRN abdominal pain 08/09/24 09/21/24 #30 caps lactulose 10 gram/15 mL oral 20 g (30 mL) PO TID #3,785 mL 08/09/24 09/21/24 solution metoclopramide HCl 5 mg tablet 5 mg PO QAC #30 tabs 08/09/24 09/21/24 (Reglan) tamsulosin 0.4 mg capsule 0.8 mg (2 x 0.4 mg) PO DAILY #60 03/11/25 04/02/25 caps cephalexin 500 mg capsule 500 mg PO QID 10 days #40 caps 09/17/24 09/21/24 cyanocobalamin (vitamin B-12) 100 mcg IM [id number] 09/20/24 09/21/24 1,000 mcg/mL injection solution dulaglutide 3 mg/0.5 mL 3 mg subcut QWEEK 09/20/24 09/21/24 subcutaneous pen injector (Trulicity) glimepiride 4 mg tablet 4 mg PO DAILY 09/20/24 09/21/24 zinc sulfate 50 mg zinc (220 mg) 50 mg PO DAILY 09/20/24 09/21/24 capsule Previous Rx's ?Medication ?Instructions ?Recorded nitroglycerin 0.4 mg sublingual 0.4 mg sublingual DIRECTED PRN 12/15/13 tablet Chest Pain ##25 sennosides 8.6 mg-docusate sodium 1 tab-cap PO QHS #14 tabs 07/22/24 50 mg tablet (2-in-1 Laxative) saw palmetto 450 mg capsule 450 mg PO BID #30 caps 07/29/24 dicyclomine 10 mg capsule 10 mg PO TID PRN abdominal pain 08/09/24 #30 caps lactulose 10 gram/15 mL oral 20 g (30 mL) PO TID #3,785 mL 08/09/24 solution metoclopramide HCl 5 mg tablet 5 mg PO QAC #30 tabs 08/09/24 (Reglan) tamsulosin 0.4 mg capsule 0.8 mg (2 x 0.4 mg) PO DAILY #60 08/30/24 caps cephalexin 500 mg capsule 500 mg PO QID 10 days #40 caps 09/17/24 Allergies Allergy/AdvReac Type Severity Reaction Status Date / Time bupropion HCl (From Allergy Unknown Other (See Verified 09/21/24 08:43 Wellbutrin) Comment) erythromycin base Allergy Unknown Other (See Verified 09/21/24 08:43 Comment) pravastatin sodium (From Allergy Unknown Other (See Verified 09/21/24 08:43 Pravachol) Comment) Penicillins Allergy Other (See Verified 09/21/24 08:43 Comment) lisinopril AdvReac Other (See Verified 09/21/24 08:43 Comment) General Stated Complaint: GenMedical LUX: 3 Review of Systems Constitutional Constitutional: Reports as per HPI, Denies fever(s) and Denies headache(s) ENT Ears, Nose, Mouth, and Throat: Denies headache(s) Cardiovascular Cardiovascular: Reports as per HPI, Denies chest pain and Denies dyspnea Respiratory Respiratory: Reports as per HPI, Denies cough and Denies dyspnea Gastrointestinal Gastrointestinal: Reports as per HPI Musculoskeletal Musculoskeletal: Reports as per HPI and Denies back pain Integumentary/Breasts Skin/Breast: Reports as per HPI and Denies rash Neurologic Neurologic: Reports as per HPI and Denies headache(s) Exam Const General: cooperative, healthy appearing, comfortable, no acute distress and well developed Nutritional Appearance: well nourished and overweight Orientation: alert and awake Resp Effort & Inspection: normal respiratory effort, able to speak in complete sentences and no respiratory distress Auscultation: clear to auscultation bilaterally, no rales, no rhonchi and no wheezes Cardio Rate: regular rate Rhythm: regular rhythm Heart Sounds: S1 normal and S2 normal GI Inspection: normal to inspection, no edema, non-distended and scar (umbilical scar, well healed) Palpation: soft, no hepatosplenomegaly, not firm, no guarding, no hernias, no masses, no pulsatile masses, not rigid, tender (diffusely tender) and No ascites Percussion: normal to percussion Auscultation: normal bowel sounds Back/Spine/Pelvis Back: no CVA tenderness Skin General skin exam: no rashes or lesions noted Trauma: no lacerations or abrasions Neuro General: patient alert and patient awake Cognition: normal cognition Speech: speech normal Gait: normal gait Course Vital Signs Vital signs: Vital Signs Temperature 36.5 C 09/21/24 08:40 Pulse 98 H 09/21/24 08:40 Respiratory Rate 18 09/21/24 08:40 Blood Pressure 119/84 09/21/24 08:40 Pulse Oximetry 96 09/21/24 08:40 Temperature 36.5 C 09/21/24 08:59 Temperature Source Oral 09/21/24 08:59 Pulse 98 H 09/21/24 08:59 Respiratory Rate 18 09/21/24 08:59 Blood Pressure 119/84 09/21/24 08:59 Blood Pressure Position Sitting 09/21/24 08:59 Pulse Oximetry 96 09/21/24 08:59 Oxygen Delivery Method Room Air 09/21/24 08:59 Oxygen Flow Rate 0 09/21/24 08:59 Pain Level 6 09/21/24 08:59 Medical Decision Making Patient is a pleasant 74-year-old gentleman with past medical history significant for constipation, recurrent abdominal pain, urinary retention with Martins catheter in place, cholecystitis, obesity, adenomatous colon polyps last colonoscopy 5 years ago, CAD, diabetes, sleep apnea, hypertension, hyperlipidemia, depression, BPH, anemia, presented with chief complaint recurrent constipation and continued abdominal pain. Patient is been here several times in recent months for constipation. He followed up with his gastroenterology team at [facility] on September 16 and at that time they recommended a cleanout. This included 240 mL of MiraLAX and 1 gallon of liquid. We also recommended rescue therapy which included glycerin suppositories, warm tap water enema, senna, Dulcolax, MiraLAX. They plan to take him for repeat colonoscopy later this month. Patient reports success with jeramie clean out although he never reached clear liquid stools. He feels like all of the solid stool was expressed. He is concerned that he has not had a BM since- last BM was about 2 days ago when he took the larger volume of MiraLAX. Patient reports he has had chronic abdominal pain but the pain seems to be more diffuse and it was more towards the left side. In review of the gastroenterology note, they did note that he had pain and felt that this was more gas mediated pain is in his lower abdomen. Past surgical history is significant for umbilical hernia repair. He denies any fevers. He reports that he has had a decreased appetite. Per GI notes, patient has had significant weight loss in recent months associated with decreased appetite. Patient is concerned that after this cleanout he then had much of an appetite and has had difficulty with fluid intake. Patient is currently being treated for a UTI as well. Feels that urine has been returning to normal since beginning the antibiotics. Patient denies any blood in his recent stools. On exam, patient appears nontoxic. He is hemodynamically stable. He is slightly tachycardic which may indicate some dehydration based on his history. He also seems slightly anxious. Patient reports that he did have some nausea this morning although he has not had any vomiting associated with his symptoms. Patient denies any chest pain or shortness of breath. Lungs are clear, normal cardiac exam. Abdomen is fairly diffusely tender more so in the epigastric and left side but no peritoneal findings. He does have good bowel sounds, lower suspicion for obstruction. Patient does not have a history of obstruction. While he initially felt like his pain is in the left flank, he is not having any CVA tenderness, this seems to be more just the left side of the abdomen slightly lateral along the right abdominal wall. Exam is somewhat limited as patient wi ll push with the hand while trying to palpate his abdomen but he does not have any involuntary guarding or peritoneal findings. No fluid wave. Primary concern at this point is likely gas pains, this was also the concern for GI based on their recent note. However, with the weight loss and worsening symptoms, also considered more serious etiologies such as cancer. With his recent constipation, unclear if any of this could be missed on imaging, likely where there could be moving forward with a more urgent colonoscopy in few weeks. I do not see any evidence to suggest a surgical abdomen at this point. Pain being more along the left side, consider diverticulitis although he does not have a history of this. Is not having any right upper quadrant pain so close patient for cholecystitis. Pain is much more on the left side than the right side again, unlikely to be appendicitis. He has no pulsatile mass to suggest AAA, no radiation into the back. Will obtain repeat imaging, will give Zofran for his nausea and begin hydrating the patient. He does have a history of diabetes. Will check his electrolytes and glucose. Labs reviewed adn reassuring- alk phos slightly elevated but baseline for hte patient. Imaging reviewed by radiologist. No acute abnormalities. Patient was noted to have cholelithiasis but this was also noted previously. Thickening of the bladder was not surprising finding either as the patient does have a catheter and is currently being treated for a urinary tract infection. I discussed these findings with the patient. While she still remains quite anxi ous, he is otherwise hemodynamically stable and doing well. He is eating and drinking. I did encourage close follow-up with GI and encouraged that he call regarding his prep for upcoming colonoscopy as it does not sound like he is going to tolerate this well. He also was seen by GI remotely recently but did not have access to the year stepwise recommendations. These were able to be put into a word document and blown up so the patient is able to see these better as it does have issues with his eyesight. We also ensured that we could release to him. It very nicely went through a stepwise approach to his chronic constipation. I did encourage him to continue to follow these recommendations and follow-up with them as soon as possible. Also encourage follow-up with primary care. Return precautions were discussed. All of his questions and concerns were addressed and he is in agreement this plan. This documentation was generated using [employer] system, please disregard any oddities of phrase or misspellings. Quality:SDOH Health Related Social Needs: No Data to Display [facility] All Active Problems (Updated 09/21/24 @ 12:15 by SATYA Huitron) Constipation (Acute) Abdominal pain (Acute) Urinary tract infection (Acute) Constipation (Acute) Lower urinary tract symptoms (LUTS) (Acute) Cholecystitis (Acute) Morbid obesity (Acute) Tinnitus (Acute) Adenomatous colon polyp (Acute) Hemorrhage, anal or rectal (Acute) Degenerative joint disease (Chronic) Pes anserinus bursitis (Acute) Low back pain (Acute) Elevated alkaline phosphatase level (Acute) Lipodystrophy (Acute) Seasonal allergies (Acute) Hypomagnesemia (Acute) Fatigue (Acute) Cataract (Chronic) Vitreous degeneration (Acute) CAD (coronary artery disease) (Chronic) Hip pain (Acute) Hip joint pain (Acute) Vitamin B 12 deficiency (Acute) Ecchymosis (Acute) Chest pain (Acute) a. Rule out MO. Coronary disease (Chronic) a. Presented with worsening dysnea on exertion in December 2011. b. MPI testing showed a large reversible lesion in the anterior chest. c. Cardiac catheterization revealed significant four-vessel disease. d. S/P four-vessel coronary artery bypass grafting in January 2012, FERNANDEZ to the LAD, vein to the OM, first diagonal, and RCA. e. Atrial fibrillation postop. Diabetes (Chronic) a. Last hemoglobin A1c 7.5% in 01/2003. b. Markedly overweight. Sleep apnea, obstructive (Chronic) a. Wears nocturnal CPAP. Obesity (Chronic) a. Considering bariatric surgery. Hypertension (Chronic) Hyperlipidemia (Chronic) Depression (Chronic) History of tobacco use (Chronic) BPH (benign prostatic hypertrophy) (Chronic) Hearing loss (Chronic) Anemia (Chronic) History of Surgical Procedure (Chronic) a. Umbilical hernia repair, 2004. b. Hand surgery. Pes anserinus bursitis of right knee (Acute) Medical History (Updated 09/21/24 @ 12:15 by SATYA Huitron) PAF (paroxysmal atrial fibrillation) Near syncope Disequilibrium Surgical History (Updated 09/20/24 @ 09:41 by Mary Ceballos RN, RN) H/O umbilical hernia repair H/O left knee surgery Left knee patella and tendon repair afer injury 2012 S/P colonoscopy adenoma S/P CABG (coronary artery bypass graft) X3 Family History (Updated 09/20/24 @ 09:38 by Mary Ceballos RN, RN) Mother , 68 abd cancer Cancer abdomenal Father , 73 heart Heart disease Daughter Hypertension Social History Smoking/Tobacco Use Status: Former Tobacco Use Smoking risk assessment performed?: Yes Alcohol Intake: former Drug use: Rarely Substance use type: marijuana Housing: apartment Current gender identity: male Do you feel safe at home: Yes Do you feel safe in your relationship?: Yes
[2024-09-21] MEDS: Normal Saline 1,000 ML 500 ML IV (09:50)
[2024-09-21] MEDS: Ondansetron 4 MG/2 ML VIAL IVP (09:54)
[2024-09-21 09:59] LABS: Abs Immature Grans 0.03 10^3/uL (0.0-0.06); Absolute Basophil Count 0.04 10^3/uL (0.0-0.2); Absolute Eosinophil Count 0.06 10^3/uL (0.0-0.7); Absolute Lymphocyte Count 1.25 10^3/uL (1.2-3.4); Absolute Monocyte Count 0.42 10^3/uL (0.1-0.8); Absolute Neutrophil Count 6.24 10^3/uL (1.2-6.7); Basophils % 0.5 %; Eosinophils % 0.7 %; HCT 43.6 % (40.0-50.0); HGB 14.6 g/dL (13.5-17.5); Immature Grans % 0.4 %; Lymphocytes % 15.5 %; MCH 28.3 pg (27.0-33.0); MCHC 33.5 % (32.0-36.0); MCV 85 fL (80-95); MPV 10.8 fL (8.0-11.0); Monocytes % 5.2 %; Neutrophils % 77.7 %; Platelet Count 184 10^3/uL (130-400); RBC 5.15 10^6/uL (4.36-5.78); RDW 14.9 % (11.8-14.1); RDW-SD 45.6 fL; WBC 8.04 10^3/uL (4.4-10.8)
[2024-09-21 10:14] LABS: ALT 36 U/L (16-63); AST 19 U/L (15-37); Albumin 3.4 g/dL (3.4-5.0); Alkaline Phosphatase 129 U/L (46-116); Anion Gap 9.7 mmol/L (3-11); BUN 7 mg/dL (7-18); Bilirubin, Total 0.9 mg/dL (0.2-1.0); CO2 29.3 mmol/L (21.0-32.0); CREATININE 0.9 mg/dL (0.70-1.30); Calcium 10.7 mg/dL (8.5-10.1); Chloride 102 mmol/L (98-107); Estimated GFR 90.74 (mL/min/1.73m2); Glucose 148 mg/dL (74-106); Magnesium 2.1 mg/dL; Potassium 3.8 mmol/L (3.5-5.1); Sodium 141 mmol/L (136-145); Total Protein 7.4 g/dL (6.4-8.2)
[2024-09-21 10:20] LABS: Lipase 20 U/L (<78)
[2024-09-21] MEDS: Omnipaque 350 MG/ML 100 ML BTL IJ (10:53)
[2024-09-21] MEDS: Normal Saline - Diluent 50 ML VIAL IJ (10:53)
== END 2024-09-21 12:52 | disposition home or self-care (01) ==
PROVIDERS: Emergency Provider Physician Assistant; PCP Family Medicine
DX: R10.9 Unspecified abdominal pain (principal); K59.00 Constipation, unspecified; I48.0 Paroxysmal atrial fibrillation; I25.10 Atherosclerotic heart disease of native coronary artery without angina pectoris; I10 Essential (primary) hypertension; E78.5 Hyperlipidemia, unspecified; Z79.4 Long term (current) use of insulin; Z79.84 Long term (current) use of oral hypoglycemic drugs; Z79.82 Long term (current) use of aspirin; Z87.891 Personal history of nicotine dependence; Z95.1 Presence of aortocoronary bypass graft
CPT/HCPCS: 36415; 80053; 83690; 96361; 96374; 99285; 74177; 83735; 85025; 99284; J2405; J3490

== ENCOUNTER 2024-09-23 09:10 | Emergency (ER) | payer MEDICARE, SELFPAY ==
[2024-09-23 09:21] VITALS: BP 117/79; PULSE 91; RESP 15; TEMP 36.8; O2SAT 100
[2024-09-23 09:31] VITALS: BP 117/79; PULSE 91; RESP 15; TEMP 36.8; O2SAT 100
--- NOTE | 2024-09-23 09:33 | ED.GENADUL_ITS ---
Discharge Plan Disposition Patient Disposition: Home Condition: Stable Discharge Details Clinical Impression: Abdominal pain of unknown cause Primary Care Provider: Olga Borden V ED Provider: Hal Rock Home Meds and New Rx's Prescriptions: Continued atorvastatin 40 mg tablet 40 mg PO DAILY furosemide 20 mg tablet 20 mg PO DAILY Patient Comments: hasn't been taking recently s/t dehydration tamsulosin 0.4 mg capsule 0.8 mg PO DAILY Qty: 60 0RF cyanocobalamin (vitamin B-12) 1,000 mcg/mL solution 100 mcg IM [id number] glimepiride 4 mg tablet 4 mg PO DAILY Trulicity 3 mg/0.5 mL pen injector 3 mg subcut QWEEK zinc sulfate 50 mg zinc (220 mg) capsule 50 mg PO DAILY (DME) marijuana 0 .Route .MEDSUPPLY triamcinolone acetonide 0.025 % lotion 1 applic topical BID polyethylene glycol 3350 17 gram/dose powder 17 g PO DAILY cholecalciferol (vitamin D3) 25 mcg (1,000 unit) capsule 25 mcg PO DAILY magnesium oxide 400 mg magnesium capsule 400 mg PO BID Jardiance 10 mg tablet 25 mg PO DAILY aspirin [Adult Low Dose Aspirin] 81 MG tablet,delayed release (DR/EC) 81 mg PO DAILY nitroglycerin 0.4 MG tablet, sublingual 0.4 mg Sublingual DIRECTED PRN (Reason: Chest Pain) Qty: 25 0RF insulin degludec [Tresiba FlexTouch U-200] 200 unit/mL (3 mL) insulin pen 180 unit SUBCUT DAILY Patient Comments: INJECT 180 UNITS SUBCUTANEOUSLY EVERY MORNING insulin aspart U-100 [Novolog FlexPen U-100 Insulin] 100 unit/mL (3 mL) insulin pen 1 sliding scale dose SUBCUT TID Patient Comments: INJECT 20-25 UNITS BEFORE MEALS THREE TIMES A DAY , MAY USE AN ADDITIONAL 20 UNITS AT BEDTIME IF NEEDED, MAXIMUM DAILY DOSE = 100 UNITS PER sennosides-docusate sodium [2-in-1 Laxative] 8.6-50 mg tablet 1 tab-cap PO QHS Qty: 14 0RF saw palmetto 450 mg capsule 450 mg PO BID Qty: 30 0RF Rx Instructions: give with food (meal/snack) lactulose 10 gram/15 mL solution 20 g PO TID Qty: 3785 0RF metoclopramide HCl [Reglan] 5 mg tablet 5 mg PO QAC Qty: 30 0RF Rx Instructions: administer 30 minutes before meals dicyclomine 10 mg capsule 10 mg PO TID PRN (Reason: abdominal pain) Qty: 30 0RF Discharge Instructions Instructions: Abdominal Pain, Adult ED Additional Instructions: You were seen in the emergency department for your continued left lower quadrant abdominal pain in the setting of chronic constipation with significant use of laxative for his recently, he had a negative CT at last visit, your lab work shows no evidence of infection, inflammatory bowel disease like Crohn's or ulcerative colitis, no evidence of kidney or liver dysfunction, no evidence of sepsis or electrolyte abnormality, I do think there is an element of abdominal wall muscle strain as well as gas pain as he had some relief with a loose bowel movement and passing of flatus today. He responded well to Tylenol and NSAIDs. Please use therapeutic dosing of Tylenol (acetamenophen) & Advil (ibuprofen) in an alternating fashion as follows: Take 1000mg of Tylenol every 8 hours without missing doses- that is 3 times per day. [place] in between the Tylenol dosings, take 400-600mg of Advil also on a 6 hour schedule, that is also 4 times per day. The daily maximum dosing of Tylenol is 3000mg, and the daily maximum dosing of Advil is 2400mg. This is safe to do for weeks. Please note that some common cold medications & prescription pain medications may contain acetamenophen and you need to read OTC drug labels and factor that in to maximum daily dosings. Please monitor your condition closely at home, return for any severe increase in pain despite adequate treatment with Tylenol and ibuprofen especially with black or bloody stools and fever and intractable nausea and vomiting. Continue with your planned colonoscopy with your GI referral at [facility]. Referrals: Olga Borden MD [Primary Care Provider] - HPI General Date/Time Provider Initiated Documentation: 09/23/24 09:33 . HPI Narrative: 74 year-old male presents to ED today by POV/ambulating with a chief complaint of recurrent LLQ abdominal pain, has been seen 2x this week for similar, states the pain has gotten worse. Patient had negative CT at prior visit, has scheduled [facility] colonoscopy on October 04. Quality described as severe L sided abdominal pain, states he thinks if can have a succcessful BM he'd feel better- but has been on a steady stream of stool softeners, MiraLAX, and even took a colon prep to clean himself out which only produced liquid stool, no radiation to vomiting but does endorse nausea with water this morning, denies fever, denies black/bloody stool, denies chest pain/shortness of breath. Severity is described as severe. Palliating factors include stool softeners without relief. Provoking factors include nothing specific- states he's been dealing with very loose stools for a month. Events leading up to the incident/Associated Symptoms: Patient is diabetic and is chronically cath'd with a mishra, reports 300mL output today. Patient not anticoagulated. Related Data Home Medications ?Medication ?Instructions ?Recorded ?Confirmed aspirin 81 mg tablet,delayed 81 mg PO DAILY 12/14/13 09/23/24 release (Adult Low Dose Aspirin) nitroglycerin 0.4 mg sublingual 0.4 mg sublingual DIRECTED PRN 12/15/13 09/23/24 tablet Chest Pain ##25 Marijuana 06/04/15 09/23/24 cholecalciferol (vitamin D3) 25 25 mcg PO DAILY 10/21/21 09/23/24 mcg (1,000 unit) capsule magnesium oxide 400 mg PO BID 10/21/21 09/23/24 polyethylene glycol 3350 17 17 g PO DAILY 10/21/21 09/23/24 gram/dose oral powder triamcinolone acetonide 0.025 % 1 applic topical BID 10/21/21 09/23/24 lotion empagliflozin 10 mg tablet 25 mg PO DAILY 01/14/22 09/23/24 (Jardiance) insulin degludec 200 unit/mL (3 180 unit subcut DAILY 10/25/22 09/23/24 mL) subcutaneous pen (Tresiba FlexTouch U-200 insulin) atorvastatin 40 mg tablet 40 mg PO DAILY 03/25/24 09/23/24 furosemide 20 mg tablet 20 mg PO DAILY 03/25/24 09/23/24 insulin aspart U-100 100 unit/mL 1 sliding scale dose subcut TID 07/22/24 09/23/24 (3 mL) subcutaneous pen (Novolog FlexPen U-100 Insulin aspart) sennosides 8.6 mg-docusate sodium 1 tab-cap PO QHS #14 tabs 07/22/24 09/23/24 50 mg tablet (2-in-1 Laxative) saw palmetto 450 mg capsule 450 mg PO BID #30 caps 07/29/24 09/23/24 dicyclomine 10 mg capsule 10 mg PO TID PRN abdominal pain 08/09/24 09/23/24 #30 caps lactulose 10 gram/15 mL oral 20 g (30 mL) PO TID #3,785 mL 08/09/24 09/23/24 solution metoclopramide HCl 5 mg tablet 5 mg PO QAC #30 tabs 08/09/24 09/23/24 (Reglan) tamsulosin 0.4 mg capsule 0.8 mg (2 x 0.4 mg) PO DAILY #60 08/30/24 09/23/24 caps cyanocobalamin (vitamin B-12) 100 mcg IM [id number] 09/20/24 09/23/24 1,000 mcg/mL injection solution dulaglutide 3 mg/0.5 mL 3 mg subcut QWEEK 09/20/24 09/23/24 subcutaneous [facility] glimepiride 4 mg tablet 4 mg PO DAILY 09/20/24 09/23/24 zinc sulfate 50 mg zinc (220 mg) 50 mg PO DAILY 09/20/24 09/23/24 capsule Previous Rx's ?Medication ?Instructions ?Recorded nitroglycerin 0.4 mg sublingual 0.4 mg sublingual DIRECTED PRN 12/15/13 tablet Chest Pain ##25 sennosides 8.6 mg-docusate sodium 1 tab-cap PO QHS #14 tabs 07/22/24 50 mg tablet (2-in-1 Laxative) saw palmetto 450 mg capsule 450 mg PO BID #30 caps 07/29/24 dicyclomine 10 mg capsule 10 mg PO TID PRN abdominal pain 08/09/24 #30 caps lactulose 10 gram/15 mL oral 20 g (30 mL) PO TID #3,785 mL 08/09/24 solution metoclopramide HCl 5 mg tablet 5 mg PO QAC #30 tabs 08/09/24 (Reglan) tamsulosin 0.4 mg capsule 0.8 mg (2 x 0.4 mg) PO DAILY #60 08/30/24 caps Allergies Allergy/AdvReac Type Severity Reaction Status Date / Time bupropion HCl (From Allergy Unknown Other (See Verified 09/23/24 09:35 Wellbutrin) Comment) erythromycin base Allergy Unknown Other (See Verified 09/23/24 09:35 Comment) pravastatin sodium (From Allergy Unknown Other (See Verified 09/23/24 09:35 Pravachol) Comment) Penicillins Allergy Other (See Verified 09/23/24 09:35 Comment) lisinopril AdvReac Other (See Verified 09/23/24 09:35 Comment) General Stated Complaint: Abd Prob LUX: 3 Review of Systems All systems reviewed & are unremarkable except as noted in HPI and below Exam Narrative Exam Narrative: GENERAL APPEARANCE: Well-nourished, non-toxic, awake and alert, atraumatic, no acute distress. SKIN: Warm, pink, dry, intact, without rashes/lesions/ulcerations. HEAD: Normocephalic, atraumatic, normal hair distribution for gender/age. EYES: Normal conjunctiva, no exudates on lids/lashes. ENT: Nares patent, no circumoral cyanosis, no facial swelling NECK: Supple, trachea midline, painless cervical ROM. LUNGS/CHEST: Lungs CTA bilaterally-no rhonchi/rales/wheezes diffusely, non- labored respirations, normal A/P diameter, symmetrical expansion, no chest wall deformity HEART (CV/PV): Regular rate and rhythm without murmur, no peripheral edema, no JVD. ABDOMEN: Normoactive bowel sounds , soft, non-distended, no guarding, left lower quadrant abdominal tenderness without rebound tenderness, some right upper citlalli drant tenderness without Loving sign, no Rovsing's. MSK: Normal ROM, no swelling/deformity to bilateral UEs or LEs, moving all extremities without weakness, no cyanosis, spine midline without tenderness, normal curvature. NEURO: Mental Status AAOx4 - alert to person, place, time, events No facial droop, no forehead involvement. Motor: No focal weakness - strength 5/5 in bilateral UEs and LEs, proximal and distal, symmetric. Sensory: sensation intact to light touch globally. Gait NT. PSYCH: euthymic, cooperative, pleasant, appropriate speech Course Vital Signs Vital signs: Vital Signs Temperature 36.8 C 09/23/24 09:21 Pulse 91 H 04/04/25 09:21 Respiratory Rate 15 09/23/24 09:21 Blood Pressure 117/79 09/23/24 09:21 Pulse Oximetry 100 09/23/24 09:21 Temperature 36.8 C 09/23/24 09:31 Temperature Source Oral 09/23/24 09:31 Pulse 91 H 09/23/24 09:31 Respiratory Rate 15 09/23/24 09:31 Blood Pressure 117/79 09/23/24 09:31 Blood Pressure Position Sitting 09/23/24 09:31 Pulse Oximetry 100 09/23/24 09:31 Oxygen Delivery Method Room Air 09/23/24 09:31 Oxygen Flow Rate 0 09/23/24 09:31 Pain Level 7 09/23/24 09:31 Medical Decision Making This dictation utilizes [id number] dictation software and may contain unedited grammatical errors. 74 year-old male presents to ED today by POV/ambulating with a chief complaint of recurrent LLQ abdominal pain, has been seen 2x this week for similar, states the pain has gotten worse. Patient had negative CT at prior visit, has scheduled [facility] colonoscopy on October 04. Quality described as severe L sided abdominal pain, states he thinks if can have a succcessful BM he'd feel better- but has been on a steady stream of stool softeners, MiraLAX, and even took a colon prep to clean himself out which only produced liquid stool, no radiation to vomiting but does endorse nausea with water this morning, denies fever, denies black/bloody stool, denies chest pain/shortness of breath. Severity is described as severe. Palliating factors include stool softeners without relief. Provoking factors include nothing specific- states he's been dealing with very loose stools for a month. Events leading up to the incident/Associated Symptoms: Patient is diabetic and is chronically cath'd with a mishra, reports 300mL output today. Patients' medical history: Constipation, cholecystitis, morbid obesity, history of anal or rectal hemorrhage, hypomagnesemia, coronary artery disease, RIP, hypertension, history of umbilical hernia repair. Family and social history: Lives independently, eats normal diet, no exercise regimen. Pertinent exam findings / vital signs include LLQ abdominal tenderness without rebound tenderness, no Rovsing's, some RUQ tenderness without Loving's sign, benign cardiopulmonary exam, neuro intact. Differential / pathologies of concern include abdominal wall muscle strain, overuse of laxatives, gas pain, chronic constipation, unlikely infectious or obstructive etiology. Diagnostic studies of: - CBC, CMP, lipase, magnesium, lactate. - CBC shows no leukocytosis, no anemia - CMP shows no actionable abnormality - Lipase negative - CRP only mildly elevated with a normal ESR making inflammatory bowel disease or other pathology unlikely Interventions of: - 1 g IV APAP, 15 mg IV ketorolac, 1L IVF LR, 10 mg IV piggyback Reglan. ED Course/Assessment/Plan: 74-year-old male presents with chronic left lower abdominal pain, recent chronic constipation issues for the past month, has been using excessive amounts of stool softener and laxatives. Has upcoming GI consult has prior negative workups and negative CT at last visit, he has performed a GoLytely colon prep and reports that he had some gas passage and 1/4 cup of liquid stool here in the emergency department with some relief of pain along with Tylenol and Toradol. I counseled him on regular use of Tylenol and Toradol, I think he has a combination of gas pain and abdominal wall muscle strain as cause of pain, the patient is comfortable with avoiding CT due to radiation exposure and recent negative CT at this time and he will return for any severe acute worsening especially with complete constipation without passing of flatus, nausea or vomiting, black or bloody stools or any other emergent concerns. Findings not consistent with inflammatory bowel disease, obstruction, diverticulitis, infectious etiology, perforated viscus. Disposition of abdominal pain of unknown cause. Patient verbalized understanding of the plan and return to ED criteria and engaged in shared decision making. Medical Records Medical records reviewed: Yes I reviewed the patient's medical records. Lab Data Lab results reviewed: Yes I reviewed the patient's lab results. Labs: Laboratory Tests Range/Units 09/23/24 10:14 WBC (4.4-10.8) 10^3/uL 7.38 RBC (4.36-5.78) 10^6/uL 4.96 Hgb (13.5-17.5) g/dL 14.0 Hct (40.0-50.0) % 43.0 MCV (80-95) fL 87 MCH (27.0-33.0) pg 28.2 MCHC (32.0-36.0) % 32.6 RDW (11.8-14.1) % 14.9 H Plt Count (130-400) 10^3/uL 169 MPV (8.0-11.0) fL 10.8 Immature Gran % % 0.3 Neutrophils % % 77.4 Lymphocytes % % 15.0 Monocytes % % 6.4 Eosinophils % % 0.5 Basophils % % 0.4 Nucleated RBC % (0.0-0.3) % 0.0 Absolute Neutrophils (1.2-6.7) 10^3/uL 5.71 Absolute Lymphocytes (1.2-3.4) 10^3/uL 1.11 L Absolute Monocytes (0.1-0.8) 10^3/uL 0.47 Absolute Eosinophils (0.0-0.7) 10^3/uL 0.04 Absolute Basophils (0.0-0.2) 10^3/uL 0.03 ESR (0-20) mm/hr 16 VBG Lactate (<or=2.0) mmol/L 0.9 Sodium (136-145) mmol/L 139 Potassium (3.5-5.1) mmol/L 3.5 Chloride (98-107) mmol/L 103 Carbon Dioxide (21.0-32.0) mmol/L 27.7 Anion Gap (3-11) mmol/L 8.3 BUN (7-18) mg/dL 6 L Creatinine (0.70-1.30) mg/dL 1.0 Est GFR (CKD-EPI 2020) (mL/min/1.73m2) 79.97 Glucose (74-106) mg/dL 150 H Calcium (8.5-10.1) mg/dL 10.3 H Magnesium mg/dL 1.9 Total Bilirubin (0.2-1.0) mg/dL 0.8 AST (15-37) U/L 17 ALT (16-63) U/L 33 Alkaline Phosphatase (46-116) U/L 117 H C-Reactive Protein (<or=0.5) mg/dL 0.59 H Total Protein (6.4-8.2) g/dL 6.8 Albumin (3.4-5.0) g/dL 3.2 L Lipase (<78) U/L 19 Quality:SDOH Health Related Social Needs: No Data to Display PFSH All Active Problems (Updated 09/23/24 @ 11:31 by SATYA Jansen) Abdominal pain of unknown cause (Acute) Constipation (Acute) Abdominal pain (Acute) Urinary tract infection (Acute) Constipation (Acute) Lower urinary tract symptoms (LUTS) (Acute) Cholecystitis (Acute) Morbid obesity (Acute) Tinnitus (Acute) Adenomatous colon polyp (Acute) Hemorrhage, anal or rectal (Acute) Degenerative joint disease (Chronic) Pes anserinus bursitis (Acute) Low back pain (Acute) Elevated alkaline phosphatase level (Acute) Lipodystrophy (Acute) Seasonal allergies (Acute) Hypomagnesemia (Acute) Fatigue (Acute) Cataract (Chronic) Vitreous degeneration (Acute) CAD (coronary artery disease) (Chronic) Hip pain (Acute) Hip joint pain (Acute) Vitamin B 12 deficiency (Acute) Ecchymosis (Acute) Chest pain (Acute) a. Rule out NH. Coronary disease (Chronic) a. Presented with worsening dysnea on exertion in December 2011. b. MPI testing showed a large reversible lesion in the anterior chest. c. Cardiac catheterization revealed significant four-vessel disease. d. S/P four-vessel coronary artery bypass grafting in January 2012, FERNANDEZ to the LAD, vein to the OM, first diagonal, and RCA. e. Atrial fibrillation postop. Diabetes (Chronic) a. Last hemoglobin A1c 7.5% in 01/2003. b. Markedly overweight. Sleep apnea, obstructive (Chronic) a. Wears nocturnal CPAP. Obesity (Chronic) a. Considering bariatric surgery. Hypertension (Chronic) Hyperlipidemia (Chronic) Depression (Chronic) History of tobacco use (Chronic) BPH (benign prostatic hypertrophy) (Chronic) Hearing loss (Chronic) Anemia (Chronic) History of Surgical Procedure (Chronic) a. Umbilical hernia repair, 2004. b. Hand surgery. Pes anserinus bursitis of right knee (Acute) Medical History (Updated 09/23/24 @ 11:31 by SATYA Jansen) PAF (paroxysmal atrial fibrillation) Near syncope Disequilibrium Surgical History (Updated 09/20/24 @ 09:41 by Mary Ceballos RN, RN) H/O umbilical hernia repair H/O left knee surgery Left knee patella and tendon repair afer injury 2013 S/P colonoscopy adenoma S/P CABG (coronary artery bypass graft) X3 Family History (Updated 09/20/24 @ 09:38 by Mary Ceballos RN, RN) Mother , 68 abd cancer Cancer abdomenal Father , 73 heart Heart disease Daughter Hypertension Social History Smoking/Tobacco Use Status: Former Tobacco Use Smoking risk assessment performed?: Yes Alcohol Intake: former Drug use: Rarely Substance use type: marijuana Housing: apartment Current gender identity: male Do you feel safe at home: Yes Do you feel safe in your relationship?: Yes
[2024-09-23 10:21] LABS: Lactate 0.9 mmol/L (<or=2.0)
[2024-09-23 10:22] LABS: Abs Immature Grans 0.02 10^3/uL (0.0-0.06); Absolute Basophil Count 0.03 10^3/uL (0.0-0.2); Absolute Eosinophil Count 0.04 10^3/uL (0.0-0.7); Absolute Lymphocyte Count 1.11 10^3/uL (1.2-3.4); Absolute Monocyte Count 0.47 10^3/uL (0.1-0.8); Absolute Neutrophil Count 5.71 10^3/uL (1.2-6.7); Basophils % 0.4 %; Eosinophils % 0.5 %; Immature Grans % 0.3 %; MCH 28.2 pg (27.0-33.0); MCHC 32.6 % (32.0-36.0); MCV 87 fL (80-95); MPV 10.8 fL (8.0-11.0); Monocytes % 6.4 %; Neutrophils % 77.4 %; Platelet Count 169 10^3/uL (130-400); RBC 4.96 10^6/uL (4.36-5.78); RDW 14.9 % (11.8-14.1); RDW-SD 47.4 fL; WBC 7.38 10^3/uL (4.4-10.8)
[2024-09-23] MEDS: Ketorolac 15 MG/ML VIAL IVP (10:32)
[2024-09-23] MEDS: METOCLOPRAMIDE 10 MG in Normal Saline 50 ML 200 MG IVPB (10:33)
[2024-09-23] MEDS: Lactated Ringers 1,000 ML 1000 ML IV (10:34)
[2024-09-23] MEDS: ACETAMINOPHEN 1,000 MG/100 ML BAG 400 MG IVPB (10:34)
[2024-09-23 10:43] LABS: ALT 33 U/L (16-63); AST 17 U/L (15-37); Albumin 3.2 g/dL (3.4-5.0); Alkaline Phosphatase 117 U/L (46-116); Anion Gap 8.3 mmol/L (3-11); BUN 6 mg/dL (7-18); Bilirubin, Total 0.8 mg/dL (0.2-1.0); CO2 27.7 mmol/L (21.0-32.0); Calcium 10.3 mg/dL (8.5-10.1); Chloride 103 mmol/L (98-107); Estimated GFR 79.97 (mL/min/1.73m2); Glucose 150 mg/dL (74-106); Lipase 19 U/L (<78); Magnesium 1.9 mg/dL; Potassium 3.5 mmol/L (3.5-5.1); Sodium 139 mmol/L (136-145); Total Protein 6.8 g/dL (6.4-8.2)
[2024-09-23 10:44] LABS: ESR 16 mm/hr (0-20)
[2024-09-23 10:49] LABS: C-Reactive Protein 0.59 mg/dL (<or=0.5)
[2024-09-23 12:05] VITALS: BP 127/72; PULSE 78; RESP 18; O2SAT 98
== END 2024-09-23 12:12 | disposition home or self-care (01) ==
PROVIDERS: Emergency Provider Physician Assistant; PCP Family Medicine
DX: R10.32 Left lower quadrant pain (principal); R11.0 Nausea
CPT/HCPCS: 36415; 80053; 83690; 85652; 96361; 96365; 96368; 96375; 99284; 83605; 83735; 85025; 86140; 99283; J0131; J1885; J2765

== ENCOUNTER 2024-09-27 05:11 | Emergency (ER) | payer MEDICARE, SELFPAY ==
[2024-09-27 05:29] VITALS: BP 134/80; PULSE 72; RESP 18; TEMP 36.7; O2SAT 98
--- NOTE | 2024-09-27 05:38 | W.ED.GENAD ---
Discharge Plan Disposition Patient Disposition: Home Condition: Good Discharge Details Clinical Impression: Urinary catheter complication Primary Care Provider: Olga Borden V ED Provider: Yina Taveras Home Meds and New Rx's Prescriptions: Continued atorvastatin 40 mg tablet 40 mg PO DAILY furosemide 20 mg tablet 20 mg PO DAILY Patient Comments: hasn't been taking recently s/t dehydration tamsulosin 0.4 mg capsule 0.8 mg PO DAILY Qty: 60 0RF cyanocobalamin (vitamin B-12) 1,000 mcg/mL solution 100 mcg IM [id number] glimepiride 4 mg tablet 4 mg PO DAILY Trulicity 3 mg/0.5 mL pen injector 3 mg subcut QWEEK zinc sulfate 50 mg zinc (220 mg) capsule 50 mg PO DAILY triamcinolone acetonide 0.025 % lotion 1 applic topical BID polyethylene glycol 3350 17 gram/dose powder 17 g PO DAILY cholecalciferol (vitamin D3) 25 mcg (1,000 unit) capsule 25 mcg PO DAILY magnesium oxide 400 mg magnesium capsule 400 mg PO BID Jardiance 10 mg tablet 25 mg PO DAILY aspirin [Adult Low Dose Aspirin] 81 MG tablet,delayed release (DR/EC) 81 mg PO DAILY nitroglycerin 0.4 MG tablet, sublingual 0.4 mg Sublingual DIRECTED PRN (Reason: Chest Pain) Qty: 25 0RF insulin degludec [Tresiba FlexTouch U-200] 200 unit/mL (3 mL) insulin pen 180 unit SUBCUT DAILY Patient Comments: INJECT 180 UNITS SUBCUTANEOUSLY EVERY MORNING insulin aspart U-100 [Novolog FlexPen U-100 Insulin] 100 unit/mL (3 mL) insulin pen 1 sliding scale dose SUBCUT TID Patient Comments: INJECT 20-25 UNITS BEFORE MEALS THREE TIMES A DAY , MAY USE AN ADDITIONAL 20 UNITS AT BEDTIME IF NEEDED, MAXIMUM DAILY DOSE = 100 UNITS PER sennosides-docusate sodium [2-in-1 Laxative] 8.6-50 mg tablet 1 tab-cap PO QHS Qty: 14 0RF saw palmetto 450 mg capsule 450 mg PO BID Qty: 30 0RF Rx Instructions: give with food (meal/snack) lactulose 10 gram/15 mL solution 20 g PO TID Qty: 3785 0RF metoclopramide HCl [Reglan] 5 mg tablet 5 mg PO QAC Qty: 30 0RF Rx Instructions: administer 30 minutes before meals dicyclomine 10 mg capsule 10 mg PO TID PRN (Reason: abdominal pain) Qty: 30 0RF Discharge Instructions Additional Instructions: Keep your appointment with Dr. Matthews this afternoon to have your catheter changed. Keep your appointment with your primary care doctor tomorrow. Return to the emergency department for new or worsening symptoms, including if your catheter is not draining or if you have any other concerns. Referrals: Olga Borden MD [Primary Care Provider] - [facility] General Mode of arrival: ambulatory. Date/Time Provider Initiated Documentation: 09/27/24 05:12. Limitations to Documentation: no limitations. Information obtained by: patient. HPI Narrative: 74yo M presenting with mishra catheter pain. Has indwelling mishra for urinary retention which was placed by urology; states that was placed because he was having bowel issues which were making it difficult for him to urinate. He reports he is currently being treated for a urinary tract infection. He is having pain at the tip of his penis where the catheter is inserted. He requests catheter replacement due to the discomfort. No fevers, chills, penile discharge, suprapubic pain, flank pain, or other concerns. Related Data Home Medications ?Medication ?Instructions ?Recorded ?Confirmed aspirin 81 mg tablet,delayed 81 mg PO DAILY 12/14/13 09/27/24 release (Adult Low Dose Aspirin) nitroglycerin 0.4 mg sublingual 0.4 mg sublingual DIRECTED PRN 12/15/13 09/27/24 tablet Chest Pain ##25 cholecalciferol (vitamin D3) 25 25 mcg PO DAILY 10/21/21 09/27/24 mcg (1,000 unit) capsule magnesium oxide 400 mg PO BID 10/21/21 09/27/24 polyethylene glycol 3350 17 17 g PO DAILY 10/21/21 09/27/24 gram/dose oral powder triamcinolone acetonide 0.025 % 1 applic topical BID 10/21/21 09/27/24 lotion empagliflozin 10 mg tablet 25 mg PO DAILY 01/14/22 09/27/24 (Jardiance) insulin degludec 200 unit/mL (3 180 unit subcut DAILY 10/25/22 09/27/24 mL) subcutaneous pen (Tresiba FlexTouch U-200 insulin) atorvastatin 40 mg tablet 40 mg PO DAILY 03/25/24 09/27/24 furosemide 20 mg tablet 20 mg PO DAILY 03/25/24 09/27/24 insulin aspart U-100 100 unit/mL 1 sliding scale dose subcut TID 07/22/24 09/27/24 (3 mL) subcutaneous pen (Novolog FlexPen U-100 Insulin aspart) sennosides 8.6 mg-docusate sodium 1 tab-cap PO QHS #14 tabs 07/22/24 09/27/24 50 mg tablet (2-in-1 Laxative) saw palmetto 450 mg capsule 450 mg PO BID #30 caps 07/29/24 09/27/24 dicyclomine 10 mg capsule 10 mg PO TID PRN abdominal pain 08/09/24 09/27/24 #30 caps lactulose 10 gram/15 mL oral 20 g (30 mL) PO TID #3,785 mL 08/09/24 09/27/24 solution metoclopramide HCl 5 mg tablet 5 mg PO QAC #30 tabs 08/09/24 09/27/24 (Reglan) tamsulosin 0.4 mg capsule 0.8 mg (2 x 0.4 mg) PO DAILY #60 08/30/24 09/27/24 caps cyanocobalamin (vitamin B-12) 100 mcg IM [id number] 09/20/24 09/27/24 1,000 mcg/mL injection solution dulaglutide 3 mg/0.5 mL 3 mg subcut QWEEK 09/20/24 09/27/24 subcutaneous [facility] glimepiride 4 mg tablet 4 mg PO DAILY 09/20/24 09/27/24 zinc sulfate 50 mg zinc (220 mg) 50 mg PO DAILY 09/20/24 09/27/24 capsule Previous Rx's ?Medication ?Instructions ?Recorded nitroglycerin 0.4 mg sublingual 0.4 mg sublingual DIRECTED PRN 12/15/13 tablet Chest Pain ##25 sennosides 8.6 mg-docusate sodium 1 tab-cap PO QHS #14 tabs 07/22/24 50 mg tablet (2-in-1 Laxative) saw palmetto 450 mg capsule 450 mg PO BID #30 caps 07/29/24 dicyclomine 10 mg capsule 10 mg PO TID PRN abdominal pain 08/09/24 #30 caps lactulose 10 gram/15 mL oral 20 g (30 mL) PO TID #3,785 mL 08/09/24 solution metoclopramide HCl 5 mg tablet 5 mg PO QAC #30 tabs 08/09/24 (Reglan) tamsulosin 0.4 mg capsule 0.8 mg (2 x 0.4 mg) PO DAILY #60 08/30/24 caps Allergies Allergy/AdvReac Type Severity Reaction Status Date / Time bupropion HCl (From Allergy Unknown Other (See Verified 09/27/24 05:37 Wellbutrin) Comment) erythromycin base Allergy Unknown Other (See Verified 09/27/24 05:37 Comment) pravastatin sodium (From Allergy Unknown Other (See Verified 09/27/24 05:37 Pravachol) Comment) Penicillins Allergy Other (See Verified 09/27/24 05:37 Comment) lisinopril AdvReac Other (See Verified 09/27/24 05:37 Comment) General Stated Complaint: Urinary LUX: 5 Review of Systems Narrative: see HPI Exam Narrative Exam Narrative: General: Alert, well appearing, well nourished, in no acute distress. Head: Normocephalic, atraumatic Neck: Trachea midline, ?Neck supple. Cardiac: ?No cyanosis. Resp: No respiratory distress. Speaking in full sentences. Abd: ?Soft, non-distended, nontender : ?No suprapubic tenderness. No CVA tenderness. Mishra in place, draining cloudy urine. Slight erythema at tip of penis around urethra, no discharge or skin breakdown. Neurologic: GCS 15. ? Moves all extremities freely against gravity Course Vital Signs Vital signs: Vital Signs Temperature 36.7 C 09/27/24 05:29 Pulse 72 09/27/24 05:29 Respiratory Rate 18 09/27/24 05:29 Blood Pressure 134/80 09/27/24 05:29 Pulse Oximetry 98 09/27/24 05:29 Temperature 36.7 C 09/27/24 05:29 Temperature Source Oral 09/27/24 05:29 Pulse 72 09/27/24 05:29 Respiratory Rate 18 09/27/24 05:29 Blood Pressure 134/80 09/27/24 05:29 Pulse Oximetry 98 09/27/24 05:29 Oxygen Delivery Method Room Air 09/27/24 05:29 Oxygen Flow Rate 0 09/27/24 05:29 Pain Level 8 09/27/24 05:29 Medical Decision Making 74yo M presenting with mishra catheter pain; pain located at tip of penis around urethra. Currently being treated for a UTI. Normal vital signs on arrival; on exam he does have some irritation on his penis around the urethra with no sign of skin breakdown and no discharge. He requests catheter replacement due to the discomfort. Given that his catheter was placed by urology due to difficult placement, he has an appointment already scheduled for this afternoon, and the mishra is currently draining well, I do not believe replacing here in the ED at this time is warranted and given his history may not be successful. Will treat discomfort with tylenol, IM toradol, and topical lidocaine. I advised him to keep his appointment with urology. He also has multiple questions about his current medications and how they may be affecting his bowels and chronic constipation; does have a PCP appointment scheduled for tomorrow. I deferred these questions to his PCP and advised him to keep this appointment as well. Discharged home; discharge instructions and return precautions were reviewed with patient who verbalized understanding. All questions were answered. Quality:SDOH Health Related Social Needs: No Data to Display PFSH All Active Problems (Updated 09/27/24 @ 05:36 by Yina Taveras MD) Urinary catheter complication (Acute) Abdominal pain of unknown cause (Acute) Constipation (Acute) Abdominal pain (Acute) Urinary tract infection (Acute) Constipation (Acute) Lower urinary tract symptoms (LUTS) (Acute) Cholecystitis (Acute) Morbid obesity (Acute) Tinnitus (Acute) Adenomatous colon polyp (Acute) Hemorrhage, anal or rectal (Acute) Degenerative joint disease (Chronic) Pes anserinus bursitis (Acute) Low back pain (Acute) Elevated alkaline phosphatase level (Acute) Lipodystrophy (Acute) Seasonal allergies (Acute) Hypomagnesemia (Acute) Fatigue (Acute) Cataract (Chronic) Vitreous degeneration (Acute) CAD (coronary artery disease) (Chronic) Hip pain (Acute) Hip joint pain (Acute) Vitamin B 12 deficiency (Acute) Ecchymosis (Acute) Chest pain (Acute) a. Rule out ND. Coronary disease (Chronic) a. Presented with worsening dysnea on exertion in December 2011. b. MPI testing showed a large reversible lesion in the anterior chest. c. Cardiac catheterization revealed significant four-vessel disease. d. S/P four-vessel coronary artery bypass grafting in January 2012, FERNANDEZ to the LAD, vein to the OM, first diagonal, and RCA. e. Atrial fibrillation postop. Diabetes (Chronic) a. Last hemoglobin A1c 7.5% in 01/2003. b. Markedly overweight. Sleep apnea, obstructive (Chronic) a. Wears nocturnal CPAP. Obesity (Chronic) a. Considering bariatric surgery. Hypertension (Chronic) Hyperlipidemia (Chronic) Depression (Chronic) History of tobacco use (Chronic) BPH (benign prostatic hypertrophy) (Chronic) Hearing loss (Chronic) Anemia (Chronic) History of Surgical Procedure (Chronic) a. Umbilical hernia repair, 2003. b. Hand surgery. Pes anserinus bursitis of right knee (Acute) Medical History (Updated 09/27/24 @ 05:36 by Yina Taveras MD) PAF (paroxysmal atrial fibrillation) Near syncope Disequilibrium Surgical History (Updated 09/20/24 @ 09:41 by Mary Ceballos RN, RN) H/O umbilical hernia repair H/O left knee surgery Left knee patella and tendon repair afer injury 2012 S/P colonoscopy adenoma S/P CABG (coronary artery bypass graft) X3 Family History (Updated 09/20/24 @ 09:38 by Mary Ceballos RN, RN) Mother , 68 abd cancer Cancer abdomenal Father , 73 heart Heart disease Daughter Hypertension Social History Smoking/Tobacco Use Status: Former Tobacco Use Smoking risk assessment performed?: Yes Alcohol Intake: former Drug use: Rarely Substance use type: marijuana Housing: apartment Current gender identity: male Do you feel safe at home: Yes Do you feel safe in your relationship?: Yes
[2024-09-27] MEDS: Acetaminophen 500 MG TAB 1000 MG PO (05:40)
[2024-09-27] MEDS: Ketorolac 15 MG/ML VIAL IM (05:40)
[2024-09-27] MEDS: Lidocaine 2% Jelly 11 ML SYR UR (05:41)
== END 2024-09-27 06:03 | disposition home or self-care (01) ==
LOC: ER 06:43
PROVIDERS: Emergency Provider Student in an Organized Health Care Education/Training Program; PCP Family Medicine
DX: N39.0 Urinary tract infection, site not specified (principal); T83.9XXA Unspecified complication of genitourinary prosthetic device, implant and graft, initial encounter
CPT/HCPCS: 96372; 99284; 87086; 99283; J1885

== ENCOUNTER 2024-09-27 14:57 | Outpatient (REF) | payer MEDICARE, SELFPAY | END 2024-09-27 14:58 | disposition home or self-care (01) | LOC: LBN 14:57 | PROVIDERS: PCP Family Medicine; Visit Provider Nurse Practitioner Gerontology | DX: R39.9 Unspecified symptoms and signs involving the genitourinary system (principal); N39.0 Urinary tract infection, site not specified | CPT/HCPCS: 51798; 99215 ==

== ENCOUNTER → 2024-10-26 14:47 | Outpatient (BNVA) | payer MEDICARE, SELFPAY | PROVIDERS: PCP Family Medicine; Visit Provider Nurse Practitioner Gerontology | DX: Z43.5 Encounter for attention to cystostomy (principal); B96.89 Other specified bacterial agents as the cause of diseases classified elsewhere ==

== ENCOUNTER 2024-10-26 17:19 | Outpatient (REF) | payer MEDICARE, SELFPAY | END 2024-10-26 17:20 | disposition home or self-care (01) | LOC: LBN 17:19 | PROVIDERS: PCP Family Medicine; Visit Provider Nurse Practitioner Gerontology | DX: R10.2 Pelvic and perineal pain (principal) | CPT/HCPCS: 87077; 87086; 87186 ==

== ENCOUNTER 2024-10-28 02:25 | Emergency (ER) | payer MEDICARE, SELFPAY ==
[2024-10-28 02:30] VITALS: BP 146/60; PULSE 88; RESP 18; TEMP 37; O2SAT 97
[2024-10-28 02:35] VITALS: PULSE 82; RESP 18; O2SAT 97
--- NOTE | 2024-10-28 03:06 | ED.GENADUL_ITS ---
Discharge Plan Disposition Patient Disposition: Home Condition: Good Discharge Details Clinical Impression: Lower urinary tract symptoms (LUTS), Acute UTI Primary Care Provider: Olga Borden V ED Provider: Hal Rose Home Meds and New Rx's Prescriptions: New ciprofloxacin HCl [Cipro] 500 mg tablet 500 mg PO BID 7 Days Qty: 14 0RF No Action sulfamethoxazole-trimethoprim 800-160 mg tablet 1 tab PO BID Qty: 14 0RF furosemide 20 mg tablet 20 mg PO DAILY Patient Comments: hasn't been taking recently s/t dehydration Noted as BID on PCP med list 09/28/24 atorvastatin 40 mg tablet 40 mg PO DAILY Rx Instructions: (20mg dose noted from [facility] note 09/28/24) Trulicity 3 mg/0.5 mL pen injector 3 mg subcut QWEEK zinc sulfate 50 mg zinc (220 mg) capsule 50 mg PO DAILY cyanocobalamin (vitamin B-12) 1,000 mcg/mL solution 100 mcg IM [id number] Rx Instructions: (noted as Q3wk on PCP rx list) glimepiride 4 mg tablet 4 mg PO DAILY Rx Instructions: (not on PCP med list 09/28/24) Linzess 72 mcg capsule See Rx Instructions PO DAILY Rx Instructions: dose unverified (PCP med list has 72mcg and 145mcg dose listed, each QD. Started by [facility] [place] [facility]. triamcinolone acetonide 0.025 % lotion 1 applic topical BID polyethylene glycol 3350 17 gram/dose powder 17 g PO DAILY magnesium oxide 400 mg magnesium capsule 400 mg PO BID tamsulosin 0.4 mg capsule 0.8 mg PO DAILY Qty: 60 3RF cholecalciferol (vitamin D3) 25 mcg (1,000 unit) capsule 50 mcg PO DAILY Jardiance 10 mg tablet 25 mg PO DAILY Rx Instructions: Noted as a 10mg dose on PCP rx list 09/28/24 aspirin [Adult Low Dose Aspirin] 81 MG tablet,delayed release (DR/EC) 81 mg PO DAILY nitroglycerin 0.4 MG tablet, sublingual 0.4 mg Sublingual DIRECTED PRN (Reason: Chest Pain) Qty: 25 0RF insulin degludec [Tresiba FlexTouch U-200] 200 unit/mL (3 mL) insulin pen 180 unit SUBCUT DAILY Patient Comments: (Not on PCP med list 09/28/24) insulin aspart U-100 [Novolog FlexPen U-100 Insulin] 100 unit/mL (3 mL) insulin pen 1 sliding scale dose SUBCUT TID Patient Comments: INJECT 20-25 UNITS BEFORE MEALS THREE TIMES A DAY , MAY USE AN ADDITIONAL 20 UNITS AT BEDTIME IF NEEDED, MAXIMUM DAILY DOSE = 100 UNITS PER sennosides-docusate sodium [2-in-1 Laxative] 8.6-50 mg tablet 1 tab-cap PO QHS Qty: 14 0RF saw palmetto 450 mg capsule 450 mg PO BID Qty: 30 0RF Rx Instructions: give with food (meal/snack) lactulose 10 gram/15 mL solution 20 g PO TID Qty: 3785 0RF metoclopramide HCl [Reglan] 5 mg tablet 5 mg PO QAC Qty: 30 0RF Rx Instructions: administer 30 minutes before meals dicyclomine 10 mg capsule 10 mg PO TID PRN (Reason: abdominal pain) Qty: 30 0RF Discharge Instructions Additional Instructions: At this time you are urinating well, there is no signs of obstruction or constipation. You do have a mild urinary tract infection. Please take the antibiotic as prescribed. It has been sent to your pharmacy on file. If you notice any worsening of your symptoms, or any new symptoms such as vomiting, diarrhea, fever, chills, shortness of breath, chest pain, numbness, weakness, or fainting , please return immediately to the emergency department for reevaluation. Please follow up with your primary care provider as soon as possible for reassessment and reevaluation. As always, it was a pleasure participating in your medical care today. Referrals: Olga Borden MD [Primary Care Provider] - [facility] General Date/Time Provider Initiated Documentation: 10/28/24 02:29 . [facility] Narrative: This is a 74-year-old male with past medical history of paroxysmal atrial fibrillation, anxiety, lower urinary tract symptoms chronically, coronary artery disease, diabetes mellitus type 2, hypertension, high cholesterol, BPH, who recently had urinary retention and a Martins catheter, however this was removed just a few days ago. Patient presents tonight for evaluation of potential urinary retention. He states that this previous morning about 18 hours ago he felt like he was having a harder time urinating. His stool is soft and has always been soft, and he states that every time he would have a bowel movement he would also urinate. However he felt that he was only urinating about a shot glass worth of urine each time. He states that he has continued to urinate throughout the night, but just feels that it is less than it should be. He also states that he has not had a large bowel movement in 24 hours however he has had multiple's very small soft bowel movements. He denies any liquid diarrhea. He denies any acute or new pain. He denies any burning when he pees or fever or chills. No other complaints at this time. Related Data Home Medications ?Medication ?Instructions ?Recorded ?Confirmed aspirin 81 mg tablet,delayed 81 mg PO DAILY 12/14/13 09/27/24 release (Adult Low Dose Aspirin) nitroglycerin 0.4 mg sublingual 0.4 mg sublingual DIRECTED PRN 12/15/13 09/27/24 tablet Chest Pain ##25 magnesium oxide 400 mg PO BID 10/21/21 09/27/24 polyethylene glycol 3350 17 17 g PO DAILY 10/21/21 09/27/24 gram/dose oral powder triamcinolone acetonide 0.025 % 1 applic topical BID 10/21/21 09/27/24 lotion insulin degludec 200 unit/mL (3 180 unit subcut DAILY 10/25/22 09/27/24 mL) subcutaneous pen (Tresiba FlexTouch U-200 insulin) furosemide 20 mg tablet 20 mg PO DAILY 03/25/24 09/27/24 insulin aspart U-100 100 unit/mL 1 sliding scale dose subcut TID 07/22/24 09/27/24 (3 mL) subcutaneous pen (Novolog FlexPen U-100 Insulin aspart) sennosides 8.6 mg-docusate sodium 1 tab-cap PO QHS #14 tabs 07/22/24 09/27/24 50 mg tablet (2-in-1 Laxative) saw palmetto 450 mg capsule 450 mg PO BID #30 caps 07/29/24 09/27/24 dicyclomine 10 mg capsule 10 mg PO TID PRN abdominal pain 08/09/24 09/27/24 #30 caps lactulose 10 gram/15 mL oral 20 g (30 mL) PO TID #3,785 mL 08/09/24 09/27/24 solution metoclopramide HCl 5 mg tablet 5 mg PO QAC #30 tabs 08/09/24 09/27/24 (Reglan) dulaglutide 3 mg/0.5 mL 3 mg subcut QWEEK 09/20/24 09/27/24 subcutaneous pen injector (Trulicity) zinc sulfate 50 mg zinc (220 mg) 50 mg PO DAILY 09/20/24 09/27/24 capsule atorvastatin 40 mg tablet 40 mg PO DAILY 10/03/24 cholecalciferol (vitamin D3) 25 50 mcg PO DAILY 10/03/24 mcg (1,000 unit) capsule cyanocobalamin (vitamin B-12) 100 mcg IM [id number] 10/03/24 1,000 mcg/mL injection solution empagliflozin 10 mg tablet 25 mg PO DAILY 10/03/24 (Jardiance) glimepiride 4 mg tablet 4 mg PO DAILY 10/03/24 linaclotide 72 mcg capsule See Rx Instructions PO DAILY 10/03/24 (Linzess) tamsulosin 0.4 mg capsule 0.8 mg (2 x 0.4 mg) PO DAILY #60 10/03/24 caps sulfamethoxazole 800 1 tab PO BID #14 tabs 10/26/24 10/26/24 mg-trimethoprim 160 mg tablet ciprofloxacin HCl 500 mg tablet 500 mg PO BID 7 days #14 tabs 10/28/24 (Cipro) Previous Rx's ?Medication ?Instructions ?Recorded nitroglycerin 0.4 mg sublingual 0.4 mg sublingual DIRECTED PRN 12/15/13 tablet Chest Pain ##25 sennosides 8.6 mg-docusate sodium 1 tab-cap PO QHS #14 tabs 07/22/24 50 mg tablet (2-in-1 Laxative) saw palmetto 450 mg capsule 450 mg PO BID #30 caps 07/29/24 dicyclomine 10 mg capsule 10 mg PO TID PRN abdominal pain 08/09/24 #30 caps lactulose 10 gram/15 mL oral 20 g (30 mL) PO TID #3,785 mL 08/09/24 solution metoclopramide HCl 5 mg tablet 5 mg PO QAC #30 tabs 08/09/24 (Reglan) tamsulosin 0.4 mg capsule 0.8 mg (2 x 0.4 mg) PO DAILY #60 10/03/24 caps sulfamethoxazole 800 1 tab PO BID #14 tabs 10/26/24 mg-trimethoprim 160 mg tablet ciprofloxacin HCl 500 mg tablet 500 mg PO BID 7 days #14 tabs 10/28/24 (Cipro) Allergies Allergy/AdvReac Type Severity Reaction Status Date / Time bupropion HCl (From Allergy Unknown Other (See Verified 10/28/24 03:36 Wellbutrin) Comment) erythromycin base Allergy Unknown Other (See Verified 10/28/24 03:36 Comment) pravastatin sodium (From Allergy Unknown Other (See Verified 10/28/24 03:36 Pravachol) Comment) Penicillins Allergy Other (See Verified 10/28/24 03:36 Comment) lisinopril AdvReac Other (See Verified 10/28/24 03:36 Comment) General Stated Complaint: Urinary LUX: 3 Exam Narrative Exam Narrative: 1.Const: Well-nourished, Well-developed, appearing stated age 2.Eyes: PERRL, no conjunctival injection, and symmetrical lids. 3.ENT: Atraumatic external nose and ears. Moist MM. Neck: Symmetric, trachea midline, No thyromegaly. 4.CVS: +S1/S2, Peripheral pulses 2+ and equal in all extremities. Brisk capillary refill in all extremities. 5.RESP: Unlabored respiratory effort. Clear to auscultation bilaterally. No wheezes rales or rhonchi 6.GI: Soft, Nontender/Nondistended, No hepatosplenomegaly. No guarding or rebound. Rectal exam demonstrates no hard stool. Soft stools noted. 7.MSK: Normocephalic/Atraumatic, Extremities w/o deformity or ttp No cyanosis or clubbing, Normal movement of all extremities 8.Skin: Warm, Dry. No rashes or lesions. 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 Sensation grossly intact, no focal neurologic deficits. 10.Psych: (AAO) x3. Appropriate mood and affect Course Vital Signs Vital signs: Vital Signs Temperature 37.0 C 10/28/24 02:30 Pulse 88 10/28/24 02:30 Respiratory Rate 18 10/28/24 02:30 Blood Pressure 146/60 H 10/28/24 02:30 Pulse Oximetry 97 10/28/24 02:30 Temperature 37.0 C 10/28/24 02:30 Temperature Source Oral 10/28/24 02:30 Pulse 82 10/28/24 02:35 Respiratory Rate 18 10/28/24 02:35 Blood Pressure 146/60 H 10/28/24 02:30 Pulse Oximetry 97 10/28/24 02:35 Pain Level 5 10/28/24 02:35 Medical Decision Making This is a 74-year-old male with past medical history of paroxysmal atrial fibrillation, anxiety, lower urinary tract symptoms chronically, coronary artery disease, diabetes mellitus type 2, hypertension, high cholesterol, BPH, who recently had urinary retention and a Martins catheter, however this was removed just a few days ago. Patient presents [facility] for evaluation of potential urinary retention. He states that this previous morning about 18 hours ago he felt like he was having a harder time urinating. His stool is soft and has always been soft, and he states that every time he would have a bowel movement he would also urinate. However he felt that he was only urinating about a shot glass worth of urine each time. He states that he has continued to urinate throughout the night, but just feels that it is less than it should be. He also states that he has not had a large bowel movement in 24 hours however he has had multiple's very small soft bowel movements. He denies any liquid diarrhea. He denies any acute or new pain. He denies any burning when he pees or fever or chills. No other complaints at this time. Exam demonstrates a well-appearing male, no abdominal distention or acute pain. Urinary exam demonstrates normal male genitalia. Rectal exam demonstrates soft stool without any evidence of hard stool ball. Patient states that he feels he needs to take a bowel movement now, so he is allowed to go to the bathroom. Patient then subsequently urinated 150 mL, post void bladder scan only shows 15 remaining milliliters. No evidence to suggest acute urinary retention at this time. No evidence to suggest constipation. With no acute abdominal pain, no indication for emergent imaging. Patient otherwise looks notably clinically well and stable with no clear source of acute pathology. Urinalysis did come back positive for mild urinary tract infection. We will start him on Cipro for coverage of Pseudomonas as he did recently have a Martins catheter in. Patient will otherwise be discharged. No signs of pyelonephritis or sepsis. Discussed red flags which to return. I have extensively reviewed the treatment plan and discharge instructions with the patient. I have addressed all patient concerns at this time. The patient was made aware of what symptoms to monitor for that would warrant a return to the emergency department. Discussed the plan with the patient, they demonstrate verbal understanding and agreement with our assessment and plan at this time. The documentation in this chart was dictated using [employer] dictation software. Please excuse any dictation errors. Quality:SDOH Health Related Social Needs: No Data to Display PFSH All Active Problems (Updated 10/28/24 @ 03:32 by Hal Rose DO) Acute UTI (Acute) Lower urinary tract symptoms (LUTS) (Acute) PAF (paroxysmal atrial fibrillation) (Acute) Anxiety (Chronic) Hypercalcemia (Acute) Lower urinary tract symptoms (LUTS) (Acute) Morbid obesity (Acute) Tinnitus (Acute) Hemorrhage, anal or rectal (Acute) Degenerative joint disease (Chronic) Low back pain (Acute) Elevated alkaline phosphatase level (Acute) Lipodystrophy (Acute) Seasonal allergies (Acute) Hypomagnesemia (Acute) Fatigue (Acute) Cataract (Chronic) Vitreous degeneration (Acute) CAD (coronary artery disease) (Chronic) Hip joint pain (Acute) Vitamin B 12 deficiency (Acute) Coronary disease (Chronic) a. Presented with worsening dysnea on exertion in December 2011. b. MPI testing showed a large reversible lesion in the anterior chest. c. Cardiac catheterization revealed significant four-vessel disease. d. S/P four-vessel coronary artery bypass grafting in January 2012, FERNANDEZ to the LAD, vein to the OM, first diagonal, and RCA. e. Atrial fibrillation postop. Diabetes (Chronic) a. Last hemoglobin A1c 7.5% in 01/2003. b. Markedly overweight. Sleep apnea, obstructive (Chronic) a. Wears nocturnal CPAP. Obesity (Chronic) a. Considering bariatric surgery. Hypertension (Chronic) Hyperlipidemia (Chronic) Depression (Chronic) History of tobacco use (Chronic) BPH (benign prostatic hypertrophy) (Chronic) Hearing loss (Chronic) Anemia (Chronic) History of Surgical Procedure (Chronic) a. Umbilical hernia repair, 2004. b. Hand surgery. Pes anserinus bursitis of right knee (Acute) Medical History (Updated 10/28/24 @ 03:32 by Hal Rose DO) Nodule on liver Ecchymosis Cholecystitis Chest pain a. Rule out MS. Adenomatous colon polyp Near syncope Disequilibrium Surgical History (Updated 09/20/24 @ 09:41 by Mary Ceballos RN, RN) H/O umbilical hernia repair H/O left knee surgery Left knee patella and tendon repair afer injury 2012 S/P colonoscopy adenoma S/P CABG (coronary artery bypass graft) X3 Family History (Updated 09/20/24 @ 09:38 by Mary Ceballos RN, RN) Mother , 68 abd cancer Cancer abdomenal Father , 73 heart Heart disease Daughter Hypertension Social History Smoking/Tobacco Use Status: Former Tobacco Use Smoking risk assessment performed?: Yes Alcohol Intake: former Drug use: Rarely Substance use type: marijuana Housing: apartment Current gender identity: male Do you feel safe at home: Yes Do you feel safe in your relationship?: Yes
[2024-10-28 03:11] LABS: Bilirubin Negative (Negative); Blood Trace-intact (Negative); Clarity Clear (Clear); Glucose Negative (Negative); Ketones Negative (Negative); Leukocyte Esterase Small (Negative); Nitrite Positive (Negative); Specific Gravity >= 1.030 (1.005-1.025)
[2024-10-28 03:22] LABS: Bacteria Few HPF (Negative); C & S Indicated? Yes; Casts Negative LPF (Negative); Crystals Negative HPF (Negative); Epithelial Cells Few HPF (Negative); Mucus Negative (Negative)
[2024-10-28 03:52] VITALS: BP 123/59; PULSE 73; RESP 19; TEMP 36.8; O2SAT 96
== END 2024-10-28 04:07 | disposition home or self-care (01) ==
PROVIDERS: Emergency Provider Student in an Organized Health Care Education/Training Program; PCP Family Medicine
DX: N39.0 Urinary tract infection, site not specified (principal)
CPT/HCPCS: 99283 ×2; 51798; 87077; 81003; 81015; 87086; 87186

== ENCOUNTER 2024-10-31 06:51 | Emergency (ER) | payer MEDICARE, SELFPAY ==
[2024-10-31 06:58] VITALS: BP 115/52; PULSE 65; RESP 16; TEMP 36.5; O2SAT 99
[2024-10-31 07:03] VITALS: BP 115/52; PULSE 65; RESP 16; TEMP 36.5; O2SAT 99
--- NOTE | 2024-10-31 07:04 | ED.GENADUL_ITS ---
Discharge Plan Disposition Patient Disposition: Home Discharge Details Clinical Impression: Lower urinary tract symptoms (LUTS), Acute urinary retention Primary Care Provider: Olga Borden V ED Provider: Prince Doty Home Meds and New Rx's Prescriptions: No Action sulfamethoxazole-trimethoprim 800-160 mg tablet 1 tab PO BID Qty: 14 0RF Trulicity 3 mg/0.5 mL pen injector 1.5 mg subcut QWEEK zinc sulfate 50 mg zinc (220 mg) capsule 50 mg PO DAILY cyanocobalamin (vitamin B-12) 1,000 mcg/mL solution 100 mcg IM [id number] Rx Instructions: (noted as Q3wk on PCP rx list) Linzess 72 mcg capsule See Rx Instructions PO DAILY Rx Instructions: dose unverified (PCP med list has 72mcg and 145mcg dose listed, each QD. Started by [facility]. triamcinolone acetonide 0.025 % lotion 1 applic topical BID polyethylene glycol 3350 17 gram/dose powder 17 g PO DAILY magnesium oxide 400 mg magnesium capsule 400 mg PO BID tamsulosin 0.4 mg capsule 0.8 mg PO DAILY Qty: 60 3RF cholecalciferol (vitamin D3) 25 mcg (1,000 unit) capsule 50 mcg PO DAILY aspirin [Adult Low Dose Aspirin] 81 MG tablet,delayed release (DR/EC) 81 mg PO DAILY nitroglycerin 0.4 MG tablet, sublingual 0.4 mg Sublingual DIRECTED PRN (Reason: Chest Pain) Qty: 25 0RF insulin aspart U-100 [Novolog FlexPen U-100 Insulin] 100 unit/mL (3 mL) insulin pen 1 sliding scale dose SUBCUT TID Patient Comments: INJECT 20-25 UNITS BEFORE MEALS THREE TIMES A DAY , MAY USE AN ADDITIONAL 20 UNITS AT BEDTIME IF NEEDED, MAXIMUM DAILY DOSE = 100 UNITS PER sennosides-docusate sodium [2-in-1 Laxative] 8.6-50 mg tablet 1 tab-cap PO QHS Qty: 14 0RF saw palmetto 450 mg capsule 450 mg PO BID Qty: 30 0RF Rx Instructions: give with food (meal/snack) metoclopramide HCl [Reglan] 5 mg tablet 5 mg PO QAC Qty: 30 0RF Rx Instructions: administer 30 minutes before meals dicyclomine 10 mg capsule 10 mg PO TID PRN (Reason: abdominal pain) Qty: 30 0RF Discharge Instructions Instructions: Urinary Retention Additional Instructions: mishra catheter placed. please follow up with urology. finish your antibiotics previously prescribed and continue flomax daily for your chronic constipation, continue medications and follow up with your PCP or GI. HPI General Date/Time Provider Initiated Documentation: 10/31/24 06:57 . Limitations to Documentation: no limitations . Information obtained by: patient and old records reviewed . HPI Narrative: 74-year-old gentleman with past medical history of A-fib, anxiety, chronic lower urinary tract symptoms, CAD, diabetes, hypertension, BPH presents for evaluation of difficulty urinating. He reports he last urinated last night. He has been evaluated for this multiple times in the past and reports that the symptoms are related to his constipation. He has been compliant with his medication, but states that he has had difficulty pooping. He has not been able to urinate and reports lower abdominal pain. He reports the recent removal of the Mishra catheter, as well as a urinary tract infection, he is currently on antibiotics. Patient is followed by urology clinic. Related Data Home Medications ?Medication ?Instructions ?Recorded ?Confirmed aspirin 81 mg tablet,delayed 81 mg PO DAILY 12/14/13 10/28/24 release (Adult Low Dose Aspirin) nitroglycerin 0.4 mg sublingual 0.4 mg sublingual DIRECTED PRN 12/15/13 10/28/24 tablet Chest Pain ##25 magnesium oxide 400 mg PO BID 10/21/21 10/28/24 polyethylene glycol 3350 17 17 g PO DAILY 10/21/21 10/28/24 gram/dose oral powder triamcinolone acetonide 0.025 % 1 applic topical BID 10/21/21 10/28/24 lotion insulin aspart U-100 100 unit/mL 1 sliding scale dose subcut TID 07/22/24 10/28/24 (3 mL) subcutaneous pen (Novolog FlexPen U-100 Insulin aspart) sennosides 8.6 mg-docusate sodium 1 tab-cap PO QHS #14 tabs 07/22/24 10/28/24 50 mg tablet (2-in-1 Laxative) saw palmetto 450 mg capsule 450 mg PO BID #30 caps 07/29/24 10/28/24 dicyclomine 10 mg capsule 10 mg PO TID PRN abdominal pain 08/09/24 10/28/24 #30 caps metoclopramide HCl 5 mg tablet 5 mg PO QAC #30 tabs 08/09/24 10/28/24 (Reglan) dulaglutide 3 mg/0.5 mL 1.5 mg subcut QWEEK 09/20/24 10/28/24 subcutaneous pen injector (Trulicity) zinc sulfate 50 mg zinc (220 mg) 50 mg PO DAILY 09/20/24 10/28/24 capsule cholecalciferol (vitamin D3) 25 50 mcg PO DAILY 10/03/24 10/28/24 mcg (1,000 unit) capsule cyanocobalamin (vitamin B-12) 100 mcg IM [id number] 10/03/24 10/28/24 1,000 mcg/mL injection solution linaclotide 72 mcg capsule See Rx Instructions PO DAILY 10/03/24 10/28/24 (Linzess) tamsulosin 0.4 mg capsule 0.8 mg (2 x 0.4 mg) PO DAILY #60 10/03/24 10/28/24 caps sulfamethoxazole 800 1 tab PO BID #14 tabs 10/26/24 10/28/24 mg-trimethoprim 160 mg tablet Previous Rx's ?Medication ?Instructions ?Recorded nitroglycerin 0.4 mg sublingual 0.4 mg sublingual DIRECTED PRN 12/15/13 tablet Chest Pain ##25 sennosides 8.6 mg-docusate sodium 1 tab-cap PO QHS #14 tabs 07/22/24 50 mg tablet (2-in-1 Laxative) saw palmetto 450 mg capsule 450 mg PO BID #30 caps 07/29/24 dicyclomine 10 mg capsule 10 mg PO TID PRN abdominal pain 08/09/24 #30 caps metoclopramide HCl 5 mg tablet 5 mg PO QAC #30 tabs 08/09/24 (Reglan) tamsulosin 0.4 mg capsule 0.8 mg (2 x 0.4 mg) PO DAILY #60 10/03/24 caps sulfamethoxazole 800 1 tab PO BID #14 tabs 10/26/24 mg-trimethoprim 160 mg tablet Allergies Allergy/AdvReac Type Severity Reaction Status Date / Time bupropion HCl (From Allergy Unknown Other (See Verified 10/28/24 03:36 Wellbutrin) Comment) erythromycin base Allergy Unknown Other (See Verified 10/28/24 03:36 Comment) pravastatin sodium (From Allergy Unknown Other (See Verified 10/28/24 03:36 Pravachol) Comment) Penicillins Allergy Other (See Verified 10/28/24 03:36 Comment) lisinopril AdvReac Other (See Verified 10/28/24 03:36 Comment) General Stated Complaint: Urinary LUX: 4 Exam Narrative Exam Narrative: Review of Systems: All systems reviewed & are unremarkable except as noted in HPI and below Well-developed, no acute distress afebrile RRR Unlabored respiratory effort Nondistended abdomen , mild lower tenderness Course Vital Signs Vital signs: Vital Signs Temperature 36.5 C 10/31/24 06:58 Pulse 65 10/31/24 06:58 Respiratory Rate 16 10/31/24 06:58 Blood Pressure 115/52 L 10/31/24 06:58 Pulse Oximetry 99 10/31/24 06:58 Temperature 36.5 C 10/31/24 06:58 Temperature Source Temporal Artery Scan 10/31/24 06:58 Pulse 65 10/31/24 06:58 Respiratory Rate 16 10/31/24 06:58 Blood Pressure 115/52 L 10/31/24 06:58 Blood Pressure Position Sitting 10/31/24 06:58 Pulse Oximetry 99 10/31/24 06:58 Oxygen Delivery Method Room Air 10/31/24 06:58 Oxygen Flow Rate 0 10/31/24 06:58 Medical Decision Making Emergent evaluation of lower urinary tract symptoms. Patient is saying that he has not been able to urinate since last night. Bladder scan reveals over 900 cc in the bladder. A Mishra catheter was replaced. Urinalysis was sent and there is no signs of acute infection. At this time the patient should continue his Bactrim and not change or stop this medication. Also recommend continuing his Flomax. He was provided a leg bag and has scheduled urology follow-up for tomorrow. Quality:SDOH Health Related Social Needs: No Data to Display PFSH All Active Problems (Updated 10/31/24 @ 08:04 by Prince Doty MD) Acute urinary retention (Acute) Acute UTI (Acute) Lower urinary tract symptoms (LUTS) (Acute) PAF (paroxysmal atrial fibrillation) (Acute) Anxiety (Chronic) Hypercalcemia (Acute) Lower urinary tract symptoms (LUTS) (Acute) Morbid obesity (Acute) Tinnitus (Acute) Hemorrhage, anal or rectal (Acute) Degenerative joint disease (Chronic) Low back pain (Acute) Elevated alkaline phosphatase level (Acute) Lipodystrophy (Acute) Seasonal allergies (Acute) Hypomagnesemia (Acute) Fatigue (Acute) Cataract (Chronic) Vitreous degeneration (Acute) CAD (coronary artery disease) (Chronic) Hip joint pain (Acute) Vitamin B 12 deficiency (Acute) Coronary disease (Chronic) a. Presented with worsening dysnea on exertion in December 2011. b. MPI testing showed a large reversible lesion in the anterior chest. c. Cardiac catheterization revealed significant four-vessel disease. d. S/P four-vessel coronary artery bypass grafting in January 2012, FERNANDEZ to the LAD, vein to the OM, first diagonal, and RCA. e. Atrial fibrillation postop. Diabetes (Chronic) a. Last hemoglobin A1c 7.5% in 01/2003. b. Markedly overweight. Sleep apnea, obstructive (Chronic) a. Wears nocturnal CPAP. Obesity (Chronic) a. Considering bariatric surgery. Hypertension (Chronic) Hyperlipidemia (Chronic) Depression (Chronic) History of tobacco use (Chronic) BPH (benign prostatic hypertrophy) (Chronic) Hearing loss (Chronic) Anemia (Chronic) History of Surgical Procedure (Chronic) a. Umbilical hernia repair, 2003. b. Hand surgery. Pes anserinus bursitis of right knee (Acute) Medical History (Updated 10/31/24 @ 08:04 by Prince Doty MD) Nodule on liver Ecchymosis Cholecystitis Chest pain a. Rule out MT. Adenomatous colon polyp Near syncope Disequilibrium Surgical History (Updated 09/20/24 @ 09:41 by Mary Ceballos RN, RN) H/O umbilical hernia repair H/O left knee surgery Left knee patella and tendon repair afer injury 2012 S/P colonoscopy adenoma S/P CABG (coronary artery bypass graft) X3 Family History (Updated 09/20/24 @ 09:38 by Mary Ceballos RN, RN) Mother , 68 abd cancer Cancer abdomenal Father , 73 heart Heart disease Daughter Hypertension Social History Smoking/Tobacco Use Status: Former Tobacco Use Smoking risk assessment performed?: Yes Alcohol Intake: former Drug use: Rarely Substance use type: marijuana Housing: apartment Current gender identity: male Do you feel safe at home: Yes Do you feel safe in your relationship?: Yes
[2024-10-31] MEDS: Lidocaine 2% Jelly 11 ML SYR UR (07:43)
[2024-10-31 07:44] LABS: Bilirubin Negative (Negative); Blood Small (Negative); Clarity Clear (Clear); Glucose Negative (Negative); Ketones Trace mg/dL (Negative); Leukocyte Esterase Trace (Negative); Nitrite Negative (Negative); Specific Gravity 1.025 (1.005-1.025); Urobilinogen 0.2 mg/dL (Up to 0.2); pH 6.5 (5-8)
[2024-10-31 07:52] LABS: Bacteria Negative HPF (Negative); C & S Indicated? No; Casts 0-2 Hyaline LPF (Negative); Crystals Negative HPF (Negative); Epithelial Cells Rare HPF (Negative); Mucus Moderate (Negative)
== END 2024-10-31 09:14 | disposition home or self-care (01) ==
PROVIDERS: Emergency Provider Emergency Medicine; PCP Family Medicine
DX: R33.9 Retention of urine, unspecified (principal); I10 Essential (primary) hypertension; E11.9 Type 2 diabetes mellitus without complications; I48.91 Unspecified atrial fibrillation
CPT/HCPCS: 99283 ×2; 51702; 81003; 81015

== ENCOUNTER → 2024-11-01 08:13 | Outpatient (BNVA) | payer MEDICARE, SELFPAY | PROVIDERS: PCP Family Medicine; Visit Provider Nurse Practitioner Gerontology | DX: R39.9 Unspecified symptoms and signs involving the genitourinary system (principal) | CPT/HCPCS: 99213 ==

== ENCOUNTER 2024-11-05 00:40 | Emergency (ER) | payer MEDICARE, SELFPAY ==
[2024-11-05 00:43] VITALS: BP 120/73; PULSE 62; RESP 20; TEMP 36.1; O2SAT 99
--- NOTE | 2024-11-05 01:27 | ED.GENADUL_ITS ---
Discharge Plan Disposition Patient Disposition: Home Condition: Good Discharge Details Chief Complaint: Urinary Clinical Impression: Acute dehydration Primary Care Provider: Olga Borden V ED Provider: Hal Rose Home Meds and New Rx's Prescriptions: No Action sulfamethoxazole-trimethoprim 800-160 mg tablet 1 tab PO BID Qty: 14 0RF finasteride 5 mg tablet 5 mg PO DAILY Qty: 90 3RF Trulicity 3 mg/0.5 mL pen injector 1.5 mg subcut QWEEK zinc sulfate 50 mg zinc (220 mg) capsule 50 mg PO DAILY cyanocobalamin (vitamin B-12) 1,000 mcg/mL solution 100 mcg IM [id number] Rx Instructions: (noted as Q3wk on PCP rx list) Linzess 72 mcg capsule See Rx Instructions PO DAILY Rx Instructions: dose unverified (PCP med list has 72mcg and 145mcg dose listed, each QD. Started by [facility]. triamcinolone acetonide 0.025 % lotion 1 applic topical BID polyethylene glycol 3350 17 gram/dose powder 17 g PO DAILY magnesium oxide 400 mg magnesium capsule 400 mg PO BID tamsulosin 0.4 mg capsule 0.8 mg PO DAILY Qty: 60 3RF cholecalciferol (vitamin D3) 25 mcg (1,000 unit) capsule 50 mcg PO DAILY aspirin [Adult Low Dose Aspirin] 81 MG tablet,delayed release (DR/EC) 81 mg PO DAILY nitroglycerin 0.4 MG tablet, sublingual 0.4 mg Sublingual DIRECTED PRN (Reason: Chest Pain) Qty: 25 0RF insulin aspart U-100 [Novolog FlexPen U-100 Insulin] 100 unit/mL (3 mL) insulin pen 1 sliding scale dose SUBCUT TID Patient Comments: INJECT 20-25 UNITS BEFORE MEALS THREE TIMES A DAY , MAY USE AN ADDITIONAL 20 UNITS AT BEDTIME IF NEEDED, MAXIMUM DAILY DOSE = 100 UNITS PER sennosides-docusate sodium [2-in-1 Laxative] 8.6-50 mg tablet 1 tab-cap PO QHS Qty: 14 0RF saw palmetto 450 mg capsule 450 mg PO BID Qty: 30 0RF Rx Instructions: give with food (meal/snack) metoclopramide HCl [Reglan] 5 mg tablet 5 mg PO QAC Qty: 30 0RF Rx Instructions: administer 30 minutes before meals dicyclomine 10 mg capsule 10 mg PO TID PRN (Reason: abdominal pain) Qty: 30 0RF Discharge Instructions Instructions: Dehydration, Adult ED Additional Instructions: At this time you appear slightly dehydrated. Please drink 8 to 16 ounces of w ater when you get home. If you notice any worsening of your symptoms, or any new symptoms such as vomiting, diarrhea, fever, chills, shortness of breath, chest pain, numbness, weakness, or fainting , please return immediately to the emergency department for reevaluation. Please follow up with your primary care provider as soon as possible for reassessment and reevaluation. As always, it was a pleasure participating in your medical care today. Referrals: Olga Borden MD [Primary Care Provider] - [facility] General Date/Time Provider Initiated Documentation: 11/05/24 00:43 . HPI Narrative: This is a 74-year-old male with a past medical history of paroxysmal atrial fi brillation, anxiety, lower urinary tract symptoms, coronary artery disease, type 2 diabetes mellitus, hypertension, high cholesterol, BPH, who currently has a Martins catheter secondary to urinary retention and is seen by Dr. Matthews, who presents today for evaluation of urinary status. Patient states he had a episode of diarrhea today, secondary to his significant MiraLAX and stool softener regiment. Because of this he has been drinking less water. Because of this he has noted this evening that he has not urinated, and is concerned his bladder may be clogged or his catheter may be clogged. He admits to mild sensation of urine wanting to travel around the catheter towards the tip of the penis but denies any actual leakage. No other complaints at this time. Related Data Home Medications ?Medication ?Instructions ?Recorded ?Confirmed aspirin 81 mg tablet,delayed 81 mg PO DAILY 12/14/13 11/05/24 release (Adult Low Dose Aspirin) nitroglycerin 0.4 mg sublingual 0.4 mg sublingual DIRECTED PRN 12/15/13 11/05/24 tablet Chest Pain ##25 magnesium oxide 400 mg PO BID 10/21/21 11/05/24 polyethylene glycol 3350 17 17 g PO DAILY 10/21/21 11/05/24 gram/dose oral powder triamcinolone acetonide 0.025 % 1 applic topical BID 10/21/21 11/05/24 lotion insulin aspart U-100 100 unit/mL 1 sliding scale dose subcut TID 07/22/24 11/05/24 (3 mL) subcutaneous pen (Novolog FlexPen U-100 Insulin aspart) sennosides 8.6 mg-docusate sodium 1 tab-cap PO QHS #14 tabs 07/22/24 11/05/24 50 mg tablet (2-in-1 Laxative) saw palmetto 450 mg capsule 450 mg PO BID #30 caps 07/29/24 11/05/24 dicyclomine 10 mg capsule 10 mg PO TID PRN abdominal pain 08/09/24 11/05/24 #30 caps metoclopramide HCl 5 mg tablet 5 mg PO QAC #30 tabs 08/09/24 11/05/24 (Reglan) dulaglutide 3 mg/0.5 mL 1.5 mg subcut QWEEK 09/20/24 11/05/24 subcutaneous pen injector (Trulicity) zinc sulfate 50 mg zinc (220 mg) 50 mg PO DAILY 09/20/24 11/05/24 capsule cholecalciferol (vitamin D3) 25 50 mcg PO DAILY 10/03/24 11/05/24 mcg (1,000 unit) capsule cyanocobalamin (vitamin B-12) 100 mcg IM [id number] 10/03/24 11/05/24 1,000 mcg/mL injection solution linaclotide 72 mcg capsule See Rx Instructions PO DAILY 10/03/24 11/05/24 (Linzess) tamsulosin 0.4 mg capsule 0.8 mg (2 x 0.4 mg) PO DAILY #60 10/03/24 11/05/24 caps sulfamethoxazole 800 1 tab PO BID #14 tabs 10/26/24 11/05/24 mg-trimethoprim 160 mg tablet finasteride 5 mg tablet 5 mg PO DAILY #90 tabs 11/01/24 11/05/24 Previous Rx's ?Medication ?Instructions ?Recorded nitroglycerin 0.4 mg sublingual 0.4 mg sublingual DIRECTED PRN 12/15/13 tablet Chest Pain ##25 sennosides 8.6 mg-docusate sodium 1 tab-cap PO QHS #14 tabs 07/22/24 50 mg tablet (2-in-1 Laxative) saw palmetto 450 mg capsule 450 mg PO BID #30 caps 07/29/24 dicyclomine 10 mg capsule 10 mg PO TID PRN abdominal pain 08/09/24 #30 caps metoclopramide HCl 5 mg tablet 5 mg PO QAC #30 tabs 08/09/24 (Reglan) tamsulosin 0.4 mg capsule 0.8 mg (2 x 0.4 mg) PO DAILY #60 10/03/24 caps sulfamethoxazole 800 1 tab PO BID #14 tabs 10/26/24 mg-trimethoprim 160 mg tablet finasteride 5 mg tablet 5 mg PO DAILY #90 tabs 11/01/24 Allergies Allergy/AdvReac Type Severity Reaction Status Date / Time bupropion HCl (From Allergy Unknown Other (See Verified 11/05/24 00:48 Wellbutrin) Comment) erythromycin base Allergy Unknown Other (See Verified 11/05/24 00:48 Comment) pravastatin sodium (From Allergy Unknown Other (See Verified 11/05/24 00:48 Pravachol) Comment) Penicillins Allergy Other (See Verified 11/05/24 00:48 Comment) lisinopril AdvReac Other (See Verified 11/05/24 00:48 Comment) General Stated Complaint: Urinary LUX: 3 Exam Narrative Exam Narrative: 1.Const: Well-nourished, Well-developed, appearing stated age 2.Eyes: PERRL, no conjunctival injection, and symmetrical lids. 3.ENT: Atraumatic external nose and ears. Moist MM. Neck: Symmetric, trachea midline, No thyromegaly. 4.CVS: +S1/S2, Peripheral pulses 2+ and equal in all extremities. Brisk capillary refill in all extremities. 5.RESP: Unlabored respiratory effort. Clear to auscultation bilaterally. No wheezes rales or rhonchi 6.GI: Soft, Nontender/Nondistended, No hepatosplenomegaly. No guarding or rebound. Martins catheter in place. Leg bag has been removed 7.MSK: Normocephalic/Atraumatic, Extremities w/o deformity or ttp No cyanosis or clubbing, Normal movement of all extremities 8.Skin: Warm, Dry. No rashes or lesions. 9.Neuro: banquet stewardess II-XII grossly intact. Sensation grossly intact, no focal neurologic deficits. 10.Psych: (AAO) x3. Appropriate mood and affect Course Vital Signs Vital signs: Vital Signs Temperature 36.1 C L 11/05/24 00:43 Pulse 62 11/05/24 00:43 Respiratory Rate 20 11/05/24 00:43 Blood Pressure 120/73 11/05/24 00:43 Pulse Oximetry 99 11/05/24 00:43 Temperature 36.1 C L 11/05/24 00:43 Pulse 62 11/05/24 00:43 Respiratory Rate 20 11/05/24 00:43 Blood Pressure 120/73 11/05/24 00:43 Pulse Oximetry 99 11/05/24 00:43 Pain Level 0 11/05/24 00:43 Medical Decision Making This is a 74-year-old male with a past medical history of paroxysmal atrial fibrillation, anxiety, lower urinary tract symptoms, coronary artery disease, type 2 diabetes mellitus, hypertension, high cholesterol, BPH, who currently has a Martins catheter secondary to urinary retention and is seen by Dr. Matthews, who presents today for evaluation of urinary status. Patient states he had a episode of diarrhea today, secondary to his significant MiraLAX and stool softener regiment. Because of this he has been drinking less water. Because of this he has noted this evening that he has not urinated, and is concerned his bladder may be clogged or his catheter may be clogged. He admits to mild sensation of urine wanting to travel around the catheter towards the tip of the penis but denies any actual leakage. No other complaints at this time.' Exam demonstrates a well-appearing male, nontender abdomen, bladder scan shows 14 mL in the bladder. No evidence of obstruction. I think this is more reflective of mild dehydration. With no current evidence of leaking or urinary retention COVID indication for further intervention. Patient is able to tolerate p.o. well. He is not tachycardic or hypotensive to suggest shock. Will recommend continued hydration at home and close follow-up with urology. I have extensively reviewed the treatment plan and discharge instructions with the patient. I have addressed all patient concerns at this time. The patient was made aware of what symptoms to monitor for that would warrant a return to the emergency department. Discussed the plan with the patient, they demonstrate verbal understanding and agreement with our assessment and plan at this time. The documentation in this chart was dictated using [employer] dictation software. Please excuse any dictation errors. Quality:SDOH Health Related Social Needs: No Data to Display PFSH All Active Problems (Updated 11/05/24 @ 01:31 by Hal Rose DO) Acute dehydration (Acute) Acute urinary retention (Acute) Acute UTI (Acute) Lower urinary tract symptoms (LUTS) (Acute) PAF (paroxysmal atrial fibrillation) (Acute) Anxiety (Chronic) Hypercalcemia (Acute) Lower urinary tract symptoms (LUTS) (Acute) Morbid obesity (Acute) Tinnitus (Acute) Hemorrhage, anal or rectal (Acute) Degenerative joint disease (Chronic) Low back pain (Acute) Elevated alkaline phosphatase level (Acute) Lipodystrophy (Acute) Seasonal allergies (Acute) Hypomagnesemia (Acute) Fatigue (Acute) Cataract (Chronic) Vitreous degeneration (Acute) CAD (coronary artery disease) (Chronic) Hip joint pain (Acute) Vitamin B 12 deficiency (Acute) Coronary disease (Chronic) a. Presented with worsening dysnea on exertion in December 2011. b. MPI testing showed a large reversible lesion in the anterior chest. c. Cardiac catheterization revealed significant four-vessel disease. d. S/P four-vessel coronary artery bypass grafting in January 2012, FERNANDEZ to the LAD, vein to the OM, first diagonal, and RCA. e. Atrial fibrillation postop. Diabetes (Chronic) a. Last hemoglobin A1c 7.5% in 01/2003. b. Markedly overweight. Sleep apnea, obstructive (Chronic) a. Wears nocturnal CPAP. Obesity (Chronic) a. Considering bariatric surgery. Hypertension (Chronic) Hyperlipidemia (Chronic) Depression (Chronic) History of tobacco use (Chronic) BPH (benign prostatic hypertrophy) (Chronic) Hearing loss (Chronic) Anemia (Chronic) History of Surgical Procedure (Chronic) a. Umbilical hernia repair, 2004. b. Hand surgery. Pes anserinus bursitis of right knee (Acute) Medical History (Updated 11/05/24 @ 01:31 by Hal Rose DO) Nodule on liver Ecchymosis Cholecystitis Chest pain a. Rule out SD. Adenomatous colon polyp Near syncope Disequilibrium Surgical History (Updated 09/20/24 @ 09:41 by Mary Ceballos RN, RN) H/O umbilical hernia repair H/O left knee surgery Left knee patella and tendon repair afer injury 2012 S/P colonoscopy adenoma S/P CABG (coronary artery bypass graft) X3 Family History (Updated 09/20/24 @ 09:38 by Mary Ceballos RN, RN) Mother , 68 abd cancer Cancer abdomenal Father , 73 heart Heart disease Daughter Hypertension Social History Smoking/Tobacco Use Status: Former Tobacco Use Smoking risk assessment performed?: Yes Alcohol Intake: former Drug use: Rarely Substance use type: marijuana Housing: apartment Current gender identity: male Do you feel safe at home: Yes Do you feel safe in your relationship?: Yes
[2024-11-05 01:48] VITALS: BP 120/73; PULSE 62; RESP 20; TEMP 36.1; O2SAT 99
== END 2024-11-05 01:48 | disposition home or self-care (01) ==
PROVIDERS: Emergency Provider Student in an Organized Health Care Education/Training Program; PCP Family Medicine
DX: E86.0 Dehydration (principal); N40.1 Benign prostatic hyperplasia with lower urinary tract symptoms; R33.8 Other retention of urine; I48.0 Paroxysmal atrial fibrillation; I25.10 Atherosclerotic heart disease of native coronary artery without angina pectoris; E11.9 Type 2 diabetes mellitus without complications; I10 Essential (primary) hypertension; Z79.82 Long term (current) use of aspirin; Z79.4 Long term (current) use of insulin; Z95.1 Presence of aortocoronary bypass graft; Z96.0 Presence of urogenital implants; Z87.891 Personal history of nicotine dependence
CPT/HCPCS: 99283

== ENCOUNTER → 2024-11-07 15:32 | Outpatient (BNVA) | payer MEDICARE, SELFPAY | PROVIDERS: PCP Family Medicine; Referring Provider Family Medicine; Visit Provider Nurse Practitioner Gerontology ==

== ENCOUNTER → 2024-11-10 08:08 | Outpatient (BNVA) | payer MEDICARE, SELFPAY | PROVIDERS: PCP Family Medicine; Referring Provider Family Medicine; Visit Provider Nurse Practitioner Gerontology | DX: Z91.199 Patient's noncompliance with other medical treatment and regimen due to unspecified reason (principal); N40.1 Benign prostatic hyperplasia with lower urinary tract symptoms; R33.8 Other retention of urine; K59.00 Constipation, unspecified | CPT/HCPCS: 99213 ==

== ENCOUNTER → 2024-11-23 08:01 | Outpatient (BNVA) | payer MEDICARE, SELFPAY | PROVIDERS: PCP Family Medicine; Visit Provider Nurse Practitioner Gerontology | DX: Z46.6 Encounter for fitting and adjustment of urinary device (principal); R39.9 Unspecified symptoms and signs involving the genitourinary system; N39.0 Urinary tract infection, site not specified; R33.8 Other retention of urine; B95.7 Other staphylococcus as the cause of diseases classified elsewhere; Z59.82 Transportation insecurity | CPT/HCPCS: 51702; 99213 ==

== ENCOUNTER 2024-11-23 08:55 | Outpatient (REF) | payer MEDICARE, SELFPAY | END 2024-11-23 08:56 | disposition home or self-care (01) | LOC: LBN 08:55 | PROVIDERS: PCP Family Medicine; Visit Provider Nurse Practitioner Gerontology | DX: N39.0 Urinary tract infection, site not specified (principal); R33.8 Other retention of urine | CPT/HCPCS: 87077; 87086 ==

== ENCOUNTER → 2024-12-21 14:47 | Outpatient (BNVA) | payer MEDICARE, SELFPAY | PROVIDERS: PCP Family Medicine; Referring Provider Family Medicine; Visit Provider Nurse Practitioner Gerontology | DX: R39.9 Unspecified symptoms and signs involving the genitourinary system (principal); N39.42 Incontinence without sensory awareness; K59.00 Constipation, unspecified | CPT/HCPCS: 99214; 51702 ==

== ENCOUNTER 2024-12-30 07:52 | Day surgery (SDC) | payer MEDICARE, SELFPAY ==
[2024-12-30 08:35] VITALS: BP 139/70; PULSE 68; RESP 16; TEMP 36.2; O2SAT 98
[2024-12-30] MEDS: Tropicam./Phenyleph. (1/2.5%) 5 ML BTL OS ×3 (08:49→09:03)
--- NOTE | 2024-12-30 09:49 | ANES.PREOP_ITS ---
General Info Date of Service Date Performed: 12/30/24 Height: 5 ft 8 in Weight: 103.6 kg Body Mass Index (BMI): 34.7 Surgical Procedure: Operation Date: 12/30/24 10:40 Proposed Procedure Side Surgeon p Cataract Extraction with IOL Implant Left Tucker Amin MD Meds Allergies and Home Medications Allergies Allergy/AdvReac Type Severity Reaction Status Date / Time bupropion HCl (From Allergy Unknown Other (See Verified 12/30/24 08:47 Wellbutrin) Comment) erythromycin base Allergy Unknown Other (See Verified 12/30/24 08:47 Comment) pravastatin sodium (From Allergy Unknown Other (See Verified 12/30/24 08:47 Pravachol) Comment) Penicillins Allergy Other (See Verified 12/30/24 08:47 Comment) lisinopril AdvReac Other (See Verified 12/30/24 08:47 Comment) Home Medication ?Medication ?Instructions ?Recorded aspirin 81 mg tablet,delayed 81 mg PO DAILY 12/14/13 release (Adult Low Dose Aspirin) nitroglycerin 0.4 mg sublingual 0.4 mg sublingual D IRECTED PRN 12/15/13 tablet Chest Pain ##25 magnesium oxide 400 mg PO BID 10/21/21 polyethylene glycol 3350 17 17 g PO DAILY 10/21/21 gram/dose oral powder triamcinolone acetonide 0.025 % 1 applic topical BID 0 10/21/21 lotion insulin aspart U-100 100 unit/mL 1 sliding scale dose subcut TID 07/22/24 (3 mL) subcutaneous pen (Novolog FlexPen U-100 Insulin aspart) sennosides 8.6 mg-docusate sodium 1 tab-cap PO QHS #14 tabs 07/22/24 50 mg tablet (2-in-1 Laxative) saw palmetto 450 mg capsule 450 mg PO BID #30 caps 01/13 dicyclomine 10 mg capsule 10 mg PO TID PRN abdominal p ain 08/09/24 #30 caps metoclopramide HCl 5 mg tablet 5 mg PO QAC #30 tabs (Reglan) dulaglutide 3 mg/0.5 mL 1.5 mg subcut QWEEK 09/20/24 [facility] zinc sulfate 50 mg zinc (220 mg) 50 mg PO DAILY capsule cholecalciferol (vitamin D3) 25 50 mcg PO DAILY mcg (1,000 unit) capsule cyanocobalamin (vitamin B-12) 100 mcg IM [id number] 09/20 10/14 1,000 mcg/mL injection solution linaclotide 72 mcg capsule See Rx Instructions PO RADHA Y 10/03/24 (Linzess) tamsulosin 0.4 mg capsule 0.8 mg (2 x 0.4 mg) PO DAILY #60 10/03/24 caps finasteride 5 mg tablet 5 mg PO DAILY #90 tabs 11/01 Current Visit Medications: Current Medications Generic Name Dose Route Start Last Admin Trade Name Freq PRN Reason Stop Dose Admin Acetaminophen 1,000 mg 12/30/24 06:00 Acetaminophen 500 Mg Tab PO 01/29/25 05:59 Q4H PRN PRN Balanced Salt Solution 500 ml 12/30/24 06:00 Balanced Salt Soln.-Plus 500 Ml Bag OP 01/29/25 05:59 DIRECTED FORMERLY [facility] Miscellaneous Medication 0 ml 12/30/24 06:00 Prednisolone 1%, Moxifloxacin 0.5%, Bromfenac 0.09% 5.6ml Btl OS 01/29/25 05:59 DIRECTED [facility] Miscellaneous Medication 0 ml 12/30/24 06:00 12/30/24 09:03 Tropicam./Phenyleph. (1/2.5%) 5 Ml Btl OS 01/29/25 05:59 1 drp DIRECTED ARIES Administration Tetracaine HCl 0 ml 12/30/24 06:00 Tetracaine 0.5% 4 Ml Btl OS 01/29/25 05:59 DIRECTED ARIES PFSH Active Problems Active Problems: Problem Status Onset Code Posterior subcapsular age-related cataract of left eye Acute H25.042 Nuclear age-related cataract, left eye Acute H25.12 Urinary retention due to benign prostatic hyperplasia Acute N40.1, R33.8 PAF (paroxysmal atrial fibrillation) Acute I48.0 Anxiety Chronic F41.9 Hypercalcemia Acute E83.52 Lower urinary tract symptoms (LUTS) Acute R39.9 Morbid obesity Acute E66.01 Tinnitus Acute H93.19 Hemorrhage, anal or rectal Acute K62.5 Degenerative joint disease Chronic M19.90 Low back pain Acute M54.50 Elevated alkaline phosphatase level Acute R74.8 Lipodystrophy Acute E88.1 Seasonal allergies Acute J30.2 Hypomagnesemia Acute E83.42 Fatigue Acute R53.83 Cataract Chronic H26.9 Vitreous degeneration Acute H43.819 CAD (coronary artery disease) Chronic I25.10 Hip joint pain Acute M25.559 Vitamin B 12 deficiency Acute E53.8 Coronary disease Chronic I25.10 Diabetes Chronic E11.9 Sleep apnea, obstructive Chronic G47.33 Obesity Chronic E66.9 Hypertension Chronic I10 Hyperlipidemia Chronic E78.5 Depression Chronic F32.9 History of tobacco use Chronic Z87.891 BPH (benign prostatic hypertrophy) Chronic N40.0 Hearing loss Chronic H91.90 Anemia Chronic D64.9 History of Surgical Procedure Chronic Z98.89 Pes anserinus bursitis of right knee Acute M70.51 Medical History Medical History Nodule on liver Ecchymosis Cholecystitis Chest pain a. Rule out NC. Adenomatous colon polyp Near syncope Disequilibrium Surgical History Surgical History H/O umbilical hernia repair H/O left knee surgery Left knee patella and tendon repair afer injury 2012 S/P colonoscopy adenoma S/P CABG (coronary artery bypass graft) X3 Tobacco Smoking/Tobacco Use Status: Former Tobacco Use Passive smoking exposure: No Alcohol Alcohol Intake: former Substance Use Substance use: Rarely Substance use type: marijuana Vital Signs and Lab Results Vital Signs Most Recent Vital Signs in EMR: Most Recent Vital Signs Temp Pulse Resp BP Pulse Ox 36.2 C L 68 16 139/70 98 12/30/24 08:35 12/30/24 08:35 12/30/24 08:35 12/30/24 08:35 12/30/24 08:35 Point of Care Results Point of Care Results: Finger Stick Blood Glucose 212 12/30/24 08:30 Imaging and Studies Imaging and Studies Study information below may be from another EMR and interpreted by another provider. Please see original notes in EMR for more complete details. EKG Summary: 08/04/24: Exam: Resting ECG Reason for Exam: SOB, eak Patient Location: E HR:98 bpm ECG Measurements Heart Rate 98 AXIS NH 183 P 33 QRSd 90 QRS 45 QT 361 T34 QTc 460 Conclusion Sinus rhythm, rate 98 No interval abnormalities No STEMI Compared to priors, bigeminy has resolved I have reviewed and I agree with the emergency room physician's ECG interpretation. Anesthesia Assessment and Plan Anesthesia History Personal History: No History of Anesthesia Complications and Delayed Emergence Family History: No Family History of Anesthesia Complications Exercise Tolerance Exercise Tolerance: Metabolic Equivalents>4 Pertinent Negatives Pertinent Negatives: No Symptoms of GERD Cardiac & Pulmonary Exam Cardiac Exam: Normal S1/S2 Heart Sounds Pulmonary Exam: Clear Bilateral Breath Sounds Implantable Cardiac Device Does patient have a Pacemaker or an ICD?: No Airway Exam Known Difficult Airway: No Mallampati Class: 3 Mouth Opening: Normal (> 3cm) Thyromental Distance: Greater than 3 cm Neck Range of Motion: Full ROM Neck Circumference: Thick Teeth Condition: Generalized Poor Dentition ASA Classification ASA Score: ASA 3 Emergency Case?: No NPO Status NPO Status: NPO Clears >2 hours, Solids >8 hours Anesthesia Plan Resuscitation Status: Full Code Anesthesia Technique: MAC Anesthesia Airway Planned: Natural Airway Monitors Used: Standard Monitors
[2024-12-30 09:57] VITALS: BMI 34.7
[2024-12-30] MEDS: Tetracaine 0.5% 4 ML BTL OS (10:27)
[2024-12-30] MEDS: Povidone-Iodine Ophth 30 ML BTL (10:27)
[2024-12-30] MEDS: Duovisc Viscoelastic System EACH 1 EACH (10:33)
[2024-12-30] MEDS: Lidocaine 1% Pres-Free 5 ML VIAL (10:34)
[2024-12-30] MEDS: Phenylephrine/Lidocaine (15/10) MG/ML 1 ML VIAL (10:34)
[2024-12-30] MEDS: Balanced Salt Soln.-PLUS 500 ML BAG OP (10:36)
[2024-12-30] MEDS: Moxifloxacin-PF 1 MG/ML VIAL (10:54)
[2024-12-30] MEDS: Prednisolone 1%, Moxifloxacin 0.5%, Bromfenac 0.09% 5.6ML BTL OS (10:55)
--- NOTE | 2024-12-30 11:02 | W.PM.DSUDISC ---
Date of service: 12/30/24 Discharge Plan Disposition Patient Disposition: Home Discharge Details Attending Provider: Tucker Amin Primary Care Provider: Olga Borden V Home Meds and New Rx's Prescriptions: No Action finasteride 5 mg tablet 5 mg PO DAILY Qty: 90 3RF Trulicity 3 mg/0.5 mL pen injector 1.5 mg subcut QWEEK zinc sulfate 50 mg zinc (220 mg) capsule 50 mg PO DAILY cyanocobalamin (vitamin B-12) 1,000 mcg/mL solution 100 mcg IM [id number] Rx Instructions: (noted as Q3wk on PCP rx list) Linzess 72 mcg capsule See Rx Instructions PO DAILY Rx Instructions: dose unverified (PCP med list has 72mcg and 145mcg dose listed, each QD. Started by [facility]. triamcinolone acetonide 0.025 % lotion 1 applic topical BID polyethylene glycol 3350 17 gram/dose powder 17 g PO DAILY magnesium oxide 400 mg magnesium capsule 400 mg PO BID tamsulosin 0.4 mg capsule 0.8 mg PO DAILY Qty: 60 3RF cholecalciferol (vitamin D3) 25 mcg (1,000 unit) capsule 50 mcg PO DAILY aspirin [Adult Low Dose Aspirin] 81 MG tablet,delayed release (DR/EC) 81 mg PO DAILY nitroglycerin 0.4 MG tablet, sublingual 0.4 mg Sublingual DIRECTED PRN (Reason: Chest Pain) Qty: 25 0RF insulin aspart U-100 [Novolog FlexPen U-100 Insulin] 100 unit/mL (3 mL) insulin pen 1 sliding scale dose SUBCUT TID Patient Comments: INJECT 20-25 UNITS BEFORE MEALS THREE TIMES A DAY , MAY USE AN ADDITIONAL 20 UNITS AT BEDTIME IF NEEDED, MAXIMUM DAILY DOSE = 100 UNITS PER sennosides-docusate sodium [2-in-1 Laxative] 8.6-50 mg tablet 1 tab-cap PO QHS Qty: 14 0RF saw palmetto 450 mg capsule 450 mg PO BID Qty: 30 0RF Rx Instructions: give with food (meal/snack) metoclopramide HCl [Reglan] 5 mg tablet 5 mg PO QAC Qty: 30 0RF Rx Instructions: administer 30 minutes before meals dicyclomine 10 mg capsule 10 mg PO TID PRN (Reason: abdominal pain) Qty: 30 0RF Discharge Instructions Stand Alone Forms: DSU Post-Op Cataract, Jerilyn Jalloh (DSU) Discharge Orders Discharge Orders: Discharge Order (Routine); Ordered 12/30/24 Ordered By: Tucker Amin DS: Diagnosis Discharge Diagnosis (1) Posterior subcapsular age-related cataract of left eye: Status: Resolved (2) Nuclear age-related cataract, left eye: Status: Resolved
--- NOTE | 2024-12-30 11:03 | ROE_ITS ---
Operative Note Operative Note PRE-OP DIAGNOSIS: Nuclear/posterior subcapsular cataract, left eye POST-OP DIAGNOSIS: same PROCEDURE: Cataract extraction using phacoemulsification with intraocular lens implant, left eye SURGEON: Tucker Amin ANESTHESIA TYPE: Local By Surgeon and MAC Refer to Anesthesia Record PATHOLOGY: none sent COMPLICATIONS: None Patient was transported to: same day Patient's condition: stable Implants: Krunal Clareon [id number] Indications: Progressive decreased vision due to cataract, left eye Procedure Description: CATARACT SURGERY OPERATIVE REPORT PREOPERATIVE DIAGNOSIS: Nuclear/posterior subcapsular cataract, left eye POSTOPERATIVE DIAGNOSIS: Same OPERATION: Cataract extraction using phacoemulsification with posterior chamber intraocular lens implant, left eye. IOL: IOL [employer]er Services Manager/Model: Krunal Clareon [id number] IOL Power: + 18.0 diopters IOL Serial Number: [id number] Optic Diameter: 6.0mm Haptic/Overall Diameter: 13.0mm PHACO INFO: Krunal Centurion Vision System with OZil and Active Fluidics Cumulative Dispersed Energy (CDE): 2.26 seconds SURGEON: Tucker Amin MD, BRAVO ANESTHESIA: Monitored Anesthesia Care (MAC), with local sub-tenon's anesthetic infiltration COMPLICATIONS: None SPECIMENS: None INDICATIONS FOR PROCEDURE: The patient is a 74-year-old male with history of diminished visual acuity in his left eye secondary to the development of nuclear/posterior subcapsular cataract. He is significantly symptomatic that he desires cataract surgery in attempt to improve and maximize his vision. The option of cataract surgery was offered to the patient and he wished to proceed. See office notes for detailed information. PROCEDURE: The correct surgical eye was identified and marked as the left eye and the pupil was dilated in the preoperative area using mydriatics and cycloplegics. The dilated pupil size was 7.0 mm. The patient elected to proceed without oral sedation. The patient was brought to the operating room where cardiopulmonary monitoring was instituted and surgical time-out was performed, confirming the correct operative eye and IOL power. Topical anesthesia was administered and ophthalmic povidone-iodine 5% was instilled into the conjunctival fornices. The mara-ocular area was prepped with Betadine 10% solution and draped in the usual sterile fashion for intraocular surgery, including an aperture drape. A Tegaderm transparent film dressing was cut in half and used to cover the lashes and lid margins. Care was taken to sequester the lashes and lid margins under the Tegaderm dressing. A lid speculum was placed between the lids of the operative eye and the Krunal LuxOR Revalia operating microscope was maneuvered into position. Julita scissors were then used to make a conjunctival buttonhole approximately 6mm posterior to the limbus in the inferonasal quadrant. Blunt dissection was carried out to expose bare sclera, and a blunt-tipped sub-tenon?s anesthesia cannula was introduced and passed posteriorly along the globe where non- preserved plain lidocaine was injected into posterior sub-Tenon?s space. A sideport knife was used to make a paracentesis port. Intraocular phenylephrine/lidocaine was injected into the anterior chamber. The anterior chamber was then filled with viscoelastic. A keratome knife was used construct a two-plane clear corneal tunnel extending 2.0mm into clear cornea. A flap was raised on the anterior capsule and capsulorhexis forceps were used to complete a continuous curvilinear capsulorhexis of 5.0 mm. The anterior capsule was noted to be quite thin, and tore in an unpredictable fashion. Balanced salt solution was then used to perform cortical cleaving hydrodissection and nuclear hydrodelineation until the lens could be freely rotated within the capsular bag. The lens nucleus was then disassembled and removed within the capsular bag and iris plane using phacoemulsification. Residual cortical material was removed using the irrigation/aspiration handpiece. The posterior capsule was carefully polished to remove as much residual lens epithelial cells as safely possible. The capsular bag was then inflated and the anterior chamber deepened with viscoelastic. The lens implant described above was inserted into the capsular bag using the Krunal Autonome Injector. A Kuglen hook was used to dial the IOL into position. Residual viscoelastic was then removed first from posterior to the IOL, then from the anterior chamber using the I/A handpiece. The lens implant was noted to center nicely within the capsular bag. The incisions were stromally hydrated, and the anterior chamber was reformed using BSS. Then 0.5cc of moxifloxacin 1.0mg/ml were injected into the capsular bag and anterior chamber. The incisions were checked with a Weck spear and found to be secure. Several drops of ophthalmic povidone-iodine 5% were then applied to the eye followed by two drops of combination steroid/NSAID/antibiotic solution. The drapes were removed and a clear plastic protective eye shield was placed over the eye. The patient was then returned to Same Day Surgery in stable condition. Date of Procedure: 12/30/24
[2024-12-30 11:08] VITALS: BP 130/79; PULSE 69; RESP 16; TEMP 36.3; O2SAT 98
--- NOTE | 2024-12-30 11:24 | W.ANESPOSTOP ---
Postoperative Evaluation Date, Time and Location Date Performed: 12/30/24 Time Performed: 11:08 Patient Location: Day Surgery Unit Vital Signs Most Recent Imported Vital Signs: Most Recent Vital Signs Temp Pulse Resp BP Pulse Ox 36.3 C L 69 16 130/79 98 12/30/24 11:08 12/30/24 11:08 12/30/24 11:08 12/30/24 11:08 12/30/24 11:08 Pain Score Most Recent Pain Score: Most Recent Pain Score Pain Level 0 12/30/24 11:08 Assessment Mental Status: Awake (Alert & Oriented to Patient Baseline) Airway and Respiratory Function: Patent airway with normal (patient baseline) respiratory exam Cardiovascular Function: Hemodynamically Stable Hydration Status: Adequately Hydrated Nausea & Vomiting: No Nausea or Vomiting Pain: Pt. Denies Any Pain Peripheral Nerve Block: Patient did not receive a nerve block
== END 2024-12-30 11:21 | disposition home or self-care (01) ==
LOC: SUR 07:52
PROVIDERS: PCP Family Medicine; Visit Provider Ophthalmology
PROC: (CPT 66984; principal; 2024-12-30 10:30)
DX: H25.042 Posterior subcapsular polar age-related cataract, left eye (principal); H25.12 Age-related nuclear cataract, left eye
CPT/HCPCS: 66984; 00123; V2632; J2003

== ENCOUNTER 2025-01-06 05:54 | Day surgery (SDC) | payer MEDICARE, SELFPAY ==
--- NOTE | 2025-01-05 18:32 | W.PREOPHP ---
Assessment and Plan Assessment and plan (1) Nuclear age-related cataract, right eye: Status: Acute Assessment and plan: Asessment: Visually significant cataract, right eye. Plan: Cataract extraction with lens implantation, right eye (2) Posterior subcapsular age-related cataract, right eye: Status: Acute History of Present Illness History of Present Illness Chief Complaint: Progressive decreased vision right eye Narrative: The patient is a 75-year-old male with history of progressive decreased vision in both eyes at both distance and near. He notes significant difficulty with depth perception, needs a lot of light to read, has glare issues, and was noted on exam to have bilateral nuclear/posterior subcapsular cataract. He was difficult asymptomatic that he desired cataract surgery, which was performed OS on 12/30/2024. Postoperatively he is doing well, and now presents for cataract surgery in the right eye. Review of Systems All systems reviewed & are unremarkable except as noted in HPI and below PFSH All Active Problems Posterior subcapsular age-related cataract, right eye (Acute) Nuclear age-related cataract, right eye (Acute) Urinary retention due to benign prostatic hyperplasia (Acute) PAF (paroxysmal atrial fibrillation) (Acute) Anxiety (Chronic) Hypercalcemia (Acute) Lower urinary tract symptoms (LUTS) (Acute) Morbid obesity (Acute) Tinnitus (Acute) Hemorrhage, anal or rectal (Acute) Degenerative joint disease (Chronic) Low back pain (Acute) Elevated alkaline phosphatase level (Acute) Lipodystrophy (Acute) Seasonal allergies (Acute) Hypomagnesemia (Acute) Fatigue (Acute) Cataract (Chronic) Vitreous degeneration (Acute) CAD (coronary artery disease) (Chronic) Hip joint pain (Acute) Vitamin B 12 deficiency (Acute) Coronary disease (Chronic) a. Presented with worsening dysnea on exertion in December 2011. b. MPI testing showed a large reversible lesion in the anterior chest. c. Cardiac catheterization revealed significant four-vessel disease. d. S/P four-vessel coronary artery bypass grafting in January 2012, FERNANDEZ to the LAD, vein to the OM, first diagonal, and RCA. e. Atrial fibrillation postop. Diabetes (Chronic) a. Last hemoglobin A1c 7.5% in 01/2003. b. Markedly overweight. Sleep apnea, obstructive (Chronic) a. Wears nocturnal CPAP. Obesity (Chronic) a. Considering bariatric surgery. Hypertension (Chronic) Hyperlipidemia (Chronic) Depression (Chronic) History of tobacco use (Chronic) BPH (benign prostatic hypertrophy) (Chronic) Hearing loss (Chronic) Anemia (Chronic) History of Surgical Procedure (Chronic) a. Umbilical hernia repair, 2003. b. Hand surgery. Pes anserinus bursitis of right knee (Acute) Medical History Nodule on liver Ecchymosis Cholecystitis Chest pain a. Rule out DE. Adenomatous colon polyp Near syncope Disequilibrium Surgical History H/O umbilical hernia repair H/O left knee surgery Left knee patella and tendon repair afer injury 2013 S/P colonoscopy adenoma S/P CABG (coronary artery bypass graft) X3 Family History Mother , 68 abd cancer Cancer abdomenal Father , 73 heart Heart disease Daughter Hypertension Social History Smoking/Tobacco Use Status: Former Tobacco Use Quit Date: 06/22/72 Smoking risk assessment performed?: Yes Alcohol Intake: former Drug use: Rarely Substance use type: marijuana Housing: house Current gender identity: male Do you feel safe at home: Yes Do you feel safe in your relationship?: Yes Meds Allergies and Home Medications Allergies Allergy/AdvReac Type Severity Reaction Status Date / Time bupropion HCl (From Allergy Unknown Other (See Verified 01/06/25 06:17 Wellbutrin) Comment) erythromycin base Allergy Unknown Other (See Verified 01/06/25 06:17 Comment) pravastatin sodium (From Allergy Unknown Other (See Verified 01/06/25 06:17 Pravachol) Comment) Penicillins Allergy Other (See Verified 01/06/25 06:17 Comment) lisinopril AdvReac Other (See Verified 01/06/25 06:17 Comment) Home Medications ?Medication ?Instructions ?Recorded ?Confirmed ?Type aspirin 81 mg tablet,delayed 81 mg PO DAILY 12/14/13 01/06/25 History release (Adult Low Dose Aspirin) nitroglycerin 0.4 mg sublingual 0.4 mg sublingual DIRECTED PRN 12/15/13 01/04/25 Rx tablet Chest Pain ##25 magnesium oxide 400 mg PO BID 10/21/21 01/04/25 History polyethylene glycol 3350 17 17 g PO DAILY 10/21/21 01/04/25 History gram/dose oral powder triamcinolone acetonide 0.025 % 1 applic topical BID 10/21/21 01/04/25 History lotion insulin aspart U-100 100 unit/mL 1 sliding scale dose subcut TID 07/22/24 01/06/25 History (3 mL) subcutaneous pen (Novolog FlexPen U-100 Insulin aspart) sennosides 8.6 mg-docusate sodium 1 tab-cap PO QHS #14 tabs 07/22/24 01/04/25 Rx 50 mg tablet (2-in-1 Laxative) saw palmetto 450 mg capsule 450 mg PO BID #30 caps 07/29/24 01/04/25 Rx dicyclomine 10 mg capsule 10 mg PO TID PRN abdominal pain 08/09/24 01/04/25 Rx #30 caps metoclopramide HCl 5 mg tablet 5 mg PO QAC #30 tabs 08/09/24 01/04/25 Rx (Reglan) dulaglutide 3 mg/0.5 mL 1.5 mg subcut QWEEK 09/20/24 01/06/25 History subcutaneous pen injector (Trulicity) zinc sulfate 50 mg zinc (220 mg) 50 mg PO DAILY 09/20/24 01/04/25 History capsule cholecalciferol (vitamin D3) 25 50 mcg PO DAILY 10/03/24 01/04/25 History mcg (1,000 unit) capsule cyanocobalamin (vitamin B-12) 100 mcg IM [id number] 10/03/24 01/04/25 History 1,000 mcg/mL injection solution linaclotide 72 mcg capsule See Rx Instructions PO DAILY 10/03/24 01/06/25 History (Linzess) tamsulosin 0.4 mg capsule 0.8 mg (2 x 0.4 mg) PO DAILY #60 10/03/24 01/06/25 Rx caps finasteride 5 mg tablet 5 mg PO DAILY #90 tabs 11/01/24 01/06/25 Rx Exam Eyes Other: Most recent ocular examination is significant for visual acuity measuring 20/40 OD, 20/25 OS. Extract motility is normal. Intraocular pressure is 19 OU. Slit-lamp examination is significant for a 2+ nuclear with 1+ posterior subcapsular cataract in the right eye. Pupils dilate to 4 mm. In the left eye there is a well-positioned PCIOL with clear posterior capsule. Funduscopic examination shows disc cupping of 0.2 OU with normal vessels, macula, peripheral retina and vitreous. Resp Auscultation: clear to auscultation bilaterally Cardio Rate: regular rate Rhythm: regular rhythm
[2025-01-06 06:19] VITALS: BP 121/64; PULSE 63; RESP 20; TEMP 36.5; O2SAT 99
[2025-01-06] MEDS: Tropicam./Phenyleph. (1/2.5%) 5 ML BTL OD ×3 (06:31→06:42)
--- NOTE | 2025-01-06 07:07 | ANES.PREOP_ITS ---
General Info Date of Service Date Performed: 01/06/25 Height: 5 ft 8 in Weight: 104.6 kg Body Mass Index (BMI): 35.0 Surgical Procedure: Operation Date: 01/06/25 07:40 Proposed Procedure Side Surgeon p Cataract Extraction with IOL Implant Right Tucker Amin MD Meds Allergies and Home Medications Allergies Allergy/AdvReac Type Severity Reaction Status Date / Time bupropion HCl (From Allergy Unknown Other (See Verified 01/06/25 06:17 Wellbutrin) Comment) erythromycin base Allergy Unknown Other (See Verified 01/06/25 06:17 Comment) pravastatin sodium (From Allergy Unknown Other (See Verified 01/06/25 06:17 Pravachol) Comment) Penicillins Allergy Other (See Verified 01/06/25 06:17 Comment) lisinopril AdvReac Other (See Verified 01/06/25 06:17 Comment) Home Medication ?Medication ?Instructions ?Recorded aspirin 81 mg tablet,delayed 81 mg PO DAILY 12/14/13 release (Adult Low Dose Aspirin) nitroglycerin 0.4 mg sublingual 0.4 mg sublingual D IRECTED PRN 12/15/13 tablet Chest Pain ##25 magnesium oxide 400 mg PO BID 10/21/21 polyethylene glycol 3350 17 17 g PO DAILY 10/21/21 gram/dose oral powder triamcinolone acetonide 0.025 % 1 applic topical BID 0 10/21/21 lotion insulin aspart U-100 100 unit/mL 1 sliding scale dose subcut TID 07/22/24 (3 mL) subcutaneous pen (Novolog FlexPen U-100 Insulin aspart) sennosides 8.6 mg-docusate sodium 1 tab-cap PO QHS #14 tabs 07/22/24 50 mg tablet (2-in-1 Laxative) saw palmetto 450 mg capsule 450 mg PO BID #30 caps 01/13 dicyclomine 10 mg capsule 10 mg PO TID PRN abdominal p ain 08/09/24 #30 caps metoclopramide HCl 5 mg tablet 5 mg PO QAC #30 tabs (Reglan) dulaglutide 3 mg/0.5 mL 1.5 mg subcut QWEEK 09/20/24 [facility] zinc sulfate 50 mg zinc (220 mg) 50 mg PO DAILY capsule cholecalciferol (vitamin D3) 25 50 mcg PO DAILY mcg (1,000 unit) capsule cyanocobalamin (vitamin B-12) 100 mcg IM [id number] 09/20 10/14 1,000 mcg/mL injection solution linaclotide 72 mcg capsule See Rx Instructions PO RADHA Y 10/03/24 (Linzess) tamsulosin 0.4 mg capsule 0.8 mg (2 x 0.4 mg) PO DAILY #60 10/03/24 caps finasteride 5 mg tablet 5 mg PO DAILY #90 tabs 11/01 Current Visit Medications: Current Medications Generic Name Dose Route Start Last Admin Trade Name Freq PRN Reason Stop Dose Admin Acetaminophen 1,000 mg 01/06/25 06:00 Acetaminophen 500 Mg Tab PO 02/05/25 05:59 Q4H PRN PRN Balanced Salt Solution 500 ml 01/06/25 06:00 Balanced Salt Soln.-Plus 500 Ml Bag OP 02/05/25 05:59 DIRECTED [facility] Miscellaneous Medication 0 ml 01/06/25 06:00 Prednisolone 1%, Moxifloxacin 0.5%, Bromfenac 0.09% 5.6ml Btl OD 02/05/25 05:59 DIRECTED [facility] Miscellaneous Medication 0 ml 01/06/25 06:00 01/06/25 06:42 Tropicam./Phenyleph. (1/2.5%) 5 Ml Btl OD 02/05/25 05:59 1 drp DIRECTED [facility] Administration Tetracaine HCl 0 ml 01/06/25 06:00 Tetracaine 0.5% 4 Ml Btl OD 02/05/25 05:59 DIRECTED [facility] PFSH Active Problems Active Problems: Problem Status Onset Code Posterior subcapsular age-related cataract, right eye Acute H25.041 Nuclear age-related cataract, right eye Acute H25.11 Posterior subcapsular age-related cataract of left eye Resolved H25.042 Nuclear age-related cataract, left eye Resolved H25.12 Urinary retention due to benign prostatic hyperplasia Acute N40.1, R33.8 PAF (paroxysmal atrial fibrillation) Acute I48.0 Anxiety Chronic F41.9 Hypercalcemia Acute E83.52 Lower urinary tract symptoms (LUTS) Acute R39.9 Morbid obesity Acute E66.01 Tinnitus Acute H93.19 Hemorrhage, anal or rectal Acute K62.5 Degenerative joint disease Chronic M19.90 Low back pain Acute M54.50 Elevated alkaline phosphatase level Acute R74.8 Lipodystrophy Acute E88.1 Seasonal allergies Acute J30.2 Hypomagnesemia Acute E83.42 Fatigue Acute R53.83 Cataract Chronic H26.9 Vitreous degeneration Acute H43.819 CAD (coronary artery disease) Chronic I25.10 Hip joint pain Acute M25.559 Vitamin B 12 deficiency Acute E53.8 Coronary disease Chronic I25.10 Diabetes Chronic E11.9 Sleep apnea, obstructive Chronic G47.33 Obesity Chronic E66.9 Hypertension Chronic I10 Hyperlipidemia Chronic E78.5 Depression Chronic F32.9 History of tobacco use Chronic Z87.891 BPH (benign prostatic hypertrophy) Chronic N40.0 Hearing loss Chronic H91.90 Anemia Chronic D64.9 History of Surgical Procedure Chronic Z98.89 Pes anserinus bursitis of right knee Acute M70.51 Medical History Medical History Nodule on liver Ecchymosis Cholecystitis Chest pain a. Rule out OK. Adenomatous colon polyp Near syncope Disequilibrium Surgical History Surgical History H/O umbilical hernia repair H/O left knee surgery Left knee patella and tendon repair afer injury 2012 S/P colonoscopy adenoma S/P CABG (coronary artery bypass graft) X3 Tobacco Smoking/Tobacco Use Status: Former Tobacco Use Passive smoking exposure: No Alcohol Alcohol Intake: former Substance Use Substance use: Rarely Substance use type: marijuana Vital Signs and Lab Results Vital Signs Most Recent Vital Signs in EMR: Most Recent Vital Signs Temp Pulse Resp BP Pulse Ox 36.5 C 63 20 121/64 99 01/06/25 06:19 01/06/25 06:19 01/06/25 06:19 01/06/25 06:19 01/06/25 06:19 Point of Care Results Point of Care Results: Finger Stick Blood Glucose 139 01/06/25 06:22 Imaging and Studies Imaging and Studies Study information below may be from another EMR and interpreted by another provider. Please see original notes in EMR for more complete details. EKG Summary: 08/04/24: Exam: Resting ECG Reason for Exam: DINA faina Patient Location: E HR:98 bpm ECG Measurements Heart Rate 98 AXIS MS 183 P 33 QRSd 90 QRS 45 QT 361 T34 QTc 460 Conclusion Sinus rhythm, rate 98 No interval abnormalities No STEMI Compared to priors, bigeminy has resolved I have reviewed and I agree with the emergency room physician's ECG interpretation. Anesthesia Assessment and Plan Anesthesia History Personal History: Delayed Emergence Family History: No Family History of Anesthesia Complications Exercise Tolerance Exercise Tolerance: Metabolic Equivalents>4 Pertinent Negatives Pertinent Negatives: No Symptoms of GERD Cardiac & Pulmonary Exam Cardiac Exam: Normal S1/S2 Heart Sounds Pulmonary Exam: Clear Bilateral Breath Sounds Implantable Cardiac Device Does patient have a Pacemaker or an ICD?: No Airway Exam Known Difficult Airway: No Mallampati Class: 3 Mouth Opening: Normal (> 3cm) Thyromental Distance: Greater than 3 cm Neck Range of Motion: Full ROM Neck Circumference: Thick Teeth Condition: Generalized Poor Dentition ASA Classification ASA Score: ASA 3 Emergency Case?: No NPO Status NPO Status: NPO Clears >2 hours, Solids >8 hours Anesthesia Plan Resuscitation Status: Full Code Anesthesia Technique: MAC Anesthesia Airway Planned: Natural Airway Monitors Used: Standard Monitors
[2025-01-06 07:14] VITALS: BMI 35.0
[2025-01-06] MEDS: Lidocaine 1% Pres-Free 5 ML VIAL (07:35)
[2025-01-06] MEDS: Moxifloxacin-PF 1 MG/ML VIAL (07:36)
[2025-01-06] MEDS: Phenylephrine/Lidocaine (15/10) MG/ML 1 ML VIAL (07:37)
[2025-01-06] MEDS: Duovisc Viscoelastic System EACH 1 EACH (07:38)
[2025-01-06] MEDS: Balanced Salt Soln.-PLUS 500 ML BAG OP (07:38)
[2025-01-06] MEDS: Povidone-Iodine Ophth 30 ML BTL (07:38)
[2025-01-06] MEDS: Tetracaine 0.5% 4 ML BTL OD (07:39)
[2025-01-06] MEDS: Prednisolone 1%, Moxifloxacin 0.5%, Bromfenac 0.09% 5.6ML BTL OD (07:39)
--- NOTE | 2025-01-06 07:53 | W.PM.DSUDISC ---
Date of service: 01/06/25 Discharge Plan Disposition Patient Disposition: Home Discharge Details Attending Provider: Tucker Amin Primary Care Provider: Olga Borden V Home Meds and New Rx's Prescriptions: No Action finasteride 5 mg tablet 5 mg PO DAILY Qty: 90 3RF Trulicity 3 mg/0.5 mL pen injector 1.5 mg subcut QWEEK zinc sulfate 50 mg zinc (220 mg) capsule 50 mg PO DAILY cyanocobalamin (vitamin B-12) 1,000 mcg/mL solution 100 mcg IM [id number] Rx Instructions: (noted as Q3wk on PCP rx list) Linzess 72 mcg capsule See Rx Instructions PO DAILY Rx Instructions: dose unverified (PCP med list has 72mcg and 145mcg dose listed, each QD. Started by [facility]. triamcinolone acetonide 0.025 % lotion 1 applic topical BID polyethylene glycol 3350 17 gram/dose powder 17 g PO DAILY magnesium oxide 400 mg magnesium capsule 400 mg PO BID tamsulosin 0.4 mg capsule 0.8 mg PO DAILY Qty: 60 3RF cholecalciferol (vitamin D3) 25 mcg (1,000 unit) capsule 50 mcg PO DAILY aspirin [Adult Low Dose Aspirin] 81 MG tablet,delayed release (DR/EC) 81 mg PO DAILY nitroglycerin 0.4 MG tablet, sublingual 0.4 mg Sublingual DIRECTED PRN (Reason: Chest Pain) Qty: 25 0RF insulin aspart U-100 [Novolog FlexPen U-100 Insulin] 100 unit/mL (3 mL) insulin pen 1 sliding scale dose SUBCUT TID Patient Comments: INJECT 20-25 UNITS BEFORE MEALS THREE TIMES A DAY , MAY USE AN ADDITIONAL 20 UNITS AT BEDTIME IF NEEDED, MAXIMUM DAILY DOSE = 100 UNITS PER sennosides-docusate sodium [2-in-1 Laxative] 8.6-50 mg tablet 1 tab-cap PO QHS Qty: 14 0RF saw palmetto 450 mg capsule 450 mg PO BID Qty: 30 0RF Rx Instructions: give with food (meal/snack) metoclopramide HCl [Reglan] 5 mg tablet 5 mg PO QAC Qty: 30 0RF Rx Instructions: administer 30 minutes before meals dicyclomine 10 mg capsule 10 mg PO TID PRN (Reason: abdominal pain) Qty: 30 0RF Discharge Instructions Stand Alone Forms: [facility]SU Post-Op Cataract, Jerilyn Jalloh (DSU) Discharge Orders Discharge Orders: Discharge Order (Routine); Ordered 01/06/25 Ordered By: Tucker Amin DS: Diagnosis Discharge Diagnosis (1) Nuclear age-related cataract, right eye: Status: Resolved (2) Posterior subcapsular age-related cataract, right eye: Status: Resolved
[2025-01-06 07:54] VITALS: BP 116/69; PULSE 74; RESP 20; TEMP 36.4; O2SAT 97
--- NOTE | 2025-01-06 07:54 | ROE_ITS ---
Operative Note Operative Note PRE-OP DIAGNOSIS: Nuclear/posterior subcapsular cataract, right eye POST-OP DIAGNOSIS: same PROCEDURE: Cataract extraction using phacoemulsification with intraocular lens implant, right eye SURGEON: Tucker Amin ANESTHESIA TYPE: Local By Surgeon and MAC Refer to Anesthesia Record ESTIMATED BLOOD LOSS: 0 PATHOLOGY: none sent COMPLICATIONS: None Patient was transported to: same day Patient's condition: stable Implants: Krunal Clareon [id number] Indications: Progressive decreased vision due to cataract, right eye Procedure Description: CATARACT SURGERY OPERATIVE REPORT PREOPERATIVE DIAGNOSIS: Nuclear/posterior subcapsular cataract, right eye POSTOPERATIVE DIAGNOSIS: Same OPERATION: Cataract extraction using phacoemulsification with posterior chamber intraocular lens implant, right eye. IOL: IOL Clinical Trial Specialist/Model: Krunal Clareon [id number] IOL Power: + 18.5 diopters IOL Serial Number: [id number] Optic Diameter: 6.0mm Haptic/Overall Diameter: 13.0mm PHACO INFO: Krunal Leonardo Biosystemsurion Vision System with OZil and Active Fluidics Cumulative Dispersed Energy (CDE): 4.21 seconds SURGEON: Tucker Amin MD, BRAVO ANESTHESIA: Monitored Anesthesia Care (MAC), with local sub-tenon's anesthetic infiltration COMPLICATIONS: None SPECIMENS: None INDICATIONS FOR PROCEDURE: The patient is a 74-year-old male with history of diminished visual acuity in both eyes secondary to the development of bilateral nuclear/posterior subcapsular cataract. He has already undergone cataract surgery in the left eye and is doing well postoperatively. He now presents for cataract surgery in the right eye. See office notes for detailed information. PROCEDURE: The correct surgical eye was identified and marked as the right eye and the pupil was dilated in the preoperative area using mydriatics and cycloplegics. The dilated pupil size was 7.0 mm. The patient elected to proceed without oral sedation. The patient was brought to the operating room where cardiopulmonary monitoring was instituted and surgical time-out was performed, confirming the correct operative eye and IOL power. Topical anesthesia was administered and ophthalmic povidone-iodine 5% was instilled into the conjunctival fornices. The mara-ocular area was prepped with Betadine 10% solution and draped in the usual sterile fashion for intraocular surgery, including an aperture drape. A Tegaderm transparent film dressing was cut in half and used to cover the lashes and lid margins. Care was taken to sequester the lashes and lid margins under the Tegaderm dressing. A lid speculum was placed between the lids of the operative eye and the Krunal LuxOR Revalia operating microscope was maneuvered into position. Julita scissors were then used to make a conjunctival buttonhole approximately 6mm posterior to the limbus in the inferonasal quadrant. Blunt dissection was carried out to expose bare sclera, and a blunt-tipped sub-tenon?s anesthesia cannula was introduced and passed posteriorly along the globe where non- preserved plain lidocaine was injected into posterior sub-Tenon?s space. A sideport knife was used to make a paracentesis port. Intraocular phenylephrine/lidocaine was injected into the anterior chamber. The anterior chamber was then filled with viscoelastic. A keratome knife was used to construct a two--plane clear corneal tunnel extending 2.0mm into clear cornea. A flap was raised on the anterior capsule and capsulorhexis forceps were used to complete a continuous curvilinear capsulorhexis of 5.0 mm. Balanced salt solution was then used to perform cortical cleaving hydrodissection and nuclear hydrodelineation until the lens could be freely ro tated within the capsular bag. The lens nucleus was then disassembled and removed within the capsular bag and iris plane using phacoemulsification. Residual cortical material was removed using the I/A handpiece. The posterior capsule was carefully polished to remove as much residual lens epithelial cells as safely possible. The capsular bag was then inflated and the anterior chamber deepened with cohesive viscoelastic. The lens implant described above was inserted into the capsular bag using the Krunal Autonome Injector. A Kuglen hook was used to dial the IOL into position. Residual viscoelastic was then removed first from posterior to the IOL, then from the anterior chamber using the I/A handpiece. The lens implant was noted to center nicely within the capsular bag. The incisions were stromally hydrated, and the anterior chamber was reformed using BSS. Then 0.5cc of moxifloxacin 1.0mg/ml were injected into the capsular bag and anterior chamber. The incisions were checked with a Weck spear and found to be secure. Several drops of ophthalmic povidone-iodine 5% were then applied to the eye followed by two drops of combination steroid/NSAID/antibiotic solution. The drapes were removed and a clear plastic protective eye shield was placed over the eye. The patient was then returned to Same Day Surgery in stable condition. Date of Procedure: 01/06/25
--- NOTE | 2025-01-06 08:04 | W.ANESPOSTOP ---
Postoperative Evaluation Date, Time and Location Date Performed: 01/06/25 Time Performed: 08:04 Patient Location: Day Surgery Unit Vital Signs Most Recent Imported Vital Signs: Most Recent Vital Signs Temp Pulse Resp BP Pulse Ox 36.4 C L 74 20 116/69 97 01/06/25 07:54 01/06/25 07:54 01/06/25 07:54 01/06/25 07:54 01/06/25 07:54 Pain Score Most Recent Pain Score: Most Recent Pain Score Pain Level 0 01/06/25 07:54 Assessment Mental Status: Awake (Alert & Oriented to Patient Baseline) Airway and Respiratory Function: Patent airway with normal (patient baseline) respiratory exam Cardiovascular Function: Hemodynamically Stable Hydration Status: Adequately Hydrated Nausea & Vomiting: No Nausea or Vomiting Pain: Pt. Denies Any Pain Peripheral Nerve Block: Patient did not receive a nerve block
== END 2025-01-06 08:12 | disposition home or self-care (01) ==
LOC: SUR 05:55
PROVIDERS: PCP Family Medicine; Visit Provider Ophthalmology
PROC: (CPT 66984; principal; 2025-01-06 07:30)
DX: H25.11 Age-related nuclear cataract, right eye (principal); H25.041 Posterior subcapsular polar age-related cataract, right eye
CPT/HCPCS: 66984; 00123; V2632; J2003

== ENCOUNTER → 2025-01-18 12:26 | Outpatient (BNVA) | payer MEDICARE, SELFPAY | PROVIDERS: PCP Family Medicine; Referring Provider Family Medicine; Visit Provider Nurse Practitioner Gerontology | DX: Z46.6 Encounter for fitting and adjustment of urinary device (principal); R39.89 Other symptoms and signs involving the genitourinary system | CPT/HCPCS: 51702 ==

== ENCOUNTER 2025-01-31 17:05 | Outpatient (REF) | payer MEDICARE, SELFPAY ==
[2025-01-31 17:00] LABS: Anion Gap 7.0 mmol/L (3-11); BUN 25 mg/dL (7-18); CO2 28.0 mmol/L (21.0-32.0); Calcium 10.3 mg/dL (8.5-10.1); Chloride 105 mmol/L (98-107); Estimated GFR 94.03 (mL/min/1.73m2); Glucose 114 mg/dL (74-106); Potassium 4.4 mmol/L (3.5-5.1); Sodium 140 mmol/L (136-145); Vitamin B12 184 pg/mL (193-986)
== END 2025-01-31 17:06 | disposition home or self-care (01) ==
LOC: NCHCN 17:05
PROVIDERS: PCP Family Medicine; Visit Provider Family Medicine
DX: I10 Essential (primary) hypertension (principal); E53.9 Vitamin B deficiency, unspecified
CPT/HCPCS: 80048; 82607

== ENCOUNTER → 2025-02-15 08:03 | Outpatient (BNVA) | payer MEDICARE, SELFPAY | PROVIDERS: PCP Family Medicine; Referring Provider Family Medicine; Visit Provider Nurse Practitioner Gerontology | DX: R39.198 Other difficulties with micturition (principal); R39.9 Unspecified symptoms and signs involving the genitourinary system | CPT/HCPCS: 99213; 51798 ==

== ENCOUNTER → 2025-02-28 09:50 | Outpatient (BNVA) | payer MEDICARE, SELFPAY | PROVIDERS: PCP Family Medicine; Referring Provider Family Medicine; Visit Provider Nurse Practitioner Gerontology | DX: N39.42 Incontinence without sensory awareness (principal); K59.00 Constipation, unspecified; R39.9 Unspecified symptoms and signs involving the genitourinary system | CPT/HCPCS: 99213; 51798 ==

== ENCOUNTER 2025-03-03 12:28 | Emergency (ER) | payer MEDICARE, SELFPAY ==
[2025-03-03 12:42] VITALS: BP 129/75; PULSE 85; RESP 16; TEMP 36.5; O2SAT 98
[2025-03-03 13:07] VITALS: BP 140/88; PULSE 94; RESP 18; O2SAT 98
[2025-03-03 13:10] LABS: Abs Immature Grans 0.01 10^3/uL (0.0-0.06); HCT 41.5 % (40.0-50.0); HGB 13.8 g/dL (13.5-17.5); Immature Grans % 0.1 %; MCH 29.4 pg (27.0-33.0); MCHC 33.3 % (32.0-36.0); MCV 88 fL (80-95); MPV 9.8 fL (8.0-11.0); Platelet Count 252 10^3/uL (130-400); RBC 4.70 10^6/uL (4.36-5.78); RDW 12.6 % (11.8-14.1); RDW-SD 41.0 fL; WBC 7.97 10^3/uL (4.4-10.8)
[2025-03-03 13:30] LABS: ALT 29 U/L (16-63); AST 17 U/L (15-37); Albumin 4.2 g/dL (3.4-5.0); Alkaline Phosphatase 122 U/L (46-116); Anion Gap 9.1 mmol/L (3-11); BUN 25 mg/dL (7-18); Bilirubin, Total 0.7 mg/dL (0.2-1.0); CO2 29.9 mmol/L (21.0-32.0); Calcium 10.8 mg/dL (8.5-10.1); Chloride 100 mmol/L (98-107); Estimated GFR 79.97 (mL/min/1.73m2); Glucose 150 mg/dL (74-106); Magnesium 2.1 mg/dL (1.8-2.4); Potassium 4.0 mmol/L (3.5-5.1); Sodium 139 mmol/L (136-145); Total Protein 8.7 g/dL (6.4-8.2); Troponin I 12 ng/L (<or=76)
--- NOTE | 2025-03-03 13:34 | W.ED.GENAD ---
Discharge Plan Disposition Patient Disposition: Home Condition: Stable Discharge Details Clinical Impression: GIB (gastrointestinal bleeding) Primary Care Provider: Olga Borden V ED Provider: Oscar Blood Home Meds and New Rx's Prescriptions: New pantoprazole 40 mg tablet,delayed release (DR/EC) 40 mg PO DAILY Qty: 30 0RF Continued finasteride 5 mg tablet 5 mg PO DAILY Qty: 90 3RF Trulicity 3 mg/0.5 mL pen injector 1.5 mg subcut QWEEK zinc sulfate 50 mg zinc (220 mg) capsule 50 mg PO DAILY cyanocobalamin (vitamin B-12) 1,000 mcg/mL solution 100 mcg IM [id number] Rx Instructions: (noted as Q3wk on PCP rx list) Linzess 72 mcg capsule See Rx Instructions PO DAILY Rx Instructions: dose unverified (PCP med list has 72mcg and 145mcg dose listed, each QD. Started by [facility]. tamsulosin 0.4 mg capsule 0.8 mg PO DAILY Qty: 60 3RF triamcinolone acetonide 0.025 % lotion 1 applic topical BID magnesium oxide 400 mg magnesium capsule 400 mg PO BID cholecalciferol (vitamin D3) 25 mcg (1,000 unit) capsule 50 mcg PO DAILY polyethylene glycol 3350 17 gram/dose powder 17 g PO BID aspirin [Adult Low Dose Aspirin] 81 MG tablet,delayed release (DR/EC) 81 mg PO DAILY nitroglycerin 0.4 MG tablet, sublingual 0.4 mg Sublingual DIRECTED PRN (Reason: Chest Pain) Qty: 25 0RF insulin aspart U-100 [Novolog FlexPen U-100 Insulin] 100 unit/mL (3 mL) insulin pen 1 sliding scale dose SUBCUT TID Patient Comments: INJECT 20-25 UNITS BEFORE MEALS THREE TIMES A DAY , MAY USE AN ADDITIONAL 20 UNITS AT BEDTIME IF NEEDED, MAXIMUM DAILY DOSE = 100 UNITS PER saw palmetto 450 mg capsule 450 mg PO BID Qty: 30 0RF Rx Instructions: give with food (meal/snack) metoclopramide HCl [Reglan] 5 mg tablet 5 mg PO QAC Qty: 30 0RF Rx Instructions: administer 30 minutes before meals dicyclomine 10 mg capsule 10 mg PO TID PRN (Reason: abdominal pain) Qty: 30 0RF Discharge Instructions Instructions: Bloody Stools, Adult ED Additional Instructions: Please follow-up with your primary care physician. Call today to arrange timely follow-up next week. Please follow-up with gastroenterology at [facility] for reassessment and additional outpatient diagnostic testing. You have been started on pantoprazole. Please take as prescribed. Return to the emergency department immediately for any worsening or new concerning symptoms. Referrals: Olga Borden MD [Primary Care Provider, Medicine] HPI General Mode of arrival: ambulatory. Date/Time Provider Initiated Documentation: 03/03/25 13:34. Limitations to Documentation: no limitations. Information obtained by: patient. HPI Narrative: HISTORY OF PRESENT ILLNESS Male with atrial fibrillation presenting with black stool. In July 2024, experienced severe constipation for 7 days. Referred to [facility], colonoscopy performed and revealed large polyp which was removed. Advised to return for colonoscopy in 3 to 5 years. Patient continues to experience constipation over the past month but has improved recently. He does strain at times for BM. Taking MiraLAX, initially 2 capfuls daily, now 1 to 1.25 capfuls daily. Takes Linzess, resulting in soft, runny stools. 6 days ago, noticed blood in toilet bowl and darker stools. No significant pain. Stools larger, firmer, more complete bowel movements, 3 to 4 times a day. Stools darkened to purple, noticed blood seeping out. No hemorrhoids. Not taking Pepto-Bismol or iron supplements. Patient denies abdominal pain currently. Related Data Home Medications ?Medication ?Instructions ?Recorded ?Confirmed aspirin 81 mg tablet,delayed 81 mg PO DAILY 12/14/13 03/03/25 release (Adult Low Dose Aspirin) nitroglycerin 0.4 mg sublingual 0.4 mg sublingual DIRECTED PRN 12/15/13 03/03/25 tablet Chest Pain ##25 magnesium oxide 400 mg PO BID 10/21/21 03/03/25 triamcinolone acetonide 0.025 % 1 applic topical BID 10/21/21 03/03/25 lotion insulin aspart U-100 100 unit/mL 1 sliding scale dose subcut TID 07/22/24 03/03/25 (3 mL) subcutaneous pen (Novolog FlexPen U-100 Insulin aspart) marixa kenyon 450 mg capsule 450 mg PO BID #30 caps 07/29/24 03/03/25 dicyclomine 10 mg capsule 10 mg PO TID PRN abdominal pain 08/09/24 03/03/25 #30 caps metoclopramide HCl 5 mg tablet 5 mg PO QAC #30 tabs 08/09/24 03/03/25 (Reglan) dulaglutide 3 mg/0.5 mL 1.5 mg subcut QWEEK 09/20/24 03/03/25 subcutaneous pen injector (Trulicity) zinc sulfate 50 mg zinc (220 mg) 50 mg PO DAILY 09/20/24 03/03/25 capsule cholecalciferol (vitamin D3) 25 50 mcg PO DAILY 10/03/24 03/03/25 mcg (1,000 unit) capsule cyanocobalamin (vitamin B-12) 100 mcg IM [id number] 10/03/24 03/03/25 1,000 mcg/mL injection solution linaclotide 72 mcg capsule See Rx Instructions PO DAILY 10/03/24 03/03/25 (Linzess) finasteride 5 mg tablet 5 mg PO DAILY #90 tabs 11/01/24 03/03/25 polyethylene glycol 3350 17 17 g PO BID 01/18/25 03/03/25 gram/dose oral powder tamsulosin 0.4 mg capsule 0.8 mg (2 x 0.4 mg) PO DAILY #60 01/19/25 03/03/25 caps pantoprazole 40 mg tablet,delayed 40 mg PO DAILY #30 tabs 03/03/25 release Previous Rx's ?Medication ?Instructions ?Recorded nitroglycerin 0.4 mg sublingual 0.4 mg sublingual DIRECTED PRN 12/15/13 tablet Chest Pain ##25 saw palmetto 450 mg capsule 450 mg PO BID #30 caps 07/29/24 dicyclomine 10 mg capsule 10 mg PO TID PRN abdominal pain 08/09/24 #30 caps metoclopramide HCl 5 mg tablet 5 mg PO QAC #30 tabs 08/09/24 (Reglan) finasteride 5 mg tablet 5 mg PO DAILY #90 tabs 11/01/24 tamsulosin 0.4 mg capsule 0.8 mg (2 x 0.4 mg) PO DAILY #60 01/19/25 caps pantoprazole 40 mg tablet,delayed 40 mg PO DAILY #30 tabs 03/03/25 release Allergies Allergy/AdvReac Type Severity Reaction Status Date / Time bupropion HCl (From Allergy Unknown Other (See Verified 03/03/25 12:45 Wellbutrin) Comment) erythromycin base Allergy Unknown Other (See Verified 03/03/25 12:45 Comment) pravastatin sodium (From Allergy Unknown Other (See Verified 03/03/25 12:45 Pravachol) Comment) Penicillins Allergy Other (See Verified 03/03/25 12:45 Comment) lisinopril AdvReac Other (See Verified 03/03/25 12:45 Comment) General Stated Complaint: GI Bleed LUX: 3 Exam Const General: cooperative and no acute distress HENMT Mouth: moist mucous membranes Eyes Conjunctivae: normal conjunctivae Sclera: normal sclerae Neck Neck: supple Resp Auscultation: clear to auscultation bilaterally, no rales, no rhonchi and no wheezes Cardio Rate: regular rate and not tachycardic Rhythm: regular rhythm GI Palpation: soft, not firm, no guarding, no masses, not rigid and nontender Skin General skin exam: no rashes or lesions noted Neuro General: patient alert, patient awake and tone normal Extrem General: no edema Course Vital Signs Vital signs: Vital Signs Temperature 36.5 C 03/03/25 12:42 Pulse 85 03/03/25 12:42 Respiratory Rate 16 03/03/25 12:42 Blood Pressure 129/75 03/03/25 12:42 Pulse Oximetry 98 03/03/25 12:42 Temperature 36.5 C 03/03/25 12:42 Pulse 94 H 03/03/25 13:07 Respiratory Rate 18 03/03/25 13:07 Blood Pressure 140/88 03/03/25 13:07 Blood Pressure Mean 105 03/03/25 13:07 Pulse Oximetry 98 03/03/25 13:07 Oxygen Delivery Method Room Air 03/03/25 13:07 Oxygen Flow Rate 0 03/03/25 13:07 Pain Level 0 03/03/25 12:42 Lab/Test Results Lab/Test Results: Laboratory Tests Range/Units 03/03/25 13:00 WBC (4.4-10.8) 10^3/uL 7.97 RBC (4.36-5.78) 10^6/uL 4.70 Hgb (13.5-17.5) g/dL 13.8 Hct (40.0-50.0) % 41.5 MCV (80-95) fL 88 MCH (27.0-33.0) pg 29.4 MCHC (32.0-36.0) % 33.3 RDW (11.8-14.1) % 12.6 Plt Count (130-400) 10^3/uL 252 MPV (8.0-11.0) fL 9.8 Immature Gran % % 0.1 Neutrophils % % 76.7 Lymphocytes % % 18.4 Monocytes % % 3.5 Eosinophils % % 0.8 Basophils % % 0.5 Nucleated RBC % (0.0-0.3) % 0.0 Absolute Neutrophils (1.2-6.7) 10^3/uL 6.11 Absolute Lymphocytes (1.2-3.4) 10^3/uL 1.47 Absolute Monocytes (0.1-0.8) 10^3/uL 0.28 Absolute Eosinophils (0.0-0.7) 10^3/uL 0.06 Absolute Basophils (0.0-0.2) 10^3/uL 0.04 Sodium (136-145) mmol/L 139 Potassium (3.5-5.1) mmol/L 4.0 Chloride (98-107) mmol/L 100 Carbon Dioxide (21.0-32.0) mmol/L 29.9 Anion Gap (3-11) mmol/L 9.1 BUN (7-18) mg/dL 25 H Creatinine (0.70-1.30) mg/dL 1.0 Est GFR (CKD-EPI 2020) (mL/min/1.73m2) 79.97 Glucose (74-106) mg/dL 150 H Calcium (8.5-10.1) mg/dL 10.8 H Magnesium (1.8-2.4) mg/dL 2.1 Total Bilirubin (0.2-1.0) mg/dL 0.7 AST (15-37) U/L 17 ALT (16-63) U/L 29 Alkaline Phosphatase (46-116) U/L 122 H Troponin I (<or=76) ng/L 12 Total Protein (6.4-8.2) g/dL 8.7 H Albumin (3.4-5.0) g/dL 4.2 Medical Decision Making ASSESSMENT AND PLAN Initial Assessment: 74-year-old male here with chief complaint of dark stool. No abdominal pain. Hemodynamically stable. Abdominal exam benign. Patient is not on blood thinners. Differential Diagnosis: - Upper GI bleeding: Dark stools, no anemia, consult general surgery. - Hemorrhoids: Straining, fresh blood initially, less likely due to absence of external hemorrhoids. - Diverticulosis: Previous imaging negative, less likely. ED Course: Labs reviewed: No anemia. I spoke with Dr. Payne, on-call general surgeon, discussed ED presentation and course, she recommends close outpatient follow-up and instructions to return to the ER for any worsening symptoms. Clinical Impression: GI bleeding. Disposition: Follow-Up: Consult general surgery vs gastroenterology. Usual and customary discharge instructions were reviewed with the patient. This document was written with the assistance of SILVANO Tijerina. The patient consented to its use. Lab Data Labs: Laboratory Tests Range/Units 03/03/25 13:00 WBC (4.4-10.8) 10^3/uL 7.97 RBC (4.36-5.78) 10^6/uL 4.70 Hgb (13.5-17.5) g/dL 13.8 Hct (40.0-50.0) % 41.5 MCV (80-95) fL 88 MCH (27.0-33.0) pg 29.4 MCHC (32.0-36.0) % 33.3 RDW (11.8-14.1) % 12.6 Plt Count (130-400) 10^3/uL 252 MPV (8.0-11.0) fL 9.8 Immature Gran % % 0.1 Neutrophils % % 76.7 Lymphocytes % % 18.4 Monocytes % % 3.5 Eosinophils % % 0.8 Basophils % % 0.5 Nucleated RBC % (0.0-0.3) % 0.0 Absolute Neutrophils (1.2-6.7) 10^3/uL 6.11 Absolute Lymphocytes (1.2-3.4) 10^3/uL 1.47 Absolute Monocytes (0.1-0.8) 10^3/uL 0.28 Absolute Eosinophils (0.0-0.7) 10^3/uL 0.06 Absolute Basophils (0.0-0.2) 10^3/uL 0.04 Sodium (136-145) mmol/L 139 Potassium (3.5-5.1) mmol/L 4.0 Chloride (98-107) mmol/L 100 Carbon Dioxide (21.0-32.0) mmol/L 29.9 Anion Gap (3-11) mmol/L 9.1 BUN (7-18) mg/dL 25 H Creatinine (0.70-1.30) mg/dL 1.0 Est GFR (CKD-EPI 2020) (mL/min/1.73m2) 79.97 Glucose (74-106) mg/dL 150 H Calcium (8.5-10.1) mg/dL 10.8 H Magnesium (1.8-2.4) mg/dL 2.1 Total Bilirubin (0.2-1.0) mg/dL 0.7 AST (15-37) U/L 17 ALT (16-63) U/L 29 Alkaline Phosphatase (46-116) U/L 122 H Troponin I (<or=76) ng/L 12 Total Protein (6.4-8.2) g/dL 8.7 H Albumin (3.4-5.0) g/dL 4.2 ABO/Rh O Positive Antibody Screen NEGATIVE PFSH All Active Problems (Updated 03/03/25 @ 14:24 by Oscar Blood MD) GIB (gastrointestinal bleeding) (Chronic) Urinary retention due to benign prostatic hyperplasia (Acute) PAF (paroxysmal atrial fibrillation) (Acute) Anxiety (Chronic) Hypercalcemia (Acute) Lower urinary tract symptoms (LUTS) (Acute) Morbid obesity (Acute) Tinnitus (Acute) Hemorrhage, anal or rectal (Acute) Degenerative joint disease (Chronic) Low back pain (Acute) Elevated alkaline phosphatase level (Acute) Lipodystrophy (Acute) Seasonal allergies (Acute) Hypomagnesemia (Acute) Fatigue (Acute) Cataract (Chronic) Vitreous degeneration (Acute) CAD (coronary artery disease) (Chronic) Hip joint pain (Acute) Vitamin B 12 deficiency (Acute) Coronary disease (Chronic) a. Presented with worsening dysnea on exertion in December 2011. b. MPI testing showed a large reversible lesion in the anterior chest. c. Cardiac catheterization revealed significant four-vessel disease. d. S/P four-vessel coronary artery bypass grafting in January 2012, FERNANDEZ to the LAD, vein to the OM, first diagonal, and RCA. e. Atrial fibrillation postop. Diabetes (Chronic) a. Last hemoglobin A1c 7.5% in 01/2003. b. Markedly overweight. Sleep apnea, obstructive (Chronic) a. Wears nocturnal CPAP. Obesity (Chronic) a. Considering bariatric surgery. Hypertension (Chronic) Hyperlipidemia (Chronic) Depression (Chronic) History of tobacco use (Chronic) BPH (benign prostatic hypertrophy) (Chronic) Hearing loss (Chronic) Anemia (Chronic) History of Surgical Procedure (Chronic) a. Umbilical hernia repair, 2004. b. Hand surgery. Pes anserinus bursitis of right knee (Acute) Medical History Nodule on liver Ecchymosis Cholecystitis Chest pain a. Rule out ID. Adenomatous colon polyp Near syncope Disequilibrium Surgical History H/O umbilical hernia repair H/O left knee surgery Left knee patella and tendon repair afer injury 2012 S/P colonoscopy adenoma S/P CABG (coronary artery bypass graft) X3 Family History Mother , 68 abd cancer Cancer abdomenal Father , 73 heart Heart disease Daughter Hypertension Social History Smoking/Tobacco Use Status: Former Tobacco Use Quit Date: 06/22/72 Smoking risk assessment performed?: Yes Alcohol Intake: former Drug use: Rarely Substance use type: marijuana Housing: house Current gender identity: male Do you feel safe at home: Yes Do you feel safe in your relationship?: Yes
[2025-03-03 14:17] VITALS: BP 138/74; PULSE 77; RESP 18; O2SAT 99
[2025-03-03] MEDS: Pantoprazole 40 MG TABCR PO (14:34)
[2025-03-03 14:36] VITALS: BP 144/93; PULSE 87; RESP 16; O2SAT 98
--- NOTE | 2025-03-06 13:26 | W.ED.FU ---
Date of service: 03/06/25 Time of Service: 13:26 Follow Up Plan: Patient called the emergency department and stated that he is now having bloody stools. Requested recommendations. We have recommended that he come back in for reevaluation. Patient states that he will be coming in for assessment.
== END 2025-03-03 14:38 | disposition home or self-care (01) ==
PROVIDERS: Emergency Provider Student in an Organized Health Care Education/Training Program; PCP Family Medicine
DX: K92.2 Gastrointestinal hemorrhage, unspecified (principal)
CPT/HCPCS: 99284; 99283; 36415; 80053; 86850; 86900; 86901; 83735; 84484; 85025

== ENCOUNTER 2025-03-06 13:58 | Emergency (ER) | payer MEDICARE, SELFPAY ==
[2025-03-06 14:03] VITALS: BP 140/66; PULSE 66; RESP 19; TEMP 36.4; O2SAT 98
[2025-03-06 15:20] LABS: Abs Immature Grans 0.02 10^3/uL (0.0-0.06); HCT 34.5 % (40.0-50.0); HGB 11.6 g/dL (13.5-17.5); Immature Grans % 0.3 %; MCH 29.8 pg (27.0-33.0); MCHC 33.6 % (32.0-36.0); MCV 89 fL (80-95); MPV 9.9 fL (8.0-11.0); Platelet Count 232 10^3/uL (130-400); RBC 3.89 10^6/uL (4.36-5.78); RDW 13.0 % (11.8-14.1); RDW-SD 41.5 fL; WBC 7.25 10^3/uL (4.4-10.8)
[2025-03-06 15:32] LABS: INR 1.0 (0.9-1.1); PTT Activated 24.8 sec (20.6-30.2); Prothrombin Time 10.4 sec (9.1-11.1)
[2025-03-06 15:34] LABS: ALT 24 U/L (16-63); AST 13 U/L (15-37); Albumin 3.6 g/dL (3.4-5.0); Alkaline Phosphatase 93 U/L (46-116); Anion Gap 9.0 mmol/L (3-11); BUN 19 mg/dL (7-18); Bilirubin, Total 0.3 mg/dL (0.2-1.0); CO2 28.0 mmol/L (21.0-32.0); Calcium 10.2 mg/dL (8.5-10.1); Chloride 103 mmol/L (98-107); Estimated GFR 71.32 (mL/min/1.73m2); Glucose 159 mg/dL (74-106); Potassium 4.5 mmol/L (3.5-5.1); Sodium 140 mmol/L (136-145); Total Protein 7.4 g/dL (6.4-8.2)
[2025-03-06 16:51] VITALS: BP 163/75; PULSE 74; RESP 18; O2SAT 98
--- NOTE | 2025-03-06 22:37 | W.ED.GENAD ---
Discharge Plan Disposition Patient Disposition: Home Discharge Details Clinical Impression: Complaint of melena, BRBPR (bright red blood per rectum) Primary Care Provider: Olga Borden V ED Provider: James Mosley Home Meds and New Rx's Prescriptions: Continued finasteride 5 mg tablet 5 mg PO DAILY Qty: 90 3RF Trulicity 3 mg/0.5 mL pen injector 1.5 mg subcut QWEEK zinc sulfate 50 mg zinc (220 mg) capsule 50 mg PO DAILY cyanocobalamin (vitamin B-12) 1,000 mcg/mL solution 100 mcg IM [id number] Rx Instructions: (noted as Q3wk on PCP rx list) Linzess 72 mcg capsule See Rx Instructions PO DAILY Rx Instructions: dose unverified (PCP med list has 72mcg and 145mcg dose listed, each QD. Started by [facility]. tamsulosin 0.4 mg capsule 0.8 mg PO DAILY Qty: 60 3RF triamcinolone acetonide 0.025 % lotion 1 applic topical BID magnesium oxide 400 mg magnesium capsule 400 mg PO BID cholecalciferol (vitamin D3) 25 mcg (1,000 unit) capsule 50 mcg PO DAILY polyethylene glycol 3350 17 gram/dose powder 17 g PO BID aspirin [Adult Low Dose Aspirin] 81 MG tablet,delayed release (DR/EC) 81 mg PO DAILY nitroglycerin 0.4 MG tablet, sublingual 0.4 mg Sublingual DIRECTED PRN (Reason: Chest Pain) Qty: 25 0RF pantoprazole 40 mg tablet,delayed release (DR/EC) 40 mg PO DAILY Qty: 30 0RF insulin aspart U-100 [Novolog FlexPen U-100 Insulin] 100 unit/mL (3 mL) insulin pen 1 sliding scale dose SUBCUT TID Patient Comments: INJECT 20-25 UNITS BEFORE MEALS THREE TIMES A DAY , MAY USE AN ADDITIONAL 20 UNITS AT BEDTIME IF NEEDED, MAXIMUM DAILY DOSE = 100 UNITS PER saw palmetto 450 mg capsule 450 mg PO BID Qty: 30 0RF Rx Instructions: give with food (meal/snack) metoclopramide HCl [Reglan] 5 mg tablet 5 mg PO QAC Qty: 30 0RF Rx Instructions: administer 30 minutes before meals dicyclomine 10 mg capsule 10 mg PO TID PRN (Reason: abdominal pain) Qty: 30 0RF Discharge Instructions Instructions: Bloody Stools, Adult ED Additional Instructions: Given your slight decrease in your red blood cells on your labs today, the general surgery clinic will call you tomorrow in order to schedule you for an upper and lower endoscopy to be done as an outpatient. Should you have worsening bleeding either from vomiting, or in your stool, or you develop the secondary signs of blood loss such as fainting, lightheadedness, chest pain and shortness of breath, please return to the emergency department for further evaluation. Please follow-up with your primary care provider regarding your visit to the emergency department today. Be sure to discuss results of all test performed here today to include radiology, and laboratory testing as well as results for any pending cultures. Should your symptoms worsen, or if you develop new concerning symptoms, please return immediately emergency department for further evaluation. Discharge Data Discharge Date/Time-TO BE ENTERED AT DEPARTURE: 03/06/25 16:53 HPI General Date/Time Provider Initiated Documentation: 03/06/25 14:28. HPI Narrative: MDM/Narrative: Initial Assessment: 74-year-old male with rectal bleeding and black stool. Differential Diagnosis: - Upper GI bleed: Patient already on PPI, will evaluate for acute blood loss, discussed with general surgery to attain expedited outpatient follow-up for upper and lower EGD. - Lower GI bleed: Limited hematochezia will evaluate for acute blood loss. Patient with otherwise normal colonoscopy status post polyp removal 5 months ago low concern for malignancy. ED Course: Lab tests ordered and monitored. Blood count checked; previous count 13.8. Labs notable for approximately 1.5 point hemoglobin drop since last ER evaluation. Case discussed with Dr. Mcgowan of general surgery who is agreeable to plan for discharge to follow-up in clinic for EGD scheduling. Final Assessment: Lab tests monitored; blood count checked. Omeprazole dosage reviewed; potential increase considered. Endoscopy considered if bleeding persists. Clinical Impression: - Rectal bleeding - Anemia Disposition: Discharge: Home; return if bright red blood persists or symptoms worsen. Follow-Up: Video conference with GI specialist on 13 March 2025. Endoscopy discussed; schedule if bleeding persists. Patient Education: Discussed potential causes of bleeding and importance of follow-up. This document was created with assistance from [employer]. The patient consented to its use. HPI: The patient is a 74-year-old male with a history of chronic constipation and recent polypectomy, presenting with rectal bleeding. The patient reports that his stool darkened approximately 6 days ago, progressing through maroon, purple, and black hues, ultimately leading to the oozing of blood. He experienced episodes of bright red diarrhea on and again this morning. There have been no recent travel or significant dietary changes, except for an increased intake of fruits, vegetables, yogurt, and kimchi, with a concomitant reduction in meat consumption. He has been taking polyethylene glycol (MiraLAX) and linaclotide (Linzess) for the past 5 months and expresses concern about potential intestinal damage. He denies experiencing pain but notes abdominal soreness and bloating. He has not had fever or chills. A large polyp measuring 11 cm was removed during a colonoscopy 5 months ago, with histopathology confirming the absence of malignancy. The patient has an upcoming video conference with his physician next Thursday to discuss the possibility of an endoscopic evaluation. He was prescribed omeprazole on Thursday for a suspected peptic ulcer. He also reports difficulty waking from anesthesia following a quadruple bypass surgery in 2008. The patient had a urinary catheter removed 2 weeks ago and is currently doing well. He is on medication aimed at reducing prostate size. PAST SURGICAL HISTORY: - Quadruple bypass surgery in 2008 - Colonoscopy with polypectomy 5 months ago ROS: Negative besides as mentioned above Exam: Vital signs: Reviewed. General Appearance: Alert and oriented. No acute distress. HEENT: NCAT, EOMI, not icteric. External ears normal. No rhinorrhea. Moist mucous membranes. Neck: Supple, full range of motion, no observable masses, No meningeal sign. Respiratory: No Respiratory distress. No tachypnea. Cardiovascular: RRR, no edema. Gastrointestinal: Abdomen bloated and sore upon palpation. Back: No midline tenderness to palpation or palpable step-offs of the C/T/L spine. Skin: Warm and dry, no rash. Neurological: Normal Gait, Grossly intact. Psychiatric: Appropriate for situation. Labs: Laboratory Tests Range/Units 03/06/25 15:07 WBC (4.4-10.8) 10^3/uL 7.25 RBC (4.36-5.78) 10^6/uL 3.89 L Hgb (13.5-17.5) g/dL 11.6 L Hct (40.0-50.0) % 34.5 L MCV (80-95) fL 89 MCH (27.0-33.0) pg 29.8 MCHC (32.0-36.0) % 33.6 RDW (11.8-14.1) % 13.0 Plt Count (130-400) 10^3/uL 232 MPV (8.0-11.0) fL 9.9 Immature Gran % % 0.3 Neutrophils % % 71.5 Lymphocytes % % 20.8 Monocytes % % 5.4 Eosinophils % % 1.2 Basophils % % 0.8 Nucleated RBC % (0.0-0.3) % 0.0 Absolute Neutrophils (1.2-6.7) 10^3/uL 5.18 Absolute Lymphocytes (1.2-3.4) 10^3/uL 1.51 Absolute Monocytes (0.1-0.8) 10^3/uL 0.39 Absolute Eosinophils (0.0-0.7) 10^3/uL 0.09 Absolute Basophils (0.0-0.2) 10^3/uL 0.06 PT (9.1-11.1) sec 10.4 INR (0.9-1.1) 1.0 APTT (20.6-30.2) sec 24.8 VBG Lactate (<or=2.0) mmol/L 1.6 Sodium (136-145) mmol/L 140 Potassium (3.5-5.1) mmol/L 4.5 Chloride (98-107) mmol/L 103 Carbon Dioxide (21.0-32.0) mmol/L 28.0 Anion Gap (3-11) mmol/L 9.0 BUN (7-18) mg/dL 19 H Creatinine (0.70-1.30) mg/dL 1.1 Est GFR (CKD-EPI 2020) (mL/min/1.73m2) 71.32 Glucose (74-106) mg/dL 159 H Calcium (8.5-10.1) mg/dL 10.2 H Total Bilirubin (0.2-1.0) mg/dL 0.3 AST (15-37) U/L 13 L ALT (16-63) U/L 24 Alkaline Phosphatase (46-116) U/L 93 Total Protein (6.4-8.2) g/dL 7.4 Albumin (3.4-5.0) g/dL 3.6 ABO/Rh O Positive Antibody Screen NEGATIVE Related Data Home Medications ?Medication ?Instructions ?Recorded ?Confirmed aspirin 81 mg tablet,delayed 81 mg PO DAILY 12/14/13 03/06/25 release (Adult Low Dose Aspirin) nitroglycerin 0.4 mg sublingual 0.4 mg sublingual DIRECTED PRN 12/15/13 03/06/25 tablet Chest Pain ##25 magnesium oxide 400 mg PO BID 10/21/21 03/06/25 triamcinolone acetonide 0.025 % 1 applic topical BID 10/21/21 03/06/25 lotion insulin aspart U-100 100 unit/mL 1 sliding scale dose subcut TID 07/22/24 03/06/25 (3 mL) subcutaneous pen (Novolog FlexPen U-100 Insulin aspart) saw palmetto 450 mg capsule 450 mg PO BID #30 caps 07/29/24 03/06/25 dicyclomine 10 mg capsule 10 mg PO TID PRN abdominal pain 08/09/24 03/06/25 #30 caps metoclopramide HCl 5 mg tablet 5 mg PO QAC #30 tabs 08/09/24 03/06/25 (Reglan) dulaglutide 3 mg/0.5 mL 1.5 mg subcut QWEEK 09/20/24 03/06/25 subcutaneous [facility] zinc sulfate 50 mg zinc (220 mg) 50 mg PO DAILY 09/20/24 03/06/25 capsule cholecalciferol (vitamin D3) 25 50 mcg PO DAILY 10/03/24 03/06/25 mcg (1,000 unit) capsule cyanocobalamin (vitamin B-12) 100 mcg IM [id number] 10/03/24 03/06/25 1,000 mcg/mL injection solution linaclotide 72 mcg capsule See Rx Instructions PO DAILY 10/03/24 03/06/25 (Linzess) finasteride 5 mg tablet 5 mg PO DAILY #90 tabs 11/01/24 03/06/25 polyethylene glycol 3350 17 17 g PO BID 01/18/25 03/06/25 gram/dose oral powder tamsulosin 0.4 mg capsule 0.8 mg (2 x 0.4 mg) PO DAILY #60 01/19/25 03/06/25 caps pantoprazole 40 mg tablet,delayed 40 mg PO DAILY #30 tabs 03/03/25 03/06/25 release Previous Rx's ?Medication ?Instructions ?Recorded nitroglycerin 0.4 mg sublingual 0.4 mg sublingual DIRECTED PRN 12/15/13 tablet Chest Pain ##25 saw palmetto 450 mg capsule 450 mg PO BID #30 caps 07/29/24 dicyclomine 10 mg capsule 10 mg PO TID PRN abdominal pain 08/09/24 #30 caps metoclopramide HCl 5 mg tablet 5 mg PO QAC #30 tabs 08/09/24 (Reglan) finasteride 5 mg tablet 5 mg PO DAILY #90 tabs 11/01/24 tamsulosin 0.4 mg capsule 0.8 mg (2 x 0.4 mg) PO DAILY #60 01/19/25 caps pantoprazole 40 mg tablet,delayed 40 mg PO DAILY #30 tabs 03/03/25 release Allergies Allergy/AdvReac Type Severity Reaction Status Date / Time bupropion HCl (From Allergy Unknown Other (See Verified 03/06/25 14:08 Wellbutrin) Comment) erythromycin base Allergy Unknown Other (See Verified 03/06/25 14:08 Comment) pravastatin sodium (From Allergy Unknown Other (See Verified 03/06/25 14:08 Pravachol) Comment) Penicillins Allergy Other (See Verified 03/06/25 14:08 Comment) lisinopril AdvReac Other (See Verified 03/06/25 14:08 Comment) General Stated Complaint: GI Bleed LUX: 3 Course Vital Signs Vital signs: Vital Signs Temperature 36.4 C L 03/06/25 14:03 Pulse 66 03/06/25 14:03 Respiratory Rate 19 03/06/25 14:03 Blood Pressure 140/66 03/06/25 14:03 Pulse Oximetry 98 03/06/25 14:03 Temperature 36.4 C L 03/06/25 14:03 Temperature Source Oral 03/06/25 14:03 Pulse 74 03/06/25 16:51 Respiratory Rate 18 03/06/25 16:51 Blood Pressure 163/75 H 03/06/25 16:51 Blood Pressure Mean 104 03/06/25 16:51 Pulse Oximetry 98 03/06/25 16:51 Oxygen Delivery Method Room Air 03/06/25 16:51 Oxygen Flow Rate 0 03/06/25 16:51 Pain Level 2 03/06/25 14:03 Lab/Test Results Lab/Test Results: Laboratory Tests Range/Units 03/06/25 15:07 WBC (4.4-10.8) 10^3/uL 7.25 RBC (4.36-5.78) 10^6/uL 3.89 L Hgb (13.5-17.5) g/dL 11.6 L Hct (40.0-50.0) % 34.5 L MCV (80-95) fL 89 MCH (27.0-33.0) pg 29.8 MCHC (32.0-36.0) % 33.6 RDW (11.8-14.1) % 13.0 Plt Count (130-400) 10^3/uL 232 MPV (8.0-11.0) fL 9.9 Immature Gran % % 0.3 Neutrophils % % 71.5 Lymphocytes % % 20.8 Monocytes % % 5.4 Eosinophils % % 1.2 Basophils % % 0.8 Nucleated RBC % (0.0-0.3) % 0.0 Absolute Neutrophils (1.2-6.7) 10^3/uL 5.18 Absolute Lymphocytes (1.2-3.4) 10^3/uL 1.51 Absolute Monocytes (0.1-0.8) 10^3/uL 0.39 Absolute Eosinophils (0.0-0.7) 10^3/uL 0.09 Absolute Basophils (0.0-0.2) 10^3/uL 0.06 PT (9.1-11.1) sec 10.4 INR (0.9-1.1) 1.0 APTT (20.6-30.2) sec 24.8 VBG Lactate (<or=2.0) mmol/L 1.6 Sodium (136-145) mmol/L 140 Potassium (3.5-5.1) mmol/L 4.5 Chloride (98-107) mmol/L 103 Carbon Dioxide (21.0-32.0) mmol/L 28.0 Anion Gap (3-11) mmol/L 9.0 BUN (7-18) mg/dL 19 H Creatinine (0.70-1.30) mg/dL 1.1 Est GFR (CKD-EPI 2020) (mL/min/1.73m2) 71.32 Glucose (74-106) mg/dL 159 H Calcium (8.5-10.1) mg/dL 10.2 H Total Bilirubin (0.2-1.0) mg/dL 0.3 AST (15-37) U/L 13 L ALT (16-63) U/L 24 Alkaline Phosphatase (46-116) U/L 93 Total Protein (6.4-8.2) g/dL 7.4 Albumin (3.4-5.0) g/dL 3.6 ABO/Rh O Positive Antibody Screen NEGATIVE PFSH All Active Problems (Updated 03/06/25 @ 16:29 by James Mosley MD) BRBPR (bright red blood per rectum) (Acute) Complaint of melena (Acute) GIB (gastrointestinal bleeding) (Chronic) Urinary retention due to benign prostatic hyperplasia (Acute) PAF (paroxysmal atrial fibrillation) (Acute) Anxiety (Chronic) Hypercalcemia (Acute) Lower urinary tract symptoms (LUTS) (Acute) Morbid obesity (Acute) Tinnitus (Acute) Hemorrhage, anal or rectal (Acute) Degenerative joint disease (Chronic) Low back pain (Acute) Elevated alkaline phosphatase level (Acute) Lipodystrophy (Acute) Seasonal allergies (Acute) Hypomagnesemia (Acute) Fatigue (Acute) Cataract (Chronic) Vitreous degeneration (Acute) CAD (coronary artery disease) (Chronic) Hip joint pain (Acute) Vitamin B 12 deficiency (Acute) Coronary disease (Chronic) a. Presented with worsening dysnea on exertion in December 2011. b. MPI testing showed a large reversible lesion in the anterior chest. c. Cardiac catheterization revealed significant four-vessel disease. d. S/P four-vessel coronary artery bypass grafting in January 2012, FERNANDEZ to the LAD, vein to the OM, first diagonal, and RCA. e. Atrial fibrillation postop. Diabetes (Chronic) a. Last hemoglobin A1c 7.5% in 01/2003. b. Markedly overweight. Sleep apnea, obstructive (Chronic) a. Wears nocturnal CPAP. Obesity (Chronic) a. Considering bariatric surgery. Hypertension (Chronic) Hyperlipidemia (Chronic) Depression (Chronic) History of tobacco use (Chronic) BPH (benign prostatic hypertrophy) (Chronic) Hearing loss (Chronic) Anemia (Chronic) History of Surgical Procedure (Chronic) a. Umbilical hernia repair, 2003. b. Hand surgery. Pes anserinus bursitis of right knee (Acute) Medical History Nodule on liver Ecchymosis Cholecystitis Chest pain a. Rule out [place]. Adenomatous colon polyp Near syncope Disequilibrium Surgical History H/O umbilical hernia repair H/O left knee surgery Left knee patella and tendon repair afer injury 2012 S/P colonoscopy adenoma S/P CABG (coronary artery bypass graft) X3 Family History Mother , 68 abd cancer Cancer abdomenal Father , 73 heart Heart disease Daughter Hypertension Social History Smoking/Tobacco Use Status: Former Tobacco Use Quit Date: 06/22/72 Smoking risk assessment performed?: Yes Alcohol Intake: former Drug use: Rarely Substance use type: marijuana Housing: house Current gender identity: male Do you feel safe at home: Yes Do you feel safe in your relationship?: Yes
== END 2025-03-06 16:53 | disposition home or self-care (01) ==
PROVIDERS: Emergency Provider General Practice; PCP Family Medicine
DX: N40.1 Benign prostatic hyperplasia with lower urinary tract symptoms (principal); R33.8 Other retention of urine; I48.0 Paroxysmal atrial fibrillation; I25.10 Atherosclerotic heart disease of native coronary artery without angina pectoris; I10 Essential (primary) hypertension; E78.5 Hyperlipidemia, unspecified; E11.9 Type 2 diabetes mellitus without complications; Z95.1 Presence of aortocoronary bypass graft; Z79.82 Long term (current) use of aspirin; Z79.4 Long term (current) use of insulin; Z79.85 Long-term (current) use of injectable non-insulin antidiabetic drugs
CPT/HCPCS: 36415; 80053; 86850; 86900; 86901; 99283; 83605; 85025; 85610; 85730

== ENCOUNTER → 2025-03-08 14:31 | Outpatient (BNVA) | payer MEDICARE, SELFPAY | PROVIDERS: PCP Family Medicine; Referring Provider Family Medicine; Visit Provider Surgery | DX: K92.2 Gastrointestinal hemorrhage, unspecified (principal); D62 Acute posthemorrhagic anemia; Z86.0100 Personal history of colon polyps, unspecified; E66.01 Morbid (severe) obesity due to excess calories; I25.810 Atherosclerosis of coronary artery bypass graft(s) without angina pectoris; I48.0 Paroxysmal atrial fibrillation; E11.9 Type 2 diabetes mellitus without complications | CPT/HCPCS: 99214 ==

== ENCOUNTER 2025-03-09 02:20 | Emergency (ER) | payer MEDICARE, SELFPAY ==
--- NOTE | 2025-03-09 02:22 | W.ED.GENAD ---
Discharge Plan Disposition Patient Disposition: Home Condition: Good Discharge Details Clinical Impression: Lower urinary tract symptoms (LUTS) Primary Care Provider: Olga Borden V ED Provider: Miguel Angel Hansen Home Meds and New Rx's Prescriptions: Continued finasteride 5 mg tablet 5 mg PO DAILY Qty: 90 3RF Trulicity 3 mg/0.5 mL pen injector 1.5 mg subcut QWEEK zinc sulfate 50 mg zinc (220 mg) capsule 50 mg PO DAILY cyanocobalamin (vitamin B-12) 1,000 mcg/mL solution 100 mcg IM [id number] Rx Instructions: (noted as Q3wk on PCP rx list) Linzess 72 mcg capsule See Rx Instructions PO DAILY Rx Instructions: dose unverified (PCP med list has 72mcg and 145mcg dose listed, each QD. Started by [facility]. tamsulosin 0.4 mg capsule 0.8 mg PO DAILY Qty: 60 3RF triamcinolone acetonide 0.025 % lotion 1 applic topical BID magnesium oxide 400 mg magnesium capsule 400 mg PO BID cholecalciferol (vitamin D3) 25 mcg (1,000 unit) capsule 50 mcg PO DAILY polyethylene glycol 3350 17 gram/dose powder 17 g PO BID aspirin [Adult Low Dose Aspirin] 81 MG tablet,delayed release (DR/EC) 81 mg PO DAILY nitroglycerin 0.4 MG tablet, sublingual 0.4 mg Sublingual DIRECTED PRN (Reason: Chest Pain) Qty: 25 0RF pantoprazole 40 mg tablet,delayed release (DR/EC) 40 mg PO DAILY Qty: 30 0RF insulin aspart U-100 [Novolog FlexPen U-100 Insulin] 100 unit/mL (3 mL) insulin pen 1 sliding scale dose SUBCUT TID Patient Comments: INJECT 20-25 UNITS BEFORE MEALS THREE TIMES A DAY , MAY USE AN ADDITIONAL 20 UNITS AT BEDTIME IF NEEDED, MAXIMUM DAILY DOSE = 100 UNITS PER saw palmetto 450 mg capsule 450 mg PO BID Qty: 30 0RF Rx Instructions: give with food (meal/snack) metoclopramide HCl [Reglan] 5 mg tablet 5 mg PO QAC Qty: 30 0RF Rx Instructions: administer 30 minutes before meals dicyclomine 10 mg capsule 10 mg PO TID PRN (Reason: abdominal pain) Qty: 30 0RF Discharge Instructions Additional Instructions: You were seen for urinary urgency and difficulty urinating. Hemanthkily you are able to empty your bladder here with a residual bladder scan showing 0. Follow-up with urology as planned next week. Return to ED for fever, inability urinate, other concerns. HPI General Mode of arrival: ambulatory. Date/Time Provider Initiated Documentation: 03/09/25 02:22. Limitations to Documentation: no limitations. Information obtained by: patient, RN notes reviewed and old records reviewed. HPI Narrative: Patient presents to ED with inability to urinate. The patient has history of same and is followed by urology here. He had had a Martins catheter for some time but has had it out for almost a month. He has been doing pretty well up until tonight. He was last able to urinate around 7 or 8 PM. Has been up feeling the urge to urinate for the last hour or 2. Denies any hematuria or dysuria over the last few days. Has had no fever. Denies abdominal pain just discomfort in the suprapubic area. Related Data Home Medications ?Medication ?Instructions ?Recorded ?Confirmed aspirin 81 mg tablet,delayed 81 mg PO DAILY 12/14/13 03/06/25 release (Adult Low Dose Aspirin) nitroglycerin 0.4 mg sublingual 0.4 mg sublingual DIRECTED PRN 12/15/13 03/06/25 tablet Chest Pain ##25 magnesium oxide 400 mg PO BID 10/21/21 03/06/25 triamcinolone acetonide 0.025 % 1 applic topical BID 10/21/21 03/06/25 lotion insulin aspart U-100 100 unit/mL 1 sliding scale dose subcut TID 07/22/24 03/06/25 (3 mL) subcutaneous pen (Novolog FlexPen U-100 Insulin aspart) saw palmetto 450 mg capsule 450 mg PO BID #30 caps 07/29/24 03/06/25 dicyclomine 10 mg capsule 10 mg PO TID PRN abdominal pain 08/09/24 03/06/25 #30 caps metoclopramide HCl 5 mg tablet 5 mg PO QAC #30 tabs 08/09/24 03/06/25 (Reglan) dulaglutide 3 mg/0.5 mL 1.5 mg subcut QWEEK 09/20/24 03/06/25 subcutaneous pen injector (Trulicity) zinc sulfate 50 mg zinc (220 mg) 50 mg PO DAILY 09/20/24 03/06/25 capsule cholecalciferol (vitamin D3) 25 50 mcg PO DAILY 10/03/24 03/06/25 mcg (1,000 unit) capsule cyanocobalamin (vitamin B-12) 100 mcg IM [id number] 10/03/24 03/06/25 1,000 mcg/mL injection solution linaclotide 72 mcg capsule See Rx Instructions PO DAILY 10/03/24 03/06/25 (Linzess) finasteride 5 mg tablet 5 mg PO DAILY #90 tabs 11/01/24 03/06/25 polyethylene glycol 3350 17 17 g PO BID 01/18/25 03/06/25 gram/dose oral powder tamsulosin 0.4 mg capsule 0.8 mg (2 x 0.4 mg) PO DAILY #60 01/19/25 03/06/25 caps pantoprazole 40 mg tablet,delayed 40 mg PO DAILY #30 tabs 03/03/25 03/06/25 release Previous Rx's ?Medication ?Instructions ?Recorded nitroglycerin 0.4 mg sublingual 0.4 mg sublingual DIRECTED PRN 12/15/13 tablet Chest Pain ##25 saw palmetto 450 mg capsule 450 mg PO BID #30 caps 07/29/24 dicyclomine 10 mg capsule 10 mg PO TID PRN abdominal pain 08/09/24 #30 caps metoclopramide HCl 5 mg tablet 5 mg PO QAC #30 tabs 08/09/24 (Reglan) finasteride 5 mg tablet 5 mg PO DAILY #90 tabs 11/01/24 tamsulosin 0.4 mg capsule 0.8 mg (2 x 0.4 mg) PO DAILY #60 01/19/25 caps pantoprazole 40 mg tablet,delayed 40 mg PO DAILY #30 tabs 03/03/25 release Allergies Allergy/AdvReac Type Severity Reaction Status Date / Time bupropion HCl (From Allergy Unknown Other (See Verified 03/08/25 14:34 Wellbutrin) Comment) erythromycin base Allergy Unknown Other (See Verified 03/08/25 14:34 Comment) pravastatin sodium (From Allergy Unknown Other (See Verified 03/08/25 14:34 Pravachol) Comment) Penicillins Allergy Other (See Verified 03/08/25 14:34 Comment) lisinopril AdvReac Other (See Verified 03/08/25 14:34 Comment) General LUX: 3 Exam Narrative Exam Narrative: Const: Obese male in NAD. VS per triage. HEENT: NC/AT. Normal facial exam. Neck: Supple. Trachea midline. Lungs: Normal respiratory effort. Neuro: A+O x 3. Normal speech, mentation, gait. Cranial nerves II - XII grossly intact. No gross motor or sensory deficit. Medical Decision Making Patient presenting with inability to urinate with history of same. Bladder scan confirms about 220 mL. Patient asked to attempt to urinate prior to catheter insertion. Patient was able to do so here. Repeat bladder scan 0. Patient's urgency and discomfort resolved. He has follow-up scheduled with urology next week. Can be discharged home at this time, return precautions provided. Medical Records Medical records reviewed: Yes I reviewed the patient's medical records. Medical records narrative: urology notes PFSH All Active Problems (Updated 03/09/25 @ 02:47 by Miguel Angel Hansen MD) BRBPR (bright red blood per rectum) (Acute) Complaint of melena (Acute) GIB (gastrointestinal bleeding) (Chronic) Urinary retention due to benign prostatic hyperplasia (Acute) PAF (paroxysmal atrial fibrillation) (Acute) Anxiety (Chronic) Hypercalcemia (Acute) Lower urinary tract symptoms (LUTS) (Acute) Morbid obesity (Acute) Tinnitus (Acute) Hemorrhage, anal or rectal (Acute) Degenerative joint disease (Chronic) Low back pain (Acute) Elevated alkaline phosphatase level (Acute) Lipodystrophy (Acute) Seasonal allergies (Acute) Hypomagnesemia (Acute) Fatigue (Acute) Cataract (Chronic) Vitreous degeneration (Acute) CAD (coronary artery disease) (Chronic) Hip joint pain (Acute) Vitamin B 12 deficiency (Acute) Coronary disease (Chronic) a. Presented with worsening dysnea on exertion in December 2011. b. MPI testing showed a large reversible lesion in the anterior chest. c. Cardiac catheterization revealed significant four-vessel disease. d. S/P four-vessel coronary artery bypass grafting in January 2012, FERNANDEZ to the LAD, vein to the OM, first diagonal, and RCA. e. Atrial fibrillation postop. Diabetes (Chronic) a. Last hemoglobin A1c 7.5% in 01/2003. b. Markedly overweight. Sleep apnea, obstructive (Chronic) a. Wears nocturnal CPAP. Obesity (Chronic) a. Considering bariatric surgery. Hypertension (Chronic) Hyperlipidemia (Chronic) Depression (Chronic) History of tobacco use (Chronic) BPH (benign prostatic hypertrophy) (Chronic) Hearing loss (Chronic) Anemia (Chronic) History of Surgical Procedure (Chronic) a. Umbilical hernia repair, 2004. b. Hand surgery. Pes anserinus bursitis of right knee (Acute) Medical History Nodule on liver Ecchymosis Cholecystitis Chest pain a. Rule out [place]. Adenomatous colon polyp Near syncope Disequilibrium Surgical History H/O umbilical hernia repair H/O left knee surgery Left knee patella and tendon repair afer injury 2012 S/P colonoscopy adenoma S/P CABG (coronary artery bypass graft) X3 Family History Mother , 68 abd cancer Cancer abdomenal Father , 73 heart Heart disease Daughter Hypertension Social History Smoking/Tobacco Use Status: Former Tobacco Use Quit Date: 06/22/72 Smoking risk assessment performed?: Yes Alcohol Intake: former Drug use: Rarely Substance use type: marijuana Housing: house Current gender identity: male Do you feel safe at home: Yes Do you feel safe in your relationship?: Yes
[2025-03-09 02:23] VITALS: BP 126/46; PULSE 78; RESP 16; TEMP 36.5; O2SAT 99
[2025-03-09 02:29] VITALS: BP 126/46; PULSE 78; RESP 16; TEMP 36.5; O2SAT 99
== END 2025-03-09 03:02 | disposition home or self-care (01) ==
PROVIDERS: Emergency Provider Emergency Medicine; PCP Family Medicine
DX: R39.89 Other symptoms and signs involving the genitourinary system (principal)
CPT/HCPCS: 99282 ×2

== ENCOUNTER 2025-03-10 16:14 | Emergency (ER) | payer MEDICARE, SELFPAY ==
[2025-03-10] VITALS (27 sets, daily range): BP systolic 115–159; BP diastolic 48–130; PULSE 66–99; RESP 16–18; TEMP 36.6–37.2; O2SAT 88–100
--- NOTE | 2025-03-10 16:15 | RT.EKG_ITS ---
APPROVED REPORT Exam: Resting ECG Reason for Exam: dizziness Patient Location: E HR:99 bpm ECG Measurements Heart Rate 99 AXIS TN 181 P 21 QRSd 92 QRS 13 QT 364 T 20 QTc 468 Conclusion Sinus rhythm, rate 99, with ventricular bigeminy, noted intermittently on priors No interval abnormalities No STEMI
--- NOTE | 2025-03-10 16:38 | W.ED.GENAD ---
Discharge Plan Disposition Patient Disposition: Home Condition: Stable Discharge Details Clinical Impression: Acute GI bleeding Primary Care Provider: Olga Borden V ED Provider: Hal Rock Home Meds and New Rx's Prescriptions: New sucralfate [Carafate] 1 gram tablet 1 g PO QACHS Qty: 30 0RF Continued finasteride 5 mg tablet 5 mg PO DAILY Qty: 90 3RF Trulicity 3 mg/0.5 mL pen injector 1.5 mg subcut QWEEK zinc sulfate 50 mg zinc (220 mg) capsule 50 mg PO DAILY cyanocobalamin (vitamin B-12) 1,000 mcg/mL solution 100 mcg IM [id number] Rx Instructions: (noted as Q3wk on PCP rx list) Linzess 72 mcg capsule See Rx Instructions PO DAILY Rx Instructions: dose unverified (PCP med list has 72mcg and 145mcg dose listed, each QD. Started by [facility]. tamsulosin 0.4 mg capsule 0.8 mg PO DAILY Qty: 60 3RF triamcinolone acetonide 0.025 % lotion 1 applic topical BID magnesium oxide 400 mg magnesium capsule 400 mg PO BID cholecalciferol (vitamin D3) 25 mcg (1,000 unit) capsule 50 mcg PO DAILY polyethylene glycol 3350 17 gram/dose powder 17 g PO BID aspirin [Adult Low Dose Aspirin] 81 MG tablet,delayed release (DR/EC) 81 mg PO DAILY nitroglycerin 0.4 MG tablet, sublingual 0.4 mg Sublingual DIRECTED PRN (Reason: Chest Pain) Qty: 25 0RF insulin aspart U-100 [Novolog FlexPen U-100 Insulin] 100 unit/mL (3 mL) insulin pen 1 sliding scale dose SUBCUT TID Patient Comments: INJECT 20-25 UNITS BEFORE MEALS THREE TIMES A DAY , MAY USE AN ADDITIONAL 20 UNITS AT BEDTIME IF NEEDED, MAXIMUM DAILY DOSE = 100 UNITS PER saw palmetto 450 mg capsule 450 mg PO BID Qty: 30 0RF Rx Instructions: give with food (meal/snack) metoclopramide HCl [Reglan] 5 mg tablet 5 mg PO QAC Qty: 30 0RF Rx Instructions: administer 30 minutes before meals dicyclomine 10 mg capsule 10 mg PO TID PRN (Reason: abdominal pain) Qty: 30 0RF Held pantoprazole 40 mg tablet,delayed release (DR/EC) 40 mg PO DAILY Qty: 30 0RF Hold Instructions: Resume on 03/11/25. TAKE 40mg TWICE PER DAY BY MOUTH starting tomorrow Discharge Instructions Instructions: Sucralfate, GI bleed Additional Instructions: You were seen in the emergency department for your ongoing GI bleeding with dizziness. Please stop taking herbal supplement that is likely causing you to pee a lot losing volume in your bloodstream causing more dizziness. Please start taking your prescribed 40 mg pantoprazole twice per day. I have sent a further prescription for a medicine called Carafate or sucralfate to your pharmacy, you need to take this 3 times a day with food and at bedtime. I spoke with the surgery team they are going to move up your date of colonoscopy, please return for any severe acute worsening of your symptoms in the meantime for recheck of your hemoglobin and possible admission, you are not at a point where we need to provide you with a unit of blood for transfusion yet and there is no emergent need for a scope this evening. Referrals: Olga Borden MD [Primary Care Provider, Medicine] HPI General Date/Time Provider Initiated Documentation: 03/10/25 16:16. HPI Narrative: 74 year-old male presents to ED today by POV/ambulating with a chief complaint of continued GI bleeding- has had black stools for about 1 week, with some nausea today, and dizziness with certain activities- has been seen in clinic by Dr. Serrano with planned EGD/colonoscopy on 03/23, but is having increased dizziness. Quality described as more constipation with black stool, and one episode of bloody diarrhea since being checked 4 days ago with HgB 11.6, no radiation to active vomiting, hematemesis, tachycardia, low blood pressure, syncope, fever, severe abdominal pain. Severity is described as moderate. Palliating factors include 40mg protonix QD currently. Provoking factors include did start a kidney cleanse herbal tincture from an felt finisher named Flower in anticipation of his upcoming procedure and endorses peeing a lot more than usual. Patient not anticoagulated. Related Data Home Medications ?Medication ?Instructions ?Recorded ?Confirmed aspirin 81 mg tablet,delayed 81 mg PO DAILY 12/14/13 03/10/25 release (Adult Low Dose Aspirin) nitroglycerin 0.4 mg sublingual 0.4 mg sublingual DIRECTED PRN 12/15/13 03/10/25 tablet Chest Pain ##25 magnesium oxide 400 mg PO BID 10/21/21 03/10/25 triamcinolone acetonide 0.025 % 1 applic topical BID 10/21/21 03/10/25 lotion insulin aspart U-100 100 unit/mL 1 sliding scale dose subcut TID 07/22/24 03/10/25 (3 mL) subcutaneous pen (Novolog FlexPen U-100 Insulin aspart) saw palmetto 450 mg capsule 450 mg PO BID #30 caps 07/29/24 03/10/25 dicyclomine 10 mg capsule 10 mg PO TID PRN abdominal pain 08/09/24 03/10/25 #30 caps metoclopramide HCl 5 mg tablet 5 mg PO QAC #30 tabs 08/09/24 03/10/25 (Reglan) dulaglutide 3 mg/0.5 mL 1.5 mg subcut QWEEK 09/20/24 03/10/25 subcutaneous [facility] zinc sulfate 50 mg zinc (220 mg) 50 mg PO DAILY 09/20/24 03/10/25 capsule cholecalciferol (vitamin D3) 25 50 mcg PO DAILY 10/03/24 03/10/25 mcg (1,000 unit) capsule cyanocobalamin (vitamin B-12) 100 mcg IM [id number] 10/03/24 03/10/25 1,000 mcg/mL injection solution linaclotide 72 mcg capsule See Rx Instructions PO DAILY 10/03/24 03/10/25 (Linzess) finasteride 5 mg tablet 5 mg PO DAILY #90 tabs 11/01/24 03/10/25 polyethylene glycol 3350 17 17 g PO BID 01/18/25 03/10/25 gram/dose oral powder tamsulosin 0.4 mg capsule 0.8 mg (2 x 0.4 mg) PO DAILY #60 01/19/25 03/10/25 caps pantoprazole 40 mg tablet,delayed 40 mg PO DAILY #30 tabs 03/03/25 03/10/25 release Held on 03/10/25. Instructions: Resume on 03/11/25. TAKE 40mg TWICE PER DAY BY MOUTH starting tomorrow sucralfate 1 gram tablet (Carafate) 1 g PO QACHS #30 tabs 03/10/25 Previous Rx's ?Medication ?Instructions ?Recorded nitroglycerin 0.4 mg sublingual 0.4 mg sublingual DIRECTED PRN 12/15/13 tablet Chest Pain ##25 saw palmetto 450 mg capsule 450 mg PO BID #30 caps 07/29/24 dicyclomine 10 mg capsule 10 mg PO TID PRN abdominal pain 08/09/24 #30 caps metoclopramide HCl 5 mg tablet 5 mg PO QAC #30 tabs 08/09/24 (Reglan) finasteride 5 mg tablet 5 mg PO DAILY #90 tabs 11/01/24 tamsulosin 0.4 mg capsule 0.8 mg (2 x 0.4 mg) PO DAILY #60 01/19/25 caps pantoprazole 40 mg tablet,delayed 40 mg PO DAILY #30 tabs 03/03/25 release Held on 03/10/25. Instructions: Resume on 03/11/25. TAKE 40mg TWICE PER DAY BY MOUTH starting tomorrow sucralfate 1 gram tablet (Carafate) 1 g PO QACHS #30 tabs 03/10/25 Allergies Allergy/AdvReac Type Severity Reaction Status Date / Time bupropion HCl (From Allergy Unknown Other (See Verified 03/10/25 16:20 Wellbutrin) Comment) erythromycin base Allergy Unknown Other (See Verified 03/10/25 16:20 Comment) pravastatin sodium (From Allergy Unknown Other (See Verified 03/10/25 16:20 Pravachol) Comment) Penicillins Allergy Other (See Verified 03/10/25 16:20 Comment) lisinopril AdvReac Other (See Verified 03/10/25 16:20 Comment) General Stated Complaint: GenMedical LUX: 3 Review of Systems All systems reviewed & are unremarkable except as noted in HPI and below Exam Narrative Exam Narrative: GENERAL APPEARANCE: Well-nourished, non-toxic, awake and alert, atraumatic, no acute distress. SKIN: Warm, pink, dry, intact, without rashes/lesions/ulcerations. HEAD: Normocephalic, atraumatic, normal hair distribution for gender/age. EYES: Normal conjunctiva, no exudates on lids/lashes. ENT: Nares patent, no circumoral cyanosis, no facial swelling NECK: Supple, trachea midline, painless cervical ROM. LUNGS/CHEST: Non-labored respirations, normal A/P diameter, symmetrical expansion, no chest wall deformity HEART (CV/PV): Regular rate and rhythm without murmur, no peripheral edema, no JVD. ABDOMEN: Soft, non-distended, no guarding, no tenderness diffusely. MSK: Normal ROM, no swelling/deformity to bilateral UEs or LEs, moving all extremities without weakness, no cyanosis, spine midline without tenderness, normal curvature. NEURO: Mental Status AAOx4 - alert to person, place, time, events No facial droop, no forehead involvement. Motor: No focal weakness - strength 5/5 in bilateral UEs and LEs, proximal and distal, symmetric. Sensory: sensation intact to light touch globally. Gait normal: patient ambulated without ataxia into ED room. PSYCH: euthymic, cooperative, pleasant, appropriate speech Course Vital Signs Vital signs: Vital Signs Temperature 36.6 C 03/10/25 16:17 Pulse 66 03/10/25 16:17 Respiratory Rate 18 03/10/25 16:17 Blood Pressure 159/130 H 03/10/25 16:17 Pulse Oximetry 95 03/10/25 16:17 Temperature 36.6 C 03/10/25 16:20 Pulse 66 03/10/25 16:20 Respiratory Rate 18 03/10/25 16:20 Blood Pressure 159/130 H 03/10/25 16:20 Pulse Oximetry 95 03/10/25 16:20 Medical Decision Making This dictation utilizes [id number] dictation software and may contain unedited grammatical errors. 74 year-old male presents to ED today by POV/ambulating with a chief complaint of continued GI bleeding- has had black stools for about 1 week, with some nausea today, and dizziness with certain activities- has been seen in clinic by Dr. Serrano with planned EGD/colonoscopy on 03/23, but is having increased dizziness. Quality described as more constipation with black stool, and one episode of bloody diarrhea since being checked 4 days ago with HgB 11.6, no radiation to active vomiting, hematemesis, tachycardia, low blood pressure, syncope, fever, severe abdominal pain. Severity is described as moderate. Palliating factors include 40mg protonix QD currently. Provoking factors include did start a kidney cleanse herbal tincture from an felt finisher named Flower in anticipation of his upcoming procedure and endorses peeing a lot more than usual. Patients' medical history: History of CABG X4, known upper GI bleeding, paroxysmal A-fib, history of bigeminy, CAD, diabetes, BPH. Family and social history: Noncontributory. Pertinent exam findings / vital signs include benign abdomen, stable vitals without hypotension or tachycardia, no paleness. Differential / pathologies of concern include known GI bleeding, anemia, unlikely hemorrhage, possibly misuse of an herbal supplement exacerbating his anemia by increased diuresis. Diagnostic studies of: - CBC, CMP, lactate, coagulation studies, magnesium, serial troponins, lipase, type and screen, EKG. - CBC shows a drop of hemoglobin from 11.6-10 0.1 over 4 days, not likely acute hemorrhage - Lactate is 2.3 - CMP is fairly unremarkable - Serial troponins negative - Lipase negative - Type and screen shows O+ with negative antibody screen - Coagulation studies benign - EKG shows sinus rhythm at 99 bpm and bigeminy which has been present in the past with no signs of ischemia Interventions of: - Discussed with surgeon on-call Dr. Serrano -recommends increasing his Protonix from 40 mg daily to 40 mg twice daily and starting 1 g Carafate 4 times daily AC and at bedtime -they will work to expedite and move up his date of scope he will likely need general anesthesia as he has not been off of his semaglutide for 2 weeks yet. ED Course/Assessment/Plan: 74-year-old male presents with increasing dizziness with no GI bleeding, has a drop of 1 g of hemoglobin over 4 days to a 10.1, no criteria for admission at this time, discussed with surgeon recommends picking medication changes over the weekend and they will follow-up with the patient Thursday morning, I did stress strict return criteria for any severe increase in his dizziness especially with unstable vitals. I counseled him to likely discontinue what ever herbal supplement he is taking that is causing increased diuresis as this is likely exacerbating his dizziness and fatigue that will be present with anemia. The patient verbalized understanding of this plan. Findings not consistent with GI hemorrhage, transfuse able anemia, peritoneal abdomen. Disposition of acute GI bleeding. Patient verbalized understanding of the plan and return to ED criteria and engaged in shared decision making. Medical Records Medical records reviewed: Yes I reviewed the patient's medical records. Lab Data Lab results reviewed: Yes I reviewed the patient's lab results. Labs: Laboratory Tests Range/Units 03/10/25 03/10/25 16:50 18:25 WBC (4.4-10.8) 10^3/uL 8.21 RBC (4.36-5.78) 10^6/uL 3.50 L Hgb (13.5-17.5) g/dL 10.1 L Hct (40.0-50.0) % 30.8 L MCV (80-95) fL 88 MCH (27.0-33.0) pg 28.9 MCHC (32.0-36.0) % 32.8 RDW (11.8-14.1) % 13.4 Plt Count (130-400) 10^3/uL 222 MPV (8.0-11.0) fL 10.1 Immature Gran % % 0.5 Neutrophils % % 74.5 Lymphocytes % % 18.4 Monocytes % % 5.0 Eosinophils % % 1.0 Basophils % % 0.6 Nucleated RBC % (0.0-0.3) % 0.0 Absolute Neutrophils (1.2-6.7) 10^3/uL 6.12 Absolute Lymphocytes (1.2-3.4) 10^3/uL 1.51 Absolute Monocytes (0.1-0.8) 10^3/uL 0.41 Absolute Eosinophils (0.0-0.7) 10^3/uL 0.08 Absolute Basophils (0.0-0.2) 10^3/uL 0.05 PT (9.1-11.1) sec 10.8 INR (0.9-1.1) 1.1 APTT (20.6-30.2) sec 25.4 VBG Lactate (<or=2.0) mmol/L 2.3 H* Sodium (136-145) mmol/L 140 Potassium (3.5-5.1) mmol/L 4.3 Chloride (98-107) mmol/L 104 Carbon Dioxide (21.0-32.0) mmol/L 29.0 Anion Gap (3-11) mmol/L 7.0 BUN (7-18) mg/dL 18 Creatinine (0.70-1.30) mg/dL 1.2 Est GFR (CKD-EPI 2020) (mL/min/1.73m2) 64.25 Glucose (74-106) mg/dL 120 H Calcium (8.5-10.1) mg/dL 10.2 H Magnesium (1.8-2.4) mg/dL 2.0 Total Bilirubin (0.2-1.0) mg/dL 0.5 Conjugated Bilirubin (0.0-0.2) mg/dL 0.1 AST (15-37) U/L 23 ALT (16-63) U/L 21 Alkaline Phosphatase (46-116) U/L 87 Troponin I (<or=76) ng/L 12 12 Total Protein (6.4-8.2) g/dL 7.2 Albumin (3.4-5.0) g/dL 3.6 Lipase (<78) U/L 20 ABO/Rh O Positive Antibody Screen NEGATIVE PFSH All Active Problems (Updated 03/10/25 @ 19:11 by SATYA Jansen) Acute GI bleeding (Acute) BRBPR (bright red blood per rectum) (Acute) Complaint of melena (Acute) GIB (gastrointestinal bleeding) (Chronic) Urinary retention due to benign prostatic hyperplasia (Acute) PAF (paroxysmal atrial fibrillation) (Acute) Anxiety (Chronic) Hypercalcemia (Acute) Lower urinary tract symptoms (LUTS) (Acute) Morbid obesity (Acute) Tinnitus (Acute) Hemorrhage, anal or rectal (Acute) Degenerative joint disease (Chronic) Low back pain (Acute) Elevated alkaline phosphatase level (Acute) Lipodystrophy (Acute) Seasonal allergies (Acute) Hypomagnesemia (Acute) Fatigue (Acute) Cataract (Chronic) Vitreous degeneration (Acute) CAD (coronary artery disease) (Chronic) Hip joint pain (Acute) Vitamin B 12 deficiency (Acute) Coronary disease (Chronic) a. Presented with worsening dysnea on exertion in December 2011. b. MPI testing showed a large reversible lesion in the anterior chest. c. Cardiac catheterization revealed significant four-vessel disease. d. S/P four-vessel coronary artery bypass grafting in January 2012, FERNANDEZ to the LAD, vein to the OM, first diagonal, and RCA. e. Atrial fibrillation postop. Diabetes (Chronic) a. Last hemoglobin A1c 7.5% in 01/2003. b. Markedly overweight. Sleep apnea, obstructive (Chronic) a. Wears nocturnal CPAP. Obesity (Chronic) a. Considering bariatric surgery. Hypertension (Chronic) Hyperlipidemia (Chronic) Depression (Chronic) History of tobacco use (Chronic) BPH (benign prostatic hypertrophy) (Chronic) Hearing loss (Chronic) Anemia (Chronic) History of Surgical Procedure (Chronic) a. Umbilical hernia repair, 2003. b. Hand surgery. Pes anserinus bursitis of right knee (Acute) Medical History Nodule on liver Ecchymosis Cholecystitis Chest pain a. Rule out GA. Adenomatous colon polyp Near syncope Disequilibrium Surgical History H/O umbilical hernia repair H/O left knee surgery Left knee patella and tendon repair afer injury 2012 S/P colonoscopy adenoma S/P CABG (coronary artery bypass graft) X3 Family History Mother , 68 abd cancer Cancer abdomenal Father , 73 heart Heart disease Daughter Hypertension Social History Smoking/Tobacco Use Status: Former Tobacco Use Quit Date: 06/22/72 Smoking risk assessment performed?: Yes Alcohol Intake: former Drug use: Rarely Substance use type: marijuana Housing: house Current gender identity: male Do you feel safe at home: Yes Do you feel safe in your relationship?: Yes
[2025-03-10 17:03] LABS: Abs Immature Grans 0.04 10^3/uL (0.0-0.06); HCT 30.8 % (40.0-50.0); HGB 10.1 g/dL (13.5-17.5); Immature Grans % 0.5 %; MCH 28.9 pg (27.0-33.0); MCHC 32.8 % (32.0-36.0); MCV 88 fL (80-95); MPV 10.1 fL (8.0-11.0); Platelet Count 222 10^3/uL (130-400); RBC 3.50 10^6/uL (4.36-5.78); RDW 13.4 % (11.8-14.1); RDW-SD 42.7 fL; WBC 8.21 10^3/uL (4.4-10.8)
[2025-03-10 17:17] LABS: Lipase 20 U/L (<78)
[2025-03-10 17:18] LABS: INR 1.1 (0.9-1.1); PTT Activated 25.4 sec (20.6-30.2); Prothrombin Time 10.8 sec (9.1-11.1)
[2025-03-10 17:23] LABS: ALT 21 U/L (16-63); AST 23 U/L (15-37); Albumin 3.6 g/dL (3.4-5.0); Alkaline Phosphatase 87 U/L (46-116); Anion Gap 7.0 mmol/L (3-11); BUN 18 mg/dL (7-18); Bilirubin, Direct 0.1 mg/dL (0.0-0.2); Bilirubin, Total 0.5 mg/dL (0.2-1.0); CO2 29.0 mmol/L (21.0-32.0); Calcium 10.2 mg/dL (8.5-10.1); Chloride 104 mmol/L (98-107); Estimated GFR 64.25 (mL/min/1.73m2); Glucose 120 mg/dL (74-106); Magnesium 2.0 mg/dL (1.8-2.4); Potassium 4.3 mmol/L (3.5-5.1); Sodium 140 mmol/L (136-145); Total Protein 7.2 g/dL (6.4-8.2); Troponin I 12 ng/L (<or=76)
[2025-03-10 18:54] LABS: Troponin I 12 ng/L (<or=76)
[2025-03-10] MEDS: Pantoprazole 40 MG TABCR PO (19:13)
[2025-03-10] MEDS: Sucralfate 1 GM TAB PO (19:13)
== END 2025-03-10 19:54 | disposition home or self-care (01) ==
PROVIDERS: Emergency Provider Physician Assistant; PCP Family Medicine
DX: K92.2 Gastrointestinal hemorrhage, unspecified (principal); R42 Dizziness and giddiness
CPT/HCPCS: 99284 ×2; 82962; 36416; 80048; 80076; 83690; 86850; 86900; 86901; 93005; 83605; 83735; 84484; 85025; 85610; 85730; 93010

== ENCOUNTER → 2025-03-15 14:18 | Outpatient (BNVA) | payer MEDICARE, SELFPAY | PROVIDERS: PCP Family Medicine; Referring Provider Family Medicine; Visit Provider Nurse Practitioner Gerontology | DX: R39.198 Other difficulties with micturition (principal) | CPT/HCPCS: 99213; 51798 ==

== ENCOUNTER 2025-03-16 07:36 | Day surgery (SDC) | payer MEDICARE, SELFPAY ==
[2025-03-16] MEDS: Na Phosphate Enema-Adult 133 ML BTL PR (07:48)
--- NOTE | 2025-03-16 08:10 | PDOC.DSDIS_ITS ---
Date of service: 03/16/25 Discharge Plan Disposition Patient Disposition: Home Condition: Stable Discharge Details Attending Provider: Louisa Serrano Primary Care Provider: Olga Borden V Recommendations for Follow Up Recommended tests to be ordered by follow up provider: anemia, melena, may need capsule endoscopy. Surgeon to follow up gastric polyp pathology and make appropriate referrals if needed. Home Meds and New Rx's Prescriptions: Discontinued bisacodyl 5 mg tablet,delayed release (DR/EC) 5 mg PO ONCE Qty: 4 0RF Rx Instructions: Per Colonoscopy bowel prep instructions polyethylene glycol 3350 17 gram/dose powder 238 g PO ONCE Qty: 238 0RF Rx Instructions: For Colonoscopy bowel prep, as directed by office sucralfate [Carafate] 1 gram tablet 1 g PO QACHS Qty: 30 0RF No Action finasteride 5 mg tablet 5 mg PO DAILY Qty: 90 3RF Trulicity 3 mg/0.5 mL pen injector 1.5 mg subcut QWEEK zinc sulfate 50 mg zinc (220 mg) capsule 50 mg PO DAILY cyanocobalamin (vitamin B-12) 1,000 mcg/mL solution 100 mcg IM [id number] Rx Instructions: (noted as Q3wk on PCP rx list) Linzess 72 mcg capsule See Rx Instructions PO DAILY Rx Instructions: dose unverified (PCP med list has 72mcg and 145mcg dose listed, each QD. Started by [facility]. tamsulosin 0.4 mg capsule 0.8 mg PO DAILY Qty: 60 3RF triamcinolone acetonide 0.025 % lotion 1 applic topical BID magnesium oxide 400 mg magnesium capsule 400 mg PO BID cholecalciferol (vitamin D3) 25 mcg (1,000 unit) capsule 50 mcg PO DAILY polyethylene glycol 3350 17 gram/dose powder 17 g PO BID aspirin [Adult Low Dose Aspirin] 81 MG tablet,delayed release (DR/EC) 81 mg PO DAILY nitroglycerin 0.4 MG tablet, sublingual 0.4 mg Sublingual DIRECTED PRN (Reason: Chest Pain) Qty: 25 0RF pantoprazole 40 mg tablet,delayed release (DR/EC) 40 mg PO DAILY Qty: 30 0RF insulin aspart U-100 [Novolog FlexPen U-100 Insulin] 100 unit/mL (3 mL) insulin pen 1 sliding scale dose SUBCUT TID Patient Comments: INJECT 20-25 UNITS BEFORE MEALS THREE TIMES A DAY , MAY USE AN ADDITIONAL 20 UNITS AT BEDTIME IF NEEDED, MAXIMUM DAILY DOSE = 100 UNITS PER saw palmetto 450 mg capsule 450 mg PO BID Qty: 30 0RF Rx Instructions: give with food (meal/snack) metoclopramide HCl [Reglan] 5 mg tablet 5 mg PO QAC Qty: 30 0RF Rx Instructions: administer 30 minutes before meals dicyclomine 10 mg capsule 10 mg PO TID PRN (Reason: abdominal pain) Qty: 30 0RF Discharge Instructions Additional Instructions: No obvious cause for the bleeding seen today. I suspect it was from gastritis stomach irritation, and that it has improved enough that the bleeding has stopped. EGD showed a hiatal hernia (which causes acid reflux), a stomach polyp, and gastritis (stomach lining irritation). Its possible the stomach lining irritation has just healed over from where it was worse before and bleeding for you. That is the most likely scenario. But no clear cause for bleeding seen in the stomach. You can stop taking sucralfate now. Continue to take pantoprazole 40mg twice a day for another month or two to ensure the stomach heals up. Colonoscopy was normal, just some mild diverticulosis. You should have another colonoscopy in 5 years. I will notify you about the atomach polyp biopsy result when it is available. It was a larger sized polyp. Stand Alone Forms: Anesthesia Discharge Inst., DSU Post EGD Instructions, Colonoscopy Post Instructions, Jerilyn Jalloh (DSU) Activity:: Activity as Tolerated Diet:: As Tolerated Discharge Orders Discharge Orders: Discharge Order (Routine); Ordered 03/16/25 Ordered By: Louisa Serrano DS: Diagnosis Discharge Diagnosis (1) Melena: Status: Acute (2) Acute GI bleeding: Status: Acute (3) Hiatal hernia with GERD without esophagitis: Status: Acute (4) Gastric polyp: Status: Acute (5) Gastritis: Status: Acute (6) Diverticulosis large intestine w/o perforation or abscess w/o bleeding: Status: Acute
[2025-03-16 08:11] VITALS: BP 122/60; PULSE 60; RESP 20; TEMP 36.5; O2SAT 99
--- NOTE | 2025-03-16 08:14 | W.PM.ENDDOP ---
Date of service: 03/16/25 Time of Service: 09:53 Endoscopy Report DATE OF PROCEDURE: 03/16/25 PRE-OP DIAGNOSIS: melena, GI bleeding POST-OP DIAGNOSIS: same PROCEDURE: EGD with biopsy SURGEON: Louisa Serrano ANESTHESIA TYPE: General:No Airway ESTIMATED BLOOD LOSS: 2 PATHOLOGY: other (1. antrum polyp. 2. Antrum biopsy) COMPLICATIONS: None DISPOSITION: same day PROCEDURE DESCRIPTION: Lubricated endoscope was passed through a bite block into the second portion of the duodenum. The endoscope was withdrawn and the duodenum stomach and esophageal mucosa examined. The duodenum appeared normal. There is no inflammation or ulceration or erosion. The antrum appears moderately inflamed. There are inflammatory changes around the pylorus. No ulceration. A 9mm sessile antral polyp was seen. It was solid and atypical for gastric polyp. Did not have the appearance of a fundic gland polyp. It was removed with hot snare and retrieved with a [employer]. Antrum biopsy obtained for H pylori testing. The fundus appears normal. The cardia appears normal. The endoscope was retroflexed and there is small hiatal hernia. GE junction is at 37cm from the incisors. The distal esophagus is normal without ulceration, varices or candidiasis. The Z-line is regular and there is no evidence of Whyte's esophagus. Remainder of the esophagus appears normal The upper digestive system was desufflated and the endoscope withdrawn. No complications. Assessment and plan: Antrum polyp Antral gastritis - moderate Hiatal hernia without esophagitis No clear/obvious source of bleeding seen, though gastritis may have bled prior to treatment with pantoprazole. Large antral polyp is unusual and suspicious for an adenomatous polyp. Will follow up pathology results and determine next steps in care . Discontinue carafate Continue pantoprazole BID
--- NOTE | 2025-03-16 08:15 | W.COLOREPORT ---
Date of service: 03/16/25 Time of Service: 09:57 Colonoscopy Report Date of procedure: 03/16/25 Pre-op diagnosis general: melena, GI bleed, anemia Post-op diagnosis procedure note: same (mild diverticulosis) Procedure: Colonoscopy Surgeon: Louisa Serrano Anesthesia Type: General:No Airway Estimated blood loss (mL): 0 Complications: None Prep: Miralax/Dulcolax (FAIR) Procedure Description: Informed consent was obtained and the patient was taken to the procedure area. The patient was placed in left lateral decubitus position on the procedure table. Timeout was performed. Anesthesia was induced. A lubricated colonoscope was inserted through the anus and passed to the cecum. The cecum was identified by the ileocecal valve and the appendiceal orifice. The scope was then slowly withdrawn and the colonic and rectal mucosa examined. There are no colon or rectal mass lesions, polyps, AVMs. There is no inflammatory change. Mild diverticulosis seen. The scope was retroflexed in the anorectal junction examined. Uncomplicated internal hemorrhoids present. Assessment and plan: Normal colonoscopy. No cause for anemia or melena. Next colonoscopy will be due in 5 years due to adenomatous polyps earlier this year.
[2025-03-16] MEDS: Lactated Ringers 1,000 ML 80 ML IV (08:26)
--- NOTE | 2025-03-16 08:33 | W.ANESPRE ---
General Info Date of Service Date Performed: 03/16/25 Height: 5 ft 8 in Weight: 106.8 kg Body Mass Index (BMI): 35.8 Surgical Procedure: Operation Date: 03/16/25 09:35 Proposed Procedure Side Surgeon p Colonoscopy/Gastroscopy Louisa Serrano MD Meds Allergies and Home Medications Allergies Allergy/AdvReac Type Severity Reaction Status Date / Time bupropion HCl (From Allergy Unknown Other (See Verified 03/16/25 08:04 Wellbutrin) Comment) erythromycin base Allergy Unknown Other (See Verified 03/16/25 08:04 Comment) pravastatin sodium (From Allergy Unknown Other (See Verified 03/16/25 08:04 Pravachol) Comment) Penicillins Allergy Other (See Verified 03/16/25 08:04 Comment) lisinopril AdvReac Other (See Verified 03/16/25 08:04 Comment) Home Medication ?Medication ?Instructions ?Recorded aspirin 81 mg tablet,delayed 81 mg PO DAILY 12/14/13 release (Adult Low Dose Aspirin) nitroglycerin 0.4 mg sublingual 0.4 mg sublingual DIRECTED PRN 12/15/13 tablet Chest Pain ##25 magnesium oxide 400 mg PO BID 10/21/21 triamcinolone acetonide 0.025 % 1 applic topical BID 10/21/21 lotion insulin aspart U-100 100 unit/mL 1 sliding scale dose subcut TID 07/22/24 (3 mL) subcutaneous pen (Novolog FlexPen U-100 Insulin aspart) saw palmetto 450 mg capsule 450 mg PO BID #30 caps 07/29/24 dicyclomine 10 mg capsule 10 mg PO TID PRN abdominal pain 08/09/24 #30 caps metoclopramide HCl 5 mg tablet 5 mg PO QAC #30 tabs 08/09/24 (Reglan) dulaglutide 3 mg/0.5 mL 1.5 mg subcut QWEEK 09/20/24 subcutaneous pen injector (Trulicity) zinc sulfate 50 mg zinc (220 mg) 50 mg PO DAILY 09/20/24 capsule cholecalciferol (vitamin D3) 25 50 mcg PO DAILY 10/03/24 mcg (1,000 unit) capsule cyanocobalamin (vitamin B-12) 100 mcg IM [id number] 10/03/24 1,000 mcg/mL injection solution linaclotide 72 mcg capsule See Rx Instructions PO DAILY 10/03/24 (Linzess) finasteride 5 mg tablet 5 mg PO DAILY #90 tabs 11/01/24 polyethylene glycol 3350 17 17 g PO BID 01/18/25 gram/dose oral powder tamsulosin 0.4 mg capsule 0.8 mg (2 x 0.4 mg) PO DAILY #60 01/19/25 caps pantoprazole 40 mg tablet,delayed 40 mg PO DAILY #30 tabs 03/03/25 release Held on 03/10/25. Instructions: Resume on 03/11/25. TAKE 40mg TWICE PER DAY BY MOUTH starting tomorrow sucralfate 1 gram tablet (Carafate) 1 g PO QACHS #30 tabs 03/10/25 Current Visit Medications: Current Medications Generic Name Dose Route Start Last Admin Trade Name Freq PRN Reason Stop Dose Admin Ringer's Solution 1,000 mls @ 80 mls/hr 03/16/25 06:00 03/16/25 08:26 IV 03/16/25 23:59 80 mls/hr INFUSION ARIES Administration IV Miscellaneous Supplies 1 each 03/16/25 06:00 Iv Access IV 03/16/25 23:59 DIRECTED ARIES Sodium Biphosphate/Sodium Phosphate 133 - 266 ml 03/16/25 06:00 03/16/25 07:48 Na Phosphate Enema-Adult 133 Ml Btl CO 03/16/25 23:59 1 btl PRN PRN Administration Sodium Chloride 0 ml 03/16/25 06:00 Normal Saline Flush 10 Ml Syr IV 03/16/25 23:59 PRN PRN Sodium Chloride 0 ml 03/16/25 06:00 Normal Saline 10 Ml Vial IJ 03/16/25 23:59 DIRECTED PRN Sterile Water 0 ml 03/16/25 06:00 Water,Injection,Sterile 10 Ml Vial IJ 03/16/25 23:59 DIRECTED PRN PFSH Active Problems Active Problems: Problem Status Onset Code Acute blood loss anemia Acute D62 Melena Acute K92.1 Acute GI bleeding Acute K92.2 BRBPR (bright red blood per rectum) Acute K62.5 Complaint of melena Acute K92.1 GIB (gastrointestinal bleeding) Chronic K92.2 Posterior subcapsular age-related cataract, right eye Resolved H25.041 Nuclear age-related cataract, right eye Resolved H25.11 Posterior subcapsular age-related cataract of left eye Resolved H25.042 Nuclear age-related cataract, left eye Resolved H25.12 Urinary retention due to benign prostatic hyperplasia Acute N40.1, R33.8 Anxiety Chronic F41.9 Hypercalcemia Acute E83.52 PAF (paroxysmal atrial fibrillation) Acute I48.0 Lower urinary tract symptoms (LUTS) Acute R39.9 Morbid obesity Acute E66.01 Tinnitus Acute H93.19 Hemorrhage, anal or rectal Acute K62.5 Degenerative joint disease Chronic M19.90 Low back pain Acute M54.50 Elevated alkaline phosphatase level Acute R74.8 Lipodystrophy Acute E88.1 Seasonal allergies Acute J30.2 Hypomagnesemia Acute E83.42 Fatigue Acute R53.83 Cataract Chronic H26.9 Vitreous degeneration Acute H43.819 CAD (coronary artery disease) Chronic I25.10 Hip joint pain Acute M25.559 Vitamin B 12 deficiency Acute E53.8 Pes anserinus bursitis of right knee Acute M70.51 History of Surgical Procedure Chronic Z98.89 Anemia Chronic D64.9 Hearing loss Chronic H91.90 BPH (benign prostatic hypertrophy) Chronic N40.0 History of tobacco use Chronic Z87.891 Depression Chronic F32.9 Hyperlipidemia Chronic E78.5 Hypertension Chronic I10 Obesity Chronic E66.9 Sleep apnea, obstructive Chronic G47.33 Diabetes Chronic E11.9 Coronary disease Chronic I25.10 Medical History Medical History Nodule on liver Ecchymosis Cholecystitis Chest pain a. Rule out SC. Adenomatous colon polyp Near syncope Disequilibrium Surgical History Surgical History H/O umbilical hernia repair H/O left knee surgery Left knee patella and tendon repair afer injury 2012 S/P colonoscopy adenoma S/P CABG (coronary artery bypass graft) X4 Tobacco Smoking/Tobacco Use Status: Former Tobacco Use Passive smoking exposure: No Alcohol Alcohol Intake: former Substance Use Substance use: Never Substance use type: former substance user Vital Signs and Lab Results Vital Signs Most Recent Vital Signs in EMR: Most Recent Vital Signs Temp Pulse Resp BP Pulse Ox 36.5 C 60 20 122/60 99 03/16/25 08:11 03/16/25 08:11 03/16/25 08:11 03/16/25 08:11 03/16/25 08:11 Point of Care Results Point of Care Results: Finger Stick Blood Glucose 140 03/16/25 08:14 Lab Results Blood Type / Crossmatch: Antibody Screen NEGATIVE 03/10/25 Complete Blood Count: WBC, (4.4-10.8) 8.21 10^3/uL 03/10/25, 16:50 RBC, (4.36-5.78) 3.50 10^6/uL L 03/10/25, 16:50 Hgb, (13.5-17.5) 10.1 g/dL L 03/10/25, 16:50 Hct, (40.0-50.0) 30.8 % L 03/10/25, 16:50 Plt Count, (130-400) 222 10^3/uL 03/10/25, 16:50 VBG Lactate, (<or=2.0) 2.3 mmol/L H* 03/10/25, 16:50 Complete Metabolic Panel: Sodium, (136-145) 140 mmol/L 03/10/25, 16:50 Potassium, (3.5-5.1) 4.3 mmol/L 03/10/25, 16:50 Chloride, (98-107) 104 mmol/L 03/10/25, 16:50 Carbon Dioxide, (21.0-32.0) 29.0 mmol/L 03/10/25, 16:50 BUN, (7-18) 18 mg/dL 03/10/25, 16:50 Creatinine, (0.70-1.30) 1.2 mg/dL 03/10/25, 16:50 Est GFR (CKD-EPI 2020), (mL/min/1.73m2) 64.25 03/10/25, 16:50 Magnesium, (1.8-2.4) 2.0 mg/dL 03/10/25, 16:50 Calcium, (8.5-10.1) 10.2 mg/dL H 03/10/25, 16:50 Albumin, (3.4-5.0) 3.6 g/dL 03/10/25, 16:50 Glucose, (74-106) 120 mg/dL H 03/10/25, 16:50 Liver Function Panel: ALT, (16-63) 21 U/L 03/10/25, 16:50 AST, (15-37) 23 U/L 03/10/25, 16:50 Coagulation Panel: INR, (0.9-1.1) 1.1 03/10/25, 16:50 PT, (9.1-11.1) 10.8 sec 03/10/25, 16:50 APTT, (20.6-30.2) 25.4 sec 03/10/25, 16:50 Cardiac Panel: Troponin I, (<or=76) 12 ng/L 03/10/25 Pancreas Panel: Lipase, (<78) 20 U/L 03/10/25, 16:50 Imaging and Studies Imaging and Studies Study information below may be from another EMR and interpreted by another provider. Please see original notes in EMR for more complete details. EKG Summary: 08/04/24: Exam: Resting ECG Reason for Exam: DINA, taishak Patient Location: E HR:98 bpm ECG Measurements Heart Rate 98 AXIS CO 183 P 33 QRSd 90 QRS 45 QT 361 T34 QTc 460 Conclusion Sinus rhythm, rate 98 No interval abnormalities No STEMI Compared to priors, bigeminy has resolved I have reviewed and I agree with the emergency room physician's ECG interpretation. Anesthesia Assessment and Plan Anesthesia History Personal History: Delayed Emergence Family History: No Family History of Anesthesia Complications Exercise Tolerance Exercise Tolerance: Metabolic Equivalents>4 Pertinent Negatives Pertinent Negatives: No Symptoms of GERD, No Major Cardiovascular Symptoms or Complaints and No Major Pulmonary Symptoms or Complaints Cardiac & Pulmonary Exam Cardiac Exam: Normal S1/S2 Heart Sounds Pulmonary Exam: Clear Bilateral Breath Sounds Implantable Cardiac Device Does patient have a Pacemaker or an ICD?: No Airway Exam Known Difficult Airway: No Mallampati Class: 3 Mouth Opening: Normal (> 3cm) Thyromental Distance: Greater than 3 cm Facial Hair: Full Beal Neck Range of Motion: Full ROM Neck Circumference: Thick Teeth Condition: Generalized Poor Dentition ASA Classification ASA Score: ASA 3 Emergency Case?: No NPO Status NPO Status: NPO Clears >2 hours, Solids >8 hours Anesthesia Plan Resuscitation Status: Full Code Anesthesia Technique: General Anesthesia Airway Planned: Natural Airway Monitors Used: Standard Monitors
[2025-03-16 08:34] VITALS: BMI 35.8
--- NOTE | 2025-03-16 09:22 | STOM_PTH ---
PATIENT: [place] LOC: [facility] U#:[id number] AGE/SX: 74/M ROOM: RE03/16/[address]: Louisa Serrano MD : 1950 BED: DIS: 03/16/2025 SPEC #: [id number] RECD: 03/16/25 12:09 STATUS: BERNARDINO MURRAY #: [id number] MAU: 03/16/25 09:[address]: Louisa Serrano DEPT: Surgical Specimen RECD BY: Ethel Small ENTERED: 03/16/25 12:11 SP TYPE: STOMACH OTHR DR: Olga Borden V Tissues: 1 - STOMACH BIOPSY 2 - STOMACH BIOPSY Procedures: GROSS AND MICRO LEVEL 4 Comments: [id number]
[2025-03-16 09:53] VITALS: BP 108/57; PULSE 55; RESP 17; TEMP 36.4; O2SAT 96
--- NOTE | 2025-03-16 10:07 | W.ANESPOSTOP ---
Postoperative Evaluation Date, Time and Location Date Performed: 03/16/25 Time Performed: 10:07 Patient Location: Day Surgery Unit Vital Signs Most Recent Imported Vital Signs: Most Recent Vital Signs Temp Pulse Resp BP Pulse Ox 36.4 C L 55 L 17 108/57 L 96 03/16/25 09:53 03/16/25 09:53 03/16/25 09:53 03/16/25 09:53 03/16/25 09:53 Pain Score Most Recent Pain Score: Most Recent Pain Score Pain Level 0 03/16/25 09:53 Assessment Mental Status: Awake (Alert & Oriented to Patient Baseline) Airway and Respiratory Function: Patent airway with normal (patient baseline) respiratory exam Cardiovascular Function: Hemodynamically Stable Hydration Status: Adequately Hydrated Nausea & Vomiting: No Nausea or Vomiting Pain: Pt. Denies Any Pain Peripheral Nerve Block: Patient did not receive a nerve block
[2025-03-16 10:15] VITALS: BP 121/62; PULSE 63; RESP 16; TEMP 36.3; O2SAT 97
== END 2025-03-16 10:45 | disposition home or self-care (01) ==
LOC: SUR 07:36
PROVIDERS: PCP Family Medicine; Visit Provider Surgery
PROC: (CPT 43239; principal; 2025-03-16 09:30)
DX: K92.1 Melena (principal); D64.9 Anemia, unspecified; K31.7 Polyp of stomach and duodenum; K57.30 Diverticulosis of large intestine without perforation or abscess without bleeding; K44.9 Diaphragmatic hernia without obstruction or gangrene; G47.33 Obstructive sleep apnea (adult) (pediatric); I10 Essential (primary) hypertension; K29.50 Unspecified chronic gastritis without bleeding; Z86.0101 Personal history of adenomatous and serrated colon polyps; K31.A29 Gastric intestinal metaplasia with dysplasia, unspecified
CPT/HCPCS: 43239; G0105; 88305; J2003; J2704

== ENCOUNTER → 2025-03-30 13:55 | Outpatient (BNVA) | payer MEDICARE, SELFPAY | PROVIDERS: PCP Family Medicine; Visit Provider Internal Medicine Cardiovascular Disease | DX: I25.810 Atherosclerosis of coronary artery bypass graft(s) without angina pectoris (principal) | CPT/HCPCS: 99213; 51798 ==

== ENCOUNTER → 2025-03-30 13:56 | Outpatient (BNVA) | payer MEDICARE, SELFPAY | PROVIDERS: PCP Family Medicine; Referring Provider Family Medicine; Visit Provider Nurse Practitioner Gerontology | DX: R39.198 Other difficulties with micturition (principal); R39.9 Unspecified symptoms and signs involving the genitourinary system | CPT/HCPCS: 99213; 51798 ==

== ENCOUNTER → 2025-04-19 15:15 | Outpatient (BNVA) | payer MEDICARE, SELFPAY | PROVIDERS: PCP Family Medicine; Referring Provider Family Medicine; Visit Provider Nurse Practitioner Gerontology | DX: R39.9 Unspecified symptoms and signs involving the genitourinary system (principal); K59.00 Constipation, unspecified | CPT/HCPCS: 99214; 51798 ==

== ENCOUNTER → 2025-04-25 07:55 | Outpatient (BNVA) | payer MEDICARE, SELFPAY | PROVIDERS: PCP Family Medicine; Referring Provider Family Medicine; Visit Provider Nurse Practitioner Gerontology | DX: K59.00 Constipation, unspecified (principal); N40.1 Benign prostatic hyperplasia with lower urinary tract symptoms; R33.8 Other retention of urine; R39.9 Unspecified symptoms and signs involving the genitourinary system | CPT/HCPCS: 99214; 81002; 51798 ==

== ENCOUNTER 2025-04-25 10:25 | Outpatient (REF) | payer MEDICARE, SELFPAY ==
[2025-04-25 12:08] LABS: Glucose Negative (Negative)
== END 2025-04-25 10:26 | disposition home or self-care (01) ==
LOC: LBN 10:25
PROVIDERS: PCP Family Medicine; Visit Provider Nurse Practitioner Gerontology
DX: R39.9 Unspecified symptoms and signs involving the genitourinary system (principal)
CPT/HCPCS: 81003

== ENCOUNTER → 2025-05-02 14:08 | Outpatient (BNVA) | payer MEDICARE, SELFPAY | PROVIDERS: PCP Family Medicine; Referring Provider Family Medicine; Visit Provider Nurse Practitioner Gerontology | DX: R33.8 Other retention of urine (principal); K59.00 Constipation, unspecified; R39.9 Unspecified symptoms and signs involving the genitourinary system | CPT/HCPCS: 99214; 81002; 51798 ==

== ENCOUNTER 2025-05-03 20:21 | Emergency (ER) | payer MEDICARE, SELFPAY ==
[2025-05-03 20:25] VITALS: BP 165/76; PULSE 66; RESP 20; TEMP 36.9; O2SAT 98
[2025-05-03 20:30] VITALS: BP 165/76; PULSE 66; RESP 20; TEMP 36.9; O2SAT 98
--- NOTE | 2025-05-03 22:25 | W.ED.GENAD ---
Discharge Plan Disposition Patient Disposition: Home Condition: Good Discharge Details Clinical Impression: Constipation Primary Care Provider: Olga Borden V ED Provider: Hal Rose Home Meds and New Rx's Prescriptions: No Action finasteride 5 mg tablet 5 mg PO DAILY Qty: 90 3RF Trulicity 3 mg/0.5 mL pen injector 1.5 mg subcut QWEEK zinc sulfate 50 mg zinc (220 mg) capsule 50 mg PO DAILY cyanocobalamin (vitamin B-12) 1,000 mcg/mL solution 100 mcg IM [id number] Rx Instructions: (noted as Q3wk on PCP rx list) Linzess 72 mcg capsule See Rx Instructions PO DAILY Rx Instructions: dose unverified (PCP med list has 72mcg and 145mcg dose listed, each QD. Started by [facility]. tamsulosin 0.4 mg capsule 0.8 mg PO DAILY Qty: 60 3RF triamcinolone acetonide 0.025 % lotion 1 applic topical BID cholecalciferol (vitamin D3) 25 mcg (1,000 unit) capsule 50 mcg PO DAILY polyethylene glycol 3350 17 gram/dose powder 17 g PO BID magnesium oxide 400 mg magnesium capsule 400 mg PO DAILY aspirin [Adult Low Dose Aspirin] 81 MG tablet,delayed release (DR/EC) 81 mg PO DAILY nitroglycerin 0.4 MG tablet, sublingual 0.4 mg Sublingual DIRECTED PRN (Reason: Chest Pain) Qty: 25 0RF pantoprazole 40 mg tablet,delayed release (DR/EC) 40 mg PO DAILY Qty: 30 0RF insulin aspart U-100 [Novolog FlexPen U-100 Insulin] 100 unit/mL (3 mL) insulin pen 1 sliding scale dose SUBCUT TID Patient Comments: INJECT 20-25 UNITS BEFORE MEALS THREE TIMES A DAY , MAY USE AN ADDITIONAL 20 UNITS AT BEDTIME IF NEEDED, MAXIMUM DAILY DOSE = 100 UNITS PER saw palmetto 450 mg capsule 450 mg PO BID Qty: 30 0RF Rx Instructions: give with food (meal/snack) dicyclomine 10 mg capsule 10 mg PO TID PRN (Reason: abdominal pain) Qty: 30 0RF Discharge Instructions Instructions: Constipation, Adult ED Additional Instructions: At this time your primary symptomatology appears consistent with constipation based on your history and exam. Please take the magnesium citrate and drink the entire bottle, and following up with 4 to 6 cups of water or electrolyte solution. This should bring about resolution of the constipation. At this time because of your history of multiple radiation based diagnostic images in the past, as well as your current clinical exam and history, we have elected to hold off on any imaging for the time being as your symptoms appear consistent with constipation. However, if you do not have improvement, or you have worsening pain, vomiting, fever or chills this could represent a different etiology that needs further evaluation with potential CT imaging. So if you do notice this change, please return immediately for reassessment. If you notice any worsening of your symptoms, or any new symptoms such as vomiting, diarrhea, fever, chills, shortness of breath, chest pain, numbness, weakness, or fainting , please return immediately to the emergency department for reevaluation. Please follow up with your primary care provider as soon as possible for reassessment and reevaluation. As always, it was a pleasure participating in your medical care today. Stand Alone Forms: Portal Information Referrals: Olga Borden MD [Primary Care Provider, Medicine] Discharge Data Discharge Date/Time-TO BE ENTERED AT DEPARTURE: 05/03/25 22:52 HPI General Date/Time Provider Initiated Documentation: 05/03/25 20:52. HPI Narrative: This is a 74-year-old male with a past medical history of paroxysmal atrial fibrillation, anxiety, lower urinary tract symptoms, coronary artery disease, type 2 diabetes mellitus, hypertension, high cholesterol, BPH, constipation, and occasional diarrhea, who presents today for evaluation of constipation. Patient states that for the last 4 days he has not had any regular bowel movements. He has had a few very small stools that have come out with significant effort. He has mild generalized abdominal cramping throughout. To help with this he has taken a suppository x 2, MiraLAX, slippery elm, and 2 enemas, none of which have resolved the symptoms. He states that the enemas and the MiraLAX did help bring about those very very small bowel movements, but most of it was just the same watery fluid that was otherwise inserted. He denies any vomiting. Cramping is very mild. He denies fever or chills. No blood. No other complaints at this time. Related Data Home Medications Medication Instructions Recorded Confirmed aspirin 81 mg tablet,delayed 81 mg PO DAILY 12/14/13 05/03/25 release (Adult Low Dose Aspirin) nitroglycerin 0.4 mg sublingual 0.4 mg sublingual DIRECTED PRN 12/15/13 05/03/25 tablet Chest Pain ##25 triamcinolone acetonide 0.025 % 1 applic topical BID 10/21/21 05/03/25 lotion insulin aspart U-100 100 unit/mL 1 sliding scale dose subcut TID 07/22/24 05/03/25 (3 mL) subcutaneous pen (Novolog FlexPen U-100 Insulin aspart) saw palmetto 450 mg capsule 450 mg PO BID #30 caps 07/29/24 05/03/25 dicyclomine 10 mg capsule 10 mg PO TID PRN abdominal pain 08/09/24 05/03/25 #30 caps dulaglutide 3 mg/0.5 mL 1.5 mg subcut QWEEK 09/20/24 05/03/25 subcutaneous pen injector (Trulicity) zinc sulfate 50 mg zinc (220 mg) 50 mg PO DAILY 09/20/24 05/03/25 capsule cholecalciferol (vitamin D3) 25 50 mcg PO DAILY 10/03/24 05/03/25 mcg (1,000 unit) capsule cyanocobalamin (vitamin B-12) 100 mcg IM [id number] 10/03/24 05/03/25 1,000 mcg/mL injection solution linaclotide 72 mcg capsule See Rx Instructions PO DAILY 10/03/24 05/03/25 (Linzess) finasteride 5 mg tablet 5 mg PO DAILY #90 tabs 11/01/24 05/03/25 polyethylene glycol 3350 17 17 g PO BID 01/18/25 05/03/25 gram/dose oral powder tamsulosin 0.4 mg capsule 0.8 mg (2 x 0.4 mg) PO DAILY #60 01/19/25 05/03/25 caps pantoprazole 40 mg tablet,delayed 40 mg PO DAILY #30 tabs 03/03/25 05/03/25 release Held on 03/10/25. Instructions: Resume on 03/11/25. TAKE 40mg TWICE PER DAY BY MOUTH starting tomorrow magnesium oxide 400 mg PO DAILY 03/30/25 05/03/25 Previous Rx's Medication Instructions Recorded nitroglycerin 0.4 mg sublingual 0.4 mg sublingual DIRECTED PRN 12/15/13 tablet Chest Pain ##25 saw palmetto 450 mg capsule 450 mg PO BID #30 caps 07/29/24 dicyclomine 10 mg capsule 10 mg PO TID PRN abdominal pain 08/09/24 #30 caps finasteride 5 mg tablet 5 mg PO DAILY #90 tabs 11/01/24 tamsulosin 0.4 mg capsule 0.8 mg (2 x 0.4 mg) PO DAILY #60 01/19/25 caps pantoprazole 40 mg tablet,delayed 40 mg PO DAILY #30 tabs 03/03/25 release Held on 03/10/25. Instructions: Resume on 03/11/25. TAKE 40mg TWICE PER DAY BY MOUTH starting tomorrow Allergies Allergy/AdvReac Type Severity Reaction Status Date / Time bupropion HCl (From Allergy Unknown Other (See Verified 05/03/25 20:31 Wellbutrin) Comment) erythromycin base Allergy Unknown Other (See Verified 05/03/25 20:31 Comment) pravastatin sodium (From Allergy Unknown Other (See Verified 05/03/25 20:31 Pravachol) Comment) Penicillins Allergy Other (See Verified 05/03/25 20:31 Comment) lisinopril AdvReac Other (See Verified 05/03/25 20:31 Comment) General Stated Complaint: Abd Prob LUX: 3 Exam Narrative Exam Narrative: 1.Const: Well-nourished, Well-developed, appearing stated age 2.Eyes: PERRL, no conjunctival injection, and symmetrical lids. 3.ENT: Atraumatic external nose and ears. Moist MM. Neck: Symmetric, trachea midline, No thyromegaly. 4.CVS: +S1/S2, Peripheral pulses 2+ and equal in all extremities. Brisk capillary refill in all extremities. 5.RESP: Unlabored respiratory effort. Clear to auscultation bilaterally. No wheezes rales or rhonchi 6.GI: Soft, Nontender, No hepatosplenomegaly. No guarding or rebound. Mild achiness on palpation throughout, no significant focality. No pain at McBurney's point, negative Loving sign. Rectal exam was performed and demonstrates no large hard stool ball in the rectal vault. 7.MSK: Normocephalic/Atraumatic, Extremities w/o deformity or ttp No cyanosis or clubbing, Normal movement of all extremities 8.Skin: Warm, Dry. No rashes or lesions. 9.Neuro: cloth beamer II-XII grossly intact. Sensation grossly intact, no focal neurologic deficits. 10.Psych: (AAO) x3. Appropriate mood and affect Course Vital Signs Vital signs: Vital Signs Temperature 36.9 C 05/03/25 20:25 Pulse 66 05/03/25 20:25 Respiratory Rate 20 05/03/25 20:25 Blood Pressure 165/76 H 05/03/25 20:25 Pulse Oximetry 98 05/03/25 20:25 Temperature 36.9 C 05/03/25 20:30 Pulse 66 05/03/25 20:30 Respiratory Rate 20 05/03/25 20:30 Blood Pressure 165/76 H 05/03/25 20:30 Blood Pressure Position Sitting 05/03/25 20:30 Pulse Oximetry 98 05/03/25 20:30 Oxygen Delivery Method Room Air 05/03/25 20:30 Oxygen Flow Rate 0 05/03/25 20:30 Medical Decision Making this is a 74-year-old male with a past medical history of paroxysmal atrial fibrillation, anxiety, lower urinary tract symptoms, coronary artery disease, type 2 diabetes mellitus, hypertension, high cholesterol, BPH, constipation, and occasional diarrhea, who presents today for evaluation of constipation. Patient states that for the last 4 days he has not had any regular bowel movements. He has had a few very small stools that have come out with significant effort. He has mild generalized abdominal cramping throughout. To help with this he has taken a suppository x 2, MiraLAX, slippery elm, and 2 enemas, none of which have resolved the symptoms. He states that the enemas and the MiraLAX did help bring about those very very small bowel movements, but most of it was just the same watery fluid that was otherwise inserted. He denies any vomiting. Cramping is very mild. He denies fever or chills. No blood. No other complaints at this time. Exam demonstrates mild generalized abdominal achiness on palpation without focality. No pain at McBurney's point, negative Loving sign. No evidence of guarding or rebound to suggest an acute surgical abdomen. Rectal exam shows no hard stool ball in the rectal vault. Patient has had multiple CT images performed in the past. He has no fever or chills or focal left lower quadrant pain to suggest diverticulitis clinically at this time. He has no vomiting to suggest obstruction. No right lower quadrant tenderness to suggest acute appendicitis. I had a long discussion with the patient, we also discussed imaging, and through shared decision making process we will hold off for the time being as his signs and symptoms appear clinically consistent with constipation, and do not appear clinically consistent with the other aforementioned conditions. We will give mag citrate, recommend water chasers, and prompt return if symptomatology worsens changes or does not improve over the next 12 to 24 hours. Patient agrees with plan. Discussed red flags for which to return. I have extensively reviewed the treatment plan and discharge instructions with the patient. I have addressed all patient concerns at this time. The patient was made aware of what symptoms to monitor for that would warrant a return to the emergency department. Discussed the plan with the patient, they demonstrate verbal understanding and agreement with our assessment and plan at this time. The documentation in this chart was dictated using [employer] dictation software. Please excuse any dictation errors. PFSH All Active Problems (Updated 05/03/25 @ 22:28 by Hal Rose DO) Constipation (Acute) Diverticulosis large intestine w/o perforation or abscess w/o bleeding (Acute) Gastritis (Acute) Gastric polyp (Acute) Hiatal hernia with GERD without esophagitis (Acute) Acute blood loss anemia (Acute) Melena (Acute) Urinary retention due to benign prostatic hyperplasia (Acute) Anxiety (Chronic) Hypercalcemia (Acute) PAF (paroxysmal atrial fibrillation) (Acute) Lower urinary tract symptoms (LUTS) (Acute) Morbid obesity (Acute) Tinnitus (Acute) Hemorrhage, anal or rectal (Acute) Degenerative joint disease (Chronic) Low back pain (Acute) Elevated alkaline phosphatase level (Acute) Lipodystrophy (Acute) Seasonal allergies (Acute) Hypomagnesemia (Acute) Fatigue (Acute) Cataract (Chronic) Vitreous degeneration (Acute) CAD (coronary artery disease) (Chronic) Hip joint pain (Acute) Vitamin B 12 deficiency (Acute) Pes anserinus bursitis of right knee (Acute) History of Surgical Procedure (Chronic) a. Umbilical hernia repair, 2004. b. Hand surgery. Anemia (Chronic) Hearing loss (Chronic) BPH (benign prostatic hypertrophy) (Chronic) History of tobacco use (Chronic) Depression (Chronic) Hyperlipidemia (Chronic) Hypertension (Chronic) Obesity (Chronic) a. Considering bariatric surgery. Sleep apnea, obstructive (Chronic) a. Wears nocturnal CPAP. Diabetes (Chronic) a. Last hemoglobin A1c 7.5% in 01/2003. b. Markedly overweight. Coronary disease (Chronic) a. Presented with worsening dysnea on exertion in December 2011. b. MPI testing showed a large reversible lesion in the anterior chest. c. Cardiac catheterization revealed significant four-vessel disease. d. S/P four-vessel coronary artery bypass grafting in January 2012, FERNANDEZ to the LAD, vein to the OM, first diagonal, and RCA. e. Atrial fibrillation postop. Medical History Nodule on liver Ecchymosis Cholecystitis Chest pain a. Rule out IN. Adenomatous colon polyp Near syncope Disequilibrium Surgical History History of esophagogastroduodenoscopy (~03/16/25) H/O umbilical hernia repair H/O left knee surgery Left knee patella and tendon repair afer injury 2012 S/P colonoscopy (~03/16/25) adenoma S/P CABG (coronary artery bypass graft) X4 Family History Mother , 68 abd cancer Cancer abdomenal Father , 73 heart Heart disease Daughter Hypertension Social History Smoking/Tobacco Use Status: Former Tobacco Use Quit Date: 06/22/72 Smoking risk assessment performed?: Yes Alcohol Intake: former Drug use: Never Substance use type: former substance user Housing: house Current gender identity: male Do you feel safe at home: Yes Do you feel safe in your relationship?: Yes
[2025-05-03] MEDS: Magnesium Citrate 300 ML BTL PO (22:45)
== END 2025-05-03 22:52 | disposition home or self-care (01) ==
PROVIDERS: Emergency Provider Student in an Organized Health Care Education/Training Program; PCP Family Medicine
DX: K59.00 Constipation, unspecified (principal)
CPT/HCPCS: 99283 ×2

== ENCOUNTER 2025-05-09 00:46 | Emergency (ER) | payer MEDICARE, SELFPAY ==
--- NOTE | 2025-05-09 00:51 | W.ED.GENAD ---
Discharge Plan Disposition Patient Disposition: Home Condition: Good Discharge Details Clinical Impression: Lower urinary tract symptoms (LUTS), Constipation Primary Care Provider: Olga Borden V ED Provider: Miguel Angel Hansen Home Meds and New Rx's Prescriptions: Continued finasteride 5 mg tablet 5 mg PO DAILY Qty: 90 3RF Trulicity 3 mg/0.5 mL pen injector 1.5 mg subcut QWEEK zinc sulfate 50 mg zinc (220 mg) capsule 50 mg PO DAILY cyanocobalamin (vitamin B-12) 1,000 mcg/mL solution 100 mcg IM [id number] Rx Instructions: (noted as Q3wk on PCP rx list) Linzess 72 mcg capsule See Rx Instructions PO DAILY Rx Instructions: dose unverified (PCP med list has 72mcg and 145mcg dose listed, each QD. Started by [facility]. tamsulosin 0.4 mg capsule 0.8 mg PO DAILY Qty: 60 3RF triamcinolone acetonide 0.025 % lotion 1 applic topical BID cholecalciferol (vitamin D3) 25 mcg (1,000 unit) capsule 50 mcg PO DAILY polyethylene glycol 3350 17 gram/dose powder 17 g PO BID magnesium oxide 400 mg magnesium capsule 400 mg PO DAILY aspirin [Adult Low Dose Aspirin] 81 MG tablet,delayed release (DR/EC) 81 mg PO DAILY nitroglycerin 0.4 MG tablet, sublingual 0.4 mg Sublingual DIRECTED PRN (Reason: Chest Pain) Qty: 25 0RF pantoprazole 40 mg tablet,delayed release (DR/EC) 40 mg PO DAILY Qty: 30 0RF insulin aspart U-100 [Novolog FlexPen U-100 Insulin] 100 unit/mL (3 mL) insulin pen 1 sliding scale dose SUBCUT TID Patient Comments: INJECT 20-25 UNITS BEFORE MEALS THREE TIMES A DAY , MAY USE AN ADDITIONAL 20 UNITS AT BEDTIME IF NEEDED, MAXIMUM DAILY DOSE = 100 UNITS PER saw palmetto 450 mg capsule 450 mg PO BID Qty: 30 0RF Rx Instructions: give with food (meal/snack) dicyclomine 10 mg capsule 10 mg PO TID PRN (Reason: abdominal pain) Qty: 30 0RF Discharge Instructions Additional Instructions: You were seen for urinary symptoms and abdominal pain. Your exam, labs and CT scan are reassuring. Your constipation may be related to slow transit. You are emptying your bladder appropriately. Please follow up with PCP for further management. Return to ED for fever, persistent vomiting, new/worse abdominal pain, other concerns. Stand Alone Forms: Portal Information Referrals: Olga Borden MD [Primary Care Provider, Medicine] [facility] General Mode of arrival: ambulatory. Date/Time Provider Initiated Documentation: 05/09/25 00:47. Limitations to Documentation: no limitations. Information obtained by: patient, RN notes reviewed and old records reviewed. HPI Narrative: Patient presents to ED with complaint of inability to urinate. This is not a new complaint for this patient. He has multiple visits to the urology clinic and ED for the same. Complains of continued abdominal pain and lack of bowel movement despite drinking a whole bottle of magnesium citrate 5 days ago. He was seen overnight on the for constipation. Discussion with the patient at that time deferred imaging given his multiple previous studies and lack of an acute abdomen. He reports no fever or vomiting. Continues to have abdominal pain mostly left-sided. Has been drinking plenty of fluids including 32 ounces this evening and is reporting inability to urinate. Related Data Home Medications Medication Instructions Recorded Confirmed aspirin 81 mg tablet,delayed 81 mg PO DAILY 12/14/13 05/09/25 release (Adult Low Dose Aspirin) nitroglycerin 0.4 mg sublingual 0.4 mg sublingual DIRECTED PRN 12/15/13 05/09/25 tablet Chest Pain ##25 triamcinolone acetonide 0.025 % 1 applic topical BID 10/21/21 05/09/25 lotion insulin aspart U-100 100 unit/mL 1 sliding scale dose subcut TID 07/22/24 05/09/25 (3 mL) subcutaneous pen (Novolog FlexPen U-100 Insulin aspart) saw palmetto 450 mg capsule 450 mg PO BID #30 caps 07/29/24 05/09/25 dicyclomine 10 mg capsule 10 mg PO TID PRN abdominal pain 08/09/24 05/09/25 #30 caps dulaglutide 3 mg/0.5 mL 1.5 mg subcut QWEEK 09/20/24 05/09/25 subcutaneous pen injector ([facility]) zinc sulfate 50 mg zinc (220 mg) 50 mg PO DAILY 09/20/24 05/09/25 capsule cholecalciferol (vitamin D3) 25 50 mcg PO DAILY 10/03/24 05/09/25 mcg (1,000 unit) capsule cyanocobalamin (vitamin B-12) 100 mcg IM [id number] 10/03/24 05/09/25 1,000 mcg/mL injection solution linaclotide 72 mcg capsule See Rx Instructions PO DAILY 10/03/24 05/09/25 (Linzess) finasteride 5 mg tablet 5 mg PO DAILY #90 tabs 11/01/24 05/09/25 polyethylene glycol 3350 17 17 g PO BID 01/18/25 05/09/25 gram/dose oral powder tamsulosin 0.4 mg capsule 0.8 mg (2 x 0.4 mg) PO DAILY #60 01/19/25 05/09/25 caps pantoprazole 40 mg tablet,delayed 40 mg PO DAILY #30 tabs 03/03/25 05/09/25 release magnesium oxide 400 mg PO DAILY 03/30/25 05/09/25 Previous Rx's Medication Instructions Recorded nitroglycerin 0.4 mg sublingual 0.4 mg sublingual DIRECTED PRN 12/15/13 tablet Chest Pain ##25 saw palmetto 450 mg capsule 450 mg PO BID #30 caps 07/29/24 dicyclomine 10 mg capsule 10 mg PO TID PRN abdominal pain 08/09/24 #30 caps finasteride 5 mg tablet 5 mg PO DAILY #90 tabs 11/01/24 tamsulosin 0.4 mg capsule 0.8 mg (2 x 0.4 mg) PO DAILY #60 01/19/25 caps pantoprazole 40 mg tablet,delayed 40 mg PO DAILY #30 tabs 03/03/25 release Allergies Allergy/AdvReac Type Severity Reaction Status Date / Time bupropion HCl (From Allergy Unknown Other (See Verified 05/09/25 01:02 Wellbutrin) Comment) erythromycin base Allergy Unknown Other (See Verified 05/09/25 01:02 Comment) pravastatin sodium (From Allergy Unknown Other (See Verified 05/09/25 01:02 Pravachol) Comment) Penicillins Allergy Other (See Verified 05/09/25 01:02 Comment) lisinopril AdvReac Other (See Verified 05/09/25 01:02 Comment) General LUX: 3 Exam Narrative Exam Narrative: Const: Obese male in NAD. VS per triage. HEENT: NC/AT. Normal facial exam. Neck: Supple. Trachea midline. Lungs: Normal respiratory effort. GI: Soft/ND. Tender without guarding or rebound on the left. Rectal: Deferred. Neuro: A+O x 3. Normal speech, mentation, gait. Cranial nerves II - XII grossly intact. No gross motor or sensory deficit. Medical Decision Making Patient presenting to the ED with continued abdominal pain and lack of a good bowel movement despite taking a bottle of mag citrate 5 days ago. Now unable to void,although that is a chronic complaint and bladder scan shows 50-100 ml in the bladder. He is tender along the left abdomen. Previous imaging deferred last week due to multiple previous scans in past, benign abdomen and history of constipation. Given tenderness will proceed with work up tonight to include labs and CT. Will confirm bladder scan results with straight cath urine and send for U/A to rule out UTI. 03:30 - Patient's straight cath resulted in about 50 ml out which correlates with the bladder scan. There is no sign of UTI. His labs overall are pretty unremarkable with normal white count and hemoglobin, normal kidney and liver function. CT scan prelim read per radiology with evidence of cirrhosis and probable portal hypertension, some gallbladder wall edema but given no tenderness/pain on right side likely related to liver disease. He does have some fluid and fecalization involving the small and large bowel possibly suggesting slow transit as the cause of his constipation complaints. There is nothing acute. Discussed with patient. Will discharge home and have asked patient to follow up with PCP. Return precautions provided. Medical Records Medical records reviewed: Yes I reviewed the patient's medical records. Medical records narrative: urology notes Lab Data Lab results reviewed: Yes I reviewed the patient's lab results. Lab results narrative: see [facility] All Active Problems (Updated 05/09/25 @ 03:37 by Miguel Angel Hansen MD) Constipation (Acute) Diverticulosis large intestine w/o perforation or abscess w/o bleeding (Acute) Gastritis (Acute) Gastric polyp (Acute) Hiatal hernia with GERD without esophagitis (Acute) Acute blood loss anemia (Acute) Melena (Acute) Urinary retention due to benign prostatic hyperplasia (Acute) Anxiety (Chronic) Hypercalcemia (Acute) PAF (paroxysmal atrial fibrillation) (Acute) Lower urinary tract symptoms (LUTS) (Acute) Morbid obesity (Acute) Tinnitus (Acute) Hemorrhage, anal or rectal (Acute) Degenerative joint disease (Chronic) Low back pain (Acute) Elevated alkaline phosphatase level (Acute) Lipodystrophy (Acute) Seasonal allergies (Acute) Hypomagnesemia (Acute) Fatigue (Acute) Cataract (Chronic) Vitreous degeneration (Acute) CAD (coronary artery disease) (Chronic) Hip joint pain (Acute) Vitamin B 12 deficiency (Acute) Pes anserinus bursitis of right knee (Acute) History of Surgical Procedure (Chronic) a. Umbilical hernia repair, 2003. b. Hand surgery. Anemia (Chronic) Hearing loss (Chronic) BPH (benign prostatic hypertrophy) (Chronic) History of tobacco use (Chronic) Depression (Chronic) Hyperlipidemia (Chronic) Hypertension (Chronic) Obesity (Chronic) a. Considering bariatric surgery. Sleep apnea, obstructive (Chronic) a. Wears nocturnal CPAP. Diabetes (Chronic) a. Last hemoglobin A1c 7.5% in 01/2003. b. Markedly overweight. Coronary disease (Chronic) a. Presented with worsening dysnea on exertion in December 2011. b. MPI testing showed a large reversible lesion in the anterior chest. c. Cardiac catheterization revealed significant four-vessel disease. d. S/P four-vessel coronary artery bypass grafting in January 2012, FERNANDEZ to the LAD, vein to the OM, first diagonal, and RCA. e. Atrial fibrillation postop. Medical History Nodule on liver Ecchymosis Cholecystitis Chest pain a. Rule out [place]. Adenomatous colon polyp Near syncope Disequilibrium Surgical History History of esophagogastroduodenoscopy (~03/16/25) H/O umbilical hernia repair H/O left knee surgery Left knee patella and tendon repair afer injury 2012 S/P colonoscopy (~03/16/25) adenoma S/P CABG (coronary artery bypass graft) X4 Family History Mother , 68 abd cancer Cancer abdomenal Father , 73 heart Heart disease Daughter Hypertension Social History Smoking/Tobacco Use Status: Former Tobacco Use Quit Date: 06/22/72 Smoking risk assessment performed?: Yes Alcohol Intake: former Drug use: Never Substance use type: former substance user Housing: house Current gender identity: male Do you feel safe at home: Yes Do you feel safe in your relationship?: Yes
[2025-05-09 00:57] VITALS: BP 154/64; PULSE 85; RESP 16; TEMP 36.5; O2SAT 97
--- NOTE | 2025-05-09 01:15 | DI.CT_ITS ---
Exam(s) CT ABDOMEN PELVIS W EXAM: CT ABDOMEN PELVIS W CLINICAL HISTORY: continued abd pain, constipation. TECHNIQUE: Imaging Protocol: Axial computed tomography images with coronal and sagittal reformatted images were created and reviewed CONTRAST MATERIAL: Intravenous: Omnipaque 350 Contrast volume:100 ml Oral: no COMPARISON: CT CT ABDOMEN PELVIS W from 09/21/2024 FINDINGS: ABDOMEN and PELVIS: Lung Bases: No acute findings. Liver: Normal density. Slightly nodular contour. No suspicious mass. Gallbladder and biliary tract: Small layering stones.. No wall thickening or pericholecystic fluid. No biliary dilation. Pancreas: Normal density. No abnormal calcifications or inflammatory process. No evidence of mass. Spleen: Normal. Kidneys: Normal size, contour and axis. No radiodense stones. No obstructive uropathy. Stable right renal cyst. No suspicious masses seen. Adrenal glands: No masses seen. Vasculature: Abdominal aorta non-dilated. Atherosclerotic calcifications. Soft tissues: Small fat containing right inguinal hernia. Edema in the right anterior abdominal wall subcutaneous fat. Similar to prior. Bladder: No gross wall thickening. No calculi.No focal mass. Bowel: No obstruction. No bowel wall thickening. Appendix normal. Normal quantity of stool. Peritoneal cavity: No ascites. No focal collection. No mesenteric inflammatory response. No free air. Bones: Unremarkable for age. Reproductive organs: Enlarged prostate. Lymph nodes: No pathologically enlarged lymph nodes. IMPRESSION:: No acute abnormality in the abdomen or pelvis. Cholelithiasis without evidence acute cholecystitis. The preliminary [facility] report was reviewed. RADIATION DOSE DELIVERED: 1,316.89mGy.cm Total DLP DATA REPOSITORY: All CT scans at this facility are submitted to the National Radiology Data Registry (NRDR) Dose Index Registry (DIR) with the [employer] (ACR). RADIATION OPTIMIZATION: All CT scans at this facility use at least one of these dose optimization techniques: automated exposure control; mA and/or kV adjustment per patient size (includes targeted exams where dose is matched to clinical indication); or iterative reconstruction.
[2025-05-09 01:49] LABS: Glucose Negative (Negative)
[2025-05-09] MEDS: Normal Saline 500 ML IV (01:58)
[2025-05-09 01:59] LABS: C & S Indicated? No; RBC 0-2 HPF (0-2)
[2025-05-09 02:05] LABS: Abs Immature Grans 0.03 10^3/uL (0.0-0.06); HCT 41.0 % (40.0-50.0); HGB 13.3 g/dL (13.5-17.5); Immature Grans % 0.3 %; MCH 27.9 pg (27.0-33.0); MCHC 32.4 % (32.0-36.0); MCV 86 fL (80-95); MPV 9.9 fL (8.0-11.0); Platelet Count 230 10^3/uL (130-400); RBC 4.76 10^6/uL (4.36-5.78); RDW 12.9 % (11.8-14.1); RDW-SD 40.4 fL; WBC 8.66 10^3/uL (4.4-10.8)
[2025-05-09 02:26] LABS: Lipase 24 U/L (<53)
[2025-05-09 02:28] LABS: ALT 11 U/L (10-49); AST 15 U/L (<34); Albumin 4.3 g/dL (3.4-5.0); Alkaline Phosphatase 86 U/L (46-116); Anion Gap 6.3 mmol/L (3-11); BUN 18 mg/dL (9-23); Bilirubin, Total 0.40 mg/dL (0.2-1.2); CO2 25.7 mmol/L (20.0-31.0); Calcium 10.1 mg/dL (8.3-10.6); Chloride 107 mmol/L (98-107); Glucose 130 mg/dL (74-106); Potassium 3.4 mmol/L (3.5-5.1); Sodium 139 mmol/L (136-145); Total Protein 7.4 g/dL (5.7-8.2)
[2025-05-09] MEDS: Normal Saline Flush 10 ML SYR IVP (02:35)
[2025-05-09] MEDS: Omnipaque 350 MG/ML 100 ML BTL IJ (02:35)
[2025-05-09] MEDS: Normal Saline - Diluent 50 ML VIAL IJ (02:35)
[2025-05-09 03:10] VITALS: BP 160/70; PULSE 70; RESP 16; O2SAT 98
--- NOTE | 2025-05-09 03:26 | DI.[facility]_ITS ---
PROCEDURE INFORMATION: Exam: CT Abdomen And Pelvis With Contrast Exam date and time: 05/09/2025 2:48 AM Age: 74 years old Clinical indication: Abdominal pain; Other: Abd pain more on left; Prior surgery; Surgery date: 6+ months; Surgery type: Hernia repair; Continued abd pain and constipation TECHNIQUE: Imaging protocol: Computed tomography of the abdomen and pelvis with contrast. Radiation optimization: All CT scans at this facility use at least one of these dose optimization techniques: automated exposure control; mA and/or kV adjustment per patient size (includes targeted exams where dose is matched to clinical indication); or iterative reconstruction. COMPARISON: CT ABDOMEN PELVIS W 09/21/2024 10:17 AM FINDINGS: Liver: Cirrhotic liver. Gallbladder and biliary ducts: Mild gallbladder wall prominence. Cholelithiasis. Pancreas: No CT evidence for acute pancreatitis. Spleen: Splenomegaly, suggesting possible portal hypertension. Please correlate clinically. Adrenal glands: Nodular adrenal thickening. Kidneys and ureters: Right renal cyst. Stomach and bowel: Apparent gastric thickening commensurate with underdistention. No intestinal obstruction is evident. Fluid in nondilated small bowel, nonspecific. Fecalization of contents in small bowel loops suggests stasis. Enlarged prostate with calcifications. No intestinal obstruction is evident. Fluid and retained fecal material in the colon. Appendix: No evidence of appendicitis. Intraperitoneal space: No free air. Vasculature: Arterial calcifications. Atherosclerotic changes in the aorta and its branches. Lymph nodes: Nonspecific mesenteric and retroperitoneal lymph nodes. Nonspecific mesenteric and retroperitoneal lymph nodes. Urinary bladder: No acute findings. Reproductive: See Stomach and bowel finding. Bones/joints: No pertinent acute abnormality seen. Soft tissues: Induration of the subcutaneous fat in the anterior abdominal wall, may reflect injection/trauma or cellulitis. Correlate clinically. IMPRESSION: 1. Cholelithiasis with mild gallbladder wall prominence. Consider right upper quadrant ultrasound if cholecystitis is of clinical concern. 2. Cirrhosis with evidence for portal hypertension. 3. Fluid in nondilated small and large bowel, nonspecific but may be reflective of mild inflammation. 4. Additional findings as above. Dictated and Authenticated by: Trish Corbett MD. Orderin Tyrone Michelle MD
[2025-05-09 03:42] VITALS: BP 162/72; PULSE 68; RESP 16; O2SAT 97
== END 2025-05-09 03:49 | disposition home or self-care (01) ==
PROVIDERS: Emergency Provider Emergency Medicine; PCP Family Medicine
DX: R10.32 Left lower quadrant pain (principal); K59.00 Constipation, unspecified; R33.8 Other retention of urine; E11.9 Type 2 diabetes mellitus without complications
CPT/HCPCS: 36415; 36416; 51701; 51798; 80053; 82962; 83690; 96360; 99285; 74177; 81003; 81015; 85025; 99284; J3490

== ENCOUNTER → 2025-05-11 06:28 | Outpatient (CLI) | payer MEDICARE, SELFPAY ==
--- NOTE | 2025-05-11 13:30 | DI.RAD_ITS ---
Exam(s) XR THORACIC SPINE COMPLETE EXAM: XR THORACIC SPINE COMPLETE CLINICAL HISTORY: LOW BACK PAIN, M54.50. TECHNIQUE: 2D digital imaging was performed. COMPARISON: No exams were available for comparison FINDINGS: 3 views No evidence of fracture or listhesis nor significant disc space narrowing. No scoliosis. No obvious abnormal widening of the paraspinal lines. No osseous lesions. Sternotomy wires and evidence of previous CABG noted. IMPRESSION: No significant osseous findings in the thoracic spinal column. DATA REPOSITORY: RADIATION DOSE DELIVERED:
--- NOTE | 2025-05-11 13:30 | DI.RAD_ITS ---
Exam(s) XR LUMBAR SPINE COMPLETE EXAM: XR LUMBAR SPINE COMPLETE CLINICAL HISTORY: LOW BACK PAIN, M54.50. TECHNIQUE: 2D digital imaging was performed. COMPARISON: CT CT ABDOMEN PELVIS W from 05/09/2025 FINDINGS: Five views No evidence of fracture, listhesis, nor pars interarticularis defects. There is moderate disc space narrowing at L1-2 L2-3 levels. Thumb mild vacuum phenomenon is noted in the L4-5 disc space but this disc space exhibits normal height as is L5-S1 level. There is mild narrowing of the L3-4 disc space. No osseous lesions. There is no scoliosis. There is facet arthropathy at L5-S1 level; less so at the other levels. Vascular calcifications noted throughout the abdominal aorta and iliac arteries. IMPRESSION: Multilevel chronic degenerative disc disease. No fracture or listhesis. Diffuse aortic calcification. DATA REPOSITORY: RADIATION DOSE DELIVERED:
== END ==
LOC: DI 06:28
PROVIDERS: PCP Family Medicine; Visit Provider Family Medicine
DX: M54.50 Low back pain, unspecified (principal)
CPT/HCPCS: 72072; 72110

== ENCOUNTER → 2025-05-30 10:53 | Outpatient (BNVA) | payer MEDICARE, SELFPAY | PROVIDERS: PCP Family Medicine; Referring Provider Family Medicine; Visit Provider Nurse Practitioner Gerontology | DX: N40.0 Benign prostatic hyperplasia without lower urinary tract symptoms (principal); K59.00 Constipation, unspecified; R39.9 Unspecified symptoms and signs involving the genitourinary system | CPT/HCPCS: 99214; 81002; 51798 ==

== ENCOUNTER 2025-05-30 11:56 | Emergency (ER) | payer MEDICARE, SELFPAY ==
[2025-05-30] VITALS (22 sets, daily range): BP systolic 133–149; BP diastolic 58–91; PULSE 70–96; RESP 0–32; TEMP 36.6–36.8; O2SAT 65–99
[2025-05-30 13:58] LABS: Abs Immature Grans 0.03 10^3/uL (0.0-0.06); HCT 43.4 % (40.0-50.0); HGB 14.1 g/dL (13.5-17.5); Immature Grans % 0.4 %; MCH 27.8 pg (27.0-33.0); MCHC 32.5 % (32.0-36.0); MCV 86 fL (80-95); MPV 10.2 fL (8.0-11.0); Platelet Count 200 10^3/uL (130-400); RBC 5.07 10^6/uL (4.36-5.78); RDW 13.0 % (11.8-14.1); RDW-SD 39.8 fL; WBC 8.06 10^3/uL (4.4-10.8)
[2025-05-30 14:07] LABS: Glucose Negative (Negative)
[2025-05-30] MEDS: Normal Saline 500 ML 250 ML IV (14:07)
[2025-05-30 14:21] LABS: Lipase 22 U/L (<53)
[2025-05-30 14:23] LABS: ALT 12 U/L (10-49); AST 18 U/L (<34); Albumin 4.5 g/dL (3.2-5.0); Alkaline Phosphatase 83 U/L (46-116); Anion Gap 8.2 mmol/L (3-11); BUN 15 mg/dL (9-23); Bilirubin, Total 0.7 mg/dL (0.2-1.2); CO2 28.8 mmol/L (20.0-31.0); Calcium 10.4 mg/dL (8.3-10.6); Chloride 104 mmol/L (98-107); Glucose 124 mg/dL (74-106); Potassium 4.2 mmol/L (3.5-5.1); Sodium 141 mmol/L (136-145); Total Protein 7.8 g/dL (5.7-8.2)
[2025-05-30] MEDS: Normal Saline - Diluent 50 ML VIAL IJ (14:40)
[2025-05-30] MEDS: Normal Saline Flush 10 ML SYR IVP (14:40)
[2025-05-30] MEDS: Omnipaque 350 MG/ML 100 ML BTL IJ (14:41)
--- NOTE | 2025-05-30 14:55 | DI.CT_ITS ---
Exam(s) CT LUMBAR SPINE RECONS CT ABDOMEN PELVIS W EXAM: CT ABDOMEN PELVIS W CLINICAL HISTORY: abd distension, dec bm and urinary output. TECHNIQUE: Imaging Protocol: Axial computed tomography images with coronal and sagittal reformatted images were created and reviewed Axial, coronal and sagittal images of the lumbar spine were reconstructed from the abdomen and pelvic CT. CONTRAST MATERIAL: Intravenous: Omnipaque 350 Contrast volume:100 ml Oral: no COMPARISON: CT CT ABDOMEN PELVIS W from 05/09/[address] LUMBAR SPINE RECONS from 05/30/2025 FINDINGS: ABDOMEN and PELVIS: Lung Bases: No acute findings. Liver: Normal density. Mildly nodular contour. No suspicious mass. Gallbladder and biliary tract: There are few small stones at the dependent portion of the gallbladder. No wall thickening or pericholecystic fluid. No biliary dilation. Pancreas: Normal density. No abnormal calcifications or inflammatory process. No evidence of mass. Spleen: Normal. Kidneys: Normal size, contour and axis. No radiodense stones. No obstructive uropathy. No suspicious masses seen. Adrenal glands: No masses seen. Vasculature: Abdominal aorta non-dilated. Atherosclerotic changes. Soft tissues: Area of increased skin thickening on in the anterior abdominal wall skin and subcutaneous fat consistent with injection site. Small fat containing on right inguinal hernia. Bladder: Normal bladder volume. Abnormally distended. No gross wall thickening. No calculi.No focal mass. Bowel: No obstruction. No bowel wall thickening. Appendix normal. Normal quantity of stool. Peritoneal cavity: No ascites. No focal collection. No mesenteric inflammatory response. No free air. Bones: Left L5 pars defect. Slight L5-S1 spondylolisthesis. Mild disc bulging at this and L4-5.. No compression fractures. Endplate osteophytes projecting mainly anteriorly and toward the right. Schmorl's node at the superior endplate of L 4. There are facet degenerative changes at L4-5 and L5-S1. There is bilateral neural foraminal narrowing at L4-5 and L5-S1. No evidence of spinal stenosis or visible focal disc herniation. Reproductive organs: Unremarkable. Lymph nodes: No pathologically enlarged lymph nodes. IMPRESSION:: No acute abnormality in the abdomen or pelvis. Mild disc bulging with endplate osteophytes and facet degenerative changes cause bilateral neural foraminal narrowing at L4-5 and L5-S1. RADIATION DOSE DELIVERED: Total DLP DATA REPOSITORY: All CT scans at this facility are submitted to the National Radiology Data Registry (NRDR) Dose Index Registry (DIR) with the [employer] (ACR). RADIATION OPTIMIZATION: All CT scans at this facility use at least one of these dose optimization techniques: automated exposure control; mA and/or kV adjustment per patient size (includes targeted exams where dose is matched to clinical indication); or iterative reconstruction.
--- NOTE | 2025-05-30 15:40 | ED.GENADUL_ITS ---
Discharge Plan Disposition Patient Disposition: Home Condition: Stable Discharge Details Clinical Impression: Abdominal distension Primary Care Provider: Olga Borden V ED Provider: Ethel March Home Meds and New Rx's Prescriptions: Continued finasteride 5 mg tablet 5 mg PO DAILY Qty: 90 3RF Trulicity 3 mg/0.5 mL pen injector 1.5 mg subcut QWEEK zinc sulfate 50 mg zinc (220 mg) capsule 50 mg PO DAILY cyanocobalamin (vitamin B-12) 1,000 mcg/mL solution 100 mcg IM [id number] Rx Instructions: (noted as Q3wk on PCP rx list) Linzess 72 mcg capsule See Rx Instructions PO DAILY Rx Instructions: dose unverified (PCP med list has 72mcg and 145mcg dose listed, each QD. Started by [facility] tamsulosin 0.4 mg capsule 0.8 mg PO DAILY Qty: 60 3RF triamcinolone acetonide 0.025 % lotion 1 applic topical BID cholecalciferol (vitamin D3) 25 mcg (1,000 unit) capsule 50 mcg PO DAILY polyethylene glycol 3350 17 gram/dose powder 17 g PO BID magnesium oxide 400 mg magnesium capsule 400 mg PO DAILY aspirin [Adult Low Dose Aspirin] 81 MG tablet,delayed release (DR/EC) 81 mg PO DAILY nitroglycerin 0.4 MG tablet, sublingual 0.4 mg Sublingual DIRECTED PRN (Reason: Chest Pain) Qty: 25 0RF pantoprazole 40 mg tablet,delayed release (DR/EC) 40 mg PO DAILY Qty: 30 0RF docusate sodium 100 mg capsule 100 mg PO BID Patient Comments: TAKE TWO CAPSULES BY MOUTH EVERY EVENING AT BEDTIME sennosides-docusate sodium [Stool Softener-Stimulant Laxat] 8.6-50 mg tablet 1 tab-cap PO DAILY Patient Comments: TAKE ONE TABLET BY MOUTH AT BEDTIME insulin aspart U-100 [Novolog FlexPen U-100 Insulin] 100 unit/mL (3 mL) insulin pen 1 sliding scale dose SUBCUT TID Patient Comments: INJECT 20-25 UNITS BEFORE MEALS THREE TIMES A DAY , MAY USE AN ADDITIONAL 20 UNITS AT BEDTIME IF NEEDED, MAXIMUM DAILY DOSE = 100 UNITS PER saw palmetto 450 mg capsule 450 mg PO BID Qty: 30 0RF Rx Instructions: give with food (meal/snack) dicyclomine 10 mg capsule 10 mg PO TID PRN (Reason: abdominal pain) Qty: 30 0RF Discharge Instructions Instructions: Gas and bloating Additional Instructions: I placed a referral for you to see GI at [facility] again Follow-up with PT here for pelvic floor dysfunction Continue on your prescribed medications Make sure you are drinking at least eight 8 ounce glasses of water daily You may find that a hot water bottle or a warm bath will help your bowels or stomach calm down Please return should you have new or worsening complaints Stand Alone Forms: Physical Therapy Referral, Portal Information Referrals: Olga Borden MD [Primary Care Provider, Medicine] Discharge Data Discharge Date/Time-TO BE ENTERED AT DEPARTURE: 05/30/25 15:55 HPI General Date/Time Provider Initiated Documentation: 05/30/25 12:04 . HPI Narrative: 74-year-old male presents with intermittent rectal pressure and abdominal distention with symptom from urology where he had an appointment with a distended abdomen. Patient denies any chest pain or shortness of breath he denies any nausea or vomiting. Denies any change in his pain states it is more persistent. He has experienced the symptoms for the past 9 months for which he has had pelvic floor therapy gastroenterology follow-up with colonoscopy and endoscopy at [facility]. He denies any dramatic change in symptoms. He is taking his stool softeners as prescribed. He did miss his morning device today's Appointment. Denies any blood in his stool denies weakness or dizziness. Related Data Home Medications ?Medication ?Instructions ?Recorded ?Confirmed aspirin 81 mg tablet,delayed 81 mg PO DAILY 12/14/13 1 07/31/24 release (Adult Low Dose Aspirin) nitroglycerin 0.4 mg sublingual 0.4 mg sublingual D IRECTED PRN 12/15/13 05/30/25 tablet Chest Pain ##25 triamcinolone acetonide 0.025 % 1 applic topical BID 0 10/21/21 05/30/25 lotion insulin aspart U-100 100 unit/mL 1 sliding scale dose subcut TID 07/22/24 05/30/25 (3 mL) subcutaneous pen (Novolog FlexPen U-100 Insulin aspart) saw palmetto 450 mg capsule 450 mg PO BID #30 caps 01/1305/09/25 dicyclomine 10 mg capsule 10 mg PO TID PRN abdominal p ain 08/09/24 05/30/25 #30 caps dulaglutide 3 mg/0.5 mL 1.5 mg subcut QWEEK 09/20/24 05/30/25 subcutaneous pen injector (Trulicity) zinc sulfate 50 mg zinc (220 mg) 50 mg PO DAILY 05/30/25 capsule cholecalciferol (vitamin D3) 25 50 mcg PO DAILY 05/30/25 mcg (1,000 unit) capsule cyanocobalamin (vitamin B-12) 100 mcg IM [id number] 09/2005/30/25 1,000 mcg/mL injection solution linaclotide 72 mcg capsule See Rx Instructions PO ARDHA Y 10/03/24 05/30/25 (Linzess) finasteride 5 mg tablet 5 mg PO DAILY #90 tabs 11/0105/30/25 polyethylene glycol 3350 17 17 g PO BID 01/18/2505/30 gram/dose oral powder tamsulosin 0.4 mg capsule 0.8 mg (2 x 0.4 mg) PO DAILY #60 01/19/25 05/30/25 caps pantoprazole 40 mg tablet,delayed 40 mg PO DAILY #30 t abs 03/03/25 05/30/25 release magnesium oxide 400 mg PO DAILY 03/30/2503/16 docusate sodium 100 mg capsule 100 mg PO BID 05/30/25 05/30/25 sennosides 8.6 mg-docusate sodium 1 tab-cap PO DAILY 1 07/31/24 05/30/25 50 mg tablet (Stool Softener-Stimulant Laxative) Previous Rx's ?Medication ?Instructions ?Recorded nitroglycerin 0.4 mg sublingual 0.4 mg sublingual D IRECTED PRN 12/15/13 tablet Chest Pain ##25 saw palmetto 450 mg capsule 450 mg PO BID #30 caps 01/13 dicyclomine 10 mg capsule 10 mg PO TID PRN abdominal p ain 08/09/24 #30 caps finasteride 5 mg tablet 5 mg PO DAILY #90 tabs 11/01 tamsulosin 0.4 mg capsule 0.8 mg (2 x 0.4 mg) PO DAILY #60 01/19/25 caps pantoprazole 40 mg tablet,delayed 40 mg PO DAILY #30 t abs 03/03/25 release Allergies Allergy/AdvReac Type Severity Reaction Status Date / Time bupropion HCl (From Allergy Unknown Other (See Verified 05/30/25 12:08 Wellbutrin) Comment) erythromycin base Allergy Unknown Other (See Verified 05/30/25 12:08 Comment) pravastatin sodium (From Allergy Unknown Other (See Verified 05/30/25 12:08 Pravachol) Comment) Penicillins Allergy Other (See Verified 05/30/25 12:08 Comment) lisinopril AdvReac Other (See Verified 05/30/25 12:08 Comment) General Stated Complaint: Abd Prob LUX: 3 Exam Narrative Exam Narrative: Alert and oriented 74-year-old gentleman in no acute distress mild lower abdominal tenderness right and left lower quadrants without rebound or guarding no significant distention noted, no CVA tenderness distal pulses intact no abdominal bruit or pulsatile mass no respiratory distress cardiac rate rhythm regular Course Vital Signs Vital signs: Vital Signs Temperature 36.6 C 05/30/25 12:04 Pulse 78 05/30/25 12:04 Respiratory Rate 16 05/30/25 12:04 Blood Pressure 133/70 05/30/25 12:04 Pulse Oximetry 98 05/30/25 12:04 Temperature 36.6 C 05/30/25 12:08 Pulse 78 05/30/25 12:08 Respiratory Rate 16 05/30/25 12:08 Blood Pressure 133/70 05/30/25 12:08 Pulse Oximetry 98 05/30/25 12:08 Pain Level 4 05/30/25 12:08 Lab/Test Results Lab/Test Results: Laboratory Tests Range/Units 05/30/25 05/30/25 13:24 13:47 WBC (4.4-10.8) 10^3/uL 8.06 RBC (4.36-5.78) 10^6/uL 5.07 Hgb (13.5-17.5) g/dL 14.1 Hct (40.0-50.0) % 43.4 MCV (80-95) fL 86 MCH (27.0-33.0) pg 27.8 MCHC (32.0-36.0) % 32.5 RDW (11.8-14.1) % 13.0 Plt Count (130-400) 10^3/uL 200 MPV (8.0-11.0) fL 10.2 Immature Gran % % 0.4 Neutrophils % % 77.6 Lymphocytes % % 15.5 Monocytes % % 5.3 Eosinophils % % 0.7 Basophils % % 0.5 Nucleated RBC % (0.0-0.3) % 0.0 Absolute Neutrophils (1.2-6.7) 10^3/uL 6.25 Absolute Lymphocytes (1.2-3.4) 10^3/uL 1.25 Absolute Monocytes (0.1-0.8) 10^3/uL 0.43 Absolute Eosinophils (0.0-0.7) 10^3/uL 0.06 Absolute Basophils (0.0-0.2) 10^3/uL 0.04 Sodium (136-145) mmol/L 141 Potassium (3.5-5.1) mmol/L 4.2 Chloride (98-107) mmol/L 104 Carbon Dioxide (20.0-31.0) mmol/L 28.8 Anion Gap (3-11) mmol/L 8.2 BUN (9-23) mg/dL 15 Creatinine (0.73-1.18) mg/dL 0.97 Est GFR (CKD-EPI 2020) (mL/min/1.73m2) 75.93 Glucose (74-106) mg/dL 124 H Calcium (8.3-10.6) mg/dL 10.4 Total Bilirubin (0.2-1.2) mg/dL 0.7 AST (<34) U/L 18 ALT (10-49) U/L 12 Alkaline Phosphatase (46-116) U/L 83 Total Protein (5.7-8.2) g/dL 7.8 Albumin (3.2-5.0) g/dL 4.5 Lipase (<53) U/L 22 Urine Color (Yellow) Yellow Urine Clarity (Clear) Clear Urine pH (5-8) 6.5 Ur Specific [place] (1.005-1.025) 1.020 Urine Protein (Neg-Trace) mg/dL Negative Urine Ketones (Negative) mg/dL Trace H Urine Blood (Negative) Negative Urine Nitrite (Negative) Negative Urine Bilirubin (Negative) Negative Urine Urobilinogen (Up to 0.2) mg/dL 0.2 Ur Leukocyte Esterase (Negative) Negative Urine Glucose (Negative) mg/dL Negative Medical Decision Making Results: CT abdomen pelvis does not show acute abnormality per radiology interpretation my review, CBC, CMP, urinalysis within normal limits, postvoid residual 70 CT lumbar spine per radiology interpretation my review has mild foraminal stenosis L3-L5 Assessment and plan: Patient's exam is reassuring, I do not see a significant stool volume on CT scan certainly there is no evidence of bowel obstruction. Patient is encouraged to continue his bowel regimen and I have placed a referral to our physical therapy group for pelvic floor therapy which was encouraged by GI at [facility]. At this time patient is quite stable his diagnostic labs and imaging are reassuring there is no clinical evidence of cauda equina syndrome. PCP follow-up encouraged return precautions reviewed [facility] All Active Problems (Updated 05/30/25 @ 15:36 by SATYA Osorio) Abdominal distension (Acute) Constipation (Acute) Diverticulosis large intestine w/o perforation or abscess w/o bleeding (Acute) Gastritis (Acute) Gastric polyp (Acute) Hiatal hernia with GERD without esophagitis (Acute) Acute blood loss anemia (Acute) Melena (Acute) Urinary retention due to benign prostatic hyperplasia (Acute) Anxiety (Chronic) Hypercalcemia (Acute) PAF (paroxysmal atrial fibrillation) (Acute) Lower urinary tract symptoms (LUTS) (Acute) Morbid obesity (Acute) Tinnitus (Acute) Hemorrhage, anal or rectal (Acute) Degenerative joint disease (Chronic) Low back pain (Acute) Elevated alkaline phosphatase level (Acute) Lipodystrophy (Acute) Seasonal allergies (Acute) Hypomagnesemia (Acute) Fatigue (Acute) Cataract (Chronic) Vitreous degeneration (Acute) CAD (coronary artery disease) (Chronic) Hip joint pain (Acute) Vitamin B 12 deficiency (Acute) Pes anserinus bursitis of right knee (Acute) History of Surgical Procedure (Chronic) a. Umbilical hernia repair, 2003. b. Hand surgery. Anemia (Chronic) Hearing loss (Chronic) BPH (benign prostatic hypertrophy) (Chronic) History of tobacco use (Chronic) Depression (Chronic) Hyperlipidemia (Chronic) Hypertension (Chronic) Obesity (Chronic) a. Considering bariatric surgery. Sleep apnea, obstructive (Chronic) a. Wears nocturnal CPAP. Diabetes (Chronic) a. Last hemoglobin A1c 7.5% in 01/2003. b. Markedly overweight. Coronary disease (Chronic) a. Presented with worsening dysnea on exertion in December 2011. b. MPI testing showed a large reversible lesion in the anterior chest. c. Cardiac catheterization revealed significant four-vessel disease. d. S/P four-vessel coronary artery bypass grafting in January 2012, FERNANDEZ to the LAD, vein to the OM, first diagonal, and RCA. e. Atrial fibrillation postop. Medical History Nodule on liver Ecchymosis Cholecystitis Chest pain a. Rule out PR. Adenomatous colon polyp Near syncope Disequilibrium Surgical History History of esophagogastroduodenoscopy (~03/16/25) H/O umbilical hernia repair H/O left knee surgery Left knee patella and tendon repair afer injury 2012 S/P colonoscopy (~03/16/25) adenoma S/P CABG (coronary artery bypass graft) X4 Family History Mother , 68 abd cancer Cancer abdomenal Father , 73 heart Heart disease Daughter Hypertension Social History Smoking/Tobacco Use Status: Former Tobacco Use Quit Date: 06/22/72 Smoking risk assessment performed?: Yes Alcohol Intake: former Drug use: Never Substance use type: former substance user Housing: house Current gender identity: male Do you feel safe at home: Yes Do you feel safe in your relationship?: Yes
== END 2025-05-30 15:55 | disposition home or self-care (01) ==
PROVIDERS: Emergency Provider Physician Assistant; PCP Family Medicine
DX: R14.0 Abdominal distension (gaseous) (principal)
CPT/HCPCS: 99283; 99285; 36416; 82962; 51798; 80053; 81002; 83690; 96360; 99214; 74177; 81003; 85025; J3490

== ENCOUNTER → 2025-05-31 14:00 | Outpatient (BNVA) | payer MEDICARE, SELFPAY | PROVIDERS: PCP Family Medicine; Referring Provider Family Medicine; Visit Provider Nurse Practitioner Gerontology | DX: R39.198 Other difficulties with micturition (principal); K59.00 Constipation, unspecified; R39.9 Unspecified symptoms and signs involving the genitourinary system | CPT/HCPCS: 99214; 51798 ==